=== PATIENT | female | born 1960 | race Caucasian/White ===

== ENCOUNTER 2019-04-01 09:33 | Emergency (ER) | payer MEDICARE, MEDICAID, SELFPAY ==
--- NOTE | ~2019-04-01 | XR_ITS ---
EXAMINATION: XR chest 2V DATE: 04/01/2019 10:34 INDICATION: COPD, history of laryngeal cancer, dizziness TECHNIQUE: PA and lateral views of the chest are obtained. COMPARISON: 04/25/2018 FINDINGS: The lungs are free of acute opacities. There is no pleural effusion or pneumothorax. The ca rdiomediastinal silhouette is normal. There is mild thoracic spondylosis. IMPRESSION: 1. No acute cardiopulmonary abnormality. Reviewed, dictated and finalized at location A. ENT OFFICE REP
[2019-04-01 09:44] VITALS: BP 143/90; PULSE 66; RESP 16; TEMP 36.7; O2SAT 98
--- NOTE | 2019-04-01 09:56 | ECG_ITS ---
Measurements Intervals [place] Rate: 64 P: 54 [place]: 151 QRS: 44 QRSD: 88 T: 44 QT: 409 QTc: 424 Interpretive Statements SINUS RHYTHM LOW QRS VOLTAGE IN PRECORDIAL LEADS BORDERLINE ECG Electronically Signed On 04-01-2019 10:02:35 ALMOND BLANCHER OPERATOR by Don Hyman D.O.
[2019-04-01 10:17] LABS: Basophils Percent Auto 0.5 % (0.2-1.2); Eosinophils Absolute Auto 0.1 K/mm3 (0-0.3); Eosinophils Percent Auto 3.2 % (0-4.4); Hematocrit 46.2 % (37.0-47.0); Hemoglobin 14.9 g/dL (12.0-15.0); Immature Granulocyte Absolute 0.01 K/mm3 (0.00-0.031); Immature Granulocyte Percent A 0.3 % (0-0.5); Lymphocytes Absolute Auto 0.68 K/mm3 (0.9-3.2); Lymphocytes Percent Auto 18.1 % (18.3-44.2); Mean Corpuscular HGB Conc 32.3 g/dl (32-36); Mean Corpuscular Hemoglobin 29.7 pg (26-34); Mean Corpuscular Volume 92.2 fl (80-100); Mean Platelet Volume 9.9 fl (7.4-10.4); Monocytes Absolute Auto 0.2 K/mm3 (0.1-0.6); Monocytes Percent Auto 5.6 % (2.6-8.5); Neutrophils Absolute Auto 2.7 K/mm3 (1.3-6.7); Neutrophils Percent Auto 72.3 % (45.5-73.1); Platelet Count Result 185 k/mm3 (150-375); Red Blood Count 5.01 M/mm3 (4.2-5.4); Red Cell Distribution Width 13.8 % (11.5-14.5); White Blood Count 3.8 K/mm3 (4.5-10.0)
--- NOTE | 2019-04-01 10:32 | PC.NURSE ---
PT TO XRAY AT THIS TIME.
[2019-04-01 10:37] LABS: Alanine Aminotransferase 31 U/L (4-35); Albumin Level 3.8 g/dL (3.5-5.1); Alkaline Phosphatase 159 U/L (38-126); Aspartate Amino Transferase 69 U/L (14-36); Blood Urea Nitrogen 11 mg/dL (7-17); Carbon Dioxide 33 mmol/L (22-30); Chloride 95 mmol/L (98-107); Estimated CRCL calculation 112 ml/min; Estimated Glomerular Filt Rate > 60; Glucose 209 mg/dL (65-105); Potassium 4.2 mmol/L (3.4-5.0); Sodium 134 mmol/L (137-145)
--- NOTE | 2019-04-01 10:42 | ED.DIZZY ---
HPI - Dizziness General Chief Complaint: Dizziness Stated Complaint: Dizzy Time Seen by Provider: 04/01/19 10:27 Source: patient and RN notes reviewed Mode of arrival: ambulatory Limitations: no limitations History of Present Illness HPI Narrative: Pt is a 58 y/o female who presents to the ED with c/o dizziness which began at 0300 this morning. She states she sat up and her symptoms were alleviated. She also reports lightheadedness due to her dizziness. Pt states she called her radiologist's office with her symptoms, who prompted the pt to come to the ED to be evaluated. She states as the morning has progressed, she has tried to lay down and clsoe her eyes to alleviate her symptoms, but there was not much relief. She reports movement has actually been worsening her symptoms. Pt also reports a burning sensation in her midsternal chest, SOB, and nausea, but denies chest pain, heart palpitations, or ABD pain. Pt reports she has an appointment with Dr. Santiago in 5 days. MD elicited complaint: dizziness Onset (ago): hour(s) (0300 this morning) Timing: sudden onset and awoke with symptoms Description: lightheadedness History of similar symptoms: No Exacerbating factors: movement/ambulation Relieving factors: other (sitting still earlier in the morning but no relieving symptoms currently) Associated symptoms: nausea, shortness of breath and other (burning sensation in midsternal chest) Related Data Home Medications Medication Instructions Recorded Confirmed aspirin [Aspir-Low] 81 mg PO DAILY 02/14/19 02/14/19 atorvastatin 40 mg PO DAILY 02/14/19 02/14/19 cefdinir 300 mg PO Q12H 02/14/19 02/14/19 duloxetine 60 mg PO DAILY 02/14/19 02/14/19 insulin degludec [Tresiba U-100 46 unit SUBCUT HS 02/14/19 02/14/19 Insulin] lorazepam [Ativan] 2 mg PO BID 02/14/19 02/14/19 metformin 500 mg PO BID 02/14/19 02/14/19 potassium chloride 10 meq PO DAILY 02/14/19 02/14/19 albuterol sulfate 2 puff INHALATION QID 02/18/19 02/18/19 Allergies Allergy/AdvReac Type Severity Reaction Status Date / Time codeine Allergy Mild NAUSEA/VOMI Unverified 05/21/08 15:41 TING Penicillins Allergy Mild HIVES Verified 04/25/18 21:38 warfarin Allergy Mild Unverified 05/21/08 15:41 adhesive tape Allergy Unknown RASH Verified 04/25/18 21:38 COCONUT Allergy Unknown Uncoded 11/03/04 06:38 TOMATOES Allergy Unknown Uncoded 11/03/04 06:38 Review of Systems Review of Systems: All systems reviewed & are unremarkable except as noted in HPI and below Cardiovascular: Cardiovascular: Denies chest pain, Reports lightheadedness, Reports dyspnea and Reports other (Reports:burning sensation in midsternal chest; Denies: heart palpitations) Respiratory: Respiratory: Reports dyspnea Gastrointestinal: Gastrointestinal: Denies abdominal pain, Reports heartburn and Reports nausea Neurologic: Reports dizziness PMFSH Past Medical History Medical History (Updated 04/01/19 @ 12:59 by Castillo Marrero MD) Asthma COPD (chronic obstructive pulmonary disease) Diabetes HTN (hypertension) Surgical History Surgical History (Updated 03/04/19 @ 14:37 by Alex Corona MD) H/O knee surgery H/O sinus surgery H/O: section History of cholecystectomy Family History Family History (Updated 02/14/19 @ 14:48 by Jason Wall MD) Other Breast cancer Maternal Aunt Mother Bladder cancer Small cell cancer of the bladder Social History Social History (Updated 02/14/19 @ 15:09 by Jason Wall MD) Smoking packs per day: 2 Smoking cigarettes per day: 40.0 Years smoked: 40 Smoking pack-years: 80.00 Smoking status: Current every day smoker Tobacco type: cigarettes Additional smoking assessment comments: down to 1/2 pack now Alcohol intake: former Substance use: never Spiritual care concerns: No Exam Narrative: Exam Narrative: Const: Obese, chronically ill appearing. No distress. HENMT: Dry mucous membranes, li
--- NOTE | 2019-04-01 10:49 | PC.NURSE ---
ANGY SOLANO AT BEDSIDE FOR PT ASSESSMENT. RN ALSO AT BEDSIDE AT THIS TIME, PT COMPLAINING ABOUT BP CUFF, ASKING IF IT WILL GO OFF ON IT'S OWN, I INFORMED PT THAT BP WOULD BE TAKEN EVERY HOUR SO TO HELP STAFF TRACK HER VS. PT UNNCOOPERATIVE, STATES THAT IM NOT WEARING THIS, IT HURTS MY ARM. PT THEN RIPS CUFF OFF ARM.
[2019-04-01 10:51] VITALS: BP 149/71; PULSE 68; RESP 13; O2SAT 96
--- NOTE | 2019-04-01 10:52 | PC.NURSE ---
PT UNABLE TO PRODUCE URINE SPECIMEN AT THIS TIME, REFUSING CATH, EDUCATED ON THE NEED FOR SAMPLE.
[2019-04-01] MEDS: SODIUM CHLORIDE 0.9% IV 1,000 ML 999 ML IV CONT (11:05)
[2019-04-01 12:12] VITALS: BP 147/62; PULSE 66
[2019-04-01 12:13] VITALS: BP 153/62; BP 163/91; PULSE 69; PULSE 70
[2019-04-01 12:18] VITALS: BP 163/91; PULSE 66; RESP 16; O2SAT 98
[2019-04-01 12:31] LABS: Add Urine Microscopic? YES; Appearance Urine Clear (Clear); Bacteria Urine Trace /hpf; Bilirubin Urine Negative (Negative); Blood Urine Negative (Negative); Color Urine Yellow (Yellow); Glucose Urine UA Negative (Negative); Ketones Urine Negative (Negative); Leukocyte Esterase Ur Trace LEU/UL (Negative); Mucus Urine Few /lpf; Nitrate Urine Negative (Negative); Protein Urine Negative (Negative); Specific Grav Ur 1.024 (1.001-1.035); Squamous Epithelial Cell Urine Many /hpf (Few)
[2019-04-01 13:13] VITALS: BP 163/91; PULSE 68; RESP 16; O2SAT 97
== END 2019-04-01 13:14 | disposition home or self-care (01) ==
PROVIDERS: Emergency Provider Emergency Medicine; PCP Internal Medicine
DX: R42 Dizziness and giddiness (principal); J44.9 Chronic obstructive pulmonary disease, unspecified; E11.9 Type 2 diabetes mellitus without complications; I10 Essential (primary) hypertension; Z79.4 Long term (current) use of insulin; Z79.84 Long term (current) use of oral hypoglycemic drugs; Z79.82 Long term (current) use of aspirin
CPT/HCPCS: 36415; 71046; 77387; 77412; 80053; 81001; 85025; 87086; 93005; 96360; 99283; A9270; J7030

== ENCOUNTER 2019-04-07 10:25 | Inpatient (IN) | payer MEDICARE, MEDICAID, SELFPAY ==
[2019-04-07] VITALS (12 sets, daily range): BP systolic 137–161; BP diastolic 58–85; PULSE 60–100; RESP 12–23; TEMP 36.2–36.8; O2SAT 96–100; BMI 40.2
--- NOTE | ~2019-04-07 | US_ITS ---
EXAMINATION: US venous doppler [facility] DATE: 04/08/2019 13:03 INDICATION: Pulmonary embolism. TECHNIQUE: Grayscale ultrasound images without and with compression and Doppler ultrasound images of the bilateral lower extremity veins were obtained. COMPARISON: None. FINDINGS: The visualized portions of right common femoral vein, profunda (deep) femoral vein, femoral vein, pop liteal vein, posterior tibial veins, peroneal veins, gastrocnemius vein and greater saphenous vein ou tflow are patent. There appears to be reflux of less than 2 second duration at the right popliteal ve in and of approximately 1 second duration at the right femoral vein. The visualized portions of left common femoral vein, profunda femoral vein, femoral vein, popliteal v ein, posterior tibial veins, peroneal veins, gastrocnemius vein and greater saphenous vein outflow ar e patent. IMPRESSION: 1. No deep venous thrombosis in either lower limb. Reviewed, dictated and finalized at location A. EAST ARCHEOLOGY PROFESSOR
--- NOTE | ~2019-04-07 | CT_ITS ---
EXAMINATION: CTA chest PE protocol DATE: 04/07/2019 12:03 INDICATION: Shortness of breath. Cough. TECHNIQUE: Computed tomography angiography (CTA) of the chest was performed with 100 mL Omnipaque-350 intravenous contrast timed to evaluate the pulmonary arteries. Coronal maximum intensity projection 3D-reconstructions were created by the technologist. Automated exposure control and iterative reconst ruction technique were employed. The dose-length product was 785.22 mGy-cm. COMPARISON: PET/CT 02/07/2019 FINDINGS: The lungs demonstrate mild atelectasis. There is mild emphysema. There are peripheral airsp roger and groundglass opacities in basilar right lower lobe. Right-sided pleural thickening is noted. N o significant pleural effusion. The heart size is normal. No pericardial effusion. There are coronary artery calcifications. There is linear nonocclusive thrombus in distal right main pulmonary artery a nd in right lower lobe pulmonary arteries. There is an old healed fracture of proximal right humerus. There is mild thoracic spondylosis. IMPRESSION: 1. Pulmonary emboli in distal right main pulmonary artery and in right lower lobe. 2. Peripheral airspace and groundglass opacities in basilar right lower lobe, consistent with infarct . 3. Mild emphysema. Reviewed, dictated and finalized at location A. RONMENTAL SERVICES ASSISTANT IMPRESSION: 1. Pulmonary emboli in distal right main pulmonary artery and in right lower lo be. 2. Peripheral airspace and groundglass opacities in basilar right lower lobe, c onsistent with infarct. 3. Mild emphysema.
--- NOTE | ~2019-04-07 | XR_ITS ---
EXAMINATION: XR chest 2V DATE: 04/07/2019 10:53 INDICATION: Shortness of breath. TECHNIQUE: Frontal and lateral views of the chest were obtained. COMPARISON: Chest 2 views 04/01/2019 FINDINGS: The chest demonstrates clear lungs without pneumonia, pleural effusion, or pneumothorax. Th e heart size is normal. There is an old healed fracture of proximal right humerus. IMPRESSION: 1. No acute cardiopulmonary disease. Reviewed, dictated and finalized at location A. T OFFICE JAVA DEVELOPER
--- NOTE | 2019-04-07 10:27 | ECG_ITS ---
Measurements Intervals [place] Rate: 62 P: 52 [place]: 154 QRS: 31 QRSD: 88 T: 43 QT: 395 QTc: 403 Interpretive Statements SINUS RHYTHM BASELINE ARTIFACT- II, III, AVR, AVF, V1 NORMAL ECG Electronically Signed On 04-07-2019 13:51:52 STEWARD/STEWARDESS by Don Hyman D.O.
[2019-04-07 10:48] LABS: Basophils Percent Auto 0.6 % (0.2-1.2); Eosinophils Absolute Auto 0.2 K/mm3 (0-0.3); Eosinophils Percent Auto 5.5 % (0-4.4); Hematocrit 42.5 % (37.0-47.0); Hemoglobin 13.6 g/dL (12.0-15.0); Lymphocytes Absolute Auto 0.72 K/mm3 (0.9-3.2); Mean Corpuscular Hemoglobin 29.4 pg (26-34); Mean Platelet Volume 9.9 fl (7.4-10.4); Monocytes Absolute Auto 0.3 K/mm3 (0.1-0.6); Monocytes Percent Auto 9.1 % (2.6-8.5); Neutrophils Absolute Auto 2.1 K/mm3 (1.3-6.7); Neutrophils Percent Auto 62.8 % (45.5-73.1); Platelet Count Result 174 k/mm3 (150-375); Red Blood Count 4.62 M/mm3 (4.2-5.4); Red Cell Distribution Width 13.8 % (11.5-14.5); White Blood Count 3.3 K/mm3 (4.5-10.0)
--- NOTE | 2019-04-07 10:54 | ED.SOB ---
HPI - SOB/Dyspnea General Chief Complaint: Shortness of Breath/Dyspnea <KRISTYN Carlin Last Filed: 04/07/19 13:44> Stated Complaint: ?sob/dehydration <KRISTYN Carlin Last Filed: 04/07/19 13:44> Time Seen by Provider: 04/07/19 10:29 <KRISTYN Carlin Last Filed: 04/07/19 13:44> Source: patient, family and old records reviewed <KRISTYN Carlin Last Filed: 04/07/19 13:44> Mode of arrival: ambulatory <KRISTYN Carlin Last Filed: 04/07/19 13:44> Limitations: no limitations <KRISTYN Carlin Last Filed: 04/07/19 13:44> History of Present Illness HPI Narrative: Patient is a 58-year-old female who presents to emergency department for evaluation of upper respiratory symptoms that have been present for the last 2 days noting productive cough of phlegm with some congestion patient is currently undergoing radiation therapy for laryngeal cancer patient on arrival is in the room in no distress symptoms worse with activity patient has had recent dehydration as well. Patient has not been seen for this complaint. Patient recently quit smoking. Patient also notes chills <KRISTYN Carlin Last Filed: 04/07/19 13:44> Related Data Home Medications: Home Medications Medication Instructions Recorded Confirmed aspirin [Aspir-Low] 81 mg PO DAILY 02/14/19 02/14/19 atorvastatin 40 mg PO DAILY 02/14/19 02/14/19 cefdinir 300 mg PO Q12H 02/14/19 02/14/19 duloxetine 60 mg PO DAILY 02/14/19 02/14/19 insulin degludec [Tresiba U-100 48 unit SUBCUT HS 02/14/19 02/14/19 Insulin] lorazepam [Ativan] 2 mg PO BID 02/14/19 02/14/19 metformin 500 mg PO BID 02/14/19 02/14/19 potassium chloride 10 meq PO DAILY 02/14/19 02/14/19 albuterol sulfate 2 puff INHALATION QID 02/18/19 02/18/19 Novolog Flexpen U-100 Insulin 04/07/19 <KRISTYN Carlin Last Filed: 04/07/19 13:44> Allergies/Adverse Reactions: Allergies Allergy/AdvReac Type Severity Reaction Status Date / Time codeine Allergy Mild NAUSEA/VOMI Unverified 05/21/08 15:41 TING Penicillins Allergy Mild HIVES Verified 04/25/18 21:38 warfarin Allergy Mild Unknown Unverified 04/07/19 10:58 adhesive tape Allergy Unknown RASH Verified 04/25/18 21:38 COCONUT Allergy Unknown Unknown Uncoded 04/07/19 10:58 TOMATOES Allergy Unknown Unknown Uncoded 04/07/19 10:58 <Lopez Trevino PA-C - Last Filed: 04/07/19 13:44> Review of Systems Review of Systems: All systems reviewed & are unremarkable except as noted in HPI and below <Lopez Trevino PA-C - Last Filed: 04/07/19 13:44> PMFSH Past Medical History Medical History: Medical History Asthma COPD (chronic obstructive pulmonary disease) Diabetes HTN (hypertension) <Lopez Trevino PA-C - Last Filed: 04/07/19 13:44> Surgical History Surgical History: Surgical History H/O knee surgery H/O sinus surgery H/O: section History of cholecystectomy <Lopez Trevino PA-C - Last Filed: 04/07/19 13:44> Family History Family History: Family History (Updated 02/14/19 @ 14:48 by Jason Wall MD) Other Breast cancer Maternal Aunt Mother Bladder cancer Small cell cancer of the bladder <Lopez Trevino PA-C - Last Filed: 04/07/19 13:44> Social History Social History: Social History Smoking packs per day: 2 Smoking cigarettes per day: 40.0 Years smoked: 40 Smoking pack-years: 80.00 Smoking status: Current every day smoker Tobacco type: cigarettes Additional smoking assessment comments: down to 1/2 pack now Alcohol intake: former Substance use: never Spiritual care concerns: No <Lopez Trevino PA-C - Last Filed: 04/07/19 13:44> Exam Narrative: Exam Narrative: GENERAL: Well-appear
[2019-04-07 10:59] LABS: Blood Urea Nitrogen 8 mg/dL (7-17); Calcium 9.2 mg/dL (8.4-10.2); Carbon Dioxide 30 mmol/L (22-30); Chloride 102 mmol/L (98-107); Estimated Glomerular Filt Rate > 60; Glucose 126 mg/dL (65-105); Sodium 137 mmol/L (137-145)
[2019-04-07] MEDS: SODIUM CHLORIDE 0.9% IV 1,000 ML 999 ML IV CONT (11:00)
[2019-04-07] MEDS: ALBUTEROL SULFATE NEB 2.5 MG/0.5 ML INH 20 MG INHALATION (11:02)
[2019-04-07] MEDS: IPRATROPIUM BR 0.02% INH SOLN 0.5 MG/2.5 ML VIAL 1 MG INHALATION (11:02)
[2019-04-07 11:15] LABS: INR 0.9; Prothrombin Time 11.4 Seconds (11.1-14.7)
[2019-04-07 11:16] LABS: Partial Thromboplastin Time 25.1 SECONDS (22.3-36.8)
[2019-04-07 11:16] LABS: Alveolar/Arterial O2 Gradient 25.5 mmHg; Base Excess ABG 2.5 mEq/l (+/-2.0); Carboxyhemoglobin 0.9 % THb (0-2.0); Fractional Inspired Oxygen 21 %; HCO3 ABG 28.2 mEq/l (22.0-26.0); Methemoglobin ABG 0.2 %THb (0-1.5); Oxygen Content ABG 18.4 %vol (16.0-22.0); Oxygen Saturation ABG 93.1 % (95.0-100.0); Oxyhemoglobin 92.7 % THb (90.0-100.0); PCO2 ABG 47.6 mmHg (35.0-45.0); PO2 ABG 67.2 mmHg (80.0-100.0); Reduced Hemoglobin 6.2 %THb (0-5.0); Total Hemoglobin 14.1 g/dL (12.0-18.0)
[2019-04-07 11:17] LABS: Device ROOM AIR; Site Drawn RIGHT BRACHIAL
[2019-04-07 11:18] LABS: D Dimer 0.73 ug/mL (<0.48)
[2019-04-07 11:23] LABS: Troponin I < 0.012 ng/mL (0.000-0.034)
[2019-04-07] MEDS: SILVER SULFADIAZINE 1% CR 50 GM JAR (*BKC) 1 APPLIC TOPICAL (13:33)
[2019-04-07] MEDS: HEPARIN SOD/D5W 100 UNITS/ML 25,000 UNITS/250 ML BAG 15 UNITS IV CONT (14:21)
[2019-04-07] MEDS: HEPARIN SODIUM 5,000 UNITS/ML VIAL 10000 UNITS IV PUSH (14:21)
--- NOTE | 2019-04-07 14:57 | PC.NURSE ---
This patient, Lanny Bustillo, was admitted to Medical Room 348-01. Patient/family oriented to hospital policies and general routines including ID bracelet, bed and alarms, visiting hours, pain management, procedures, bathroom and other care routines, personal items, smoking policy, room service/diet, and visiting hours. Valuables list has been completed. Information on how to activate the Rapid Response Team has been discussed. Patient/Family are encouraged to report perceived risks to care and to ask questions if they do not understand what they are told or what they should do.
--- NOTE | 2019-04-07 14:57 | PC.NURSE ---
PTT ordered 6hrs from the time the MAR showed the Heparin drip was started.
[2019-04-07] MEDS: SODIUM CHLORIDE 0.9% IV 1,000 ML 100 ML IV CONT (16:13)
[2019-04-07] MEDS: INSULIN ASPART (*BKC) 100 UNITS/ML SUB-Q (16:24)
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
[2019-04-07 18:15] LABS: Glucose Point of Care 205 (65-105)
[2019-04-07] MEDS: SILVER SULFADIAZINE 1% CR 400 GM JAR (*BKC) 1 APPLIC TOPICAL (18:21)
[2019-04-07] MEDS: FAMOTIDINE 20 MG/2 ML VIAL IV PUSH (20:39)
[2019-04-07 21:07] LABS: Partial Thromboplastin Time 181.5 SECONDS (22.3-36.8)
[2019-04-07] MEDS: LORAZEPAM 1 MG TABLET 2 MG PO (21:09)
[2019-04-08] VITALS: BP 124/61; PULSE 56; PULSE 58; RESP 16; TEMP 36.6; O2SAT 98
[2019-04-08 02:49] LABS: Basophils Percent Auto 0.9 % (0.2-1.2); Eosinophils Absolute Auto 0.1 K/mm3 (0-0.3); Eosinophils Percent Auto 4.7 % (0-4.4); Hematocrit 36.7 % (37.0-47.0); Hemoglobin 11.8 g/dL (12.0-15.0); Immature Granulocyte Absolute 0.01 K/mm3 (0.00-0.031); Immature Granulocyte Percent A 0.4 % (0-0.5); Lymphocytes Absolute Auto 0.86 K/mm3 (0.9-3.2); Lymphocytes Percent Auto 36.8 % (18.3-44.2); Mean Corpuscular HGB Conc 32.2 g/dl (32-36); Mean Corpuscular Hemoglobin 29.8 pg (26-34); Mean Corpuscular Volume 92.7 fl (80-100); Mean Platelet Volume 10.2 fl (7.4-10.4); Monocytes Absolute Auto 0.3 K/mm3 (0.1-0.6); Neutrophils Absolute Auto 1.1 K/mm3 (1.3-6.7); Neutrophils Percent Auto 45.2 % (45.5-73.1); Platelet Count Result 147 k/mm3 (150-375); Red Blood Count 3.96 M/mm3 (4.2-5.4); White Blood Count 2.3 K/mm3 (4.5-10.0)
[2019-04-08 02:53] LABS: Glucose Point of Care 194 (65-105)
[2019-04-08 03:05] LABS: Blood Urea Nitrogen 9 mg/dL (7-17); Calcium 8.1 mg/dL (8.4-10.2); Carbon Dioxide 31 mmol/L (22-30); Chloride 98 mmol/L (98-107); Estimated CRCL calculation 116 ml/min; Estimated Glomerular Filt Rate > 60; Glucose 132 mg/dL (65-105); Potassium 3.5 mmol/L (3.4-5.0); Sodium 137 mmol/L (137-145)
[2019-04-08 03:14] LABS: Partial Thromboplastin Time 24.9 SECONDS (22.3-36.8)
[2019-04-08] MEDS: SODIUM CHLORIDE 0.9% IV 1,000 ML 100 ML IV CONT ×2 (03:27→16:30)
[2019-04-08] MEDS: HEPARIN SODIUM 5,000 UNITS/ML VIAL 7000 UNITS IV PUSH (03:55)
[2019-04-08 04:00] VITALS: BP 124/60; PULSE 53; PULSE 58; RESP 16; TEMP 36.6; O2SAT 97
[2019-04-08 08:00] VITALS: PULSE 58
[2019-04-08 08:27] LABS: Glucose Point of Care 123 (65-105)
[2019-04-08] MEDS: FAMOTIDINE 20 MG/2 ML VIAL IV PUSH ×2 (09:48→21:18)
[2019-04-08] MEDS: SILVER SULFADIAZINE 1% CR 400 GM JAR (*BKC) 1 APPLIC TOPICAL ×2 (09:52→16:28)
[2019-04-08 09:58] LABS: Partial Thromboplastin Time 64.9 SECONDS (22.3-36.8)
[2019-04-08] MEDS: HEPARIN SODIUM 5,000 UNITS/ML VIAL 3500 UNITS IV PUSH (10:03)
[2019-04-08 12:00] VITALS: PULSE 64
[2019-04-08] MEDS: HEPARIN SOD/D5W 100 UNITS/ML 25,000 UNITS/250 ML BAG 17 UNITS IV CONT (13:11)
[2019-04-08] MEDS: LORAZEPAM 1 MG TABLET 2 MG PO ×2 (13:11→22:09)
[2019-04-08 13:49] LABS: Glucose Point of Care 189 (65-105)
[2019-04-08 16:00] VITALS: PULSE 76
[2019-04-08] MEDS: INSULIN ASPART (*BKC) 100 UNITS/ML SUB-Q (16:31)
[2019-04-08 16:43] LABS: Hemoglobin A1C 8.9 % (<5.7)
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
[2019-04-08 18:51] LABS: Glucose Point of Care 241 (65-105)
[2019-04-08 20:00] VITALS: BP 156/67; PULSE 64; PULSE 65; RESP 18; TEMP 36.5; O2SAT 100
[2019-04-08 21:57] LABS: Glucose Point of Care 197 (65-105)
[2019-04-09] VITALS: BP 117/51; PULSE 56; RESP 16; TEMP 36.3; O2SAT 96
[2019-04-09] MEDS: SODIUM CHLORIDE 0.9% IV 1,000 ML 100 ML IV CONT (02:24)
[2019-04-09 04:00] VITALS: BP 122/50; PULSE 56; PULSE 57; RESP 16; TEMP 36.1; O2SAT 98
[2019-04-09] MEDS: HEPARIN SOD/D5W 100 UNITS/ML 25,000 UNITS/250 ML BAG 17 UNITS IV CONT (04:35)
[2019-04-09 05:18] LABS: Partial Thromboplastin Time 85.3 SECONDS (22.3-36.8)
[2019-04-09 08:00] VITALS: BP 138/69; PULSE 54; PULSE 59; RESP 14; TEMP 36.1; O2SAT 96
--- NOTE | 2019-04-09 08:00 | ECHO_ITS ---
Patient Info Name: Lanny Bustillo Age: 58 years : 1960 Gender: Female Ht: 68 in Wt: 265 lbs BSA: 2.46 m2 HR: 57 bpm BP: 122 / 57 mmHg Heart Rhythm: Sinus Rhythm Technical Quality: Good Exam Date: 04/09/2019 11:27 AM Exam Location: [facility] Patient Status: Inpatient Admit Date: 04/07/2019 Staff Ordering Physician: Cj Onofre MD Lens Coater: Kalia Márquez RDCS Attending Provider: Cj Onofre MD Referring Physician: Kingston CNUHA; Exam Type: CA echo dop color flow w con Study Info Indications I26.99 - Other pulmonary embolism without acute cor pulmonale Complete two-dimensional, color flow and Doppler transthoracic echocardiogram is performed with contrast to opacify the left ventrical and to improve the deliniation of the left ventrical endocarial boarders. Contrast/Agitated Saline Contrast/Ag. Saline: Definity Amount: 2.00 ml Administered By: Lesli Aguillon RN Existing IV Access: Yes History/Risk Factors Pulmonary embolism; COPD, DM, laryngeal cancer. Summary 1. Suboptimal image quality. mild LV enlargement, mild LVH; normal LV systolic function, ejection fraction about 60%. Diastolic dysfunction is present. Cardiac valves not well visualized. Mild aortic stenosis by Doppler, echo calculated aortic valve area 2.2 cm2. Moderate pulmonary hypertension, RVSP 50 mmHg. Dilated IVC. Left Ventricle Left ventricular chamber dimension is mildly enlarged. Left ventricular systolic function is normal, estimated at 60-65%. There is mildly increased left ventricular wall thickness. Left ventricular septal wall motion is normal. The left ventricular diastolic function is abnormal. Right Ventricle Right ventricular chamber dimension is normal. Right ventricular systolic function is normal. Left Atria Left atrial chamber dimension is normal. Right Atria Right atrial chamber dimension is mildly enlarged. Aortic Valve The aortic valve is not well visualized. There is mild aortic valve stenosis with a peak velocity of 186.18 cm/s, mean gradient of 6 mmHg, and aortic valve area of 2.22 cm2. Pulmonic Valve The pulmonic valve is not well visualized. Mitral Valve The mitral valve has normal leaflets. There is no mitral valve stenosis. There is no mitral valve regurgitation. Tricuspid Valve The tricuspid valve leaflets are not well visualized. Moderate pulmonary hypertension, estimated pulmonary arterial systolic pressure is 50 mmHg. Pericardium/Pleural There is trivial pericardial effusion. Inferior Vena Cava Dilated inferior vena cava with <50% collapse upon inspiration consistent with elevated right atrial pressure, 15 mmHg. Aorta The aortic root size at the sinus of Valsalva is normal. The prox ascending aorta size is normal. Left Ventricular Outflow Tract Name Value Normal LVOT 2D LVOT Diameter 2.08 cm LVOT Doppler LVOT Peak Gradient 5 mmHg LVOT Mean Gradient 3 mmHg LVOT VTI 27.53 cm LVOT VTI/AV
[2019-04-09 08:55] LABS: Glucose Point of Care 159 (65-105)
[2019-04-09] MEDS: FAMOTIDINE 20 MG/2 ML VIAL IV PUSH (09:14)
[2019-04-09] MEDS: MUPIROCIN 2% OINT 22 GM TUBE 1 APPLIC EACH NARE (09:14)
[2019-04-09] MEDS: SILVER SULFADIAZINE 1% CR 400 GM JAR (*BKC) 1 APPLIC TOPICAL (09:15)
[2019-04-09 12:00] VITALS: BP 137/58; PULSE 55; PULSE 61; RESP 16; TEMP 36.3; O2SAT 96
[2019-04-09] MEDS: PERFLUTREN LIPID MICROSPHERES 1.5 ML VIAL DILUTED TO 10 ML TOTAL VOLUME IV PUSH (12:04)
[2019-04-09 12:33] LABS: Glucose Point of Care 220 (65-105)
[2019-04-09] MEDS: INSULIN ASPART (*BKC) 100 UNITS/ML SUB-Q (12:44)
[2019-04-09 16:00] VITALS: PULSE 62
--- NOTE | 2019-04-09 16:12 | PM.DS ---
DS: Diagnosis Admitting Diagnosis Admitting Diagnosis: Other pulmonary embolism without acute cor pulmonale Discharge Diagnosis (1) Pulmonary embolism: Code(s): I26.99 - Other pulmonary embolism without acute cor pulmonale Status: Acute Assessment and Plan: she has been started on IV heparin which will continue and plan on transitioning to Xa inhibitor (Xarelto) at discharge / she relates she has been more active but she is obese has been a smoker and is undergoing radiation treatment for laryngeal CA which all puts her at higher risk for thromboembolic events. Doppler negative for LE dvt Echo w/ moderate pulmonary HTN (50) Instructed patient and son at bedside re: fall precautions on Xarelto, risk of intracranial bleed, increased risk of urinary and hemorrhoid bleeding (2) Laryngeal squamous cell carcinoma: Code(s): C32.9 - Malignant neoplasm of larynx, unspecified Status: Acute Assessment and Plan: she has completed treatments as stated. will resume afterwards with Dr. Wall increase her pain meds to dose she was getting at home (3) COPD (chronic obstructive pulmonary disease): Code(s): J44.9 - Chronic obstructive pulmonary disease, unspecified Status: Acute Assessment and Plan: p.r.n. albuterol (4) Diabetes: Code(s): E11.9 - Type 2 diabetes mellitus without complications Status: Acute Assessment and Plan: continue her usual dose of long-acting insulin with sliding scale and an A1c 8.9 FBS 132 DS: Summary Hospital Course Reason for hospitalization: dyspnea Hospital Course: Admitted with dyspnea. CTA revealed pulmonary emboli. Tolerated anticoagulation with heparin. NO bleeding. Transitioned to Xarelto at discharge. No oxygen requirement. See problem summary. Status at Discharge Functional status at discharge: independent ambulation Overall status at discharge: patient is progressing back to baseline Time Spent with Patient Time attestation: Total time spent providing and/or coordinating discharge services:39 min Exam Narrative: Exam Narrative: pupils equal reactive to light sclera anicteric mouth mucosa appears normal neck is supple there is some swelling and obvious radiation burn across her neck, there is a 3 x 3 cm soft lipoma at the angle of the jaw on the right which she said has been there for years lungs clear no wheezing or consolidation CV regular rate rhythm no murmurs or gallops abdomen is soft nontender bowel sounds are active extremities without edema dorsalis pedis posterior tibial 1+ . neuro alert cranial nerves 2-12 intact no focal deficits DS: Data Data Completed and Pending Labs on day of discharge: Labs from last 24 hours 04/09/19 04/09/19 04/09/19 12:28 08:49 04:58 APTT 85.3 H POC Capillary Glucose 220 H 159 H Hemoglobin A1c 04/08/19 04/08/19 04/08/19 23:01 20:22 16:27 APTT 83.0 H POC Capillary Glucose 197 H 241 H Hemoglobin A1c 04/08/19 04/08/19 16:12 16:12 APTT 88.0 H POC Capillary Glucose Hemoglobin A1c 8.9 H Discharge Plan Discharge Attending physician on discharge: Garfield Fam Consulting providers: Lopez Trevino Discharging Clinician: Garfield Fam Patient Disposition: Home, Self-Care Activity: other - see discharge instructions Diet: diabetic Discharge Instructions: Avoid climbing, bicycling, roughhousing, power tools, slippery surfaces, walking in sock feet, and any other activity that increases risk of falling or head injury. Avoid aspirin, naproxen, and ibuprofen. You may use Tylenol as needed for pain. You must take Xarelto for at least one year, as long as you do not develop side effects. Discuss with your doctor whether you should take Xarelto for a longer period of time. After the 15 mg tablet twice daily for 21 days, start the 20mg tablet daily with supper. Get the prescription for the 20mg tablet
== END 2019-04-09 18:04 | disposition home or self-care (01) | DRG 175 ==
LOC: ANHED 13:52 → ANH3MED 14:25
PROVIDERS: Emergency Medicine Emergency Medical Services; Family Medicine; Nurse Practitioner; Admitting Provider Internal Medicine; Emergency Provider Emergency Medicine; PCP Internal Medicine; Visit Provider Internal Medicine
DX: I26.99 Other pulmonary embolism without acute cor pulmonale (principal); D61.811 Other drug-induced pancytopenia; Z68.41 Body mass index [BMI] 40.0-44.9, adult; T50.8X5A Adverse effect of diagnostic agents, initial encounter; E66.9 Obesity, unspecified; C32.9 Malignant neoplasm of larynx, unspecified; J44.9 Chronic obstructive pulmonary disease, unspecified; E11.9 Type 2 diabetes mellitus without complications; F17.210 Nicotine dependence, cigarettes, uncomplicated; I10 Essential (primary) hypertension; Z90.49 Acquired absence of other specified parts of digestive tract; Z86.718 Personal history of other venous thrombosis and embolism
CPT/HCPCS: 36415; 36600; 71046; 71275; 80048; 82375; 82805; 83036; 83050; 84484; 85025; 85380; 85610; 85730; 87081; 87804; 87880; 93005; 93970; 96361; 96365; 96366; 96368; 99291; A9270; C8929; J0131; J1644; J1815; J7030; Q9957; Q9967

== ENCOUNTER 2019-05-28 10:57 | Outpatient (CLI) | payer MEDICARE, MEDICAID, SELFPAY ==
--- NOTE | ~2019-05-28 | PE_ITS ---
EXAMINATION: PET skull to mid thigh DATE: 05/28/2019 13:09 INDICATION: Laryngeal cancer TECHNIQUE: Blood glucose level was 126 mg/dL. 8.06 mCi of 18-fluorodeoxyglucose (18-FDG) was administ ered i.v. Low dose computed tomography (CT) images were acquired from the base of the brain to the pr oximal thighs for attenuation correction and anatomic localization. Positron emission tomography (PET ) images were acquired in the same distribution beginning 51 minutes after injection. The dose-length product (DLP) was 1299.57 mGy-cm. COMPARISON: 02/07/2019, 04/07/2019 FINDINGS: Head/neck: There is slight persistent asymmetric FDG uptake in the right vocal cord with an SUV max o f 3.3, previously 12.3. There appears to be mild persistent but decreased asymmetric thickening of th e right vocal cord compared to the left. Again noted is an old blowout fracture of the medial wall of the right orbit. There is complete opacification of the right maxillary and sphenoid sinuses with pa rtial opacification of the right nasal cavity. There is an unchanged subcutaneous mass of the right n neida without FDG uptake, consistent with a sebaceous cyst. There are no pathologically enlarged lymph nodes. Chest: There is an approximately 1.6 cm soft tissue density at the left hilum with abnormal FDG uptak e and SUV max of 14.4. There appears to be an associated endobronchial component involving the superi or segment of the left lower lobe. The heart size is normal. There is mild dependent atelectasis on t he right. No pleural effusion or pneumothorax is present. There is mild dependent atelectasis on the left. Calcified coronary artery atherosclerosis is noted. Abdomen/pelvis/proximal thighs: Physiologic FDG activity is present in the bowel and urinary tract. T he gallbladder is surgically absent. The liver, spleen, pancreas, and adrenal glands are normal. The kidneys are unremarkable. There is calcified atherosclerosis of the aorta and many of the other arter ies. No pathologically enlarged abdominal or pelvic lymph nodes are identified. There is no free intr aperitoneal gas or evidence of bowel obstruction. Musculoskeletal: There is mild FDG uptake in the paraspinal muscles of the lumbar spine and in the sh oulders without suspicious CT correlate, likely physiologic. IMPRESSION: 1. Interval decrease in FDG uptake and asymmetric thickening of the right vocal cord, consistent with treatment response. 2. Soft tissue density at the left hilum with suspected associated bronchial component involving the superior segment of the left lower lobe and increased FDG uptake. Finding could reflect an endobronch ial mass such as carcinoid. Endoscopy is recommended. Reviewed, dictated and finalized at location A. IMPRESSION: 1. Interval decrease in FDG uptake and asymmetric thickening of the right vocal cord, consistent with treatment response. 2. Soft tissue density at the left hilum with suspected associated bronchial co mponent involving the superior segment of the left lower lobe and increased FDG uptake. Finding could reflect an endobronchial mass such as carcinoid. Endosco py is recommended.
[2019-05-28 11:30] LABS: Glucose Point of Care 126 (65-105)
== END 2019-05-28 10:58 | disposition home or self-care (01) ==
PROVIDERS: PCP Internal Medicine; Visit Provider Radiology Radiation Oncology
DX: C32.0 Malignant neoplasm of glottis (principal); R91.8 Other nonspecific abnormal finding of lung field
CPT/HCPCS: 78815; A9552

== ENCOUNTER 2019-07-17 00:31 | Outpatient (CLI) | payer MEDICARE, MEDICAID, SELFPAY ==
[2019-07-17 17:33] LABS: SARS-CoV-2 RNA PCR Negative
== END 2019-07-17 00:32 | disposition home or self-care (01) ==
LOC: ANHCOVIDDT 00:32
PROVIDERS: PCP Internal Medicine; Visit Provider Internal Medicine Critical Care Medicine
DX: Z01.818 Encounter for other preprocedural examination (principal); Z11.59 Encounter for screening for other viral diseases
CPT/HCPCS: 87635; C9803; U0003

== ENCOUNTER 2019-07-19 00:43 | Day surgery (SDC) | payer MEDICARE, MEDICAID, SELFPAY ==
[2019-07-16 15:32] VITALS: BMI 38.0
[2019-07-19] VITALS (8 sets, daily range): BP systolic 106–161; BP diastolic 53–86; PULSE 71–95; RESP 13–18; TEMP 36; O2SAT 96–99
[2019-07-19] MEDS: LACTATED RINGERS 1,000 ML 150 ML IV CONT ×2 (10:36→12:36)
[2019-07-19 10:54] LABS: Glucose Point of Care 448 (65-105)
[2019-07-19] MEDS: INSULIN HUMAN REGULAR (*BKC) 100 UNITS/ML 12 UNITS SUB-Q ×2 (10:56→13:37)
--- NOTE | 2019-07-19 11:01 | WPDANESEPPF ---
Anes - Initial Pre Proc Eval Procedure: Operation Date: 07/19/19 11:30 Proposed Procedures p Bronchoscopy - Teagan Villanueva MD Date/Time: 07/19/19 11:01 Surgeon: Teagan Villanueva MD Pre Op Diagnosis: Lung Nodule Patient Data Age: 58 Gender: F Height: 5 ft 8 in Weight: 117.8 kg Last Vital Signs Temp 36.0 C L 07/19/19 10:10 Pulse 95 07/19/19 10:10 Resp 18 07/19/19 10:10 BP 136/76 07/19/19 10:10 Pulse Ox 97 07/19/19 10:10 Allergies Allergy/AdvReac Type Severity Reaction Status Date / Time adhesive tape Allergy Mild RASH Verified 07/19/19 10:10 codeine Allergy Mild NAUSEA/VOMI Verified 07/19/19 10:10 TING Penicillins Allergy Mild HIVES Verified 07/19/19 10:10 warfarin Allergy Mild Hives Verified 07/19/19 10:10 COCONUT Allergy Mild Rash Uncoded 07/19/19 10:10 TOMATOES Allergy Mild Rash Uncoded 07/19/19 10:10 Home Medications Medication Instructions Recorded Confirmed Type Tresiba U-100 Insulin 48 unit SUBCUT HS 02/14/19 07/19/19 History albuterol sulfate 2 puff INHALATION QID 02/18/19 07/19/19 History Novolog Flexpen U-100 Insulin See Rx Instructions .ROUTE .COMPLEX 04/07/19 07/19/19 History mupirocin 1 applic EACHNARE Q12HR #15 g 04/09/19 07/16/19 Rx rivaroxaban [Xarelto] 15 mg PO Q12H #42 tablet 04/09/19 07/19/19 Rx alprazolam 1 mg PO DAILY PRN 07/16/19 07/19/19 History atorvastatin 40 mg PO DAILY 07/16/19 07/19/19 History duloxetine 60 mg PO DAILY 07/16/19 07/19/19 History escitalopram oxalate 5 mg PO DAILY 07/16/19 07/19/19 History ezetimibe 10 mg PO DAILY 07/16/19 07/19/19 History losartan 25 mg PO DAILY 07/16/19 07/19/19 History metformin 500 mg PO BID 07/16/19 07/19/19 History pilocarpine HCl 5 mg PO DAILY 07/16/19 07/19/19 History potassium chloride 10 meq PO DAILY 07/16/19 07/19/19 History Laboratory Tests 07/19/19 10:31 POC Capillary Glucose 448 mg/dl H mg/dl (65-105) Patient hx anesthesia problems: none Family hx anesthesia problems: none PMFSH Past Medical History Medical History Asthma COPD (chronic obstructive pulmonary disease) Diabetes History of tobacco abuse Surgical History Surgical History H/O knee surgery H/O sinus surgery H/O: section History of cholecystectomy Family History Family History Other Breast cancer Maternal Aunt Mother Bladder cancer Small cell cancer of the bladder Social History Social History Smoking packs per day: 2 Smoking cigarettes per day: 40.0 Years smoked: 40 Smoking pack-years: 80.00 Smoking status: Former smoker Tobacco type: cigarettes Smoking end date: 02/06/19 Alcohol intake: former Substance use: never Gender identity (if verbalized by the patient): Female Spiritual care concerns: No Agree to blood products: Yes Anes - Eval Final PreProcedure Day of Procedure 07/19/19 11:01 Patient weight: morbidly obese Heart: regular rate and rhythm Lungs: decreased breath sounds Airway: Mallampati scale class III Neurological: alert and oriented Last oral intake: >/= 8 hours ASA classification: III Emergent: no Anesthetic plan: proceed Anesthesia type and monitoring: general ETT and standard monitoring Informed Consent: The patient's anesthetic plan and its attendant risks and benefits were discussed with the patient/family/POA. Questions were solicited and answers provided to the satisfaction of the patient/family/POA.
[2019-07-19] MEDS: MIDAZOLAM HCL 2 MG/2 ML VIAL IV PUSH (11:09)
[2019-07-19 11:36] LABS: Glucose Point of Care 460 (65-105)
--- NOTE | 2019-07-19 11:42 | SUR.PREOP ---
DR PENALOZA NOTIFIED BS 460 ORDERS FOR LR 500ML BOLUS
[2019-07-19] MEDS: LACTATED RINGERS 500 ML 999 ML IV CONT (11:51)
[2019-07-19 12:05] LABS: Glucose Point of Care 393 (65-105)
--- NOTE | 2019-07-19 12:44 | SUR.OPER ---
20 ml NS intrabrochial in. 10 ml NS out in washings.
[2019-07-19 12:56] LABS: Glucose Point of Care 363 (65-105)
--- NOTE | 2019-07-19 13:54 | SUR.PHASEII ---
BLOOD SUGAR NOW 333. NOTIFIED DR PENALOZA ANESTHESIOLOGIST ORDERS TO DISCHARGE HOME PER DR PENALOZA.
[2019-07-19 14:19] LABS: Glucose Point of Care 333 (65-105)
== END 2019-07-19 14:10 | disposition home or self-care (01) ==
PROVIDERS: PCP Internal Medicine; Visit Provider Internal Medicine Critical Care Medicine
PROC: 0BJ08ZZ Inspection of Tracheobronchial Tree, Via Natural or Artificial Opening Endoscopic (ICD-10-PCS; CPT 31622; principal; 2019-07-19 11:30)
DX: R91.8 Other nonspecific abnormal finding of lung field (principal); Z85.21 Personal history of malignant neoplasm of larynx; Z92.3 Personal history of irradiation; J44.9 Chronic obstructive pulmonary disease, unspecified; E11.9 Type 2 diabetes mellitus without complications; I27.20 Pulmonary hypertension, unspecified; G47.10 Hypersomnia, unspecified; Z79.01 Long term (current) use of anticoagulants; Z79.84 Long term (current) use of oral hypoglycemic drugs; Z87.891 Personal history of nicotine dependence; E66.01 Morbid (severe) obesity due to excess calories; Z68.39 Body mass index [BMI] 39.0-39.9, adult; Z79.4 Long term (current) use of insulin; Z86.711 Personal history of pulmonary embolism
CPT/HCPCS: 31622; 87015; 87070; 87102; 87106; 87107; 87116; 87205; 87206; J1815; J2250; J2704; J7120

== ENCOUNTER 2019-10-15 07:44 | Outpatient (CLI) | payer MEDICARE, MEDICAID, SELFPAY ==
--- NOTE | ~2019-10-15 | CT_ITS ---
EXAMINATION: CT chest w con DATE: 10/15/2019 08:27 INDICATION: Malignant neoplasm of the left lower lobe of the lung, history of larynx cancer TECHNIQUE: Transaxial computed tomographic images of the chest were obtained after the administration of 75 cc of Omnipaque 350 intravenous contrast. The dose-length product (DLP) was 771.26 mGy-cm. Ite rative reconstruction was used. COMPARISON: 04/07/2019, 05/28/2019 FINDINGS: There has been slight decrease in size in the previously described left hilar nodule which measures approximately 10 mm in greatest dimension, previously 16 mm. In addition, the left lower lob e bronchus previously obstructed by the mass is now narrowed but patent. There is mild emphysema. No pleural effusion or pneumothorax is identified. No pathologically enlarged thoracic lymph nodes are i dentified. The heart size is normal. The gallbladder is surgically absent. There is mild thoracic spo ndylosis. IMPRESSION: 1. Interval decrease in size of previously described left hilar nodule, non-small cell lung cancer (s quamous cell carcinoma) according to radiation oncology notes, with narrowed but now patent left lowe r lobe bronchus which was previously obstructed. Reviewed, dictated and finalized at location B. IMPRESSION: 1. Interval decrease in size of previously described left hilar nodule, non-sma ll cell lung cancer (squamous cell carcinoma) according to radiation oncology n otes, with narrowed but now patent left lower lobe bronchus which was previousl y obstructed.
[2019-10-15 08:13] LABS: Estimated Glomerular Filt Rate > 60
== END 2019-10-15 07:45 | disposition home or self-care (01) ==
PROVIDERS: PCP Internal Medicine; Visit Provider Internal Medicine Hematology & Oncology
DX: C34.32 Malignant neoplasm of lower lobe, left bronchus or lung (principal)
CPT/HCPCS: 71260; Q9967

== ENCOUNTER 2019-10-16 14:58 | Outpatient (CLI) | payer MEDICARE, MEDICAID, SELFPAY ==
[2019-10-16 15:12] LABS: Basophils Percent Auto 0.6 % (0.2-1.2); Eosinophils Absolute Auto 0.2 K/mm3 (0-0.3); Eosinophils Percent Auto 3.7 % (0-4.4); Hematocrit 46.9 % (37.0-47.0); Hemoglobin 15.4 g/dL (12.0-15.0); Immature Granulocyte Absolute 0.02 K/mm3 (0.00-0.031); Immature Granulocyte Percent A 0.4 % (0-0.5); Lymphocytes Absolute Auto 0.85 K/mm3 (0.9-3.2); Lymphocytes Percent Auto 17.5 % (18.3-44.2); Mean Corpuscular HGB Conc 32.8 g/dl (32-36); Mean Corpuscular Hemoglobin 30.1 pg (26-34); Mean Corpuscular Volume 91.6 fl (80-100); Mean Platelet Volume 10.1 fl (7.4-10.4); Monocytes Absolute Auto 0.3 K/mm3 (0.1-0.6); Monocytes Percent Auto 5.5 % (2.6-8.5); Neutrophils Absolute Auto 3.5 K/mm3 (1.3-6.7); Neutrophils Percent Auto 72.3 % (45.5-73.1); Platelet Count Result 210 k/mm3 (150-375); Red Blood Count 5.12 M/mm3 (4.2-5.4); Red Cell Distribution Width 13.4 % (11.5-14.5); White Blood Count 4.9 K/mm3 (4.5-10.0)
[2019-10-16 15:15] LABS: Blood Urea Nitrogen 14 mg/dL (8-26); Carbon Dioxide 25 mmol/L (22-30); Chloride 94 mmol/L (98-109); Estimated Glomerular Filt Rate > 60; Glucose 504 mg/dL (70-105); Sodium 133 mmol/L (138-146)
[2019-10-16 17:24] LABS: Alanine Aminotransferase 17 U/L (4-35); Albumin Level 4.1 g/dL (3.5-5.1); Alkaline Phosphatase 127 U/L (38-126); Anion Gap 14 mmol/L (8-16); Aspartate Amino Transferase 20 U/L (14-36); Bilirubin,Total 1.2 mg/dL (0.2-1.3); Blood Urea Nitrogen 13 mg/dL (7-17); Calcium 9.1 mg/dL (8.4-10.2); Carbon Dioxide 23 mmol/L (22-30); Chloride 93 mmol/L (98-107); Estimated Glomerular Filt Rate > 60; Glucose 502 mg/dL (65-105); Potassium 4.2 mmol/L (3.4-5.0); Sodium 130 mmol/L (137-145)
== END 2019-10-16 14:59 | disposition home or self-care (01) ==
PROVIDERS: PCP Internal Medicine; Visit Provider Internal Medicine Hematology & Oncology
DX: C34.32 Malignant neoplasm of lower lobe, left bronchus or lung (principal)
CPT/HCPCS: 36415; 80048; 80053; 85025

== ENCOUNTER 2019-12-23 08:52 | Outpatient (CLI) | payer MEDICARE, MEDICAID, SELFPAY ==
--- NOTE | ~2019-12-23 | CT_ITS ---
EXAMINATION: CT chest wo con DATE: 12/23/2019 09:40 INDICATION: Restaging of left lower lobe Lung cancer. Glottis carcinoma. TECHNIQUE: Computed tomography (CT) of the chest was performed without intravenous contrast. Automate d exposure control and iterative reconstruction technique were employed. Exam dose: 928.85 mGy-cm to elmer exam DLP. COMPARISON: 10/15/2019 CT chest FINDINGS: Normal heart size. Coronary artery calcifications. Aortic and great vessel calcifications. No pericardial or pleural effusion. No thoracic aortic aneurysm. No hilar or mediastinal enlargement. No adrenal mass lesion is detected. There are scattered linear scars of the right upper lobe and the lower lobes. There is further narrowing at the left lower lobe bronchus, which may be secondary to scarring or rec urrent mass lesion. Continued CT thorax follow up or PET/CT scan is recommended. No pulmonary infiltrate or consolidation or pulmonary mass lesion is detected otherwise. Old fracture deformity of the proximal right humerus. No suspicious osteolytic or osteoblastic lesio ns are noted. IMPRESSION: Further narrowing at the left lower lobe bronchus since 10/15/2019; consider follow up CT thorax or PET/CT scan Reviewed, dictated and finalized at Location [facility]. Reviewed, dictated and finalized at location B. MO TENDER
--- NOTE | ~2019-12-23 | CT_ITS ---
EXAMINATION: CT soft tissue neck w con EXAM DATE: 12/23/2019 09:40 INDICATION: Lung cancer, glottic cancer. TECHNIQUE: Spiral CT of the neck was performed following intravenous injection of 75 mL Omnipaque 350 . Axial, coronal and sagittal images were reviewed. The dose-length product (DLP) for this examinat ion was 632.99 mGy-cm. The exposure was tailored according to patient size (auto mA exposure control ), and iterative reconstruction (ASIR) was used as additional dose reduction technique. There is no prior study for comparison. FINDINGS: There is indistinct fat planes of glottis, and asymmetry of the vocal cords, with the right side bulging for the left. The epiglottis is normal in thickness. The thyroid gland is unremarkable . The submandibular and parotid glands are symmetric. There is no cervical lymphadenopathy. Ther e are no masses identified. The superior mediastinum is unremarkable. Parapharyngeal and pre-pepe ttic fat planes are preserved. Carotid arterial sclerosis without definite stenosis. The orbits are u nremarkable. Visualized sinuses and mastoid air cells are well aerated. There is cervical spondyl osis. IMPRESSION: Indistinct fat planes epiglottis, with some asymmetry, bulging of the right vocal cord. This could be location of patient's reported cancer. Reviewed, dictated and finalized at location A. 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
[2019-12-23 09:29] LABS: Estimated Glomerular Filt Rate > 60
== END 2019-12-23 08:53 | disposition home or self-care (01) ==
PROVIDERS: PCP Internal Medicine; Visit Provider Radiology Radiation Oncology
DX: C34.32 Malignant neoplasm of lower lobe, left bronchus or lung (principal); C32.0 Malignant neoplasm of glottis
CPT/HCPCS: 70491; 71250; Q9967

== ENCOUNTER 2020-06-05 10:45 | Outpatient (RCR) | payer MEDICARE, MEDICAID, SELFPAY | END 2020-06-30 08:37 | disposition home or self-care (01) | LOC: ANHDMC 10:45 | PROVIDERS: PCP Internal Medicine; Visit Provider Internal Medicine Endocrinology, Diabetes & Metabolism | DX: E11.65 Type 2 diabetes mellitus with hyperglycemia (principal); Z71.89 Other specified counseling | CPT/HCPCS: G0108 ==

== ENCOUNTER 2020-08-06 11:54 | Outpatient (RCR) | payer MEDICARE, MEDICAID, SELFPAY ==
--- NOTE | 2020-08-06 13:21 | PCPTNOTE ---
Patient:Lanny Bustillo Date of :1960 [facility] [employer] wheelchair seating assessment Thank you for referring this patient to [facility]. Lanny Bustillo has been evaluated for wheelchair seating and recommendations have been made, with assistance of the DME provider from [facility] present. No additional therapy services are required at this time.The findings have been scanned into the patient's EMR. Please review, sign, date and return this recognition of care provided. I agree with and certify that the following plan for DME equipment is medically necessary.
== END 2020-08-06 17:30 | disposition home or self-care (01) ==
LOC: ANHPT 11:54
PROVIDERS: PCP Internal Medicine; Referring Provider Internal Medicine; Visit Provider Internal Medicine
DX: R26.89 Other abnormalities of gait and mobility (principal); C34.90 Malignant neoplasm of unspecified part of unspecified bronchus or lung; I26.99 Other pulmonary embolism without acute cor pulmonale; J44.9 Chronic obstructive pulmonary disease, unspecified
CPT/HCPCS: 97163

== ENCOUNTER 2020-08-27 14:00 | Outpatient (RCR) | payer MEDICARE, MEDICAID, SELFPAY | END 2020-10-19 12:24 | disposition home or self-care (01) | LOC: ANHDMC 14:00 | PROVIDERS: PCP Internal Medicine; Visit Provider Internal Medicine Endocrinology, Diabetes & Metabolism | DX: E11.65 Type 2 diabetes mellitus with hyperglycemia (principal); Z71.89 Other specified counseling | CPT/HCPCS: G0108 ==

== ENCOUNTER 2020-11-26 15:02 | Outpatient (RCR) | payer MEDICARE, OTHER, SELFPAY | END 2021-02-22 13:49 | disposition home or self-care (01) | LOC: ANHDMC 15:02 | PROVIDERS: PCP Internal Medicine; Visit Provider Internal Medicine Endocrinology, Diabetes & Metabolism | DX: E11.65 Type 2 diabetes mellitus with hyperglycemia (principal) | CPT/HCPCS: 99199 ==

== ENCOUNTER 2021-01-12 12:14 | Outpatient (CLI) | payer OTHER, SELFPAY ==
--- NOTE | ~2021-01-12 | PE_ITS ---
EXAMINATION: PET skull to mid thigh DATE: 01/12/2021 14:28 INDICATION: Malignant tumor of the lung TECHNIQUE: Blood glucose level was 114 mg/dL. 9.825 mCi of 18-fluorodeoxyglucose (18-FDG) was adminis tered i.v. Low dose computed tomography (CT) images were acquired from the base of the brain to the p roximal thighs for attenuation correction and anatomic localization. Positron emission tomography (PE T) images were acquired in the same distribution beginning 66 minutes after injection. Images includi ng fused PET/CT images were reconstructed in axial, coronal, and sagittal planes. Automated exposure control technique was employed. The dose-length product was 1507.32mGy-cm. COMPARISON: PET CT dated 05/28/[address] neck and chest dated 12/23/2019 FINDINGS: Head/neck: There is symmetric increased activity in the oral cavity and ocular muscles without CT correlate, lik preston physiologic. The previous mild asymmetric increased uptake along the right vocal cord has resolve d. No pathologically enlarged cervical lymphadenopathy or suspicious foci of increased FDG uptake in the visualized head or neck. Chest: New band of lingular discoid atelectasis along the major fissure without evident increased FDG activi ty. Additional bandlike region of consolidation at the posterior medial left lower lobe encompassing the region of a prior perihilar FDG avid nodule with prior maximal SUV of 14.1 which likely represent s radiation fibrosis related to treatment of a prior reported lung cancer. There is mild increased FD G uptake with maximal SUV of 4.0 in the subpleural region of this area of consolidation which could b e either inflammatory or small amount of residual malignancy. Right lung is clear. Heart size is norm al. Atherosclerotic coronary artery calcific location. No pericardial effusion. No pathologically enl arged or FDG avid thoracic lymphadenopathy. Abdomen/pelvis/proximal thighs: Physiologic renal accumulation and excretion of FDG activity in the kidneys, bladder and along portio ns of ureters. Cholecystectomy clips the gallbladder fossa. Normal degree and heterogenous pattern of increased uptake throughout the liver without radiologic correlate or dominant FDG avid lesion. The pancreas, spleen and bilateral adrenal glands are normal. Mild to moderate uptake scattered throughou t the bowels without radiologic correlate, also likely physiologic. There is calcified atherosclerosi s of the aorta and many of the other arteries. No other abnormal foci of increased FDG uptake or pat hologically enlarged lymphadenopathy in the abdomen, pelvis or proximal thighs. Musculoskeletal: Old healed fractures of the right humeral head with small region of osteonecrosis near the apex. Diff use mild synovial uptake at the bilateral glenohumeral joints. Moderate bilateral hip osteoarthritis. No suspicious lytic, blastic or FDG avid bone lesions. Chronic heterotopic ossification in the subcu taneous fat at the inferomedial left gluteal region. IMPRESSION: 1. Band of likely atelectasis/scarring related to radiation treatment extending across the lingula an d left lower lobe for treatment of a prior markedly FDG avid left lower lobe nodule. There is mild in creased FDG uptake at the lateral side of the region of consolidation in the left lower lobe which co uld be either inflammatory or related to small amount of residual malignancy. Consider reevaluation w ith a short interval follow-up PET/CT. 2. No evident FDG uptake at the site of a prior focus of increased activity along the right vocal cor d likely reflecting response to treatment of a reported prior bladder cancer. 3. No other lesions suspicious for metastatic disease in the neck, chest, abdomen or pelvis. Reviewed, dictated and finalized at location B. Electronically signed by Christos Pugh M.D
[2021-01-12 12:38] LABS: Glucose Point of Care 114 mg/dl (65-105)
== END 2021-01-12 12:15 | disposition home or self-care (01) ==
LOC: ANHIMG 12:19
PROVIDERS: PCP Internal Medicine; Visit Provider Internal Medicine Pulmonary Disease
DX: Z03.89 Encounter for observation for other suspected diseases and conditions ruled out (principal); C34.32 Malignant neoplasm of lower lobe, left bronchus or lung; J98.11 Atelectasis
CPT/HCPCS: 78815; A9552

== ENCOUNTER 2021-05-13 12:04 | Outpatient (CLI) | payer MEDICARE, MEDICAID, SELFPAY ==
--- NOTE | ~2021-05-13 | PE_ITS ---
EXAMINATION: PET skull to mid thigh DATE: 05/13/2021 14:52 INDICATION: Malignant tumor of the lung TECHNIQUE: Blood glucose level was 105 mg/dL. 9.225 mCi of 18-fluorodeoxyglucose (18-FDG) was adminis tered i.v. Low dose computed tomography (CT) images were acquired from the base of the brain to the p roximal thighs for attenuation correction and anatomic localization. Positron emission tomography (PE T) images were acquired in the same distribution beginning 56 minutes after injection. Images includi ng fused PET/CT images were reconstructed in axial, coronal, and sagittal planes. Automated exposure control technique was employed. The dose-length product was 1265.82mGy-cm. COMPARISON: PET CT dated 01/12/2021 FINDINGS: Head/neck: There is symmetric increased activity in the oral cavity, parotid glands, laryngeal muscles and ocula r muscles without CT correlate, likely physiologic. Atherosclerotic calcification is at the bilateral carotid bulbs. No pathologically enlarged cervical lymphadenopathy or suspicious foci of increased F DG uptake in the visualized head or neck. Chest: Persistent linear band of discoid atelectasis in the left upper lobe and lingula along the major fiss ure. This extends to the region of the left hilum is previously a prominent FDG avid nodule. No evide nt FDG avid lesion at the left hilum in the current study. Right lung is clear. No pleural effusion. Heart size is normal. Atherosclerotic coronary artery calcifications. No pericardial effusion. No pat hologically enlarged or FDG avid thoracic lymphadenopathy. Abdomen/pelvis/proximal thighs: Physiologic renal accumulation and excretion of FDG activity in the kidneys, bladder and along portio ns of ureters. Normal degree and heterogenous pattern of increased uptake throughout the liver withou t radiologic correlate or dominant FDG avid lesion. Cholecystectomy clips at the gallbladder fossa. T he pancreas, spleen and bilateral adrenal glands are normal. Mild to moderate uptake scattered throug hout the bowels most prominent along the sigmoid colon without radiologic correlate, also likely phys iologic. There is calcified atherosclerosis of the aorta and many of the other arteries. No other ab normal foci of increased FDG uptake or pathologically enlarged lymphadenopathy in the abdomen, pelvis or proximal thighs. Musculoskeletal: Old healed fractures of the right humeral head with small region of osteonecrosis near the apex. Ther e is relatively diffuse atrophy physiologic mild increased FDG uptake along the distal left infraspin atus muscle and tendon without radiologic correlate. Chronic heterotopic ossification in the subcutan eous fat at the inferomedial left gluteal region. No suspicious lytic, blastic or FDG avid bone lesio ns. IMPRESSION: 1. Persistent band of atelectasis/scarring related to radiation treatment extending from the left hil um along the posterior margin of the lingula and left lower lobe which may be related to prior radiat ion treatment. No abnormal FDG uptake appreciated at the left hilum or elsewhere in the head, neck, c hest, abdomen or pelvis to suggest residual or metastatic disease. Reviewed, dictated and finalized at location B. IMPRESSION: 1. Persistent band of atelectasis/scarring related to radiation treatment exten ding from the left hilum along the posterior margin of the lingula and left low er lobe which may be related to prior radiation treatment. No abnormal FDG upta ke appreciated at the left hilum or elsewhere in the head, neck, chest, abdomen or pelvis to suggest residual or metastatic disease.
[2021-05-13 12:36] LABS: Glucose Point of Care 105 mg/dl (65-105)
== END 2021-05-13 12:05 | disposition home or self-care (01) ==
PROVIDERS: PCP Internal Medicine; Visit Provider Internal Medicine Pulmonary Disease
DX: C34.92 Malignant neoplasm of unspecified part of left bronchus or lung (principal); J98.11 Atelectasis; C34.82 Malignant neoplasm of overlapping sites of left bronchus and lung; C34.02 Malignant neoplasm of left main bronchus
CPT/HCPCS: 78815; A9552

== ENCOUNTER 2022-01-17 12:04 | Inpatient (IN) | payer MEDICARE, MEDICAID, SELFPAY ==
[2022-01-17] VITALS (10 sets, daily range): BP systolic 122–159; BP diastolic 52–84; PULSE 65–79; RESP 13–24; TEMP 36.6; O2SAT 94–100; BMI 48.7
--- NOTE | ~2022-01-17 | US_ITS ---
EXAMINATION: US venous doppler UE DATE: 01/20/2022 14:05 INDICATION: Left upper limb swelling. TECHNIQUE: Grayscale ultrasound images without and with compression and Doppler ultrasound images of the left upper extremity veins were obtained. COMPARISON: None. FINDINGS: The visualized portions of the left internal jugular vein, subclavian vein, axillary vein, brachial v eins, basilic vein, cephalic vein, radial vein, and ulnar vein are patent. IMPRESSION: 1. No deep venous thrombosis. Reviewed, dictated and finalized at location A. NCE WEIGHER
--- NOTE | ~2022-01-17 | XR_ITS ---
EXAMINATION: XR chest 2V DATE: 01/17/2022 15:34 INDICATION: Shortness of breath TECHNIQUE: AP and lateral views of the chest are obtained. COMPARISON: 04/16/2019 FINDINGS: There are airspace opacities of the left midlung zone and right lung base. No pleural effus ion or pneumothorax. The cardiomediastinal silhouette is normal. There is mild thoracic spondylosis. A cardiac monitoring device projects over the left heart. There is an old healed fracture of the prox imal right humerus. IMPRESSION: 1. Minimal airspace opacities of the left midlung zone, likely related to treatment for lung cancer. Right basilar airspace opacities are consistent with atelectasis versus pneumonia. Reviewed, dictated and finalized at location A. L ESTIMATOR IMPRESSION: 1. Minimal airspace opacities of the left midlung zone, likely related to treat ment for lung cancer. Right basilar airspace opacities are consistent with atel ectasis versus pneumonia.
--- NOTE | 2022-01-17 12:07 | PC.NURSE ---
pt talking on phone at intake desk
--- NOTE | 2022-01-17 12:48 | ECG_ITS ---
Measurements Intervals Ward Rate: 72 P: 52 AL: 161 QRS: 9 QRSD: 85 T: 57 QT: 378 QTc: 416 Interpretive Statements SINUS RHYTHM NORMAL ECG COMPARED TO ECG 04/07/2019 10:36:46 NO SIGNIFICANT CHANGES Electronically Signed On 01-17-2022 15:15:30 WAREHOUSE FOREMAN by Malick Huston M.D.
[2022-01-17 13:18] LABS: Basophils Percent Auto 0.3 % (0.2-1.2); Eosinophils Absolute Auto 0.3 K/mm3 (0-0.3); Eosinophils Percent Auto 4.8 % (0-4.4); Hemoglobin 14.2 g/dL (12.0-15.0); Immature Granulocyte Absolute 0.03 K/mm3 (0.00-0.031); Immature Granulocyte Percent A 0.5 % (0-0.5); Lymphocytes Percent Auto 13.8 % (18.3-44.2); Mean Corpuscular HGB Conc 31.6 g/dl (32-36); Mean Corpuscular Hemoglobin 29.5 pg (26-34); Mean Corpuscular Volume 93.6 fl (80-100); Mean Platelet Volume 9.9 fl (7.4-10.4); Monocytes Absolute Auto 0.3 K/mm3 (0.1-0.6); Monocytes Percent Auto 4.1 % (2.6-8.5); Neutrophils Percent Auto 76.5 % (45.5-73.1); Platelet Count Result 209 k/mm3 (150-375); Red Blood Count 4.81 M/mm3 (4.2-5.4); Red Cell Distribution Width 14.9 % (11.5-14.5); White Blood Count 6.5 K/mm3 (4.5-10.0)
[2022-01-17 13:29] LABS: Alanine Aminotransferase 18 U/L (6-35); Albumin Level 4.3 g/dL (3.5-5.1); Alkaline Phosphatase 124 U/L (38-126); Anion Gap 7 mmol/L (8-16); Aspartate Amino Transferase 21 U/L (14-36); Bilirubin,Total 0.9 mg/dL (0.2-1.3); Blood Urea Nitrogen 19 mg/dL (7-17); Calcium 9.6 mg/dL (8.4-10.2); Carbon Dioxide 29 mmol/L (22-30); Chloride 100 mmol/L (98-107); Estimated CRCL calculation 77 ml/min; Estimated Glomerular Filt Rate 56; Glucose 174 mg/dL (65-110); Potassium 4.1 mmol/L (3.4-5.0); Sodium 136 mmol/L (137-145)
[2022-01-17 13:41] LABS: Troponin I < 0.012 ng/mL (0.000-0.034)
--- NOTE | 2022-01-17 16:56 | ED.SOB ---
HPI - SOB/Dyspnea General Chief Complaint: Shortness of Breath/Dyspnea <KRISTYN Betancourt Last Filed: 01/18/22 00:11> Stated Complaint: sob <KRISTYN Betancourt Last Filed: 01/18/22 00:11> Time Seen by Provider: 01/17/22 16:55 <KRISTYN Betancourt Last Filed: 01/18/22 00:11> Source: patient <KRISTYN Betancourt Last Filed: 01/18/22 00:11> Mode of arrival: EMS <KRISTYN Betancourt Last Filed: 01/18/22 00:11> Limitations: no limitations <KRISTYN Betancourt Last Filed: 01/18/22 00:11> History of Present Illness HPI Narrative: Patient is a 61 y/o female who presents to the ED via EMS with c/o SOB. Patient has a Hx of COPD, afib on Xarelto, pulmonary HTN, and lung/laryngeal cancer in 2019. She presents the ED with report of increased dyspnea, particularly with exertion, over the last 4 days. She states she typically has some level of shortness of breath at baseline, but over the last few days, she has had increased difficulty breathing with exertion. Even walking to and from her bathroom, she has to stop to catch her breath. She tried using her nebulizer machine last night once, but denied relief. She also reports having 3 episodes of brief dull aching left-sided chest pain over the last 4 days. She states the episodes last a few seconds at a time and resolved without intervention. Denies aggravation of pain with exertion. Patient denies any fever, cough, congestion, sore throat, abdominal pain, BLE pain or edema. Patient is vaccinated for COVID and flu. <KRISTYN Betancourt Last Filed: 01/18/22 00:11> Related Data Home Medications: Home Medications Medication Instructions Recorded Confirmed albuterol sulfate 90 mcg/actuation 2 puff inhalation QID 02/18/19 01/18/22 aerosol inhaler alprazolam 1 mg tablet 1 mg PO DAILY PRN Anxiety 07/16/19 01/18/22 atorvastatin 40 mg tablet 40 mg PO DAILY 07/16/19 01/18/22 losartan 25 mg tablet 50 mg PO DAILY 07/16/19 01/18/22 metformin 500 mg tablet 500 mg PO BID 07/16/19 01/18/22 Novolog U-100 Insulin aspart See Rx Instructions .Route .COMPLEX 01/18/22 01/18/22 acetaminophen 500 mg tablet 500 mg PO Q6H PRN Pain, Mild 01/18/22 01/18/22 (Acetaminophen Extra Strength) albuterol sulfate 90 mcg/actuation 1 inh inhalation QID 01/18/22 01/18/22 aerosol inhaler (Ventolin HFA) azelastine 0.05 % eye drops 1 drp EACH EYE BID 01/18/22 01/18/22 budesonide 160 mcg-glycopyr 9 2 inh inhalation BID 01/18/22 01/18/22 mcg-formot 4.8 mcg/actuation HFA inhaler (Breztri Aerosphere) buspirone 5 mg tablet 5 mg PO BID 01/18/22 01/18/22 calcitriol 0.25 mcg capsule 0.25 mcg PO DAILY 01/18/22 01/18/22 diltiazem HCl 360 mg capsule,24 360 mg PO DAILY 01/18/22 01/18/22 hr,extended release ergocalciferol (vitamin D2) 1,250 1,250 mcg PO WEEKLY 01/18/22 01/18/22 mcg (50,000 unit) capsule (Vitamin D2) icosapent ethyl 1 gram capsule 2 g PO BID 01/18/22 01/18/22 (Vascepa) insulin degludec 200 unit/mL (3 80 unit subcut DAILY 01/18/22 01/18/22 mL) subcutaneous pen (Tresiba FlexTouch U-200 insulin) pantoprazole 40 mg tablet,delayed 40 mg PO QAM 01/18/22 01/18/22 release rivaroxaban 15 mg tablet (Xarelto) 20 mg PO Q12H 01/18/22 01/18/22 semaglutide 1 mg/dose (4 mg/3 mL) 1 mg subcut WEEKLY 01/18/22 01/18/22 subcutaneous pen injector (Ozempic) <Minda Paredes PA-C - Last Filed: 01/18/22 00:11> Allergies/Adverse Reactions: Allergies Allergy/AdvReac Type Severity Reaction Status Date / Time adhesive tape Allergy Mild RASH Verified 01/17/22 19:56 Penicillins Allergy Mild HIVES Verified 01/17/22 19:56 warfarin Allergy Mild Hives Verified 01/17/22 19:56 codeine AdvReac Mild NAUSEA/VOMI Verified 01/18/22 09:00 TING COCONUT Allergy Mild Rash Uncoded 01/17/22 19:56 TOMATOES Allergy Mild Rash Uncoded 01/17/22 19:56 <Minda Paredes PA-C - Last Filed: 01/18/22 00:11> R
[2022-01-17] MEDS: IPRATROPIUM BR 0.02% INH SOLN 0.5 MG/2.5 ML VIAL 1.5 MG INHALATION (17:19)
--- NOTE | 2022-01-17 19:16 | PC.NURSE ---
Assumed care of pt at this time.
[2022-01-17 19:27] LABS: NT Pro B Type Natriuretic Pept 155 pg/mL (5-100)
[2022-01-17 19:29] LABS: Influenza A QL RT-PCR Negative (Negative); Influenza B QL RT-PCR Negative (Negative); SARS-CoV-2 RNA PCR Negative; Troponin I < 0.012 ng/mL (0.000-0.034)
[2022-01-17] MEDS: methylPREDNISolone SOD SUCC 125 MG VIAL IV PUSH (19:55)
--- NOTE | 2022-01-17 20:16 | PC.NURSE ---
Pts oxygen saturation dropped to 86% on RA when ambulating. Pt also reports increase in SOB while ambulating, increased WOB noted. Pt taken back to room. Oxygen saturation 96% when at rest.
--- NOTE | 2022-01-17 21:35 | PC.NURSE ---
Pt requesting to take home medications. Per NATALY Perla, pt able to take 20mg Xarelto, but hold other home medications until hospitalist is able to see pt.
[2022-01-18] VITALS (7 sets, daily range): BP systolic 117–154; BP diastolic 56–82; PULSE 73–96; RESP 16–20; TEMP 35.6–36.6; O2SAT 94–97
[2022-01-18] MEDS: IPRATROPIUM BR 0.02% INH SOLN 0.5 MG/2.5 ML VIAL INHALATION ×3 (02:48→13:35)
[2022-01-18] MEDS: LEVALBUTEROL NEB 1.25 MG/3 ML 0.63 MG INHALATION ×3 (02:48→13:35)
[2022-01-18] MEDS: methylPREDNISolone SOD SUCC 40 MG VIAL IV PUSH ×3 (05:52→20:55)
--- NOTE | 2022-01-18 08:22 | PM.IMHP ---
H&P: HPI History of Present Illness Date/Time: 01/18/22 06:50 Chief Complaint: Shortness of breath Narrative: 61-year-old female with a past medical history of type 2 diabetes mellitus, morbid obesity, COPD, laryngeal cancer and lung cancer status post chemotherapy who presented to the ER via EMS due to shortness of breath. The patient reports that she has actually been having progressive shortness of breath for the last 2-3 weeks but it acutely worsened over the last 3 days. Shortness of breath is been accompanied by cough. She reports that she rarely coughs a when she does cough it usually means that she is ill. Her cough has been nonproductive for the most part. She denies any fevers or chills. She has not been having any chest pain. Her largest complaint is actually dyspnea on exertion she. She reports that over the last month she has stopped walking from her bedroom to the living room and now is only staying in her bedroom and ambulating the 6 ft to her bathroom. When she gets since the bathroom she has to sit down and rest before she can ambulate back into the bedroom. She denies any increased lower extremity swelling or orthopnea. She denies any daytime fatigue err excessive daytime sleepiness. She reports that she can not always fall asleep and stay asleep easily. She states that her family has never told her that she snores. She has never had a sleep study. She reports that she has had some chest discomfort when she reaches the the bathroom but the sensation is brief in recovers once she sits down. She states that the nurse practitioner her editor producer's office once her to complete a 6 minute pulse oximetry to see if she qualifies for home oxygen. She reports that she is so fatigued during the test that she cannot completed the test to document the hypoxia. She states that she knows she does get hypoxic with activity. In the ER the patient was ambulated in to 86% on room air after only walking about 6 feet. She does have chronic diabetic peripheral neuropathy that she reports is not that bad. She has type 2 diabetes mellitus she reports that her last hemoglobin A1c was well controlled. She denies any nausea or vomiting or changes in her appetite. She denies any dysuria or changes in urinary frequency. She denies rhinorrhea, sore throat, abdominal pain, or dysuria. Review of Systems Review of Systems: 12 systems were reviewed with pertinent positives and negatives per HPI. Except as documented in the HPI, all other systems were reviewed and are negative. [facility] Past Medical History Medical History (Updated 01/18/22 @ 09:42 by Rosemary Sherman DO) Asthma COPD (chronic obstructive pulmonary disease) Diabetes History of tobacco abuse Laryngeal squamous cell carcinoma Morbid obesity with BMI of 45.0-49.9, adult Pulmonary embolism Pulmonary hypertension Surgical History Surgical History H/O knee surgery H/O sinus surgery H/O: section History of cholecystectomy Family History Family History Other Breast cancer Maternal Aunt Mother Bladder cancer Small cell cancer of the bladder Social History Social History (Updated 01/18/22 @ 09:46 by Rosemary Sherman DO) Social History: She reports that she smoked as much as 3 packs of cigarettes per day. She quit smoking in 2018. She smoked for approximately 40 years. She used to drink alcohol on occasion but has not done so in many years. She denies any illicit substance use. She lives in her own home. Her daughter lives with her but she states that her daughter does not help her out. Instead her daughter in-law comes over Pete or in-home caregiver on a daily basis. Code status: DNR/DNI per patient request Surrogate decision maker: Austin Mcmahon (son) Smoking packs per day: 2 Smoking cigarettes per day: 40.0 Year
[2022-01-18] MEDS: PANTOPRAZOLE 40 MG TABLET PO (09:33)
[2022-01-18] MEDS: LOSARTAN POTASSIUM 50 MG TABLET PO (09:33)
[2022-01-18] MEDS: calcitrioL 0.25 MCG CAPSULE PO (09:33)
[2022-01-18] MEDS: OMEGA 3 POLYUNSAT FATTY ACIDS 1 GM CAP 2 GM PO ×2 (09:33→16:22)
[2022-01-18] MEDS: busPIRone HCL 5 MG TABLET PO ×2 (09:33→16:23)
[2022-01-18] MEDS: dilTIAZem HCL CD 180 MG CAP.ER.24H 360 MG PO (09:33)
[2022-01-18] MEDS: metFORMIN HCL 500 MG TABLET PO ×2 (09:33→16:23)
[2022-01-18] MEDS: ATORVASTATIN 40 MG TABLET PO (09:33)
[2022-01-18] MEDS: INSULIN ASPART (*BKC) 100 UNITS/ML 40 UNITS SUB-Q ×3 (09:41→16:22)
[2022-01-18 09:47] LABS: Glucose Point of Care 497 mg/dl (65-105)
[2022-01-18 10:15] LABS: Hematocrit 41.2 % (37.0-47.0); Hemoglobin 13.4 g/dL (12.0-15.0); Mean Corpuscular HGB Conc 32.5 g/dl (32-36); Mean Corpuscular Volume 92.2 fl (80-100); Mean Platelet Volume 10.4 fl (7.4-10.4); Platelet Count Result 183 k/mm3 (150-375); Red Blood Count 4.47 M/mm3 (4.2-5.4); Red Cell Distribution Width 14.7 % (11.5-14.5); White Blood Count 7.8 K/mm3 (4.5-10.0)
[2022-01-18 11:56] LABS: Glucose Point of Care 454 mg/dl (65-105)
--- NOTE | 2022-01-18 12:03 | PM.IMPN ---
Progress Note: A&P Assessment and Plan (1) Acute exacerbation of chronic obstructive pulmonary disease (COPD): Code(s): J44.1 - Chronic obstructive pulmonary disease with (acute) exacerbation Status: Acute Assessment and Plan: Patient advice to quit smoking. Bronchodilators. Spirometry and chest x-ray 2D echo with l locate records Keeping BMI less than 25. Routine exercises. Pneumoniae and flu vaccines as advised Pulmonary rehab if indicated. For disease management to follow GOLD guidelines. Repeat hospitilaztion risk evaluation per CAT. Evaluation for home O2 if saturations less than 88% on room air (2) Pulmonary hypertension: Code(s): I27.20 - Pulmonary hypertension, unspecified Status: Acute Assessment and Plan: patient advised sleep study as an outpatient. Diet exercise weight loss (3) History of tobacco abuse: Code(s): Z87.891 - Personal history of nicotine dependence Status: Acute Assessment and Plan: counseling to quit smoking (4) Diabetes: Code(s): E11.9 - Type 2 diabetes mellitus without complications Status: Acute Assessment and Plan: HBA1c 5.8 ( goal <7.0%) , Renal functions, Liver panel every 3 months Monitor vitamin B12 levels Optimize ELLA-inhibitor and statin Routine glucose monitoring. Watch for Hypoglycemia. BMI goal < 25 Exercise, Diet ( low salt- low carb) Weight loss will resume all home medications will start Lantus 80 units q.a.m. Subjective Date/time seen: 01/18/22 12:03 Interval history: patient doing well but still has high blood sugars of 400+ did not receive her insulin last night as she was in the ED Review of Systems Review of Systems: All systems reviewed & are unremarkable except as noted in HPI and below Exam Narrative: GENERAL: Well appearing, obese non-toxic, in no acute distress. HEAD: Normocephalic, atraumatic. NECK: Supple. No adenopathy, no masses. RESPIRATORY: Airway patent, respirations nonlabored. Clear to auscultation bilaterally, no rales, rhonchi, wheezing. CARDIOVASCULAR: Regular rate and rhythm without murmurs, rubs, or gallops. Peripheral pulses 2+ and equal bilaterally. ABDOMINAL: Soft, nontender, nondistended, no hepatosplenomegaly. Normoactive BS. MUSCULOSKELETAL: no Epigastric and no hypochondrial tenderness SKIN: Warm, dry, normal color. No rashes. NEURO: A&O X3. Moves all extremities PSYCHIATRIC: Appropriate mood and affect. Normal interaction. Objective Data Vital Signs Vital Signs: Vital Signs - 24 hr 01/17/22 12:43 01/17/22 17:22 01/17/22 17:24 Temperature 36.6 C Pulse Rate 72 65 71 Respiratory Rate 20 20 18 Blood Pressure 132/62 138/79 Pulse Oximetry 99 98 Oxygen Delivery Room Air 01/17/22 17:24 01/17/22 17:50 01/17/22 18:48 Temperature Pulse Rate 74 67 Respiratory Rate 24 H 14 Blood Pressure Pulse Oximetry 100 97 Oxygen Delivery Room Air 01/17/22 19:00 01/17/22 19:10 01/17/22 21:04 Temperature Pulse Rate 79 71 69 Respiratory Rate 23 H 18 13 Blood Pressure 132/52 L 122/67 Pulse Oximetry 94 97 97 Oxygen Delivery 01/17/22 22:21 01/17/22 23:01 01/18/22 00:34 Temperature Pulse Rate 76 79 Respiratory Rate 14 18 Blood Pressure 159/84 H Pulse Oximetry 96 99 Oxygen Delivery Room Air 01/18/22 00:00 01/18/22 02:49 01/18/22 05:42 Temperature 36.5 C 36.6 C Pulse Rate 83 80 86 Respiratory Rate 20 16 20 Blood Pressure 154/82 H 145/76 H Pulse Oximetry 97 94 Oxygen Delivery 01/18/22 08:14 01/18/22 08:45 Temperature Pulse Rate 76 Respiratory Rate 16 Blood Pressure Pulse Oximetry Oxygen Delivery Room Air Intake/Output Intake/Output: Intake & Output 01/15/22 01/16/22 01/17/22 01/18/22 23:59 23:59 23:59 23:59 Intake Total 250 462 Output Total 1000 Balance 250 -538 Meds/Results Medications: Active Medications Generic Name Dose Route Start Last Admin
[2022-01-18] MEDS: INSULIN ASPART (*BKC) 100 UNITS/ML SUB-Q ×2 (12:18→16:22)
[2022-01-18] MEDS: INSULIN GLARGINE (*BKC) 100 UNITS/ML 80 UNITS SUB-Q (12:18)
[2022-01-18 13:07] LABS: Thyroid Stimulating Hormone Reflex 0.727 uIU/mL (0.465-4.68)
[2022-01-18 16:21] LABS: Glucose Point of Care 280 mg/dl (65-105)
[2022-01-18] MEDS: RIVAROXABAN 20 MG TABLET PO (16:24)
--- NOTE | 2022-01-18 22:12 | PCRCNOTE ---
Window of time for administration has passed. See next scheduled administration.
[2022-01-19] VITALS (9 sets, daily range): BP systolic 134–146; BP diastolic 63–78; PULSE 69–80; RESP 14–21; TEMP 35.5–36.4; O2SAT 95–96
--- NOTE | 2022-01-19 | ECHO_ITS ---
Patient Info Name: Lanny Bustillo Age: 61 years : 1960 Gender: Female Ht: 68 in Wt: 320 lbs BSA: 2.72 m2 HR: 72 bpm BP: 141 / 93 mmHg Heart Rhythm: Sinus Rhythm Technical Quality: Fair Exam Date: 01/19/2022 2:57 PM Exam Location: [facility] Card Pulmonary Patient Status: Inpatient Admit Date: 01/18/2022 Staff Ordering Physician: Rosetta Crowell MD Carriage Setter: Therese Das RDCS Attending Provider: Rosemary Sherman DO Referring Physician: Mervat AGUILAR; Exam Type: CA echo dop color flow w con Study Info Indications - sob worsening over 1 month Complete two-dimensional, color flow and Doppler transthoracic echocardiogram is performed with contrast to opacify the left ventricle and to improve the deliniation of the left ventricle endocardial borders. Contrast/Agitated Saline Contrast/Ag. Saline: Definity Amount: 3.00 ml Administered By: Therese Das RDCS Existing IV Access: Yes IV Access Condition: patent with no signs of infiltration Summary 1. Mildly increased left ventricular size with mild concentric hypertrophy. Hyperdynamic systolic function of all segments, ejection fraction greater than 70%. Diastolic dysfunction is present. No segmental wall motion abnormalities. 2. Left atrial chamber dimension is moderately enlarged. 3. No pulmonary hypertension, estimated pulmonary arterial systolic pressure is 23 mmHg. 4. No significant valve disease. 5. Normal sinus rhythm. 6. Technically difficult study; IV definity echo contrast used. Left Ventricle Left ventricular chamber dimension is mildly enlarged. Left ventricular systolic function is hyperdynamic, estimated at >70%. There is mildly increased left ventricular wall thickness. Left ventricular septal wall motion is normal. The left ventricular diastolic function is abnormal. Right Ventricle Right ventricular chamber dimension is normal. Right ventricular systolic function is normal. Left Atria Left atrial chamber dimension is moderately enlarged. Right Atria Right atrial chamber dimension is normal. Aortic Valve The aortic valve is trileaflet. There is mild aortic valve sclerosis. There is no aortic valve stenosis. There is no aortic valve regurgitation. Pulmonic Valve The pulmonic valve is normal. There is no pulmonic valve stenosis. There is no pulmonic regurgitation. Mitral Valve The mitral valve has normal leaflets. There is no mitral valve stenosis. There is no mitral valve regurgitation. Tricuspid Valve The tricuspid valve leaflets are normal. There is no significant tricuspid valve stenosis. There is trace tricuspid valve regurgitation. No pulmonary hypertension, estimated pulmonary arterial systolic pressure is 23 mmHg. Pericardium/Pleural The pericardium appears normal. There is no pericardial effusion. Inferior Vena Cava Normal inferior vena cava with >50% collapse upon inspiration consistent with Empty right atrial pressure, 10 mmHg. Aorta The aortic root size at the sinus of Valsalva is normal. The prox ascending aorta size is normal. Left Ventricular Outflow Tract Name Value Normal LVOT 2D LVOT Diameter 2.0
[2022-01-19] MEDS: LEVALBUTEROL NEB 1.25 MG/3 ML 0.63 MG INHALATION ×3 (02:58→14:11)
[2022-01-19] MEDS: IPRATROPIUM BR 0.02% INH SOLN 0.5 MG/2.5 ML VIAL INHALATION ×3 (02:58→14:11)
[2022-01-19] MEDS: methylPREDNISolone SOD SUCC 40 MG VIAL IV PUSH ×3 (05:02→20:47)
[2022-01-19 06:47] LABS: Hematocrit 39.2 % (37.0-47.0); Hemoglobin 12.5 g/dL (12.0-15.0); Mean Corpuscular HGB Conc 31.9 g/dl (32-36); Mean Corpuscular Hemoglobin 29.5 pg (26-34); Mean Corpuscular Volume 92.5 fl (80-100); Mean Platelet Volume 10.7 fl (7.4-10.4); Platelet Count Result 184 k/mm3 (150-375); Red Blood Count 4.24 M/mm3 (4.2-5.4); Red Cell Distribution Width 14.7 % (11.5-14.5); White Blood Count 10.2 K/mm3 (4.5-10.0)
[2022-01-19 07:00] LABS: Alanine Aminotransferase 17 U/L (6-35); Albumin Level 3.7 g/dL (3.5-5.1); Alkaline Phosphatase 93 U/L (38-126); Anion Gap 7 mmol/L (8-16); Aspartate Amino Transferase 19 U/L (14-36); Bilirubin,Total 0.9 mg/dL (0.2-1.3); Blood Urea Nitrogen 37 mg/dL (7-17); Calcium 8.8 mg/dL (8.4-10.2); Carbon Dioxide 22 mmol/L (22-30); Chloride 101 mmol/L (98-107); Estimated CRCL calculation 78 ml/min; Estimated Glomerular Filt Rate 56; Glucose 287 mg/dL (65-110); Potassium 4.2 mmol/L (3.4-5.0); Sodium 130 mmol/L (137-145)
[2022-01-19 08:02] LABS: Hemoglobin A1C 6.3 % (<5.7)
[2022-01-19 08:15] LABS: Glucose Point of Care 296 mg/dl (65-105)
--- NOTE | 2022-01-19 08:53 | PM.IMPN ---
Progress Note: A&P Assessment and Plan (1) Shortness of breath: Code(s): R06.02 - Shortness of breath Status: Acute Assessment and Plan: Hx of COPD, pulmonary hypertension and pulmonary embolism. Urine legionella and Urine pneumococcal pending. 04/2019 EF 60% with mild LVH, mild aortic stenosis and moderate pulmonary hypertension. Improved with treatment for COPD exacerbation. Hx of laryngea cancer s/p chemoradiation but no hypoxia, tachycardia. Low suspicion for PE at this time and patient is already on rivaroxaban.. Wells score 0. Will defer CTA chest at this time. -Echo -Continue azithromycin -Continue methylprednisolone -Continue ipratropium & levalbuterol q6h scheduled (2) Acute exacerbation of chronic obstructive pulmonary disease (COPD): Code(s): J44.1 - Chronic obstructive pulmonary disease with (acute) exacerbation Status: Acute Assessment and Plan: Improved with treatment. -Continue methylprednisolone 40 mg IV q8h -Continue ipratropium & levalbuterol q6h scheduled (3) Pulmonary hypertension: Code(s): I27.20 - Pulmonary hypertension, unspecified Status: Acute Assessment and Plan: Moderate pulmonary hypertension on April 2019 echo. May have worsened, which could be contributing to gradual worsening of shortness of breath. -Echo (4) History of tobacco abuse: Code(s): Z87.891 - Personal history of nicotine dependence Status: Acute Assessment and Plan: Advised to stop smoking on admission. (5) Diabetes: Code(s): E11.9 - Type 2 diabetes mellitus without complications Status: Acute Assessment and Plan: HBA1c 5.8. Takes metformin, semaglutide, degludec at home. Degludec converted to glargine due to formulary. Holding metformin. -SSI -Aspart scheduled 40 units TIDWM -POC glucose -Insulin glargine 80 units qhs - holding due to BIPAP and patient not eating (6) Pulmonary embolism: Qualifiers: Acute cor pulmonale presence: unspecified Chronicity: unspecified Pulmonary embolism type: unspecified Qualified Code(s): I26.99 - Other pulmonary embolism without acute cor pulmonale Code(s): I26.99 - Other pulmonary embolism without acute cor pulmonale Status: Acute Assessment and Plan: On rivaroxaban at home. Continue. Plan DNR Anticoagulated Subjective Date/time seen: 01/19/22 08:53 Patient says she feels better than when she came to the emergency department. She reports that her shortness of breath had been gradually worsening over the last month or so. Then within the last few days she worsened. She reports having had COVID19 approximately 6 weeks ago. She had all COVID19 vaccines and additional doses. Also reports hearing some wheezing this morning. Review of Systems Respiratory: Respiratory: Reports dyspnea, Reports dyspnea on exertion and Reports wheezing Exam Narrative: GENERAL: NAD, cooperative HEENT: Normocephalic, atraumatic, anicteric NECK: Supple CV: Normal S1, S2, RRR, No MRG RESP: Unable to speak in full sentences. No wheezes, rhonchi or rales bilaterally on exam. Abdomen: Soft, non-tender, non-distended, +BS EXTREMITIES: Warm and well perfused, no clubbing, cyanosis, or edema. SKIN: warm, dry and intact. NEURO: CN II-XII grossly intact. Objective Data Vital Signs Vital Signs: Vital Signs - 24 hr 01/18/22 13:35 01/18/22 14:00 01/18/22 20:00 Temperature 36.3 C L Pulse Rate 73 96 Respiratory Rate 16 18 Blood Pressure 118/56 L Pulse Oximetry 94 Oxygen Delivery Room Air 01/18/22 22:00 01/19/22 02:58 01/19/22 03:12 Temperature 35.6 C L Pulse Rate 89 77 78 Respiratory Rate 18 16 16 Blood Pressure 117/73 Pulse Oximetry 96 Oxygen Delivery 01/19/22 06:00 Temperature 35.5 C L Pulse Rate 72 Respiratory Rate 21 H Blood Pressure 141/73 H Pulse Oximetry 96 Oxygen Delivery
[2022-01-19] MEDS: OMEGA 3 POLYUNSAT FATTY ACIDS 1 GM CAP 2 GM PO ×2 (09:00→16:16)
[2022-01-19] MEDS: busPIRone HCL 5 MG TABLET PO ×2 (09:01→16:16)
[2022-01-19] MEDS: ATORVASTATIN 40 MG TABLET PO (09:01)
[2022-01-19] MEDS: dilTIAZem HCL CD 180 MG CAP.ER.24H 360 MG PO (09:01)
[2022-01-19] MEDS: LOSARTAN POTASSIUM 50 MG TABLET PO (09:01)
[2022-01-19] MEDS: metFORMIN HCL 500 MG TABLET PO ×2 (09:01→16:16)
[2022-01-19] MEDS: calcitrioL 0.25 MCG CAPSULE PO (09:01)
[2022-01-19] MEDS: PANTOPRAZOLE 40 MG TABLET PO (09:01)
[2022-01-19] MEDS: INSULIN ASPART (*BKC) 100 UNITS/ML 40 UNITS SUB-Q ×3 (09:04→17:05)
[2022-01-19] MEDS: INSULIN ASPART (*BKC) 100 UNITS/ML SUB-Q ×3 (09:04→17:05)
[2022-01-19 12:31] LABS: Glucose Point of Care 397 mg/dl (65-105)
[2022-01-19] MEDS: PERFLUTREN LIPID MICROSPHERES 1.5 ML VIAL DILUTED TO 10 ML TOTAL VOLUME IV PUSH (15:00)
[2022-01-19] MEDS: RIVAROXABAN 20 MG TABLET PO (16:16)
--- NOTE | 2022-01-19 16:25 | IVDEFINITY ---
Prior to administration of IV Definity the patient was educated on the risks and benefits of the imaging enhancing agent including potential adverse side effects. The patient verbalized understanding. Allergies were verified. No exclusion criteria were identified and at least one of the following inclusion criteria were met: 1) physician request, 2) patient technically difficult to image (per the [place] [employer] guidelines of two or more segments not discernable within the apical view), or 3) questionable left ventricular function. ?
[2022-01-19 17:02] LABS: Glucose Point of Care 309 mg/dl (65-105)
[2022-01-19 21:48] LABS: Glucose Point of Care 246 mg/dl (65-105)
[2022-01-19] MEDS: INSULIN GLARGINE (*BKC) 100 UNITS/ML 80 UNITS SUB-Q (22:55)
[2022-01-20] VITALS (13 sets, daily range): BP systolic 112–152; BP diastolic 53–68; PULSE 63–88; RESP 16–20; TEMP 35.7; O2SAT 86–96
--- NOTE | 2022-01-20 00:45 | PCRCNOTE ---
window of time for administration has passed. see next available administration.
[2022-01-20] MEDS: IPRATROPIUM BR 0.02% INH SOLN 0.5 MG/2.5 ML VIAL INHALATION ×3 (02:42→16:03)
[2022-01-20] MEDS: LEVALBUTEROL NEB 1.25 MG/3 ML 0.63 MG INHALATION ×3 (02:42→16:03)
[2022-01-20] MEDS: methylPREDNISolone SOD SUCC 40 MG VIAL IV PUSH (05:48)
[2022-01-20 07:37] LABS: Basophils Percent Auto 0.1 % (0.2-1.2); Hematocrit 39.4 % (37.0-47.0); Hemoglobin 12.9 g/dL (12.0-15.0); Immature Granulocyte Absolute 0.06 K/mm3 (0.00-0.031); Immature Granulocyte Percent A 0.7 % (0-0.5); Lymphocytes Absolute Auto 0.48 K/mm3 (0.9-3.2); Lymphocytes Percent Auto 5.5 % (18.3-44.2); Mean Corpuscular HGB Conc 32.7 g/dl (32-36); Mean Corpuscular Hemoglobin 29.7 pg (26-34); Mean Corpuscular Volume 90.8 fl (80-100); Mean Platelet Volume 11.2 fl (7.4-10.4); Monocytes Absolute Auto 0.2 K/mm3 (0.1-0.6); Monocytes Percent Auto 2.1 % (2.6-8.5); Neutrophils Percent Auto 91.6 % (45.5-73.1); Platelet Count Result 186 k/mm3 (150-375); Red Blood Count 4.34 M/mm3 (4.2-5.4); Red Cell Distribution Width 14.7 % (11.5-14.5); White Blood Count 8.7 K/mm3 (4.5-10.0)
[2022-01-20 07:56] LABS: Anion Gap 9 mmol/L (8-16); Blood Urea Nitrogen 41 mg/dL (7-17); Calcium 8.6 mg/dL (8.4-10.2); Carbon Dioxide 22 mmol/L (22-30); Chloride 99 mmol/L (98-107); Estimated CRCL calculation 78 ml/min; Estimated Glomerular Filt Rate 56; Glucose 283 mg/dL (65-110); Potassium 4.2 mmol/L (3.4-5.0); Sodium 130 mmol/L (137-145)
--- NOTE | 2022-01-20 08:20 | PM.IMPN ---
Subjective Date/time seen: 01/20/22 08:20 Objective Data Vital Signs Vital Signs: Vital Signs - 24 hr 01/19/22 09:13 01/19/22 09:25 01/19/22 14:12 Temperature Pulse Rate 76 80 80 Respiratory Rate 16 16 18 Blood Pressure Pulse Oximetry Oxygen Delivery 01/19/22 14:23 01/19/22 14:00 01/19/22 20:00 Temperature 36.4 C L Pulse Rate 70 75 Respiratory Rate 18 20 Blood Pressure 134/78 Pulse Oximetry 95 Oxygen Delivery Room Air 01/19/22 22:00 01/20/22 02:45 01/20/22 03:00 Temperature 36.1 C L Pulse Rate 69 74 77 Respiratory Rate 14 18 18 Blood Pressure 146/63 H Pulse Oximetry 95 Oxygen Delivery 01/20/22 06:00 Temperature 35.7 C L Pulse Rate Respiratory Rate Blood Pressure Pulse Oximetry Oxygen Delivery Intake/Output Intake/Output: Intake & Output 01/17/22 01/18/22 01/19/22 01/20/22 23:59 23:59 23:59 23:59 Intake Total 250 1947 1870 500 Output Total 1600 1800 1000 Balance 250 347 70 -500 Meds/Results Medications: Active Medications Generic Name Dose Route Start Last Admin Trade Name Freq PRN Reason Stop Dose Admin Acetaminophen 500 mg 01/18/22 08:30 Acetaminophen 500 Mg Tablet PO Q6H PRN Pain, Mild Alprazolam 1 mg 01/18/22 08:30 Alprazolam (*Crx) 0.5 Mg Tablet PO DAILY PRN Anxiety Atorvastatin Calcium 40 mg 01/18/22 09:00 01/19/22 09:01 Atorvastatin 40 Mg Tablet PO 40 mg DAILY ALEENA Administration Buspirone HCl 5 mg 01/18/22 09:00 01/19/22 16:16 Buspirone Hcl 5 Mg Tablet PO 5 mg BID ALEENA Administration Calcitriol 0.25 mcg 01/18/22 09:00 01/19/22 09:01 Calcitriol 0.25 Mcg Capsule PO 0.25 mcg DAILY ALEENA Administration Dextrose 12.5 gm 01/18/22 08:38 Dextrose 50% 25 Gm/50 Ml Syringe IV PUSH PRN PRN Hypoglycemia Protocol Diltiazem HCl 360 mg 01/18/22 09:00 01/19/22 09:01 Diltiazem Hcl Cd 180 Mg Cap.Er.24h PO 360 mg DAILY ALEENA Administration Fish Oil 2 gm 01/18/22 09:00 01/19/22 16:16 [place] 3 Polyunsat Fatty Acids 1 Gm Cap PO 2 gm BID ALEENA Administration Glucagon 1 mg 01/18/22 08:38 Glucagon For Inj 1 Mg Vial IM PRN PRN Hypoglycemia Protocol Glucose 15 gm 01/18/22 08:38 Glucose Oral Gel 15 Gm Of Glucse In 37.5 Gm Tube PO PRN PRN Hypoglycemia Protocol Home Med 2 each 01/18/22 09:00 01/19/22 09:13 [[employer] 160-9-4.8 Mcg/Actuation *Use Home Supply INHALATION 02/17/22 08:59 2 each Q12HRT ALEENA Administration Azithromycin 500 mg in 250 mls @ 250 mls/hr 01/18/22 22:00 01/19/22 23:55 Zithromax IVPB Infused Q24H ALEENA Infusion Dextrose 1,000 mls @ 100 mls/hr 01/18/22 08:38 Dextrose 5% 1,000 Ml IVPB PRN PRN Hypoglycemia Protocol Insulin Aspart 40 units 01/18/22 08:00 01/19/22 17:05 Insulin Aspart (*Bkc) 100 Units/Ml SUB-Q 40 units TIDWM ALEENA Administration Insulin Aspart 3 - 6 units 01/18/22 12:00 01/19/22 17:05 Insulin Aspart (*Bkc) 100 Units/Ml SUB-Q 5 units TIDWM ALEENA Administration Protocol Insulin Glargine 80 units 01/18/22 21:00 01/19/22 22:55 Insulin Glargine (*Bkc) 100 Units/Ml SUB-Q 80 units HS ALEENA Administration Ipratropium [place] 0.5 mg 01/18/22 02:00 01/20/22 02:42 Ipratropium Br 0.02% Inh Soln 0.5 Mg/2.5 Ml Vial INHALATION 0.5 mg Q6HRT ALEENA Administration Levalbuterol HCl 0.63 mg 01/18/22 02:00 01/20/22 02:42 Levalbuterol Neb 1.25 Mg/3 Ml INHALATION 0.63 mg Q6HRT ALEENA Administration Losartan Potassium 50 mg 01/18/22 09:00 01/19/22 09:01 Losartan Potassium 50 Mg Tablet PO 50 mg QAM ALEENA Administration Metformin HCl 500 mg 01/18/22 09:00 01/19/22 16:16 Metformin Hcl 500 Mg Tablet PO 500 mg BIDWM ALEENA Administration Methylprednisolone Sodium Succinate 40 mg 01/18/22 05:00 01/20/22 05:48 Methylprednisolone Sod Succ 40 Mg Vial IV PUSH 40 mg Q8H ALEENA Adm
[2022-01-20 08:41] LABS: Acanthocytes 2+ (NORMAL); Ovalocytes 1+ (NORMAL); Platelet Estimate Adequate (Adequate); Schistocytes None Seen (NORMAL)
[2022-01-20 08:42] LABS: Glucose Point of Care 298 mg/dl (65-105)
[2022-01-20] MEDS: dilTIAZem HCL CD 180 MG CAP.ER.24H 360 MG PO (08:43)
[2022-01-20] MEDS: calcitrioL 0.25 MCG CAPSULE PO (08:43)
[2022-01-20] MEDS: metFORMIN HCL 500 MG TABLET PO (08:43)
[2022-01-20] MEDS: LOSARTAN POTASSIUM 50 MG TABLET PO (08:43)
[2022-01-20] MEDS: PANTOPRAZOLE 40 MG TABLET PO (08:43)
[2022-01-20] MEDS: OMEGA 3 POLYUNSAT FATTY ACIDS 1 GM CAP 2 GM PO (08:43)
[2022-01-20] MEDS: ATORVASTATIN 40 MG TABLET PO (08:43)
[2022-01-20] MEDS: busPIRone HCL 5 MG TABLET PO (08:43)
[2022-01-20] MEDS: INSULIN ASPART (*BKC) 100 UNITS/ML 40 UNITS SUB-Q ×2 (08:45→11:54)
[2022-01-20] MEDS: INSULIN ASPART (*BKC) 100 UNITS/ML SUB-Q ×2 (08:46→11:54)
[2022-01-20 11:46] LABS: Glucose Point of Care 400 mg/dl (65-105)
--- NOTE | 2022-01-20 13:12 | PCRCNOTE ---
HOME O2 EVAL DONE, PT REQUIRES 2 L WITH ACTIVITY, ROOM AIR AT REST.
--- NOTE | 2022-01-20 13:13 | HOMEO2EVAL ---
Evaluation was performed at [facility] Home Oxygen Evaluation RC: Home Oxygen (O2) Evaluation Start: 01/20/22 11:11 Freq: ONCE Status: Active Protocol: RPE Activity Type Activity Date Activity User E-sign Co-sign Detail Recorded Client Recorded Date Recorded By Document 01/20/22 12:45 JUAN ANTONIO [email or web address] 01/20/22 13:12 JUAN ANTONIO Document 01/20/22 12:50 JUAN ANTONIO [email or web address] 01/20/22 13:12 JUAN ANTONIO Document 01/20/22 12:51 JUAN ANTONIO [email or web address] 01/20/22 13:12 JUAN ANTONIO Document 01/20/22 12:52 JUAN ANTONIO [email or web address] 01/20/22 13:12 JUAN ANTONIO Document 01/20/22 13:00 JUAN ANTONIO [email or web address] 01/20/22 13:12 JUAN ANTONIO 01/20/22 01/20/22 01/20/22 12:45 12:50 12:51 Home O2 Evaluation [Oxygen] -Test Phase Resting Exercise Exercise -Oxygen Delivery Room Air Room Air Nasal Cannula -Oxygen Flow Rate (L/min) 1 [Pulse Oximetry] -Pulse Oximetry (90-100 %) 95 86 L 87 L [Comments] -Home Oxygen Evaluation Comments [Charges] -Treatment Charges O2 Evaluation - Inpatient 01/20/22 01/20/22 12:52 13:00 Home O2 Evaluation [Oxygen] -Test Phase Exercise Resting -Oxygen Delivery Nasal Cannula Room Air -Oxygen Flow Rate (L/min) 2 [Pulse Oximetry] -Pulse Oximetry (90-100 %) 92 96 [Comments] -Home Oxygen Evaluation Comments Pt requires 2 L home O2 with activity [Charges] -Treatment Charges
--- NOTE | 2022-01-20 13:50 | PCRCNOTE ---
SET UP HOME O2 WITH [facility], THEY WILL BRING IN A PORTABLE O2 CONCENTRATOR
[2022-01-20] MEDS: ACETAMINOPHEN 500 MG TABLET PO (14:11)
--- NOTE | 2022-01-20 14:24 | PM.DS ---
DS: Admitting Diagnosis Discharge Date 01/20/22 Admitting Diagnosis COPD exacerbation DS: Discharge Diagnosis Discharge Diagnosis (1) Shortness of breath: Code(s): R06.02 - Shortness of breath Status: Acute Assessment and Plan: Hx of COPD, pulmonary hypertension and pulmonary embolism. Urine legionella and Urine pneumococcal pending. 04/2019 EF 60% with mild LVH, mild aortic stenosis and moderate pulmonary hypertension. Improved with treatment for COPD exacerbation. Hx of laryngea cancer s/p chemoradiation but no hypoxia, tachycardia. Low suspicion for PE at this time and patient is already on rivaroxaban. Wells score 0. Will defer CTA chest at this time. Clinically improved with treatment and amenable for discharge to home. -Echo -Continue azithromycin for discharge -Change methylprednisolone to prednisone to complete 5 days treatment -Will discharge to continue duonebs at home q4h while awake (2) Acute exacerbation of chronic obstructive pulmonary disease (COPD): Code(s): J44.1 - Chronic obstructive pulmonary disease with (acute) exacerbation Status: Acute Assessment and Plan: Improved with treatment. Had walk test with respiratory therapy and was found to have desaturation to 87% on room air, so home oxygen has been ordered for the patient. -Will discharge to home with prednisone 40 mg po daily for a total 5 days duration. -Will continue duonebs q4h while awake (3) Pulmonary hypertension: Code(s): I27.20 - Pulmonary hypertension, unspecified Status: Acute Assessment and Plan: Moderate pulmonary hypertension on April 2019 echo. Echo with EF 70% with LVH, diastolic dysfunction, left atrial enlargement and no pulmonary hypertension noted. (4) History of tobacco abuse: Code(s): Z87.891 - Personal history of nicotine dependence Status: Acute Assessment and Plan: Advised to stop smoking on admission. (5) Diabetes: Code(s): E11.9 - Type 2 diabetes mellitus without complications Status: Acute Assessment and Plan: HBA1c 5.8. Takes metformin, semaglutide, degludec at home. Will resume home medications. (6) Pulmonary embolism: Qualifiers: Acute cor pulmonale presence: unspecified Chronicity: unspecified Pulmonary embolism type: unspecified Qualified Code(s): I26.99 - Other pulmonary embolism without acute cor pulmonale Code(s): I26.99 - Other pulmonary embolism without acute cor pulmonale Status: Acute Assessment and Plan: On rivaroxaban at home. Continue for discharge. DS: Summary Hospital Course Reason for hospitalization: COPD exacerbation Hospital Course: 61F with a past medical history of diabetes, COPD, obesity, laryngeal cancer, lung cancer status-post chemotherapy who presented to the emergency department with progressive shortness of breath over the last 2-3 weeks with acute worsening for 2-3 days found to have a chronic obstructive pulmonary disease exacerbations. Patient was admitted and treated with azithromycin, methylprednisolone and Levalbuterol+ipratropium. Patient had improvement reported some chest tightness. Patient was kept overnight and continued treatment. On the day of discharge, the patient denied shortness of breath at rest, chest tightness and said she felt much better. Patient did have concerns about being short of breath when walking as this is chronic and she felt it may be worse with her current illness. Patient had a walk test with respiratory therapy and was document 86 and 87% on room air while walking, so 2LPM home oxygen was ordered. Patient advised to have close follow up with primary care physician by January 24. Time Spent with Patient Time attestation: Total time spent providing and/or coordinating discharge services: Exam Narrative: GENERAL: NAD, cooperative HEENT: Normocephalic, atraumat
--- NOTE | 2022-01-20 17:07 | PC.NURSE ---
glucose 181 on home dexacon at discharge
[2022-01-22 17:50] LABS: Legionella pneumophila Ag Ur Not Detected (Not Detected)
[2022-01-23 15:20] LABS: Mycoplasma IgM Antibody Titer 112 U/mL (<770)
== END 2022-01-20 17:08 | disposition home health service (06) | DRG 191 ==
LOC: ANHED 22:13 → ANH3MEDSUR 22:55
PROVIDERS: Emergency Medicine; Internal Medicine; Physician Assistant; Admitting Provider Internal Medicine; Emergency Provider Emergency Medicine; PCP Internal Medicine; Visit Provider Family Medicine
DX: J44.1 Chronic obstructive pulmonary disease with (acute) exacerbation (principal); J98.11 Atelectasis; Z68.42 Body mass index [BMI] 45.0-49.9, adult; I27.20 Pulmonary hypertension, unspecified; Z20.822 Contact with and (suspected) exposure to COVID-19; E66.01 Morbid (severe) obesity due to excess calories; E11.9 Type 2 diabetes mellitus without complications; I35.0 Nonrheumatic aortic (valve) stenosis; Z66 Do not resuscitate; Z86.711 Personal history of pulmonary embolism; Z87.891 Personal history of nicotine dependence; Z85.118 Personal history of other malignant neoplasm of bronchus and lung; Z85.05 Personal history of malignant neoplasm of liver; Z90.49 Acquired absence of other specified parts of digestive tract; Z79.84 Long term (current) use of oral hypoglycemic drugs; Z79.01 Long term (current) use of anticoagulants
CPT/HCPCS: 36415; 71046; 80048; 80053; 82948; 83036; 83880; 84443; 84484; 85025; 85027; 86738; 87449; 87636; 87899; 93005; 93971; 94618; 94640; 96365; 96375; 96376; 99285; A9270; C8929; G0378; J0456; J1815; J2920; J2930; Q9957

== ENCOUNTER 2022-02-17 13:27 | Outpatient (CLI) | payer MEDICARE, MEDICAID, SELFPAY ==
--- NOTE | ~2022-02-17 | PE_ITS ---
EXAMINATION: PET skull to mid thigh DATE: 02/17/2022 15:14 INDICATION: Malignant neoplasm of the lung TECHNIQUE: Blood glucose level was 126 mg/dL. 11.186 mCi of 18-fluorodeoxyglucose (18-FDG) was admini stered i.v. Low dose computed tomography (CT) images were acquired from the base of the brain to the proximal thighs for attenuation correction and anatomic localization. Positron emission tomography (P ET) images were acquired in the same distribution beginning 48 minutes after injection. The dose-alcira th product (DLP) was 1293.96 mGy-cm. COMPARISON: 05/13/2021 FINDINGS: Head/neck: There is FDG uptake in the oral cavity without suspicious CT correlate, likely physiologic . No abnormal FDG uptake is identified. Chest: No abnormal FDG uptake is identified. There is a chronic band of scarring/atelectasis extendin g from the left hilum to the pleura in the lingula which is stable and without abnormal FDG uptake. T he lungs are free of acute opacities. No pleural effusion or pneumothorax. No pathologically enlarged thoracic lymph nodes are identified. The heart size is normal. Calcified coronary artery atheroscler osis is noted. Abdomen/pelvis/proximal thighs: No abnormal FDG uptake is identified. Physiologic FDG activity is pre sent in the bowel and urinary tract. The gallbladder is surgically absent. The liver, spleen, pancrea s, and adrenal glands are normal. The kidneys are unremarkable. No pathologically enlarged abdominal or pelvic lymph nodes are identified. There is calcified atherosclerosis of the aorta and many of the other arteries. There is no free intraperitoneal gas or evidence of bowel obstruction. Musculoskeletal: No abnormal FDG uptake is identified. IMPRESSION: 1. Chronic area of scarring/atelectasis in the lingula, consistent with treatment change. No suspicio us findings. Reviewed, dictated and finalized at location B. ICAL SERVICES DIRECTOR IMPRESSION: 1. Chronic area of scarring/atelectasis in the lingula, consistent with treatme nt change. No suspicious findings.
[2022-02-17 13:46] LABS: Glucose Point of Care 126 mg/dl (65-105)
== END 2022-02-17 13:28 | disposition home or self-care (01) ==
LOC: ANHIMG 13:30
PROVIDERS: PCP Internal Medicine; Visit Provider Nurse Practitioner
DX: C34.12 Malignant neoplasm of upper lobe, left bronchus or lung (principal); J98.11 Atelectasis; Z87.891 Personal history of nicotine dependence
CPT/HCPCS: 78815; A9552

== ENCOUNTER 2022-03-09 12:10 | Inpatient (IN) | payer MEDICARE, MEDICAID, SELFPAY ==
[2022-03-09] VITALS (17 sets, daily range): BP systolic 95–149; BP diastolic 49–91; PULSE 72–111; RESP 17–20; TEMP 35.6–36; O2SAT 81–100; BMI 45.1
--- NOTE | ~2022-03-09 | US_ITS ---
EXAMINATION: US renal BI DATE: 03/12/2022 11:01 INDICATION: Acute on chronic kidney disease TECHNIQUE: Multiple grayscale and Doppler ultrasound images of the kidneys were obtained. COMPARISON: None. FINDINGS: The right kidney measures 8.9 x 3.8 x 4.4 cm. Views of the right kidney are limited by body habitus. The left kidney measures 11.9 x 5.6 x 5.7 cm. The kidneys demonstrate normal parenchymal ec hogenicity. There is no hydronephrosis. The bladder is decompressed. IMPRESSION: 1. Normal kidneys without hydronephrosis. Reviewed, dictated and finalized at location A. HIATRIC NURSING ASSISTANT
--- NOTE | ~2022-03-09 | XR_ITS ---
Portable chest x-ray Comparison: 03/09/2022 Clinical History: Chest pain Findings: Probable minimal right basilar pulmonary edema. Left upper lobe airspace disease is resolv ed since prior exam. Cardiomediastinal silhouette is stable. Cardiac monitoring device again present . Bones and soft tissues are unremarkable. Impression: Probable minimal bibasilar pulmonary edema/atelectasis, or possibly pneumonia. Left lung airspace disease is nearly completely resolved. Stable cardiac monitoring device. Reviewed, dictated and finalized at location . MILL TENDER Impression: Probable minimal bibasilar pulmonary edema/atelectasis, or possibly pneumonia. Left lung airspace disease is nearly completely resolved. Stable cardiac monitoring device.
--- NOTE | ~2022-03-09 | XR_ITS ---
EXAMINATION: XR chest 1V portable DATE: 03/09/2022 12:36 INDICATION: Chest pain. Atrial fibrillation. TECHNIQUE: frontal view of the chest was obtained. COMPARISON: Chest radiograph dated 01/17/2022 FINDINGS: Unchanged elevation of left hemidiaphragm. There are increasing patchy airspace opacities in the left mid and lower lung zones which are concerning for pneumonia. Mild more streaky opacity right lower l ramos zone which could represent atelectasis or additional pneumonia. No pleural effusion or pneumothor ax. Heart size is normal. Left pectoral implantable labor law professor. IMPRESSION: 1. Increasing patchy airspace opacities in the left mid and lower lung zones which could represent wo rsening atelectasis and/or pneumonia. 2. Chronic elevation of the left hemidiaphragm. Reviewed, dictated and finalized at location A. IPLE COIL WINDER IMPRESSION: 1. Increasing patchy airspace opacities in the left mid and lower lung zones wh ich could represent worsening atelectasis and/or pneumonia. 2. Chronic elevation of the left hemidiaphragm.
--- NOTE | 2022-03-09 12:13 | ECG_ITS ---
Measurements Intervals [place] Rate: 102 P: ME: 0 QRS: 13 QRSD: 89 T: 29 QT: 325 QTc: 424 Interpretive Statements SINUS TACHYCARDIA BASELINE ARTIFACT PRESENT INFERIOR MYOCARDIAL INFARCTION , PROBABLY OLD [40+ ms Q WAVE AND/OR ST/T ABNORMALITY IN II/aVF] COMPARED TO ECG 01/17/2022 13:00:33 SINUS TACHYCARDIA NOW PRESENT Electronically Signed On 03-09-2022 15:05:32 COMPLIANCE PARALEGAL by Sujata Vega M.D.
--- NOTE | 2022-03-09 12:26 | PCRCNOTE ---
Patient adamantly refused G. aware.
[2022-03-09 12:59] LABS: Basophils Percent Auto 0.4 % (0.2-1.2); Eosinophils Absolute Auto 0.2 K/mm3 (0-0.3); Eosinophils Percent Auto 2.5 % (0-4.4); Hematocrit 50.8 % (37.0-47.0); Hemoglobin 16.2 g/dL (12.0-15.0); Immature Granulocyte Absolute 0.02 K/mm3 (0.00-0.031); Immature Granulocyte Percent A 0.3 % (0-0.5); Lymphocytes Absolute Auto 1.54 K/mm3 (0.9-3.2); Lymphocytes Percent Auto 22.6 % (18.3-44.2); Mean Corpuscular HGB Conc 31.9 g/dl (32-36); Mean Corpuscular Hemoglobin 29.3 pg (26-34); Mean Corpuscular Volume 91.9 fl (80-100); Mean Platelet Volume 10.4 fl (7.4-10.4); Monocytes Absolute Auto 0.4 K/mm3 (0.1-0.6); Monocytes Percent Auto 5.3 % (2.6-8.5); Neutrophils Absolute Auto 4.7 K/mm3 (1.3-6.7); Neutrophils Percent Auto 68.9 % (45.5-73.1); Platelet Count Result 238 k/mm3 (150-375); Red Blood Count 5.53 M/mm3 (4.2-5.4); Red Cell Distribution Width 15.1 % (11.5-14.5); White Blood Count 6.8 K/mm3 (4.5-10.0)
[2022-03-09 13:17] LABS: Alanine Aminotransferase 19 U/L (6-35); Albumin Level 4.1 g/dL (3.5-5.1); Alkaline Phosphatase 101 U/L (38-126); Anion Gap 6 mmol/L (8-16); Aspartate Amino Transferase 21 U/L (14-36); Blood Urea Nitrogen 42 mg/dL (7-17); Calcium 9.4 mg/dL (8.4-10.2); Carbon Dioxide 27 mmol/L (22-30); Chloride 102 mmol/L (98-107); Estimated Glomerular Filt Rate 45; Glucose 158 mg/dL (65-110); Potassium 3.7 mmol/L (3.4-5.0); Sodium 135 mmol/L (137-145)
[2022-03-09] MEDS: IPRATROPIUM BR 0.02% INH SOLN 0.5 MG/2.5 ML VIAL INHALATION ×2 (13:25→20:56)
[2022-03-09] MEDS: ALBUTEROL SULFATE NEB 2.5 MG/3 ML INH 5 MG INHALATION ×2 (13:25→20:55)
[2022-03-09 13:35] LABS: Influenza A QL RT-PCR Negative (Negative); Influenza B QL RT-PCR Negative (Negative); RSV RNA, RT-PCR Negative (Negative); SARS-CoV-2 RNA PCR Negative
--- NOTE | 2022-03-09 13:37 | PM.IMHP ---
H&P: HPI History of Present Illness Date/Time: 03/09/22 13:37 Chief Complaint: Shortness of breath Narrative: Is this is a 61-year-old female patient who has a history of COPD and occasionally wears oxygen at home at 2 L per nasal cannula. She stated that she has been more short of breath over the last couple days. She does use her nebulizer machine at home and it did not help. She has a loose nonproductive cough she denies any fever chills. The patient stated that she mostly uses her oxygen when she is up ambulating at home. Her O2 saturation was noted to be 81% upon arrival to the emergency room. The patient is 90-95% on 2 L now. The patient was given a nebulizer treatment in the emergency room. Her creatinine is 1.2 today. Glucose 158. Negative for influenza a B RSV and COVID. She also has a history of left lung cancer with radiation. Chest x-ray was read as increasing patchy airspace opacities and left mid and lower lung zones which could represent worsening atelectasis and/or pneumonia. Chronic elevation of left hemidiaphragm. The patient was started on Levaquin. The patient is being admitted to observation status on the date of service of 03/09/2022. Review of Systems Review of Systems: See HPI All systems reviewed & are unremarkable except as noted in HPI and below Constitutional: Constitutional: Reports as per HPI and Reports no additional constitutional complaints Eyes: Eyes: Reports as per HPI and Reports no additional eye complaints ENT: Reports system reviewed and no additional complaints, except as documented and Reports Normal hearing present Cardiovascular: Cardiovascular: Reports no additional cardiovascular complaints Respiratory: Respiratory: Reports no additional respiratory complaints and Reports no additional respiratory complaints Gastrointestinal: Gastrointestinal: Reports as per HPI and Reports no additional gastrointestinal complaints Musculoskeletal: Musculoskeletal: Reports no additional musculoskeletal complaints Integumentary/Breasts: Skin/Breast: Reports system reviewed and no additional complaints, except as docu and Reports as per HPI Neurologic: Reports system reviewed and no additional complaints, except as documented, Reports as per HPI and Reports Normal hearing present Psychiatric: Psychiatric: Reports no additional psychiatric complaints and Reports as per HPI Endocrine: Endocrine: Reports no additional endocrine complaints Hematologic/Lymphatic: Hematologic/Lymphatic: Reports no additional hematologic/lymphatic complaints Allergic/Immunologic: Allergic/Immunologic: Reports no additional allergic/immunologic complaints [facility] Past Medical History Medical History (Updated 03/09/22 @ 14:35 by Laurie Bates NP) Asthma Chronic renal failure (CRF), stage 3a COPD (chronic obstructive pulmonary disease) Diabetes History of tobacco abuse Hx of cancer of lung left lung radiation Hypertension Laryngeal squamous cell carcinoma Morbid obesity with BMI of 45.0-49.9, adult Pulmonary embolism Pulmonary hypertension Surgical History Surgical History (Updated 03/09/22 @ 13:40 by Laurie Bates NP) H/O knee surgery reconstructive surgery H/O sinus surgery H/O: section times 2 History of cholecystectomy S/P tonsillectomy and adenoidectomy Family History Family History Other Breast cancer Maternal Aunt Mother Bladder cancer Small cell cancer of the bladder Social History Social History (Updated 03/09/22 @ 13:43 by Laurie Bates NP) Social History: She reports that she smoked as much as 3 packs of cigarettes per day. She quit smoking in 2018. She smoked for approximately 40 years. She used to drink alcohol on occasion but has not done so in many years. She denies any illicit substance use. She lives in her own home. Her daughter lives with her but she states that her daughter d
[2022-03-09 13:46] LABS: Lactic Acid Reflex 1.1 mmol/L (0.7-2.0)
--- NOTE | 2022-03-09 14:20 | ED.GENADULT ---
HPI - General Adult General Chief complaint: Shortness of Breath/Dyspnea Stated complaint: CP & SOB Time Seen by Provider: 03/09/22 12:32 Source: RN notes reviewed History of Present Illness HPI narrative: Patient presents emergency department from home for shortness of breath. Patient that she began to feel more short of breath this morning states she has a history of COPD when EMS arrived the patient had O2 saturation in the 80s and was placed on nasal cannula she was given a breathing treatment as well as Decadron. Patient states she has not had any coughing she states she has had midsternal chest pain is described as sharp and stabbing and worse with deep inspiration that began this morning she denies any abdominal pain nausea or vomiting states she has not normally on oxygen Related Data Home Medications Medication Instructions Recorded Confirmed albuterol sulfate 90 mcg/actuation 2 puff inhalation QID 02/18/19 01/18/22 aerosol inhaler alprazolam 1 mg tablet 1 mg PO DAILY PRN Anxiety 07/16/19 01/18/22 atorvastatin 40 mg tablet 40 mg PO DAILY 07/16/19 01/18/22 losartan 25 mg tablet 50 mg PO DAILY 07/16/19 01/18/22 metformin 500 mg tablet 500 mg PO BID 07/16/19 01/18/22 Novolog U-100 Insulin aspart See Rx Instructions .Route .COMPLEX 01/18/22 01/18/22 acetaminophen 500 mg tablet 500 mg PO Q6H PRN Pain, Mild 01/18/22 01/18/22 (Acetaminophen Extra Strength) albuterol sulfate 90 mcg/actuation 1 inh inhalation QID 01/18/22 01/18/22 aerosol inhaler (Ventolin HFA) azelastine 0.05 % eye drops 1 drp EACH EYE BID 01/18/22 01/18/22 budesonide 160 mcg-glycopyr 9 2 inh inhalation BID 01/18/22 01/18/22 mcg-formot 4.8 mcg/actuation HFA inhaler (Breztri Aerosphere) buspirone 5 mg tablet 5 mg PO BID 01/18/22 01/18/22 calcitriol 0.25 mcg capsule 0.25 mcg PO DAILY 01/18/22 01/18/22 diltiazem HCl 360 mg capsule,24 360 mg PO DAILY 12/13/22 12/13/22 hr,extended release ergocalciferol (vitamin D2) 1,250 1,250 mcg PO WEEKLY 01/18/22 01/18/22 mcg (50,000 unit) capsule (Vitamin D2) icosapent ethyl 1 gram capsule 2 g PO BID 01/18/22 01/18/22 (Vascepa) insulin degludec 200 unit/mL (3 80 unit subcut DAILY 01/18/22 01/18/22 mL) subcutaneous pen (Tresiba FlexTouch U-200 insulin) pantoprazole 40 mg tablet,delayed 40 mg PO QAM 01/18/22 01/18/22 release rivaroxaban 15 mg tablet (Xarelto) 20 mg PO Q12H 01/18/22 01/18/22 semaglutide 1 mg/dose (4 mg/3 mL) 1 mg subcut WEEKLY 01/18/22 01/18/22 subcutaneous pen injector (Ozempic) Allergies Allergy/AdvReac Type Severity Reaction Status Date / Time adhesive tape Allergy Mild RASH Verified 01/17/22 19:56 Penicillins Allergy Mild HIVES Verified 01/17/22 19:56 warfarin Allergy Mild Hives Verified 01/17/22 19:56 codeine AdvReac Mild NAUSEA/VOMI Verified 01/18/22 09:00 TING COCONUT Allergy Mild Rash Uncoded 01/17/22 19:56 TOMATOES Allergy Mild Rash Uncoded 01/17/22 19:56 Review of Systems Review of Systems: Gen.: Denies fevers or chills ENT: Denies congestion Respiratory: Reports shortness of breath CV: Reports chest pain GI: Denies abdominal pain nausea, emesis or diarrhea Musculoskeletal: Denies back pain or muscle pain Neuro: Denies numbness, tingling, weakness or focal weakness Skin: Denies rash Except as documented, all other systems reviewed and negative PMFSH Past Medical History Medical History Asthma Chronic renal failure (CRF), stage 3a COPD (chronic obstructive pulmonary disease) Diabetes History of tobacco abuse Hx of cancer of lung left lung radiation Laryngeal squamous cell carcinoma Morbid obesity with BMI of 45.0-49.9, adult Pulmonary embolism Pulmonary hypertension Surgical History Surgical History (Updated 03/09/22 @ 13:40 by Laurie A. Benhoff, MANAGER OF SUPPLY CHAIN) H/O knee surgery reconstructive surgery H/O sinus surgery H/O: section times 2 History of cholecystectomy S/P tonsillectomy an
[2022-03-09] MEDS: methylPREDNISolone SOD SUCC 125 MG VIAL IV PUSH (15:05)
--- NOTE | 2022-03-09 17:25 | PC.NURSE ---
Dinner tray ordered for pt.
[2022-03-09 17:34] LABS: Troponin I < 0.012 ng/mL (0.000-0.034)
[2022-03-09] MEDS: INSULIN ASPART (*BKC) 100 UNITS/ML SUB-Q (18:14)
[2022-03-09 18:20] LABS: Glucose Point of Care 297 mg/dl (65-105)
--- NOTE | 2022-03-09 18:50 | ADMGEN ---
This patient, Lanny Bustillo, was admitted to [facility] Surg Room 309-01 at 1750. Patient/family oriented to hospital policies and general routines including ID bracelet, bed and alarms, visiting hours, pain management, procedures, bathroom and other care routines, personal items, smoking policy, room service/diet, and visiting hours. Information on how to activate the Rapid Response Team has been discussed. Patient/Family are encouraged to report perceived risks to care and to ask questions if they do not understand what they are told or what they should do.
[2022-03-09 19:52] LABS: Glucose Point of Care 481 mg/dl (65-105)
[2022-03-09] MEDS: INSULIN ASPART (*BKC) 100 UNITS/ML 8 UNITS SUB-Q (20:19)
[2022-03-09 20:37] LABS: Troponin I < 0.012 ng/mL (0.000-0.034)
--- NOTE | 2022-03-09 22:11 | PC.NURSE ---
Patient refused to hand over home medications, charge nurse, Nani Gutierrez, notified.
[2022-03-09] MEDS: methylPREDNISolone SOD SUCC 125 MG VIAL 60 MG IV PUSH (23:24)
[2022-03-09] MEDS: busPIRone HCL 5 MG TABLET PO (23:56)
[2022-03-09] MEDS: RIVAROXABAN 20 MG TABLET PO (23:56)
[2022-03-09] MEDS: OMEGA 3 POLYUNSAT FATTY ACIDS 1 GM CAP 2 GM PO (23:56)
[2022-03-09] MEDS: metFORMIN HCL 500 MG TABLET PO (23:56)
[2022-03-10] VITALS (17 sets, daily range): BP systolic 129–132; BP diastolic 54–72; PULSE 73–93; RESP 14–22; TEMP 35.6–36.1; O2SAT 94–100
[2022-03-10] MEDS: IPRATROPIUM BR 0.02% INH SOLN 0.5 MG/2.5 ML VIAL INHALATION ×4 (02:44→19:14)
[2022-03-10] MEDS: ALBUTEROL SULFATE NEB 2.5 MG/3 ML INH 5 MG INHALATION ×4 (02:45→19:13)
[2022-03-10 04:23] LABS: Glucose Point of Care 441 mg/dl (65-105)
[2022-03-10] MEDS: INSULIN ASPART (*BKC) 100 UNITS/ML 12 UNITS SUB-Q (04:46)
[2022-03-10] MEDS: INSULIN GLARGINE (*BKC) 100 UNITS/ML 80 UNITS SUB-Q ×2 (04:46→20:58)
[2022-03-10] MEDS: methylPREDNISolone SOD SUCC 125 MG VIAL 60 MG IV PUSH ×2 (05:02→12:01)
[2022-03-10 06:12] LABS: Hematocrit 43.4 % (37.0-47.0); Hemoglobin 14.1 g/dL (12.0-15.0); Immature Granulocyte Absolute 0.03 K/mm3 (0.00-0.031); Immature Granulocyte Percent A 0.5 % (0-0.5); Lymphocytes Absolute Auto 0.31 K/mm3 (0.9-3.2); Lymphocytes Percent Auto 5.5 % (18.3-44.2); Mean Corpuscular HGB Conc 32.5 g/dl (32-36); Mean Corpuscular Hemoglobin 29.3 pg (26-34); Mean Corpuscular Volume 90.2 fl (80-100); Monocytes Percent Auto 0.5 % (2.6-8.5); Neutrophils Absolute Auto 5.3 K/mm3 (1.3-6.7); Neutrophils Percent Auto 93.5 % (45.5-73.1); Platelet Count Result 193 k/mm3 (150-375); Red Blood Count 4.81 M/mm3 (4.2-5.4); Red Cell Distribution Width 14.6 % (11.5-14.5); White Blood Count 5.7 K/mm3 (4.5-10.0)
[2022-03-10 06:20] LABS: Alanine Aminotransferase 19 U/L (6-35); Albumin Level 3.6 g/dL (3.5-5.1); Alkaline Phosphatase 96 U/L (38-126); Anion Gap 10 mmol/L (8-16); Aspartate Amino Transferase 17 U/L (14-36); Bilirubin,Total 0.8 mg/dL (0.2-1.3); Blood Urea Nitrogen 40 mg/dL (7-17); Calcium 8.9 mg/dL (8.4-10.2); Carbon Dioxide 22 mmol/L (22-30); Chloride 100 mmol/L (98-107); Estimated CRCL calculation 62 ml/min; Estimated Glomerular Filt Rate 45; Glucose 448 mg/dL (65-110); Magnesium 2.4 mg/dL (1.6-2.3); Potassium 4.4 mmol/L (3.4-5.0); Sodium 132 mmol/L (137-145)
[2022-03-10 06:40] LABS: Lactic Acid Reflex 1.3 mmol/L (0.7-2.0)
[2022-03-10 07:23] LABS: Thyroid Stimulating Hormone Reflex 0.487 uIU/mL (0.465-4.68)
[2022-03-10 07:29] LABS: Hemoglobin A1C 6.8 % (<5.7)
[2022-03-10 08:08] LABS: Glucose Point of Care 405 mg/dl (65-105)
[2022-03-10] MEDS: LOSARTAN POTASSIUM 50 MG TABLET PO (09:28)
[2022-03-10] MEDS: RIVAROXABAN 20 MG TABLET PO ×2 (09:28→21:15)
[2022-03-10] MEDS: OMEGA 3 POLYUNSAT FATTY ACIDS 1 GM CAP 2 GM PO ×2 (09:28→17:25)
[2022-03-10] MEDS: busPIRone HCL 5 MG TABLET PO ×2 (09:28→17:25)
[2022-03-10] MEDS: PANTOPRAZOLE 40 MG TABLET PO (09:28)
[2022-03-10] MEDS: calcitrioL 0.25 MCG CAPSULE PO (09:28)
[2022-03-10] MEDS: ATORVASTATIN 40 MG TABLET PO (09:28)
[2022-03-10] MEDS: INSULIN ASPART (*BKC) 100 UNITS/ML 40 UNITS SUB-Q ×3 (09:30→17:26)
[2022-03-10 11:41] LABS: Glucose Point of Care 452 mg/dl (65-105)
[2022-03-10] MEDS: INSULIN ASPART (*BKC) 100 UNITS/ML SUB-Q ×2 (12:02→17:25)
[2022-03-10] MEDS: metFORMIN HCL 500 MG TABLET PO ×2 (12:02→17:25)
[2022-03-10] MEDS: ACETAMINOPHEN 500 MG TABLET PO (12:06)
[2022-03-10 14:36] LABS: Glucose Point of Care 406 mg/dl (65-105)
--- NOTE | 2022-03-10 14:57 | P.PNIM_ITS ---
Progress Note: A&P Assessment and Plan (1) Acute exacerbation of chronic obstructive pulmonary disease (COPD): Code(s): J44.1 - Chronic obstructive pulmonary disease with (acute) exacerbation Status: Acute Assessment and Plan: patient presented with diffuse wheezing and hypoxia with O2 sats in the 80s, Findings felt to be consistent with COPD exacerbation * continue Solu-Medrol, weaned to 40 mg Q 8h * continue scheduled albuterol and ipratropium nebs * currently requiring 4 L supplemental O2. home setting is 2 L with activity only * monitor O2 sats. She is maintaining adequate oxygen sats at this time * supportive care (2) Pneumonia: Code(s): J18.9 - Pneumonia, unspecified organism Status: Acute Assessment and Plan: imaging reveals increased patchy airspace opacities of the left mid and lower lung zone which is concerning for pneumonia * continue Levaquin * blood cultures pending * sputum culture ordered, awaiting collection * supportive care. Incentive spirometry, expectorants, Cornet valve * influenza, COVID, RSV negative * will check urinary Legionella and pneumococcal antigen (3) Diabetes: Code(s): E11.9 - Type 2 diabetes mellitus without complications Status: Acute Assessment and Plan: A1c is 6.8. Blood sugars have been poorly controlled this admission, secondary to steroid * continue Accu-Cheks, high-dose sliding scale insulin, hypoglycemic protocol * home metformin on hold * continue home insulin regimen consisting of Lantus 80 units q.h.s. and NovoLog 40 units t.i.d. with meals * monitor glucose trends closely, hopefully will improve as steroids are weaned (4) Chest pain: Code(s): R07.9 - Chest pain, unspecified Status: Acute Assessment and Plan: patient with atypical chest pain, most likely pleuritic secondary to pneumonia * pain is worse with movement or deep breaths and is reproducible * not felt to be secondary to acute coronary syndrome * acute PE unlikely as patient is maintained on chronic anticoagulation * troponins negative x2 * EKG with no acute ST changes * supportive care (5) Chronic renal failure (CRF), stage 3a: Code(s): N18.31 - Chronic kidney disease, stage 3a Status: Acute Assessment and Plan: creatinine mildly elevated above baseline at 1.2 today * continue to monitor BMP * avoid nephrotoxins (6) Hypertension: Code(s): I10 - Essential (primary) hypertension Status: Acute Assessment and Plan: blood pressure is stable. Last BP 132/72 * continue home losartan (7) Pulmonary embolism: Qualifiers: Acute cor pulmonale presence: unspecified Chronicity: unspecified Pulmonary embolism type: unspecified Qualified Code(s): I26.99 - Other pulmonary embolism without acute cor pulmonale Code(s): I26.99 - Other pulmonary embolism without acute cor pulmonale Status: Chronic Assessment and Plan: patient with history of PE (CTA from 04/07/2019 reveals pulmonary emboli) * continue home Xarelto * acute PE not suspected Plan MEDICAL DECISION MAKING NARRATIVE History obtained from: patient External chart review: ER notes, previous hospital admission, prior echocardiogram, prior outpatient labs New problems addressed: COPD exacerbation, pneumonia, hyperglycemia Chronic illnesses addressed: type 2 diabetes mellitus, pulmonary embolism, chronic kidney disease Independent interpretation of studies: chest x-ray, CBC, B
--- NOTE | 2022-03-10 14:57 | PM.IMPN ---
Progress Note: A&P Assessment and Plan (1) Acute exacerbation of chronic obstructive pulmonary disease (COPD): Code(s): J44.1 - Chronic obstructive pulmonary disease with (acute) exacerbation Status: Acute Assessment and Plan: patient presented with diffuse wheezing and hypoxia with O2 sats in the 80s, Findings felt to be consistent with COPD exacerbation continue Solu-Medrol, weaned to 40 mg Q 8h continue scheduled albuterol and ipratropium nebs currently requiring 4 L supplemental O2. home setting is 2 L with activity only monitor O2 sats. She is maintaining adequate oxygen sats at this time supportive care (2) Pneumonia: Code(s): J18.9 - Pneumonia, unspecified organism Status: Acute Assessment and Plan: imaging reveals increased patchy airspace opacities of the left mid and lower lung zone which is concerning for pneumonia continue Levaquin blood cultures pending sputum culture ordered, awaiting collection supportive care. Incentive spirometry, expectorants, Cornet valve influenza, COVID, RSV negative will check urinary Legionella and pneumococcal antigen (3) Diabetes: Code(s): E11.9 - Type 2 diabetes mellitus without complications Status: Acute Assessment and Plan: A1c is 6.8. Blood sugars have been poorly controlled this admission, secondary to steroid continue Accu-Cheks, high-dose sliding scale insulin, hypoglycemic protocol home metformin on hold continue home insulin regimen consisting of Lantus 80 units q.h.s. and NovoLog 40 units t.i.d. with meals monitor glucose trends closely, hopefully will improve as steroids are weaned (4) Chest pain: Code(s): R07.9 - Chest pain, unspecified Status: Acute Assessment and Plan: patient with atypical chest pain, most likely pleuritic secondary to pneumonia pain is worse with movement or deep breaths and is reproducible not felt to be secondary to acute coronary syndrome acute PE unlikely as patient is maintained on chronic anticoagulation troponins negative x2 EKG with no acute ST changes supportive care (5) Chronic renal failure (CRF), stage 3a: Code(s): N18.31 - Chronic kidney disease, stage 3a Status: Acute Assessment and Plan: creatinine mildly elevated above baseline at 1.2 today continue to monitor BMP avoid nephrotoxins (6) Hypertension: Code(s): I10 - Essential (primary) hypertension Status: Acute Assessment and Plan: blood pressure is stable. Last BP 132/72 continue home losartan (7) Pulmonary embolism: Qualifiers: Acute cor pulmonale presence: unspecified Chronicity: unspecified Pulmonary embolism type: unspecified Qualified Code(s): I26.99 - Other pulmonary embolism without acute cor pulmonale Code(s): I26.99 - Other pulmonary embolism without acute cor pulmonale Status: Chronic Assessment and Plan: patient with history of PE (CTA from 04/07/2019 reveals pulmonary emboli) continue home Xarelto acute PE not suspected Plan MEDICAL DECISION MAKING NARRATIVE History obtained from: patient External chart review: ER notes, previous hospital admission, prior echocardiogram, prior outpatient labs New problems addressed: COPD exacerbation, pneumonia, hyperglycemia Chronic illnesses addressed: type 2 diabetes mellitus, pulmonary embolism, chronic kidney disease Independent interpretation of studies: chest x-ray, CBC, BMP Risk of complication: risk for worsened hyperglycemia with steroid therapy, patient requiring frequent monitoring and addressing of blood sugars, risk for hypoxia Time spent on encounter: 55 minutes Subjective Date/time seen: 03/10/22 14:57 Interval history: date of service: 03/10/2022 Lanny Bustillo is 61-year-old female with a history of COPD, CKD, tobacco abuse, type 2 diabetes mellitus, laryngeal cancer and
[2022-03-10] MEDS: HYDROcodone/acetaminophen (*CRX) 5-325 MG TABLET 1 TAB PO (15:12)
[2022-03-10 16:39] LABS: Glucose Point of Care 367 mg/dl (65-105)
[2022-03-10 19:55] LABS: Glucose Point of Care 309 mg/dl (65-105)
[2022-03-10] MEDS: methylPREDNISolone SOD SUCC 40 MG VIAL IV PUSH (21:15)
[2022-03-11] VITALS (21 sets, daily range): BP systolic 109–134; BP diastolic 49–82; PULSE 68–157; RESP 14–22; TEMP 36.1–36.6; O2SAT 92–98
[2022-03-11] MEDS: IPRATROPIUM BR 0.02% INH SOLN 0.5 MG/2.5 ML VIAL INHALATION ×2 (02:17→21:21)
[2022-03-11] MEDS: ALBUTEROL SULFATE NEB 2.5 MG/3 ML INH 5 MG INHALATION ×2 (02:17→21:21)
[2022-03-11 05:59] LABS: Hematocrit 43.6 % (37.0-47.0); Hemoglobin 14.1 g/dL (12.0-15.0); Mean Corpuscular HGB Conc 32.3 g/dl (32-36); Mean Corpuscular Hemoglobin 29.4 pg (26-34); Mean Corpuscular Volume 90.8 fl (80-100); Mean Platelet Volume 10.8 fl (7.4-10.4); Platelet Count Result 232 k/mm3 (150-375); Red Cell Distribution Width 15.1 % (11.5-14.5); White Blood Count 11.7 K/mm3 (4.5-10.0)
[2022-03-11 06:14] LABS: Anion Gap 14 mmol/L (8-16); Blood Urea Nitrogen 45 mg/dL (7-17); Calcium 9.1 mg/dL (8.4-10.2); Carbon Dioxide 21 mmol/L (22-30); Chloride 100 mmol/L (98-107); Estimated CRCL calculation 54 ml/min; Estimated Glomerular Filt Rate 38; Glucose 308 mg/dL (65-110); Potassium 4.4 mmol/L (3.4-5.0); Sodium 135 mmol/L (137-145)
[2022-03-11] MEDS: methylPREDNISolone SOD SUCC 40 MG VIAL IV PUSH ×3 (06:48→21:04)
[2022-03-11] MEDS: HYDROcodone/acetaminophen (*CRX) 5-325 MG TABLET 1 TAB PO (06:50)
--- NOTE | 2022-03-11 06:55 | ECG_ITS ---
Measurements Intervals [place] Rate: 151 P: NC: 0 QRS: 38 QRSD: 87 T: 256 QT: 238 QTc: 378 Interpretive Statements ATYPICAL ATRIAL FLUTTER WITH TWO-TO-ONE CONDUCTION MODERATE ST DEPRESSION [0.05+ mV ST DEPRESSION] ABNORMAL QRS-T ANGLE [QRS-T AXIS DIFFERENCE > 60] COMPARED TO ECG 03/09/2022 12:14:34 A[address] FLUT[address] NOW PRESENT ST (T WAVE) DEVIATION NOW PRESENT Electronically Signed On 03-11-2022 14:50:46 CONTRACT GRAPHIC DESIGNER by Malick Huston M.D.
[2022-03-11] MEDS: METOPROLOL TARTRATE INJ 5 MG/5 ML VIAL IV PUSH ×2 (07:27→12:42)
[2022-03-11] MEDS: ASPIRIN 81 MG CHEWABLE TABLET 324 MG PO (07:32)
[2022-03-11 07:56] LABS: Troponin I 0.015 ng/mL (0.000-0.034)
[2022-03-11] MEDS: OMEGA 3 POLYUNSAT FATTY ACIDS 1 GM CAP 2 GM PO ×2 (08:08→21:04)
[2022-03-11] MEDS: RIVAROXABAN 20 MG TABLET PO (08:08)
[2022-03-11] MEDS: PANTOPRAZOLE 40 MG TABLET PO (08:08)
[2022-03-11] MEDS: busPIRone HCL 5 MG TABLET PO ×2 (08:08→21:04)
[2022-03-11] MEDS: calcitrioL 0.25 MCG CAPSULE PO (08:08)
[2022-03-11] MEDS: LOSARTAN POTASSIUM 50 MG TABLET PO (08:08)
[2022-03-11] MEDS: ATORVASTATIN 40 MG TABLET PO (08:08)
[2022-03-11 08:09] LABS: Glucose Point of Care 345 mg/dl (65-105)
[2022-03-11] MEDS: metFORMIN HCL 500 MG TABLET PO (08:09)
[2022-03-11] MEDS: INSULIN ASPART (*BKC) 100 UNITS/ML SUB-Q ×2 (08:09→12:45)
[2022-03-11] MEDS: INSULIN ASPART (*BKC) 100 UNITS/ML 40 UNITS SUB-Q ×3 (08:10→17:15)
--- NOTE | 2022-03-11 08:48 | PC.NURSE ---
This patient, Lanny Bustillo, was transferred to [ imu [id number]] on 03/11/22 at 0850. Personal belongings sent with patient. Report given to [Umer ]. Appropriate documentation sent with patient.
--- NOTE | 2022-03-11 09:00 | PC.NURSE ---
This patient, Lanny Bustillo, was received from [facility] on 03/11/22 at 0900. Patient/family oriented to unit policies and routines.
[2022-03-11 11:39] LABS: Glucose Point of Care 320 mg/dl (65-105)
[2022-03-11 11:40] LABS: Troponin I 0.013 ng/mL (0.000-0.034)
--- NOTE | 2022-03-11 14:04 | PM.CNCAR ---
Assessment and Plan Assessment and plan (1) Atypical atrial flutter: Code(s): I48.4 - Atypical atrial flutter Status: Acute Plan This is a 61-year-old lady with morbid obesity chronic lung disease, lung cancer with radiation therapy who enters the hospital with a COPD exacerbation a couple of days ago. This morning it looks like she converted from sinus into atrial flutter with rapid ventricular response. She reports that her brush machine setter in [place] has prescribed diltiazem for intake at a relatively high dose which has been control of her atrial arrhythmias. Rather than advancing her medical regimen I am simply going to reorder her diltiazem at this point. If her AF is reasonably well controlled with this I do not see reason to change her established brush machine setter recommendations at this time. She should tolerate the negative ionotropic properties of diltiazem without too much difficulty since her LV is known to be hyperdynamic on recent echo here. Upon the discharge from [place] she intends to follow up with her established brush machine setter. Malick Huston MD [facility] History of Present Illness History of Present Illness Consult date/time: 03/11/22 14:04 Reason For Visit: acute respiratory failure with hypoxia,community a Narrative: This is a 61-year-old woman unknown to me prior to this visit I have seeing her this afternoon hospitalist to assist with the management of atrial fibrillation. Her chart has been reviewed and the patient was seen in room 209. She is relatively comfortable at this time and does not have any active complaints of a cardiac nature. She states that she has a history of atrial fibrillation in a paroxysmal fashion and follows with Dr. Phan in [place]. She has had atrial fibrillation under his care for something like a year or 2 from what she can recall. She can not remember any specific statement being made in terms of the etiology of her atrial fib although she states that there were no other cardiac problems found to the best of her knowledge. Her principal comorbidities are significant COPD morbid obesity and history of lung cancer which has been treated with radiation. She entered this hospital couple of days ago with worsening shortness of breath she was treated for a COPD exacerbation. Upon arrival she was in sinus rhythm/sinus tachycardia. Apparently earlier today she was felt to have gone into atrial fib with RVR she was transferred down to the IMU and we were consulted to see her. An echocardiogram was done here at [place] during a recent hospitalization in January where she was also dyspneic which demonstrated her left ventricular function to be hyperdynamic without any ischemic wall motion abnormalities. There was no significant valvular pathology identified. The patient states that Dr. Phan has prescribed long-acting diltiazem 360 mg per day for treatment of this. She also takes Xarelto chronically her anticoagulation actually predates her diagnosis of atrial fib because of her history of recurrent DVT/PE she has been anticoagulated for a number of years. She reports to be compliant with her regimen of Xarelto. The patient is rhythm today is actually atypical atrial flutter rather than atrial fibrillation. She was given orders for some p.r.n. intravenous metoprolol prior to my seeing her this afternoon. She states that her hospitalist that saw her this morning told her that she could and did take a dose of her diltiazem that she had from her home medication bag in her room. No diltiazem has been ordered according to what I see on the chart. There is no note in the chart from any other physician today. Review of Systems Constitutional: Constitutional: Reports lethargy Eyes: Eyes: Reports no additional eye complaints ENT: Reports system reviewed and no additional complaints, except as documented Cardiovascular: Cardiovascular: Reports no additional cardiovascular complaints Re
[2022-03-11 14:16] LABS: Troponin I 0.018 ng/mL (0.000-0.034)
--- NOTE | 2022-03-11 15:58 | P.PNIM_ITS ---
Progress Note: A&P Assessment and Plan (1) Acute exacerbation of chronic obstructive pulmonary disease (COPD): Code(s): J44.1 - Chronic obstructive pulmonary disease with (acute) exacerbation Status: Acute Assessment and Plan: patient presented with diffuse wheezing and hypoxia with O2 sats in the 80s, Findings felt to be consistent with COPD exacerbation * continue Solu-Medrol, weaned to 40 mg q12h * plan to transition to p.o. prednisone tomorrow morning * continue scheduled albuterol and ipratropium nebs * initially required up to 4 L supplemental O2. She has been weaned to room air. home setting is 2 L with activity only * supportive care (2) Pneumonia: Code(s): J18.9 - Pneumonia, unspecified organism Status: Acute Assessment and Plan: imaging reveals increased patchy airspace opacities of the left mid and lower lung zone which is concerning for pneumonia * continue Levaquin * blood cultures pending * sputum culture ordered, awaiting collection * supportive care. Incentive spirometry, expectorants, Cornet valve * influenza, COVID, RSV negative * urinary Legionella and pneumococcal antigens pending (3) Atypical atrial flutter: Code(s): I48.4 - Atypical atrial flutter Status: Acute Assessment and Plan: Patient with episode of atrial flutter with rapid ventricular rate up to 150s today. Patient does have a history of atrial fibrillation maintained on diltiazem, however unfortunately atrial fibrillation was not listed on medical history and diltiazem not listed on medication list. this has been corrected. * Patient received 1 dose of IV metoprolol with improvement in rate today * appreciate cardiology recommendations * resume home diltiazem 360 mg daily * continue to monitor on telemetry * follow up with outpatient ecologist (4) Chest pain: Code(s): R07.9 - Chest pain, unspecified Status: Acute Assessment and Plan: 03/10/22 patient with atypical chest pain, most likely pleuritic secondary to pneumonia * pain is worse with movement or deep breaths and is reproducible * not felt to be secondary to acute coronary syndrome * acute PE unlikely as patient is maintained on chronic anticoagulation * troponins negative x2 * EKG with no acute ST changes * supportive care Patient with episode of chest pain today that she states was different than previous complaints of chest pain, radiating to neck and jaw. Troponins again negative and EKG unchanged. Appreciate cardiology recommendations (5) Diabetes: Code(s): E11.9 - Type 2 diabetes mellitus without complications Status: Acute Assessment and Plan: A1c is 6.8. Blood sugars have been poorly controlled this admission, secondary to steroid * continue Accu-Cheks, high-dose sliding scale insulin, hypoglycemic protocol * home metformin on hold * continue home insulin regimen consisting of Lantus 80 units q.h.s. and NovoLog 40 units t.i.d. with meals * monitor glucose trends closely, hopefully will improve as steroids are weaned (6) Chronic renal failure (CRF), stage 3a: Code(s): N18.31 - Chronic kidney disease, stage 3a Status: Acute Assessment and Plan: creatinine mildly elevated above baseline at 1.4 today * hold losartan and metformin * continue to monitor BMP * consider renal ultrasound if worsening * avoid nephrotoxins (7) Hypertension: Code(s): I10 - Essential (primary) hypertension Status: Acute Assessment and Plan:
--- NOTE | 2022-03-11 15:58 | PM.IMPN ---
Progress Note: A&P Assessment and Plan (1) Acute exacerbation of chronic obstructive pulmonary disease (COPD): Code(s): J44.1 - Chronic obstructive pulmonary disease with (acute) exacerbation Status: Acute Assessment and Plan: patient presented with diffuse wheezing and hypoxia with O2 sats in the 80s, Findings felt to be consistent with COPD exacerbation continue Solu-Medrol, weaned to 40 mg q12h plan to transition to p.o. prednisone tomorrow morning continue scheduled albuterol and ipratropium nebs initially required up to 4 L supplemental O2. She has been weaned to room air. home setting is 2 L with activity only supportive care (2) Pneumonia: Code(s): J18.9 - Pneumonia, unspecified organism Status: Acute Assessment and Plan: imaging reveals increased patchy airspace opacities of the left mid and lower lung zone which is concerning for pneumonia continue Levaquin blood cultures pending sputum culture ordered, awaiting collection supportive care. Incentive spirometry, expectorants, Cornet valve influenza, COVID, RSV negative urinary Legionella and pneumococcal antigens pending (3) Atypical atrial flutter: Code(s): I48.4 - Atypical atrial flutter Status: Acute Assessment and Plan: Patient with episode of atrial flutter with rapid ventricular rate up to 150s today. Patient does have a history of atrial fibrillation maintained on diltiazem, however unfortunately atrial fibrillation was not listed on medical history and diltiazem not listed on medication list. this has been corrected. Patient received 1 dose of IV metoprolol with improvement in rate today appreciate cardiology recommendations resume home diltiazem 360 mg daily continue to monitor on telemetry follow up with outpatient seating captain (4) Chest pain: Code(s): R07.9 - Chest pain, unspecified Status: Acute Assessment and Plan: 03/10/22 patient with atypical chest pain, most likely pleuritic secondary to pneumonia pain is worse with movement or deep breaths and is reproducible not felt to be secondary to acute coronary syndrome acute PE unlikely as patient is maintained on chronic anticoagulation troponins negative x2 EKG with no acute ST changes supportive care Patient with episode of chest pain today that she states was different than previous complaints of chest pain, radiating to neck and jaw. Troponins again negative and EKG unchanged. Appreciate cardiology recommendations (5) Diabetes: Code(s): E11.9 - Type 2 diabetes mellitus without complications Status: Acute Assessment and Plan: A1c is 6.8. Blood sugars have been poorly controlled this admission, secondary to steroid continue Accu-Cheks, high-dose sliding scale insulin, hypoglycemic protocol home metformin on hold continue home insulin regimen consisting of Lantus 80 units q.h.s. and NovoLog 40 units t.i.d. with meals monitor glucose trends closely, hopefully will improve as steroids are weaned (6) Chronic renal failure (CRF), stage 3a: Code(s): N18.31 - Chronic kidney disease, stage 3a Status: Acute Assessment and Plan: creatinine mildly elevated above baseline at 1.4 today hold losartan and metformin continue to monitor BMP consider renal ultrasound if worsening avoid nephrotoxins (7) Hypertension: Code(s): I10 - Essential (primary) hypertension Status: Acute Assessment and Plan: blood pressure is stable. Last BP 133/82 hold home losartan due to ALFRED (8) Pulmonary embolism: Qualifiers: Acute cor pulmonale presence: unspecified Chronicity: unspecified Pulmonary embolism type: unspecified Qualified Code(s): I26.99 - Other pulmonary embolism without acute cor pulmonale Code(s): I26.99 - Other pulmonary embolism without acute cor pulmonale Status: Chronic
[2022-03-11 16:54] LABS: Glucose Point of Care 150 mg/dl (65-105)
[2022-03-11] MEDS: INSULIN GLARGINE (*BKC) 100 UNITS/ML 80 UNITS SUB-Q (21:18)
[2022-03-11 21:19] LABS: Glucose Point of Care 141 mg/dl (65-105)
[2022-03-12] VITALS (18 sets, daily range): BP systolic 122–141; BP diastolic 48–71; PULSE 62–85; RESP 16–20; TEMP 36.2–36.6; O2SAT 95–99
[2022-03-12] MEDS: IPRATROPIUM BR 0.02% INH SOLN 0.5 MG/2.5 ML VIAL INHALATION ×2 (02:06→08:28)
[2022-03-12] MEDS: ALBUTEROL SULFATE NEB 2.5 MG/3 ML INH 5 MG INHALATION ×2 (02:08→08:31)
[2022-03-12 04:31] LABS: Hematocrit 41.3 % (37.0-47.0); Hemoglobin 13.2 g/dL (12.0-15.0); Mean Corpuscular Hemoglobin 28.9 pg (26-34); Mean Corpuscular Volume 90.6 fl (80-100); Mean Platelet Volume 11.2 fl (7.4-10.4); Platelet Count Result 214 k/mm3 (150-375); Red Blood Count 4.56 M/mm3 (4.2-5.4); Red Cell Distribution Width 15.2 % (11.5-14.5); White Blood Count 9.9 K/mm3 (4.5-10.0)
[2022-03-12 04:53] LABS: Anion Gap 7 mmol/L (8-16); Blood Urea Nitrogen 60 mg/dL (7-17); Calcium 8.8 mg/dL (8.4-10.2); Carbon Dioxide 23 mmol/L (22-30); Chloride 101 mmol/L (98-107); Estimated CRCL calculation 54 ml/min; Estimated Glomerular Filt Rate 38; Glucose 303 mg/dL (65-110); Potassium 4.8 mmol/L (3.4-5.0); Sodium 131 mmol/L (137-145)
[2022-03-12] MEDS: INSULIN ASPART (*BKC) 100 UNITS/ML SUB-Q ×2 (08:50→17:57)
[2022-03-12] MEDS: INSULIN ASPART (*BKC) 100 UNITS/ML 40 UNITS SUB-Q ×3 (08:51→17:58)
[2022-03-12] MEDS: predniSONE 20 MG TABLET 40 MG PO (08:55)
[2022-03-12] MEDS: dilTIAZem HCL CD 180 MG CAP.ER.24H 360 MG PO (08:56)
[2022-03-12] MEDS: OMEGA 3 POLYUNSAT FATTY ACIDS 1 GM CAP 2 GM PO ×2 (08:56→20:40)
[2022-03-12] MEDS: busPIRone HCL 5 MG TABLET PO ×2 (08:56→20:39)
--- NOTE | 2022-03-12 10:08 | P.PNIM_ITS ---
Progress Note: A&P Assessment and Plan (1) Acute exacerbation of chronic obstructive pulmonary disease (COPD): Code(s): J44.1 - Chronic obstructive pulmonary disease with (acute) exacerbation Status: Acute Assessment and Plan: patient presented with diffuse wheezing and hypoxia with O2 sats in the 80s, Findings felt to be consistent with COPD exacerbation * symptomatic improvement following IV Solu-Medrol * has been transitioned to p.o. prednisone 40 mg daily * continue albuterol and ipratropium nebs as needed * initially required up to 4 L supplemental O2. She has been weaned to room air. home setting is 2 L with activity only * supportive care (2) Pneumonia: Code(s): J18.9 - Pneumonia, unspecified organism Status: Acute Assessment and Plan: imaging reveals increased patchy airspace opacities of the left mid and lower lung zone which is concerning for pneumonia * continue Levaquin * blood cultures pending * sputum culture ordered, awaiting collection * supportive care. Incentive spirometry, expectorants, Cornet valve * influenza, COVID, RSV negative * urinary Legionella and pneumococcal antigens pending (3) Acute kidney injury superimposed on chronic kidney disease: Code(s): N17.9 - Acute kidney failure, unspecified; N18.9 - Chronic kidney disease, unspecified Status: Acute Assessment and Plan: Patient reports history of stage III CKD and states that baseline GFR is 58-59. review of prior labs demonstrate creatinine to be 0.8-1.0. Creatinine this admission has been elevated up to 1.4 * etiology unclear. Patient appears euvolemic on exam * home losartan and metformin on hold * check UA * proceed with renal ultrasound for further monitoring * consider nephrology consultation if no improvement * monitor BMP (4) Atypical atrial flutter: Code(s): I48.4 - Atypical atrial flutter Status: Acute Assessment and Plan: 03/11/22 with onset of atrial flutter with rapid ventricular rate up to 150s. * Patient received 1 dose of IV metoprolol with improvement * Patient was resumed on her home diltiazem 360 mg daily and rate is controlled at this time * Remains in A flutter, she is asymptomatic * Appreciate cardiology recommendations * continue to monitor on telemetry * follow up with her established brick baker as an outpatient (5) Chest pain: Code(s): R07.9 - Chest pain, unspecified Status: Resolved Assessment and Plan: patient initially with complaints of atypical, pleuritic chest pain felt to be secondary to pneumonia. Yesterday patient developed chest pain which she described as a pressure that radiated to the neck and jaw. pain has resolved entirely today * cardiac evaluation has been negative with negative troponins and unchanged EKG * not felt to be secondary to acute coronary syndrome * acute PE unlikely as patient is maintained on chronic anticoagulation * appreciate cardiology recommendation * supportive care * pain has resolved (6) Diabetes: Code(s): E11.9 - Type 2 diabetes mellitus without complications Status: Acute Assessment and Plan: A1c is 6.8. Blood sugars have been poorly controlled this admission, secondary to steroids * continue Accu-Cheks, high-dose sliding scale insulin, hypoglycemic protocol * home metformin on hold * continue home insulin regimen consisting of Lantus 80 units q.h.s. and NovoLog 40 units t.i.d. with meals * monitor glucose trends closely, anticipate improvement as steroids ar
--- NOTE | 2022-03-12 10:08 | PM.IMPN ---
Progress Note: A&P Assessment and Plan (1) Acute exacerbation of chronic obstructive pulmonary disease (COPD): Code(s): J44.1 - Chronic obstructive pulmonary disease with (acute) exacerbation Status: Acute Assessment and Plan: patient presented with diffuse wheezing and hypoxia with O2 sats in the 80s, Findings felt to be consistent with COPD exacerbation symptomatic improvement following IV Solu-Medrol has been transitioned to p.o. prednisone 40 mg daily continue albuterol and ipratropium nebs as needed initially required up to 4 L supplemental O2. She has been weaned to room air. home setting is 2 L with activity only supportive care (2) Pneumonia: Code(s): J18.9 - Pneumonia, unspecified organism Status: Acute Assessment and Plan: imaging reveals increased patchy airspace opacities of the left mid and lower lung zone which is concerning for pneumonia continue Levaquin blood cultures pending sputum culture ordered, awaiting collection supportive care. Incentive spirometry, expectorants, Cornet valve influenza, COVID, RSV negative urinary Legionella and pneumococcal antigens pending (3) Acute kidney injury superimposed on chronic kidney disease: Code(s): N17.9 - Acute kidney failure, unspecified; N18.9 - Chronic kidney disease, unspecified Status: Acute Assessment and Plan: Patient reports history of stage III CKD and states that baseline GFR is 58-59. review of prior labs demonstrate creatinine to be 0.8-1.0. Creatinine this admission has been elevated up to 1.4 etiology unclear. Patient appears euvolemic on exam home losartan and metformin on hold check UA proceed with renal ultrasound for further monitoring consider nephrology consultation if no improvement monitor BMP (4) Atypical atrial flutter: Code(s): I48.4 - Atypical atrial flutter Status: Acute Assessment and Plan: 03/11/22 with onset of atrial flutter with rapid ventricular rate up to 150s. Patient received 1 dose of IV metoprolol with improvement Patient was resumed on her home diltiazem 360 mg daily and rate is controlled at this time Remains in A flutter, she is asymptomatic Appreciate cardiology recommendations continue to monitor on telemetry follow up with her established rn obgyn as an outpatient (5) Chest pain: Code(s): R07.9 - Chest pain, unspecified Status: Resolved Assessment and Plan: patient initially with complaints of atypical, pleuritic chest pain felt to be secondary to pneumonia. Yesterday patient developed chest pain which she described as a pressure that radiated to the neck and jaw. pain has resolved entirely today cardiac evaluation has been negative with negative troponins and unchanged EKG not felt to be secondary to acute coronary syndrome acute PE unlikely as patient is maintained on chronic anticoagulation appreciate cardiology recommendation supportive care pain has resolved (6) Diabetes: Code(s): E11.9 - Type 2 diabetes mellitus without complications Status: Acute Assessment and Plan: A1c is 6.8. Blood sugars have been poorly controlled this admission, secondary to steroids continue Accu-Cheks, high-dose sliding scale insulin, hypoglycemic protocol home metformin on hold continue home insulin regimen consisting of Lantus 80 units q.h.s. and NovoLog 40 units t.i.d. with meals monitor glucose trends closely, anticipate improvement as steroids are weaned (7) Hypertension: Code(s): I10 - Essential (primary) hypertension Status: Acute Assessment and Plan: blood pressure is stable. hold home losartan due to ALFRED (8) Pulmonary embolism: Qualifiers: Acute cor pulmonale presence: unspecified Chronicity: unspecified Pulmonary embolism type: unspecified Qualified Code(s): I26.99 - Other pulmonary e
[2022-03-12 10:12] LABS: Glucose Point of Care 332 mg/dl (65-105)
--- NOTE | 2022-03-12 10:40 | PM.PNCARD ---
Progress Note: A&P Assessment and Plan (1) Atypical atrial flutter: Code(s): I48.4 - Atypical atrial flutter Status: Acute Assessment and Plan: Back in sinus rhythm. Continue anticoagulation and diltiazem for now. Her renal function has declined somewhat. Renal workup is now pending. If her renal function remains impaired with a creatinine clearance of less than 50, her Xarelto dose should be reduced down to 15 mg daily. This point the will keep her on 20 mg once daily. 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 she is feeling much improved today. She is without specific cardiac complaints today. She has no palpitations or chest pain. Review of Systems Constitutional: Constitutional: Reports lethargy Eyes: Eyes: Reports no additional eye complaints ENT: Reports system reviewed and no additional complaints, except as documented Cardiovascular: Cardiovascular: Reports no additional cardiovascular complaints and Reports dyspnea Respiratory: Respiratory: Reports dyspnea Gastrointestinal: Gastrointestinal: Reports no additional gastrointestinal complaints Musculoskeletal: Musculoskeletal: Reports back pain Integumentary/Breasts: Skin/Breast: Reports system reviewed and no additional complaints, except as docu Neurologic: Reports system reviewed and no additional complaints, except as documented Endocrine: Endocrine: Reports no additional endocrine complaints Hematologic/Lymphatic: Hematologic/Lymphatic: Reports no additional hematologic/lymphatic complaints Allergic/Immunologic: Allergic/Immunologic: Reports no additional allergic/immunologic complaints Exam Const: Other: Pleasant morbidly obese white female (with BMI 45) pleasant cooperative and in no distress of any kind HENMT: Mouth: Yes moist mucous membranes Eyes: Sclera: sclerae normal Pupils: Equal, round and reactive pupils present Neck: Neck: supple Other: Carotid impulses are unremarkable bilaterally. Cannot comment on JVD given her obesity Resp: Effort & Inspection: normal respiratory effort Other: Scattered expiratory wheezing is noted with relatively good air movement no rhonchi no rales. Breath sounds are distant primarily because of body habitus Cardio: Rate: tachycardic Rhythm: abnormal rhythm irregularly irregular Other: PMI is not palpable no audible murmur GI: Auscultation: normal bowel sounds Skin: General skin exam: normal color Neuro: Cranial nerves: Yes Equal, round and reactive pupils present Other: Alert and oriented x3 Extrem: Other: Adequate distal perfusion there is no pitting edema Objective Data Vital Signs Vital Signs: Vital Signs - 24 hr 03/11/22 12:42 03/11/22 11:51 03/11/22 14:06 Temperature 36.2 C L Pulse Rate 155 H 154 H 157 H Respiratory Rate 20 Blood Pressure 133/82 Pulse Oximetry 94 Oxygen Delivery Oxygen Flow Rate 03/11/22 12:00 03/11/22 12:00 03/11/22 16:00 Temperature Pulse Rate 152 H Respiratory Rate Blood Pressure Pulse Oximetry 94 94 Oxygen Delivery Room Air Room Air Oxygen Flow Rate 03/11/22 16:00 03/11/22 18:15 03/11/22 17:57 Temperature Pulse Rate 120 H 79 84 Respiratory Rate Blood Pressure Pulse Oximetry Oxygen Delivery Oxygen Flow Rate 03/11/22 21:26 03/11/22 21:26 03/11/22 21:30 Temperature 36.2 C L Pulse Rate 74 70 Respiratory Rate 20 22 H Blood Pressure 117/57 L Pu
[2022-03-12] MEDS: polyethylene glycoL 3350 17 GM POWD.PACK PO (11:12)
--- NOTE | 2022-03-12 12:00 | PC.NURSE ---
BG 571. Message left with Aarti. Dr. Kamara made aware. Advised to give 40 units of Novolog as scheduled, hold SS dose, and administer 20 units of Lantus. Recheck BG in 2 hours.
[2022-03-12 12:10] LABS: Glucose Point of Care > 500 mg/dl (65-105)
[2022-03-12] MEDS: INSULIN GLARGINE (*BKC) 100 UNITS/ML 20 UNITS SUB-Q (12:22)
[2022-03-12 12:40] LABS: Appearance Urine Slightly Cloudy (Clear); Bacteria Urine 4+ /hpf; Bilirubin Urine Negative (Negative); Blood Urine Negative (Negative); Color Urine Yellow (Yellow); Glucose Urine UA 3+ mg/dL (Negative); Ketones Urine Negative (Negative); Leukocyte Esterase Ur Negative LEU/UL (Negative); Mucus Urine Few /lpf; Nitrate Urine Positive (Negative); Protein Urine Negative (Negative); RBC Urine 0-2 /hpf (0-2); Specific Grav Ur 1.015 (1.001-1.035); Squamous Epithelial Cell Urine Rare /hpf (Few); Urobilinogen Urine 0.2 mg/dL (<2.0); WBC Urine 16-20 /hpf
[2022-03-12 12:43] LABS: Add Urine Microscopic? YES
[2022-03-12 13:40] LABS: Glucose Point of Care > 500 mg/dl (65-105)
--- NOTE | 2022-03-12 14:28 | PC.NURSE ---
491. Aarti made aware. Advised to recheck in 1 hour.
--- NOTE | 2022-03-12 15:30 | PC.NURSE ---
BG 431. Aarti informed. Advised to give 10 units Novolog now and then continue with BG check before dinner with scheduled insulin and SS.
[2022-03-12] MEDS: INSULIN ASPART (*BKC) 100 UNITS/ML 10 UNITS SUB-Q (16:00)
[2022-03-12 17:12] LABS: Glucose Point of Care 491 mg/dl (65-105)
[2022-03-12 17:12] LABS: Glucose Point of Care 431 mg/dl (65-105)
[2022-03-12 17:12] LABS: Glucose Point of Care 423 mg/dl (65-105)
[2022-03-12 17:56] LABS: Glucose Point of Care 381 mg/dl (65-105)
[2022-03-12 20:04] LABS: Glucose Point of Care 216 mg/dl (65-105)
[2022-03-12] MEDS: ATORVASTATIN 40 MG TABLET PO (20:38)
[2022-03-12] MEDS: DOCUSATE SODIUM 100 MG CAPSULE PO (20:38)
[2022-03-12] MEDS: PANTOPRAZOLE 40 MG TABLET PO (20:39)
[2022-03-12] MEDS: RIVAROXABAN 20 MG TABLET PO (20:39)
[2022-03-12] MEDS: calcitrioL 0.25 MCG CAPSULE PO (20:40)
[2022-03-12] MEDS: INSULIN GLARGINE (*BKC) 100 UNITS/ML 80 UNITS SUB-Q (20:51)
[2022-03-12] MEDS: HYDROcodone/acetaminophen (*CRX) 5-325 MG TABLET 1 TAB PO (23:30)
[2022-03-13] VITALS (8 sets, daily range): BP systolic 95–153; BP diastolic 62–64; PULSE 53–66; RESP 16–20; TEMP 36.2–36.5; O2SAT 93–100
[2022-03-13 05:24] LABS: Hematocrit 42.6 % (37.0-47.0); Hemoglobin 13.7 g/dL (12.0-15.0); Mean Corpuscular HGB Conc 32.2 g/dl (32-36); Mean Corpuscular Hemoglobin 28.9 pg (26-34); Mean Corpuscular Volume 89.9 fl (80-100); Mean Platelet Volume 10.9 fl (7.4-10.4); Platelet Count Result 198 k/mm3 (150-375); Red Blood Count 4.74 M/mm3 (4.2-5.4); Red Cell Distribution Width 14.7 % (11.5-14.5)
[2022-03-13 05:36] LABS: Anion Gap 2 mmol/L (8-16); Blood Urea Nitrogen 44 mg/dL (7-17); Carbon Dioxide 28 mmol/L (22-30); Chloride 101 mmol/L (98-107); Estimated CRCL calculation 74 ml/min; Estimated Glomerular Filt Rate 56; Glucose 48 mg/dL (65-110); Magnesium 2.9 mg/dL (1.6-2.3); Potassium 4.1 mmol/L (3.4-5.0); Sodium 131 mmol/L (137-145)
[2022-03-13 05:49] LABS: Glucose Point of Care 59 mg/dl (65-105)
[2022-03-13 06:02] LABS: Glucose Point of Care 64 mg/dl (65-105)
[2022-03-13 06:21] LABS: Glucose Point of Care 88 mg/dl (65-105)
[2022-03-13 08:16] LABS: Glucose Point of Care 141 mg/dl (65-105)
[2022-03-13] MEDS: dilTIAZem HCL CD 180 MG CAP.ER.24H 360 MG PO (09:00)
[2022-03-13] MEDS: polyethylene glycoL 3350 17 GM POWD.PACK PO (09:01)
[2022-03-13] MEDS: predniSONE 20 MG TABLET 40 MG PO (09:01)
[2022-03-13] MEDS: DOCUSATE SODIUM 100 MG CAPSULE PO (09:01)
[2022-03-13] MEDS: busPIRone HCL 5 MG TABLET PO (09:01)
[2022-03-13] MEDS: OMEGA 3 POLYUNSAT FATTY ACIDS 1 GM CAP 2 GM PO (09:02)
[2022-03-13 12:10] LABS: Glucose Point of Care 201 mg/dl (65-105)
[2022-03-13] MEDS: INSULIN ASPART (*BKC) 100 UNITS/ML SUB-Q (12:20)
--- NOTE | 2022-03-13 12:42 | PM.DS ---
DS: Admitting Diagnosis Discharge Date 03/13/22 Admitting Diagnosis COPD exacerbation DS: Discharge Diagnosis Discharge Diagnosis (1) Acute exacerbation of chronic obstructive pulmonary disease (COPD): Code(s): J44.1 - Chronic obstructive pulmonary disease with (acute) exacerbation Status: Acute Assessment and Plan: Patient presented with diffuse wheezing and hypoxia with O2 sats in the 80s. Findings felt to be consistent with COPD exacerbation symptomatic improvement following IV Solu-Medrol she was transitioned to p.o. prednisone 40 mg daily completed a total of 5 days of steroids treatment and wheezing resolved. Steroids discontinued continue home inhalers initially required up to 4 L supplemental O2 and was weaned to room air. home setting is 2 L with activity only supportive care (2) Pneumonia: Code(s): J18.9 - Pneumonia, unspecified organism Status: Acute Assessment and Plan: imaging revealed increased patchy airspace opacities of the left mid and lower lung zone concerning for pneumonia received IV Levaquin and will continue PO Levaquin as an outpatient to complete 7 days blood cultures pending, negative to date supportive care provided including incentive spirometry, expectorants, Cornet valve influenza, COVID, RSV negative urinary Legionella and pneumococcal antigens pending, final results will be monitored (3) Acute kidney injury superimposed on chronic kidney disease: Code(s): N17.9 - Acute kidney failure, unspecified; N18.9 - Chronic kidney disease, unspecified Status: Acute Assessment and Plan: Patient reports history of stage III CKD and states that baseline GFR is 58-59. Review of prior labs demonstrate creatinine to be 0.8-1.0. Creatinine this admission was elevated up to 1.4 wit hGFR down to 38 etiology unclear. Patient appears euvolemic on exam home losartan and metformin initially held, resumed on discharge UA without protein or other abnormalities renal US unremarkable without hydronephrosis renal function returned to baseline (4) Atypical atrial flutter: Code(s): I48.4 - Atypical atrial flutter Status: Acute Assessment and Plan: 03/11/22 with onset of atrial flutter with rapid ventricular rate up to 150s. Patient received 1 dose of IV metoprolol with improvement Patient was resumed on her home diltiazem 360 mg daily and rate remained controlled with this Converted back to sinus rhythm She was seen in consultation by Cardiology during admission. She will follow-up with her established general duty nurse as an outpatient (5) Chest pain: Code(s): R07.9 - Chest pain, unspecified Status: Resolved Assessment and Plan: Patient initially with complaints of atypical, pleuritic chest pain felt to be secondary to pneumonia. On 2/3 patient developed chest pain which she described as a pressure that radiated to the neck and jaw. Pain resolved entirely cardiac evaluation was negative with negative troponins and unchanged EKG not felt to be secondary to acute coronary syndrome acute PE unlikely as patient is maintained on chronic anticoagulation supportive care provided (6) Diabetes: Code(s): E11.9 - Type 2 diabetes mellitus without complications Status: Acute Assessment and Plan: A1c is 6.8. Blood sugars were poorly controlled this admission, secondary to steroids continue home regimen consisting of Lantus 80 units q.h.s. and NovoLog 40 units t.i.d. with meals continue home metformin steroids were discontinued and anticipate improved glycemic control with this did have one episode of hypoglycemia during admission in response to be given additional dose of lantus. Do not anticipate any ongoing issues when patient is on typical regimen follow up with endocrinology (7) Hypertension: Code(s): I10 - Essential (primary) hypertension
--- NOTE | 2022-03-13 12:42 | P.DS_ITS ---
DS: Admitting Diagnosis Discharge Date 03/13/22 Admitting Diagnosis COPD exacerbation DS: Discharge Diagnosis Discharge Diagnosis (1) Acute exacerbation of chronic obstructive pulmonary disease (COPD): Code(s): J44.1 - Chronic obstructive pulmonary disease with (acute) exacerbation Status: Acute Assessment and Plan: Patient presented with diffuse wheezing and hypoxia with O2 sats in the 80s. Findings felt to be consistent with COPD exacerbation * symptomatic improvement following IV Solu-Medrol * she was transitioned to p.o. prednisone 40 mg daily * completed a total of 5 days of steroids treatment and wheezing resolved. Steroids discontinued * continue home inhalers * initially required up to 4 L supplemental O2 and was weaned to room air. home setting is 2 L with activity only * supportive care (2) Pneumonia: Code(s): J18.9 - Pneumonia, unspecified organism Status: Acute Assessment and Plan: imaging revealed increased patchy airspace opacities of the left mid and lower lung zone concerning for pneumonia * received IV Levaquin and will continue PO Levaquin as an outpatient to complete 7 days * blood cultures pending, negative to date * supportive care provided including incentive spirometry, expectorants, Cornet valve * influenza, COVID, RSV negative * urinary Legionella and pneumococcal antigens pending, final results will be monitored (3) Acute kidney injury superimposed on chronic kidney disease: Code(s): N17.9 - Acute kidney failure, unspecified; N18.9 - Chronic kidney disease, unspecified Status: Acute Assessment and Plan: Patient reports history of stage III CKD and states that baseline GFR is 58-59. Review of prior labs demonstrate creatinine to be 0.8-1.0. Creatinine this admission was elevated up to 1.4 wit hGFR down to 38 * etiology unclear. Patient appears euvolemic on exam * home losartan and metformin initially held, resumed on discharge * UA without protein or other abnormalities * renal US unremarkable without hydronephrosis * renal function returned to baseline (4) Atypical atrial flutter: Code(s): I48.4 - Atypical atrial flutter Status: Acute Assessment and Plan: 03/11/22 with onset of atrial flutter with rapid ventricular rate up to 150s. * Patient received 1 dose of IV metoprolol with improvement * Patient was resumed on her home diltiazem 360 mg daily and rate remained controlled with this * Converted back to sinus rhythm * She was seen in consultation by Cardiology during admission. 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 On 2/3 patient developed chest pain which she described as a pressure that radiated to the neck and jaw. Pain resolved entirely * cardiac evaluation was negative with negative troponins and unchanged EKG * not felt to be secondary to acute coronary syndrome * acute PE unlikely as patient is maintained on chronic anticoagulation * supportive care provided (6) Diabetes: Code(s): E11.9 - Type 2 diabetes mellitus without complications Status: Acute Assessment and Plan: A1c is 6.8. Blood sugars were poorly controlled this admission, secondary to steroids * continue home regimen consisting of Lantus 80 units q.h.s. and NovoLog 40 units t.i.d.
[2022-03-15 15:31] LABS: Pneumococcal Antigen Urine Not Detected (Not Detected)
[2022-03-16 04:19] LABS: Legionella pneumophila Ag Ur Not Detected (Not Detected)
== END 2022-03-13 13:31 | disposition home or self-care (01) | DRG 193 ==
LOC: ANHED 14:25 → ANH3MEDSUR 15:58 → ANHIMU 03-11 09:05
PROVIDERS: Emergency Medicine; Family Medicine; Nurse Practitioner; Admitting Provider Internal Medicine; Emergency Provider Emergency Medicine; PCP Internal Medicine; Visit Provider Physician Assistant
DX: J18.9 Pneumonia, unspecified organism (principal); J96.01 Acute respiratory failure with hypoxia; Z68.42 Body mass index [BMI] 45.0-49.9, adult; J44.1 Chronic obstructive pulmonary disease with (acute) exacerbation; N17.9 Acute kidney failure, unspecified; I48.4 Atypical atrial flutter; B96.20 Unspecified Escherichia coli [E. coli] as the cause of diseases classified elsewhere; E66.01 Morbid (severe) obesity due to excess calories; E11.22 Type 2 diabetes mellitus with diabetic chronic kidney disease; E11.65 Type 2 diabetes mellitus with hyperglycemia; I27.20 Pulmonary hypertension, unspecified; I12.9 Hypertensive chronic kidney disease with stage 1 through stage 4 chronic kidney disease, or unspecified chronic kidney disease; N18.31 Chronic kidney disease, stage 3a; R82.71 Bacteriuria; T38.0X5A Adverse effect of glucocorticoids and synthetic analogues, initial encounter; Z20.822 Contact with and (suspected) exposure to COVID-19; Z85.118 Personal history of other malignant neoplasm of bronchus and lung; Z85.21 Personal history of malignant neoplasm of larynx; Z90.49 Acquired absence of other specified parts of digestive tract; Z66 Do not resuscitate; Z87.891 Personal history of nicotine dependence; Z79.84 Long term (current) use of oral hypoglycemic drugs; Z79.4 Long term (current) use of insulin; Z79.01 Long term (current) use of anticoagulants; Z99.81 Dependence on supplemental oxygen; Z92.3 Personal history of irradiation; Z88.0 Allergy status to penicillin; Z86.711 Personal history of pulmonary embolism
CPT/HCPCS: 36415; 71045; 76775; 80048; 80053; 81001; 82948; 83036; 83605; 83735; 84443; 84484; 85025; 85027; 87040; 87077; 87086; 87186; 87449; 87637; 87899; 93005; 94640; 96365; 96367; 96375; 96376; 99291; A9270; G0378; J0131; J1815; J1956; J2920; J2930; J7512

== ENCOUNTER 2022-09-18 05:29 | Inpatient (IN) | payer MEDICARE, MEDICAID, SELFPAY ==
[2022-09-18] VITALS (16 sets, daily range): BP systolic 106–149; BP diastolic 53–79; PULSE 79–174; RESP 20–24; TEMP 36.1–36.8; O2SAT 91–99; BMI 41.1
--- NOTE | ~2022-09-18 | CT_ITS ---
EXAMINATION: CT diagnostic chest wo con DATE: 09/19/2022 21:15 INDICATION: hypoxia, s/p thoracentesis, TECHNIQUE: Computed tomography (CT) of the chest was performed without intravenous contrast. Automate d exposure control and iterative reconstruction technique were employed. The dose-length product was 908.92 mGy-cm. COMPARISON: 12/23/2019; x-ray chest 03/11/2022. FINDINGS: CHEST: Thoracic aorta: Mild arch calcification. Lung parenchyma and airways: Complete left lung collapse. Occlusive lobe bronchial debris. Thoracic inlet, axillae and chest wall: No thyroid or soft tissue mass. No axillary lymphadenopathy. Mediastinum: No mass or lymphadenopathy. Heart and pericardium: Normal heart size. Aortic valve calcification. No pericardial effusion. Coronary artery calcifications: Moderate. Pleura: Large left pleural fluid collection ranging in density between 18 and 25 Hounsfield units. No definite loculation or pleural thickening. Upper abdomen: No significant finding. Thoracic bones: No acute osseous finding in the chest. IMPRESSION: Large left pleural effusion, density ranging between 18-25HU, slightly higher than simple fluid. No d efinite CT findings of loculation or empyema although this determination is limited without contrast. Left lung bronchi are occluded, may represent mucous plugging, consider bronchoscopy. Reviewed, dictated and finalized at location K. IMPRESSION: Large left pleural effusion, density ranging between 18-25HU, slightly higher t rooney simple fluid. No definite CT findings of loculation or empyema although thi s determination is limited without contrast. Left lung bronchi are occluded, may represent mucous plugging, consider broncho scopy.
--- NOTE | ~2022-09-18 | XR_ITS ---
EXAMINATION: [id number] DATE: 09/19/2022 10:27 INDICATION: Left pleural effusion status post thoracentesis. TECHNIQUE: A single frontal view of the chest was obtained. COMPARISON: Chest single view 03/11/2022, PET/CT 02/17/2022 FINDINGS: There is complete opacification of left hemithorax. No right-sided pneumonia, pleural effus ion, or pneumothorax. There is rightward displacement of the mediastinum. The heart size is obscured. There is electronic implant in anterior chest wall. IMPRESSION: 1. Complete opacification of left hemithorax, consistent with large pleural effusion. Reviewed, dictated and finalized at location A. IMPRESSION: 1. Complete opacification of left hemithorax, consistent with large pleural eff usion.
--- NOTE | ~2022-09-18 | US_ITS ---
EXAMINATION: US renal BI DATE: 09/19/2022 14:52 INDICATION: Acute on chronic renal failure TECHNIQUE: Multiple grayscale and Doppler ultrasound images of the kidneys were obtained. COMPARISON: None. FINDINGS: The right kidney measures 10.5 x 5.0 x 4.9 cm. The left kidney measures 10.8 x 5.5 x 6.0 cm . There is a possible cyst with septation in the left kidney lower pole. The kidneys demonstrate norm al parenchymal echogenicity. There is no hydronephrosis. The bladder is unremarkable. IMPRESSION: 1. Unremarkable kidneys without hydronephrosis. Reviewed, dictated and finalized at location B.
--- NOTE | ~2022-09-18 | US_ITS ---
EXAMINATION: US thoracentesis DATE: 09/19/2022 10:35 INDICATION: Left pleural effusion TECHNIQUE: The procedure and its risks and benefits were discussed with the patient. Potential risks discussed included bleeding, infection, and pneumothorax. The patient understood the risks and agreed to proceed. The skin was prepped and draped in sterile fashion. 1% lidocaine was used for local anes thesia. Under ultrasound guidance, a 5 Fr catheter with trochar was advanced into the left pleural ef fusion. Fluid was aspirated. The catheter was removed, and a dressing was applied. There were no imme diate complications. FINDINGS: Ultrasound images demonstrate a large exudative left pleural effusion with numerous linear echogenic internal septations. Subsequent images demonstrate the catheter within the fluid. IMPRESSION: 1. Successful ultrasound-guided thoracentesis yielding 500 mL of slightly turbid yellowish fluid. Reviewed, dictated and finalized at location A. IMPRESSION: 1. Successful ultrasound-guided thoracentesis yielding 500 mL of slightly turb id yellowish fluid.
[2022-09-18 05:29] LABS: Glucose Point of Care 261 mg/dl (65-105)
[2022-09-18 07:17] LABS: Magnesium 1.9 mg/dL (1.6-2.3); Phosphorus 4.7 mg/dL (2.5-4.5)
[2022-09-18 07:18] LABS: Anion Gap 6 mmol/L (8-16); Blood Urea Nitrogen 29 mg/dL (7-17); Calcium 9.7 mg/dL (8.4-10.2); Carbon Dioxide 23 mmol/L (22-30); Chloride 102 mmol/L (98-107); Estimated CRCL calculation 63 ml/min; Estimated Glomerular Filt Rate 50; Glucose 267 mg/dL (65-110); INR 1.2; Potassium 4.2 mmol/L (3.4-5.0); Sodium 131 mmol/L (137-145)
[2022-09-18 07:19] LABS: Partial Thromboplastin Time 28.3 SECONDS (22.3-36.8)
[2022-09-18 08:08] LABS: Glucose Point of Care 268 mg/dl (65-105)
[2022-09-18] MEDS: calcitrioL 0.25 MCG CAPSULE PO (09:32)
[2022-09-18] MEDS: LOSARTAN POTASSIUM 50 MG TABLET PO (09:32)
[2022-09-18] MEDS: busPIRone HCL 5 MG TABLET PO ×2 (09:32→20:34)
[2022-09-18] MEDS: dilTIAZem HCL CD 180 MG CAP.24HR 360 MG PO (09:32)
[2022-09-18] MEDS: OMEGA 3 POLYUNSAT FATTY ACIDS 1 GM CAP 2 GM PO ×2 (09:32→20:34)
--- NOTE | 2022-09-18 10:39 | PM.IMHP ---
H&P: HPI History of Present Illness Date/Time: 09/18/22 10:39 Chief Complaint: sob Narrative: 62-year-old female presented to [facility] for shortness of breath and was found to have significant pleural effusion. Therefore she was transferred here for higher level of care and possible thoracentesis. She was on anticoagulation, this will need to be held for 48 hours prior to IR performing thoracentesis. Patient states she feels better since arriving to our facility. She also is complaining of some right-sided chest pain. She denies fevers or chills. No nausea, vomiting or diarrhea. Review of Systems Review of Systems: 12 point review of systems was assessed and was negative except as noted in the HPI PMFSH Past Medical History Medical History Asthma Chronic renal failure (CRF), stage 3a COPD (chronic obstructive pulmonary disease) Diabetes History of tobacco abuse Hx of cancer of lung left lung radiation Hypertension Laryngeal squamous cell carcinoma Morbid obesity with BMI of 45.0-49.9, adult Pulmonary embolism Pulmonary hypertension Surgical History Surgical History H/O knee surgery reconstructive surgery H/O sinus surgery H/O: section times 2 History of cholecystectomy S/P tonsillectomy and adenoidectomy Family History Family History Other Breast cancer 2 Maternal Aunts Brain cancer maternal aunt Mother Bladder cancer Small cell cancer of the bladder Social History Social History Social History: She reports that she smoked as much as 3 packs of cigarettes per day. She quit smoking in 2018. She smoked for approximately 40 years. She used to drink alcohol on occasion but has not done so in many years. She denies any illicit substance use. She lives in her own home. Her daughter lives with her but she states that her daughter does not help her out. Instead her daughter in-law comes over Pete or in-home caregiver on a daily basis. SHE HAS 2 CHILDREN. She is . Code status: DNR/DNI per patient request Surrogate decision maker: Austin Mcmahon (son) Smoking packs per day: 2 Smoking cigarettes per day: 40.0 Years smoked: 40 Smoking pack-years: 80.00 Smoking status: Former smoker Tobacco type: cigarettes Second hand tobacco smoke exposure: Yes Smoking end date: 02/06/19 Alcohol intake: former Substance use: never Lack of Transportation: No Lack of Food: Never True Current Housing: I Do Not Have Housing Concerned About Future Housing: No Difficulty Paying Gas/Electric Bills: No Difficulty Paying for Meds: No Currently Unemployed: No Education: Decline to Answer Difficulty w/ Childcare or Family Care: No Gender identity (if verbalized by the patient): Female Spiritual care concerns: No Agree to blood products: Yes Meds Home Medications and Allergies Home Medications Medication Instructions Recorded Confirmed Type albuterol sulfate 90 mcg/actuation 2 puff inhalation QID 02/18/19 09/18/22 History aerosol inhaler atorvastatin 40 mg tablet 40 mg PO HS 07/16/19 09/18/22 History metformin 500 mg tablet 500 mg PO BID 07/16/19 09/18/22 History acetaminophen 500 mg tablet 500 mg PO Q6H PRN Pain, Mild 01/18/22 09/18/22 History (Acetaminophen Extra Strength) azelastine 0.05 % eye drops 1 drp EACH EYE BID 01/18/22 09/18/22 History buspirone 5 mg tablet 5 mg PO Q12H 01/18/22 09/18/22 History calcitriol 0.25 mcg capsule 0.25 mcg PO DAILY 01/18/22 09/18/22 History ergocalciferol (vitamin D2) 1,250 1,250 mcg PO TUTH 01/18/22 09/18/22 History mcg (50,000 unit) capsule (Vitamin D2) icosapent ethyl 1 gram capsule 2 g PO Q12H 01/18/22 09/18/22 History (Vascepa) p
[2022-09-18] MEDS: METOPROLOL TARTRATE INJ 5 MG/5 ML VIAL IV PUSH (10:50)
[2022-09-18 10:59] LABS: Mean Platelet Volume 11.4 fl (7.4-10.4); Platelet Count Result 266 k/mm3 (150-375)
[2022-09-18 12:31] LABS: Glucose Point of Care 281 mg/dl (65-105)
[2022-09-18 12:41] LABS: Basophils Percent Auto 0.2 % (0.2-1.2); Eosinophils Absolute Auto 0.1 K/mm3 (0-0.3); Eosinophils Percent Auto 0.6 % (0-4.4); Hematocrit 40.9 % (37.0-47.0); Hemoglobin 12.7 g/dL (12.0-15.0); Immature Granulocyte Absolute 0.09 K/mm3 (0.00-0.031); Immature Granulocyte Percent A 0.7 % (0-0.5); Lymphocytes Absolute Auto 0.75 K/mm3 (0.9-3.2); Mean Corpuscular HGB Conc 31.1 g/dl (32-36); Mean Corpuscular Hemoglobin 27.6 pg (26-34); Mean Corpuscular Volume 88.9 fl (80-100); Mean Platelet Volume 9.9 fl (7.4-10.4); Monocytes Absolute Auto 0.8 K/mm3 (0.1-0.6); Monocytes Percent Auto 6.4 % (2.6-8.5); Neutrophils Absolute Auto 10.7 K/mm3 (1.3-6.7); Neutrophils Percent Auto 86.1 % (45.5-73.1); Platelet Count Result 252 k/mm3 (150-375); Red Cell Distribution Width 17.6 % (11.5-14.5); White Blood Count 12.4 K/mm3 (4.5-10.0)
[2022-09-18 12:53] LABS: Alanine Aminotransferase 17 U/L (6-35); Albumin Level 3.4 g/dL (3.5-5.1); Alkaline Phosphatase 93 U/L (38-126); Anion Gap 6 mmol/L (8-16); Aspartate Amino Transferase 18 U/L (14-36); Bilirubin,Total 1.6 mg/dL (0.2-1.3); Blood Urea Nitrogen 34 mg/dL (7-17); Calcium 9.4 mg/dL (8.4-10.2); Carbon Dioxide 24 mmol/L (22-30); Chloride 99 mmol/L (98-107); Estimated CRCL calculation 58 ml/min; Estimated Glomerular Filt Rate 45; Glucose 283 mg/dL (65-110); Potassium 4.4 mmol/L (3.4-5.0); Sodium 129 mmol/L (137-145)
[2022-09-18 13:41] LABS: Glucose Point of Care 273 mg/dl (65-105)
[2022-09-18] MEDS: INSULIN ASPART (*BKC) 100 UNITS/ML SUB-Q ×2 (13:44→17:30)
[2022-09-18 17:21] LABS: Glucose Point of Care 376 mg/dl (65-105)
--- NOTE | 2022-09-18 18:05 | PCCCNOTE ---
Patient admitted at 0529, H &P pending, requested update from Dr. Carr.
[2022-09-18 20:33] LABS: Glucose Point of Care 342 mg/dl (65-105)
[2022-09-18] MEDS: PANTOPRAZOLE 40 MG TABLET PO (20:34)
[2022-09-18] MEDS: INSULIN GLARGINE (*BKC) 100 UNITS/ML 50 UNITS SUB-Q (20:34)
[2022-09-18] MEDS: ATORVASTATIN 40 MG TABLET PO (20:34)
[2022-09-18] MEDS: ACETAMINOPHEN 500 MG TABLET PO (20:41)
[2022-09-18 21:19] LABS: Glucose Point of Care 349 mg/dl (65-105)
[2022-09-19] VITALS (16 sets, daily range): BP systolic 101–137; BP diastolic 54–79; PULSE 75–116; RESP 18–28; TEMP 36.4–37.4; O2SAT 92–100
[2022-09-19] MEDS: traMADol HCL (*CRX) 50 MG TABLET PO (00:57)
[2022-09-19] MEDS: HYDROmorphone HCL INJ (*CRX) 1 MG/ML SYR 0.5 MG IV PUSH (02:42)
[2022-09-19 04:53] LABS: Basophils Percent Auto 0.2 % (0.2-1.2); Eosinophils Absolute Auto 0.1 K/mm3 (0-0.3); Eosinophils Percent Auto 0.6 % (0-4.4); Hematocrit 38.9 % (37.0-47.0); Hemoglobin 11.8 g/dL (12.0-15.0); Immature Granulocyte Absolute 0.09 K/mm3 (0.00-0.031); Immature Granulocyte Percent A 0.7 % (0-0.5); Mean Corpuscular HGB Conc 30.3 g/dl (32-36); Mean Corpuscular Hemoglobin 27.1 pg (26-34); Mean Corpuscular Volume 89.4 fl (80-100); Mean Platelet Volume 10.9 fl (7.4-10.4); Monocytes Absolute Auto 0.9 K/mm3 (0.1-0.6); Monocytes Percent Auto 6.9 % (2.6-8.5); Neutrophils Absolute Auto 10.8 K/mm3 (1.3-6.7); Neutrophils Percent Auto 84.6 % (45.5-73.1); Platelet Count Result 256 k/mm3 (150-375); Red Blood Count 4.35 M/mm3 (4.2-5.4); Red Cell Distribution Width 17.5 % (11.5-14.5); White Blood Count 12.8 K/mm3 (4.5-10.0)
[2022-09-19 05:13] LABS: INR 1.1; Prothrombin Time 14.7 Seconds (11.1-14.7)
[2022-09-19 05:27] LABS: Alanine Aminotransferase 18 U/L (6-35); Albumin Level 3.2 g/dL (3.5-5.1); Alkaline Phosphatase 124 U/L (38-126); Anion Gap 5 mmol/L (8-16); Aspartate Amino Transferase 32 U/L (14-36); Bilirubin,Total 2.8 mg/dL (0.2-1.3); Blood Urea Nitrogen 45 mg/dL (7-17); Calcium 9.2 mg/dL (8.4-10.2); Carbon Dioxide 26 mmol/L (22-30); Chloride 96 mmol/L (98-107); Estimated CRCL calculation 34 ml/min; Estimated Glomerular Filt Rate 24; Glucose 287 mg/dL (65-110); Potassium 4.3 mmol/L (3.4-5.0); Sodium 127 mmol/L (137-145)
--- NOTE | 2022-09-19 05:58 | PC.NURSE ---
Dr Mckeon notified of renal function and output. Order for NS x1 bag at 75ml/hr.
[2022-09-19] MEDS: SODIUM CHLORIDE 0.9% IV 1,000 ML 75 ML IV CONT (06:38)
[2022-09-19 06:47] LABS: CRP 35.4 mg/dL (<1.0)
[2022-09-19 07:35] LABS: Procalcitonin 1.7 ng/mL
[2022-09-19 08:37] LABS: Glucose Point of Care 324 mg/dl (65-105)
[2022-09-19] MEDS: busPIRone HCL 5 MG TABLET PO ×2 (08:37→22:07)
[2022-09-19] MEDS: LOSARTAN POTASSIUM 50 MG TABLET PO (08:37)
[2022-09-19] MEDS: dilTIAZem HCL CD 180 MG CAP.24HR 360 MG PO (08:37)
--- NOTE | 2022-09-19 08:53 | PM.IMPN ---
Progress Note: A&P Assessment and Plan (1) Pleural effusion: Code(s): J90 - Pleural effusion, not elsewhere classified Status: Acute Assessment and Plan: Hold Xarelto, thoracentesis performed 09/19 Restart Xarelto when okay by IR (2) Hypertension: Code(s): I10 - Essential (primary) hypertension Status: Acute Assessment and Plan: Blood pressure monitored, reviewed 09/19 (3) COPD (chronic obstructive pulmonary disease): Code(s): J44.9 - Chronic obstructive pulmonary disease, unspecified Status: Acute (4) Diabetes: Code(s): E11.9 - Type 2 diabetes mellitus without complications Status: Acute Assessment and Plan: Accu-Cheks, sliding scale insulin, check A1c Blood glucose reviewed 09/19 (5) Pulmonary embolism: Qualifiers: Acute cor pulmonale presence: unspecified Chronicity: unspecified Pulmonary embolism type: unspecified Qualified Code(s): I26.99 - Other pulmonary embolism without acute cor pulmonale Code(s): I26.99 - Other pulmonary embolism without acute cor pulmonale Status: Chronic Assessment and Plan: CTA from 2019 showed PE, on xarelto (currently on hold for thoracentesis) for this and atrial flutter, recurrent (6) Hyponatremia: Code(s): E87.1 - Hypo-osmolality and hyponatremia Status: Acute (7) Acute kidney injury superimposed on chronic kidney disease: Code(s): N17.9 - Acute kidney failure, unspecified; N18.9 - Chronic kidney disease, unspecified Status: Acute Assessment and Plan: Appreciate nephrology consultation Plan DVT prophylaxis with SCDs, Xarelto on hold GI prophylaxis not indicated Code status DNR Subjective Date/time seen: 09/19/22 08:53 Interval history: 62-year-old female with history of COPD, diabetes, pulmonary hypertension among other comorbidities including lung cancer is presenting with shortness of breath and found to have pleural effusion, thoracentesis performed 09/19. No overnight events noted. No nausea, vomiting or diarrhea. No fevers or chills. Shortness of breath much improved. Still with flank and right lower chest pain. Review of Systems Review of Systems: 12 point review of systems was assessed and was negative except as noted in the HPI Exam Narrative: General: No acute distress, alert and oriented per baseline HEENT: Atraumatic, normocephalic, mucous membranes moist CV: Regular rate and rhythm, S1, S2 Lungs: Coarse and diminished throughout Abdomen: Soft, nontender, nondistended Extremities: Normal to inspection Skin: No rashes noted, no lesions or wounds seen Psych: Euthymic, normal affect Objective Data Vital Signs Vital Signs: Vital Signs - 24 hr 09/18/22 10:50 09/18/22 10:00 09/18/22 12:00 Temperature 97 F L Pulse Rate 167 H 174 H 92 Respiratory Rate 22 H Blood Pressure 120/54 L Pulse Oximetry 99 Oxygen Delivery Oxygen Flow Rate Fraction of Inspired Oxygen 09/18/22 12:00 09/18/22 16:00 09/18/22 14:00 Temperature 96.9 F L Pulse Rate 94 93 92 Respiratory Rate 24 H Blood Pressure 120/79 Pulse Oximetry 98 Oxygen Delivery Oxygen Flow Rate Fraction of Inspired Oxygen 09/18/22 16:00 09/18/22 12:00 09/18/22 16:00 Temperature Pulse Rate 90 Respiratory Rate Blood Pressure Pulse Oximetry 92 91 Oxygen Delivery Nasal Cannula Nasal Cannula Oxygen Flow Rate 2 2 Fraction of Inspired Oxygen 09/18/22 18:00 09/18/22 20:00 09/18/22 21:00 Temperature 97 F L Pulse Rate 92 92 92 Respiratory Rate 22 H 20 Blood Pressure 136/53 L Pulse Oximetry 98 98 Oxygen Delivery Nasal Cannula Oxygen Flow Rate 2 Fraction of Inspired Oxygen 09/18/22 20:00 09/18/22 22:00 09/18/22 23:07 Temperature Pulse Rate 91 79 79 Respiratory Rate Blood Pressure Pulse Oximetry 96 Oxygen Delivery Nasal Cannula Oxygen Jesus
--- NOTE | 2022-09-19 09:34 | PC.NURSE ---
Pt to US via bed for thoracentesis.
--- NOTE | 2022-09-19 10:30 | P.CONNP_ITS ---
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 Twan Dee * creatinine seems to run around 1.0mg/dl * presumably due to diabetes and hypertension (3) Pleural effusion: Code(s): J90 - Pleural effusion, not elsewhere classified Status: Acute Assessment and Plan: * on left side and quite larege * plan for thoracentesis today * check pleural fluid studies including cytology (has history of lung cancer) * follow respiratory status closely (4) Hypertension: Code(s): I10 - Essential (primary) hypertension Status: Acute Assessment and Plan: * reasonable control * ARB on hold * BP medications with parameters * follow trend of hemodynamics (5) COPD (chronic obstructive pulmonary disease): Code(s): J44.9 - Chronic obstructive pulmonary disease, unspecified Status: Acute Assessment and Plan: * suspect may be exacerbated by #3 * supplemental oxygen and nebulizer treatments PRN * follow respiratory status (6) Diabetes: Code(s): E11.9 - Type 2 diabetes mellitus without complications Status: Acute Assessment and Plan: * follow accu-cheks * glycemic control per hospitalists I will continue to follow the patient with you while she remains hospitalized to make further recommendations as necessary. Thank you for allowing me to participate in the care of this patient. History of Present Illness Reason for Consult Consult date: 09/19/22 Reason for consult: acute renal failure (on chronic kidney disease) Chief Complaint Chief complaint: CP/SUB Large L pleural effusion History of Present Illness Narrative: The patient is a 62-year-old female with a past medical history as outlined below who was transferred from an outside hospital emergency room for further evaluation of a large left pleural effusion. The patient is sleep presented to [facility] Emergency room with complaints of shortness of breath. Workup and evaluation at the outside hospital emergency room demonstrated that she was mildly short of breath and seemed to be in mild respiratory distress. Supplemental oxygen was applied but I do not know if she was hypoxic prior to her arrival. Subsequent workup and evaluation emergency room demonstrated a normal chemistry and CBC but her D- dimer was mildly elevated. Her chest x-ray demonstrated complete opacification of her left hemothorax as well. As she has a known history of left lung cancer, it was felt that she would require further intervention and she has been hospitalized here at [facility] for CIS subsequently she was transferred here for further evaluation and therapy. Since her admission, she is scheduled [facility] for both therapeutic and diagnostic purposes. She tells me currently that her
--- NOTE | 2022-09-19 10:30 | PM.CNNEP ---
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 Twan Dee creatinine seems to run around 1.0mg/dl presumably due to diabetes and hypertension (3) Pleural effusion: Code(s): J90 - Pleural effusion, not elsewhere classified Status: Acute Assessment and Plan: on left side and quite larege plan for thoracentesis today check pleural fluid studies including cytology (has history of lung cancer) follow respiratory status closely (4) Hypertension: Code(s): I10 - Essential (primary) hypertension Status: Acute Assessment and Plan: reasonable control ARB on hold BP medications with parameters follow trend of hemodynamics (5) COPD (chronic obstructive pulmonary disease): Code(s): J44.9 - Chronic obstructive pulmonary disease, unspecified Status: Acute Assessment and Plan: suspect may be exacerbated by #3 supplemental oxygen and nebulizer treatments PRN follow respiratory status (6) Diabetes: Code(s): E11.9 - Type 2 diabetes mellitus without complications Status: Acute Assessment and Plan: follow accu-cheks glycemic control per hospitalists I will continue to follow the patient with you while she remains hospitalized to make further recommendations as necessary. Thank you for allowing me to participate in the care of this patient. History of Present Illness Reason for Consult Consult date: 09/19/22 Reason for consult: acute renal failure (on chronic kidney disease) Chief Complaint Chief complaint: CP/SUB Large L pleural effusion History of Present Illness Narrative: The patient is a 62-year-old female with a past medical history as outlined below who was transferred from an outside hospital emergency room for further evaluation of a large left pleural effusion. The patient is sleep presented to [facility] Emergency room with complaints of shortness of breath. Workup and evaluation at the outside hospital emergency room demonstrated that she was mildly short of breath and seemed to be in mild respiratory distress. Supplemental oxygen was applied but I do not know if she was hypoxic prior to her arrival. Subsequent workup and evaluation emergency room demonstrated a normal chemistry and CBC but her D-dimer was mildly elevated. Her chest x-ray demonstrated complete opacification of her left hemothorax as well. As she has a known history of left lung cancer, it was felt that she would require further intervention and she has been hospitalized here at [facility] for CIS subsequently she was transferred here for further evaluation and therapy. Since her admission, she is scheduled undergo a left thoracentesis by interventional radiology later today for both therapeutic and diagnostic purposes. She tells me currently that her breathing / respiratory status appears to be relatively stable but she feels that she is not at baseline with regard to her breathing. Her shortness of breath is also complicated by the fact that she does have known COPD and reactive airway disease which is probably been exacerbated by the presence of this large left pleural effusion. It was noted by labs this morning that her creatinine has deteriorated since he
--- NOTE | 2022-09-19 10:32 | PC.NURSE ---
Pt returned from US via bed. No issues noted
[2022-09-19 10:42] LABS: pH Pleural Fluid < 7.000 (7.210-7.500)
[2022-09-19 11:12] LABS: Pleural fluid source Pleural fluid
[2022-09-19 11:13] LABS: Appearance Pleural Fluid Hazy (Clear); Color Pleural Fluid Yellow (Colorless)
[2022-09-19 11:18] LABS: Lymphocytes Pleural Fluid 21 %; Macrophages Pleural Fluid 8 %; Mesothelial Cells Pleural Flui 1 %; Monocytes Pleural Fluid 1 %; Neutrophils Pleural Fluid 69 % (0-25)
[2022-09-19] MEDS: INSULIN ASPART (*BKC) 100 UNITS/ML SUB-Q ×2 (11:46→17:00)
[2022-09-19] MEDS: calcitrioL 0.25 MCG CAPSULE PO (11:46)
[2022-09-19] MEDS: ACETAMINOPHEN 500 MG TABLET PO ×2 (11:46→18:54)
[2022-09-19] MEDS: OMEGA 3 POLYUNSAT FATTY ACIDS 1 GM CAP 2 GM PO ×2 (11:46→22:07)
[2022-09-19 15:39] LABS: Glucose Point of Care 293 mg/dl (65-105)
[2022-09-19 15:55] LABS: Appearance Urine Turbid (Clear); Bacteria Urine None Seen /hpf; Bilirubin Urine 1+ (Negative); Blood Urine 2+ (Negative); Budding Yeast Urine Present /hpf; Color Urine Dark Yellow (Yellow); Glucose Urine UA Negative (Negative); Ketones Urine Negative (Negative); Leukocyte Esterase Ur 3+ LEU/UL (Negative); Need Manual Microscopic Reviewed; Nitrate Urine Negative (Negative); Non Pathogenic Casts >20; Protein Urine 1+ mg/dL (Negative); RBC Urine >100 /hpf (0-2); Specific Grav Ur 1.029 (1.001-1.035); Squamous Epithelial Cell Urine Many /hpf (Few); WBC Urine >100 /hpf
[2022-09-19 15:56] LABS: Add Urine Microscopic? YES
[2022-09-19 16:38] LABS: Eosinophil Urine None Seen % (None Seen); Urine Eos QC 2nd Tech Confirmed
[2022-09-19 17:03] LABS: Creatinine Urine 272.1 mg/dL; Urea Random Urine 116 MG/DL
[2022-09-19 17:09] LABS: Glucose Point of Care 296 mg/dl (65-105)
[2022-09-19 17:16] LABS: Sodium Urine Random 13 meq/L
[2022-09-19 17:17] LABS: Total Protein Urine Random < 5 mg/dL; Ur Ttl Prot Creatinine Ratio < 0.02 mg/mg (0-0.20)
[2022-09-19] MEDS: LEVALBUTEROL NEB 1.25 MG/3 ML INHALATION (19:59)
[2022-09-19] MEDS: IPRATROPIUM BR 0.02% INH SOLN 0.5 MG/2.5 ML VIAL INHALATION (19:59)
[2022-09-19] MEDS: MORPHINE SULFATE (*CRX) 2 MG/ML INJ IV PUSH (20:00)
[2022-09-19 20:22] LABS: Glucose Point of Care 303 mg/dl (65-105)
--- NOTE | 2022-09-19 20:52 | PC.NURSE ---
Neb treatments ordered and given to the patient for increased work of breathing. Rachel INGRAM evaluating patient. Further orders to follow.
--- NOTE | 2022-09-19 21:00 | PM.EVENT ---
Event Note Event Note Event Note: S: I received a call from the patient's nurse that she had become increasingly short of breath, was hypoxic, and seemed to be in respiratory distress. Chart is reviewed. Patient was transferred to this facility for thoracentesis which was performed this morning. She had been doing okay up until the last few hours. She reports a mild cough which is not necessarily productive and diffuse wheezing. She denies lightheadedness, dizziness, fever, chest pain, pleuritic pain, nausea, and vomiting. O: Patient is moderately ill in appearance. Regular rate rhythm at about 85 beats per minute. Currently on 3 L nasal cannula. Lung sounds are diminished throughout, and essentially absent on the left, with diffuse end-expiratory wheezing. No jugular venous distension. She is alert and oriented and judgment and insight are intact. No significant edema. A: Respiratory distress with increasing oxygen requirements, hypoxia. Differential diagnosis includes COPD exacerbation, reaccumulation of fluid, pneumothorax post thoracentesis. P: Stat nebulizer. Chest CT without contrast (given acute kidney injury) ordered to evaluate for possible empyema as pleural fluid obtained today had a pH of less than 7 (gram stain is still pending at this time). Titrate oxygen. Continue scheduled bronchodilators. Hold on systemic steroids for now given concerns for infection. She has been started on meropenem and vancomycin. Critical Care Time Critical Care Time: Yes Total Critical Care Time: 35 Attestation: Due to a high probability of clinically significant, life threatening deterioration, the patient required my highest level of preparedness to intervene emergently and I personally spent this critical care time directly and personally managing the patient. This critical care time included obtaining a history; examining the patient; pulse oximetry; ordering and review of studies; arranging urgent treatment with development of a management plan; evaluation of patient's response to treatment; frequent reassessment; and discussions with other providers. It was exclusive of separately billable procedures and treating other patients and teaching time. Please see Assessment and Plan section and the rest of the note for further information on patient assessment and treatment.
--- NOTE | 2022-09-19 21:02 | PCRCNOTE ---
Neb treatment given for increased WOB and audible wheezes. Neb gave little relief. Pt increased to 4 Liters of oxygen due to desats. Rachel INGRAM called to asses pt after neb.
[2022-09-19] MEDS: VANCOMYCIN 1,250 MG/NS 250 ML 1,250 MG/250 ML BAG 166.67 MG IVPB ×2 (22:05)
[2022-09-19] MEDS: ATORVASTATIN 40 MG TABLET PO (22:07)
[2022-09-19] MEDS: PANTOPRAZOLE 40 MG TABLET PO (22:07)
[2022-09-19] MEDS: INSULIN GLARGINE (*BKC) 100 UNITS/ML 50 UNITS SUB-Q (22:09)
[2022-09-19] MEDS: MEROPENEM 1 GM/NS 100 ML 1 GM/100 ML BAG IVPB (23:49)
[2022-09-20] VITALS (29 sets, daily range): BP systolic 104–139; BP diastolic 46–117; PULSE 76–105; RESP 20–26; TEMP 36.4–36.9; O2SAT 90–100
[2022-09-20] MEDS: LEVALBUTEROL NEB 1.25 MG/3 ML INHALATION ×4 (00:51→20:31)
[2022-09-20] MEDS: DORNASE ALFA INH SOLN 1 MG/ML 2.5 ML AMP 2.5 MG INHALATION ×2 (00:52→08:17)
[2022-09-20] MEDS: IPRATROPIUM BR 0.02% INH SOLN 0.5 MG/2.5 ML VIAL INHALATION ×4 (00:52→20:31)
[2022-09-20] MEDS: MORPHINE SULFATE (*CRX) 2 MG/ML INJ IV PUSH ×2 (02:35→23:37)
[2022-09-20] MEDS: HYDROmorphone HCL INJ (*CRX) 1 MG/ML SYR IV PUSH (03:58)
[2022-09-20 04:45] LABS: Basophils Percent Auto 0.2 % (0.2-1.2); Eosinophils Percent Auto 0.3 % (0-4.4); Immature Granulocyte Absolute 0.15 K/mm3 (0.00-0.031); Immature Granulocyte Percent A 1.2 % (0-0.5); Lymphocytes Absolute Auto 0.37 K/mm3 (0.9-3.2); Mean Corpuscular HGB Conc 30.6 g/dl (32-36); Mean Corpuscular Hemoglobin 27.4 pg (26-34); Mean Corpuscular Volume 89.8 fl (80-100); Monocytes Absolute Auto 0.8 K/mm3 (0.1-0.6); Monocytes Percent Auto 6.6 % (2.6-8.5); Neutrophils Absolute Auto 10.8 K/mm3 (1.3-6.7); Neutrophils Percent Auto 88.7 % (45.5-73.1); Platelet Count Result 252 k/mm3 (150-375); Red Blood Count 4.01 M/mm3 (4.2-5.4); Red Cell Distribution Width 17.6 % (11.5-14.5); White Blood Count 12.2 K/mm3 (4.5-10.0)
[2022-09-20 04:59] LABS: Alanine Aminotransferase 20 U/L (6-35); Albumin Level 3.1 g/dL (3.5-5.1); Alkaline Phosphatase 155 U/L (38-126); Anion Gap 11 mmol/L (8-16); Aspartate Amino Transferase 21 U/L (14-36); Bilirubin,Total 1.7 mg/dL (0.2-1.3); Blood Urea Nitrogen 56 mg/dL (7-17); Calcium 8.8 mg/dL (8.4-10.2); Carbon Dioxide 22 mmol/L (22-30); Chloride 97 mmol/L (98-107); Creatine Kinase < 20 U/L (30-135); Estimated CRCL calculation 24 ml/min; Estimated Glomerular Filt Rate 16; Glucose 291 mg/dL (65-110); Potassium 4.9 mmol/L (3.4-5.0); Sodium 130 mmol/L (137-145)
[2022-09-20 05:00] LABS: Smudge Cells FEW
[2022-09-20 05:01] LABS: Anisocytosis 1+ (NORMAL); Platelet Estimate Adequate (Adequate); Poikilocytosis 1+ (NORMAL); Schistocytes Rare (NORMAL)
--- NOTE | 2022-09-20 05:43 | PCRCNOTE ---
Pt placed on BIPAP 01/11 Rate-18 32%..
[2022-09-20 08:33] LABS: Glucose Point of Care 273 mg/dl (65-105)
[2022-09-20] MEDS: OMEGA 3 POLYUNSAT FATTY ACIDS 1 GM CAP 2 GM PO ×2 (08:40→19:53)
[2022-09-20] MEDS: calcitrioL 0.25 MCG CAPSULE PO (08:41)
[2022-09-20] MEDS: INSULIN ASPART (*BKC) 100 UNITS/ML SUB-Q ×3 (08:41→16:04)
[2022-09-20] MEDS: busPIRone HCL 5 MG TABLET PO ×2 (08:41→19:53)
[2022-09-20] MEDS: ACETAMINOPHEN 500 MG TABLET PO ×2 (08:41→19:52)
--- NOTE | 2022-09-20 08:57 | PM.IMPN ---
Progress Note: A&P Assessment and Plan (1) Pleural effusion: Code(s): J90 - Pleural effusion, not elsewhere classified Status: Acute Assessment and Plan: Hold Xarelto, thoracentesis performed 09/19 Restart Xarelto when okay by IR 09/20: recurrence of effusion noted, likely will need CT, transfer pending for higher level of care, also concern for underlying empyema, abx initiated 09/19 overnight with vanc and meropenem (2) Hypertension: Code(s): I10 - Essential (primary) hypertension Status: Acute Assessment and Plan: Blood pressure monitored, reviewed 09/20 (3) COPD (chronic obstructive pulmonary disease): Code(s): J44.9 - Chronic obstructive pulmonary disease, unspecified Status: Acute (4) Diabetes: Code(s): E11.9 - Type 2 diabetes mellitus without complications Status: Acute Assessment and Plan: Accu-Cheks, sliding scale insulin, check A1c Blood glucose reviewed 09/20 (5) Pulmonary embolism: Qualifiers: Acute cor pulmonale presence: unspecified Chronicity: unspecified Pulmonary embolism type: unspecified Qualified Code(s): I26.99 - Other pulmonary embolism without acute cor pulmonale Code(s): I26.99 - Other pulmonary embolism without acute cor pulmonale Status: Chronic Assessment and Plan: CTA from 2019 showed PE, on xarelto (currently on hold for thoracentesis) for this and atrial flutter, recurrent (6) Hyponatremia: Code(s): E87.1 - Hypo-osmolality and hyponatremia Status: Acute (7) Acute kidney injury superimposed on chronic kidney disease: Code(s): N17.9 - Acute kidney failure, unspecified; N18.9 - Chronic kidney disease, unspecified Status: Acute Assessment and Plan: Appreciate nephrology consultation 09/20: continues to worsen, creat up to 3 from 1.1 at admission Plan DVT prophylaxis with SCDs, Xarelto on hold GI prophylaxis not indicated Code status DNR Subjective Date/time seen: 09/20/22 08:57 Interval history: 62-year-old female with history of COPD, diabetes, pulmonary hypertension among other comorbidities including lung cancer is presenting with shortness of breath and found to have pleural effusion, thoracentesis performed 09/19. No overnight events noted. No nausea, vomiting or diarrhea. No fevers or chills. SOB worsened again. Still with flank and right lower chest pain. Review of Systems Review of Systems: 12 point review of systems was assessed and was negative except as noted in the HPI Exam Narrative: General: Uncomfortable, on BIPAP HEENT: Atraumatic, normocephalic, mucous membranes moist CV: Regular rate and rhythm, S1, S2 Lungs: Coarse and diminished throughout Abdomen: Soft, nontender, nondistended Extremities: Normal to inspection Skin: No rashes noted, no lesions or wounds seen Psych: Unable to assess Objective Data Vital Signs Vital Signs: Vital Signs - 24 hr 09/19/22 10:00 09/19/22 12:00 09/19/22 12:00 Temperature 99.4 F Pulse Rate 86 89 Respiratory Rate 18 Blood Pressure 137/61 Pulse Oximetry 92 92 Oxygen Delivery Nasal Cannula Oxygen Flow Rate 2 Fraction of Inspired Oxygen 09/19/22 12:00 09/19/22 14:00 09/19/22 16:00 Temperature 97.7 F Pulse Rate 88 75 77 Respiratory Rate 19 Blood Pressure 101/75 Pulse Oximetry 100 Oxygen Delivery Oxygen Flow Rate Fraction of Inspired Oxygen 09/19/22 20:05 09/19/22 20:08 09/19/22 20:17 Temperature Pulse Rate 116 H Respiratory Rate 28 H 28 H 28 H Blood Pressure Pulse Oximetry 95 Oxygen Delivery Nasal Cannula Oxygen Flow Rate 4 Fraction of Inspired Oxygen 36 09/19/22 20:00 09/20/22 00:00 09/19/22 23:49 Temperature 97.6 F Pulse Rate 81 81 Respiratory Rate 26 H Blood Pressure 101/79 Pulse Oximetry 92 100 98 Oxygen Delivery Nasal Cannula Nasal Cannula Oxygen Flow Rate 3 3 Frac
--- NOTE | 2022-09-20 09:30 | P.PNNP_ITS ---
Progress Note: A&P Assessment and Plan (1) ALFRED (acute kidney injury): Code(s): N17.9 - Acute kidney failure, unspecified Status: Acute Assessment and Plan: * multifactorial etiology: * contrast exposure (CTA of chest done on 09/17/22) * relative hypotension * prerenal factors * infection (? 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 Twan Dee * creatinine seems to run around 1.0mg/dl * presumably due to diabetes and hypertension (3) Pleural effusion: Code(s): J90 - Pleural effusion, not elsewhere classified Status: Acute Assessment and Plan: * on left side and quite larege * s/p thoracentesis yesterday -- however, repeat imaging notes persistence of effusion if not re-accumulation * pleural fluid studies pending but gram statin + for GPC * on broad spectrum antibiotics * likely to need Cardiothoracic Surgery evaluation -- hospital transfer process inititated * follow respiratory status closely (4) Hypertension: Code(s): I10 - Essential (primary) hypertension Status: Acute Assessment and Plan: * reasonable control * ARB on hold * BP medications with parameters * follow trend of hemodynamics (5) COPD (chronic obstructive pulmonary disease): Code(s): J44.9 - Chronic obstructive pulmonary disease, unspecified Status: Acute Assessment and Plan: * suspect may be exacerbated by #3 * supplemental oxygen and nebulizer treatments PRN * follow respiratory status (6) Diabetes: Code(s): E11.9 - Type 2 diabetes mellitus without complications Status: Acute Assessment and Plan: * follow accu-cheks * glycemic control per hospitalists Will continue to follow. Subjective Date/time seen: 09/20/22 09:30 Interval history: Follow-up for acute kidney injury/acute renal failure on chronic kidney disease. Events overnight reviewed -- worsening shortness of breath in association with hypoxia noted; initiated on antibiotics due to concerns of possible empyema given pleural fluid analysis to date and CT chest findings; on BiPAP therapy at this time; s/p thoracentesis yesterday with some initial improvement in shortness of breath at that time. Exam Narrative: General: middle aged female on BiPAP and seems uncomfortable Heart: normal S1 and S2; no rub Lungs: coarse with diminished sounds on left Abdomen: soft, nontender, nondistended, positive bowel sounds Extremities: no cyanosis or clubbing; no edema Skin: warm and dry Objective Data Vital Signs Vital Signs: Vital Signs Temp Pulse Resp BP Pulse Ox O2 Del Method O2 Flow Rate 09/20/22 10:00 88 09/20/22 08:00 94 BiPAP 09/20/22 08:00 87 09/20/22 09:16 89 24 H 94 BiPAP 09/20/22 08:00 98.1 F 89 21 H 104/57 L 90 09/20/22 08:2
--- NOTE | 2022-09-20 09:30 | PM.PNNEP ---
Progress Note: A&P Assessment and Plan (1) ALFRED (acute kidney injury): Code(s): N17.9 - Acute kidney failure, unspecified Status: Acute Assessment and Plan: multifactorial etiology: contrast exposure (CTA of chest done on 09/17/22) relative hypotension prerenal factors infection (? 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 Twan Dee creatinine seems to run around 1.0mg/dl presumably due to diabetes and hypertension (3) Pleural effusion: Code(s): J90 - Pleural effusion, not elsewhere classified Status: Acute Assessment and Plan: on left side and quite larege s/p thoracentesis yesterday -- however, repeat imaging notes persistence of effusion if not re-accumulation pleural fluid studies pending but gram statin + for GPC on broad spectrum antibiotics likely to need Cardiothoracic Surgery evaluation -- hospital transfer process inititated follow respiratory status closely (4) Hypertension: Code(s): I10 - Essential (primary) hypertension Status: Acute Assessment and Plan: reasonable control ARB on hold BP medications with parameters follow trend of hemodynamics (5) COPD (chronic obstructive pulmonary disease): Code(s): J44.9 - Chronic obstructive pulmonary disease, unspecified Status: Acute Assessment and Plan: suspect may be exacerbated by #3 supplemental oxygen and nebulizer treatments PRN follow respiratory status (6) Diabetes: Code(s): E11.9 - Type 2 diabetes mellitus without complications Status: Acute Assessment and Plan: follow accu-cheks glycemic control per hospitalists Will continue to follow. Subjective Date/time seen: 09/20/22 09:30 Interval history: Follow-up for acute kidney injury/acute renal failure on chronic kidney disease. Events overnight reviewed -- worsening shortness of breath in association with hypoxia noted; initiated on antibiotics due to concerns of possible empyema given pleural fluid analysis to date and CT chest findings; on BiPAP therapy at this time; s/p thoracentesis yesterday with some initial improvement in shortness of breath at that time. Exam Narrative: General: middle aged female on BiPAP and seems uncomfortable Heart: normal S1 and S2; no rub Lungs: coarse with diminished sounds on left Abdomen: soft, nontender, nondistended, positive bowel sounds Extremities: no cyanosis or clubbing; no edema Skin: warm and dry Objective Data Vital Signs Vital Signs: Vital Signs Temp Pulse Resp BP Pulse Ox O2 Del Method O2 Flow Rate 09/20/22 10:00 88 09/20/22 08:00 94 BiPAP 09/20/22 08:00 87 09/20/22 09:16 89 24 H 94 BiPAP 09/20/22 08:00 98.1 F 89 21 H 104/57 L 90 09/20/22 08:22 88 22 H 09/20/22 08:17 88 24 H 95 BiPAP 09/20/22 08:17 94 BiPAP 09/20/22 08:00 87 24 H 09/20/22 05:57 84 09/20/22 05:42 92 20 97 BiPAP 3 09/20/22 05:40 92 20 97 BiPAP 09/20/22 04:00 86 09/20/22 03:05 88 92 Nasal Cannula 3 09/20/22 03:04 97.6 F 91 26 H 111/56 L 95 09/20/22 02:00 84 09/20/22 00:00 76 09/20/22 01:01 97 22 H 09/20/22 00:53 77 20 09/19/22 23:49 97.6 F 81 26 H 101/79 98 09/20/22 00:00 81 100 Nasal Cannula 3 09/19/22 20:00 92 Nasal Cannula 3 09/19/22 20:17 116 H 28 H 09/19/22 20:0
[2022-09-20] MEDS: MEROPENEM 1 GM/NS 100 ML 1 GM/100 ML BAG IVPB ×2 (10:55→23:27)
[2022-09-20] MEDS: LORazepam INJ (*CRX) 2 MG/ML VIAL 1 MG IV PUSH (12:17)
[2022-09-20 12:35] LABS: Glucose Point of Care 270 mg/dl (65-105)
[2022-09-20 16:14] LABS: Glucose Point of Care 286 mg/dl (65-105)
[2022-09-20 16:27] LABS: HCO3 ABG 19.3 mEq/l (22.0-26.0); PCO2 ABG 36.9 mmHg (35.0-45.0); PO2 ABG 117.2 mmHg (80.0-100.0); pH ABG 7.337 (7.350-7.450)
[2022-09-20 16:28] LABS: Alveolar/Arterial O2 Gradient 67.8 mmHg; Base Excess ABG -5.9 mEq/l (+/-2.0); Oxygen Saturation ABG 98.1 % (95.0-100.0); Total Hemoglobin 11.7 g/dL (12.0-18.0)
[2022-09-20 16:29] LABS: Fractional Inspired Oxygen 32 %; Oxygen Content ABG 16.2 %vol (16.0-22.0); Oxyhemoglobin 97.3 % THb (90.0-100.0); PO2 FiO2 Ratio Arterial Blood 3.66 %; Site Drawn RIGHT RADIAL
[2022-09-20 16:30] LABS: Device NON-INVASIVE VENT; Modified Allen's Test Pass; Non-Invasive Expiratory Pressure 6 CMH2O; Non-Invasive Inspiratory Pressure 12 CMH2O; Non-Invasive Vent Rate 16 /MIN
--- NOTE | 2022-09-20 18:54 | PC.NURSE ---
Accepted at [facility] at [address] Magana. Received bed assignment of CVU bed 1 at 1813. Report called to Minda at 1833.
[2022-09-20] MEDS: INSULIN GLARGINE (*BKC) 100 UNITS/ML 50 UNITS SUB-Q (19:52)
[2022-09-20] MEDS: PANTOPRAZOLE 40 MG TABLET PO (19:52)
[2022-09-20] MEDS: ATORVASTATIN 40 MG TABLET PO (19:53)
[2022-09-20 20:02] LABS: Glucose Point of Care 287 mg/dl (65-105)
[2022-09-21] VITALS: PULSE 96; O2SAT 97
[2022-09-21 02:00] VITALS: PULSE 94
[2022-09-22 19:15] LABS: Glucose Pleural Fluid 225 mg/dL; LDH Pleural Fluid 240 U/L; Total Protein Pleural Fluid 4.5 g/dL
[2022-09-22 20:33] LABS: Kappa\\Lambda Light Chains 2.15 (0.26-1.65); Lambda Light Chain 42.7 mg/L (5.7-26.3)
[2022-09-27 02:39] LABS: Amylase, Pleural Fluid 24 U/L
--- NOTE | 2022-10-12 09:14 | PM.TDS ---
Transfer Discharge Sum: Prov Provider Date of admission: 09/18/22 05:29 Primary care physician: Jessika Britton, Admitting clinician: Lamin Mckeon MD Consults: 09/19/22 Consult to Physician Routine Comment: Spoke with the Dr and notified him of consult Consulting Provider: Valentina Ardon on call pharmacy technician/MD group to consult: nephrology Reason for consultation: hyponatremia with terrie Has provider been notified: Yes DS: Admitting Diagnosis Discharge Date 09/21/22 Admitting Diagnosis sob DS: Discharge Diagnosis Discharge Diagnosis (1) Pleural effusion: Code(s): J90 - Pleural effusion, not elsewhere classified Status: Acute Assessment and Plan: Hold Xarelto, thoracentesis performed 09/19 Restart Xarelto when okay by IR 09/20: recurrence of effusion noted, likely will need CT, transfer pending for higher level of care, also concern for underlying empyema, abx initiated 09/19 overnight with vanc and meropenem (2) Hypertension: Code(s): I10 - Essential (primary) hypertension Status: Acute Assessment and Plan: Blood pressure monitored, reviewed 09/20 (3) COPD (chronic obstructive pulmonary disease): Code(s): J44.9 - Chronic obstructive pulmonary disease, unspecified Status: Acute (4) Diabetes: Code(s): E11.9 - Type 2 diabetes mellitus without complications Status: Acute Assessment and Plan: Accu-Cheks, sliding scale insulin, check A1c Blood glucose reviewed 09/20 (5) Pulmonary embolism: Qualifiers: Acute cor pulmonale presence: unspecified Chronicity: unspecified Pulmonary embolism type: unspecified Qualified Code(s): I26.99 - Other pulmonary embolism without acute cor pulmonale Code(s): I26.99 - Other pulmonary embolism without acute cor pulmonale Status: Chronic Assessment and Plan: CTA from 2019 showed PE, on xarelto (currently on hold for thoracentesis) for this and atrial flutter, recurrent (6) Hyponatremia: Code(s): E87.1 - Hypo-osmolality and hyponatremia Status: Acute (7) Acute kidney injury superimposed on chronic kidney disease: Code(s): N17.9 - Acute kidney failure, unspecified; N18.9 - Chronic kidney disease, unspecified Status: Acute Assessment and Plan: [facility] nephrology consultation 09/20: continues to worsen, creat up to 3 from 1.1 at admission Plan DVT prophylaxis with SCDs, Xarelto on hold GI prophylaxis not indicated Code status DNR Transfer Discharge Sum: Med Medications Active and Home Medications: Home Medications albuterol sulfate 90 mcg/actuation aerosol inhaler 2 puff inhalation QID 02/18/19 [History Confirmed 09/18/22] atorvastatin 40 mg tablet 40 mg PO HS 07/16/19 [History Confirmed 09/18/22] metformin 500 mg tablet 500 mg PO BID 07/16/19 [History Confirmed 09/18/22] acetaminophen 500 mg tablet (Acetaminophen Extra Strength) 500 mg PO Q6H PRN Pain, Mild 01/18/22 [History Confirmed 09/18/22] azelastine 0.05 % eye drops 1 drp EACH EYE BID 01/18/22 [History Confirmed 09/18/22] buspirone 5 mg tablet 5 mg PO Q12H 01/18/22 [History Confirmed 09/18/22] calcitriol 0.25 mcg capsule 0.25 mcg PO DAILY 01/18/22 [History Confirmed 09/18/22] ergocalciferol (vitamin D2) 1,250 mcg (50,000 unit) capsule (Vitamin D2) 1,250 mcg PO TUTH 01/18/22 [History Confirmed 09/18/22] icosapent ethyl 1 gram capsule (Vascepa) 2 g PO Q12H 01/18/22 [History Confirmed 09/18/22] pantoprazole 40 mg tablet,delayed release 40 mg PO HS 01/18/22 [History Confirmed 09/18/22] insulin lispro 100 unit/mL subcutaneous solution 15 - 30 unit subcut TID 03/10/22 [History Confirmed 09/18/22] diltiazem HCl 360 mg capsule,24 hr,extended release (Tiadylt ER) 360 mg PO DAILY 03/11/22 [History Confirmed 09/18/22] losartan 50 mg tablet 50 mg PO DAILY 03/11/22 [History Confirmed 09/18/22] rivaroxaban 20 mg tablet (Xarelto) 20 mg PO HS 03/11/22 [History Confirmed 0
--- OUTSIDE RECORDS SUMMARY | 2022-11-08 11:57 | XMS_ITS | Patient Health Record ---
Author Name Unknown Organization [facility] Address [address] [place] [address] Care Team Providers Care Laminator Preforms Name Role Phone Twan Dee Unavailable [phone] REASON FOR REFERRAL No Information MEDICATIONS Medication SIG (Take, Route, Frequency, Duration) Notes Start Date End Date Status Calcitriol 0.25 MCG TAKE 1 CAPSULE BY MO UTH ONCE DAILY for 90 Active Vitamin D (Ergocalciferol) 1.25 MG (17716 UT) TAKE 1 CAPSULE BY MOUTH 2 TIMES WEEKLY for 84 Active Cipro 500 MG 1 tablet Orally ever y 12 hrs for 10 05/09/2022 Active Losartan Potassium 50 MG TAKE 1 TABLET B Y MOUTH EVERY DAY for 90 Active SOCIAL HISTORY Sex Assigned At : Social History Observation Description Sex Assigned At Unknown PROBLEMS Problem Type ICD Code Onset Dates Problem Status W/U Status Risk SNOMED Code Notes Problem Malignant neoplasm of unspecified part of unspecified bronchus or lung (C34.90) Active confirmed Malignant tumor of lung (425328694) Problem Secondary hyperparathyroid ism, not elsewhere classified (E21.1) Active confirmed Secondary hyperparathyroidism (78407378) Problem Renal osteodystrophy (N25.0) Active confirmed Renal osteodyst rophy (01524605) Problem Urinary tract infection, site
== END 2022-09-21 02:36 | disposition short-term general hospital (02) | DRG 187 ==
PROVIDERS: Internal Medicine Nephrology; Admitting Provider Internal Medicine; PCP Internal Medicine; Visit Provider Student in an Organized Health Care Education/Training Program
DX: J90 Pleural effusion, not elsewhere classified (principal); E87.1 Hypo-osmolality and hyponatremia; N17.9 Acute kidney failure, unspecified; Z68.41 Body mass index [BMI] 40.0-44.9, adult; E66.01 Morbid (severe) obesity due to excess calories; I12.9 Hypertensive chronic kidney disease with stage 1 through stage 4 chronic kidney disease, or unspecified chronic kidney disease; E11.22 Type 2 diabetes mellitus with diabetic chronic kidney disease; I27.20 Pulmonary hypertension, unspecified; J44.9 Chronic obstructive pulmonary disease, unspecified; N18.31 Chronic kidney disease, stage 3a; Z87.891 Personal history of nicotine dependence; Z85.118 Personal history of other malignant neoplasm of bronchus and lung; Z85.828 Personal history of other malignant neoplasm of skin; Z86.711 Personal history of pulmonary embolism; Z90.49 Acquired absence of other specified parts of digestive tract; Z66 Do not resuscitate; Z79.84 Long term (current) use of oral hypoglycemic drugs; Z79.4 Long term (current) use of insulin; Z88.0 Allergy status to penicillin; Z79.01 Long term (current) use of anticoagulants
CPT/HCPCS: 32555; 36415; 36600; 71250; 76775; 80048; 80053; 81001; 81050; 82150; 82550; 82570; 82805; 82945; 82948; 83615; 83735; 83883; 83986; 84100; 84145; 84156; 84157; 84300; 84311; 84439; 84443; 84478; 84480; 84540; 85025; 85049; 85610; 85730; 85999; 86140; 87070; 87075; 87081; 87086; 87147; 87181; 87186; 87205; 88108; 88305; 89051; 94002; 94640; A9270; J1170; J1815; J2060; J2185; J2270; J3370; J7030

== ENCOUNTER 2023-09-28 08:40 | Outpatient (CLI) | payer MEDICARE, MEDICAID, SELFPAY ==
--- NOTE | ~2023-09-28 | CT_ITS ---
EXAMINATION: CT abdomen pelvis wo/w con DATE: 09/28/2023 09:37 INDICATION: Bladder neoplasm of uncertain malignant potential. TECHNIQUE: Computed tomography (CT) of the abdomen and pelvis was performed without and with intraven ous contrast using a total of 130 mL Omnipaque-350 intravenous contrast with a double-bolus technique for simultaneous opacification of the renal parenchyma and renal collecting system. Automated exposu re control and iterative reconstruction technique were employed. The dose-length product was 3309.47 mGy-cm. COMPARISON: PET/CT 05/28/2019, chest CT 09/19/22 FINDINGS: The visualized portions of the lung bases demonstrate emphysema. There is volume loss of left hemitho rax. There is mucous plugging in left lower lobe. There is a 4.4 x 4.4 cm mass in left lower lobe maria fernanda t is contiguous with the hilum. There is left-sided pleural thickening and trace pleural effusion. Th ere is a calcified pleural plaque on the right. The heart size is normal. There are coronary artery c alcifications. No pericardial effusion. The liver and spleen are normal. There are changes of cholecy stectomy. The pancreas and adrenal glands are normal. There is cortical thinning of the kidneys. Ther e is no urolithiasis. There is calcified atherosclerosis of the aorta and many of the other arteries. Right ureter is not well opacified distally, but the ureters are normal. There is a 17 mm mass in th e left posterior bladder. There is gas in the bladder lumen, likely from recent instrumentation. The appendix is normal. There are no dilated loops of bowel. There is a borderline-enlarged periceliac ly mph node. There is no free intraperitoneal fluid. There is chronic height loss of multiple vertebral bodies. There is mild lumbar spondylosis. IMPRESSION: 1. Mass in left lung lower lobe that is contiguous with the hilum, consistent with primary bronchogen ic carcinoma and/or post-obstructive pneumonia. 2. 17 mm mass in the left posterior bladder, consistent with malignancy versus hematoma. 3. Borderline enlarged periceliac lymph node, which is indeterminate for metastatic disease. Reviewed, dictated and finalized at location A. IMPRESSION: 1. Mass in left lung lower lobe that is contiguous with the hilum, consistent w ith primary bronchogenic carcinoma and/or post-obstructive pneumonia. 2. 17 mm mass in the left posterior bladder, consistent with malignancy versus hematoma. 3. Borderline enlarged periceliac lymph node, which is indeterminate for metast atic disease.
[2023-09-28 09:12] LABS: Estimated Glomerular Filt Rate 50
== END 2023-09-28 08:41 | disposition home or self-care (01) ==
LOC: ANHIMG 08:47
PROVIDERS: PCP Internal Medicine; Visit Provider Urology
DX: D41.4 Neoplasm of uncertain behavior of bladder (principal); R91.1 Solitary pulmonary nodule
CPT/HCPCS: 74178; Q9967

== ENCOUNTER 2023-10-05 10:30 | Outpatient (CLI) | payer MEDICARE, MEDICAID, SELFPAY ==
--- NOTE | 2023-10-05 10:40 | ECG_ITS ---
Test Date: 2023-10-05 10:45:55 Measurements Intervals [place] Rate: 68 P: 82 TN: 186 QRS: 32 QRSD: 109 T: 67 QT: 386 QTc: 413 Interpretive Statements SINUS RHYTHM WITHIN NORMAL LIMITS No previous ECG available for comparison Electronically Signed On 10-05-2023 13:26:51 CDT by Malick Huston M.D.
[2023-10-05 11:13] LABS: INR 2.5; Prothrombin Time 27.4 Seconds (11.1-14.7)
[2023-10-05 11:14] LABS: Partial Thromboplastin Time 38.8 Seconds (22.3-36.8)
[2023-10-05 11:25] LABS: Anion Gap 10 mmol/L (4-12); Blood Urea Nitrogen 25 mg/dL (7-17); Calcium 9.5 mg/dL (8.4-10.2); Carbon Dioxide 28 mmol/L (22-30); Chloride 98 mmol/L (98-107); Estimated Glomerular Filt Rate 45; Glucose 137 mg/dL (65-110); Potassium 4.6 mmol/L (3.4-5.0); Sodium 136 mmol/L (137-145)
== END 2023-10-05 10:31 | disposition home or self-care (01) ==
PROVIDERS: Anesthesiology; PCP Internal Medicine; Visit Provider Urology
DX: Z01.818 Encounter for other preprocedural examination (principal); C67.9 Malignant neoplasm of bladder, unspecified; I12.9 Hypertensive chronic kidney disease with stage 1 through stage 4 chronic kidney disease, or unspecified chronic kidney disease; N18.31 Chronic kidney disease, stage 3a; E11.9 Type 2 diabetes mellitus without complications
CPT/HCPCS: 36415; 80048; 85610; 85730; 87077; 87086; 87088; 87186; 93005

== ENCOUNTER 2023-10-17 12:03 | Outpatient (CLI) | payer MEDICARE, MEDICAID, SELFPAY ==
--- NOTE | ~2023-10-17 | PE_ITS ---
EXAMINATION: PET skull to mid thigh DATE: 10/17/2023 14:06 INDICATION: Solitary pulmonary nodule. TECHNIQUE: Blood glucose level was 98 mg/dL. 10.678 mCi of 18-fluorodeoxyglucose (18-FDG) was adminis tered i.v. Low dose computed tomography (CT) images were acquired from the base of the brain to the p roximal thighs for attenuation correction and anatomic localization. Automated exposure control was e mployed. Dose-length product (DLP) was 1351 mGy-cm. Positron emission tomography (PET) images were ac quired in the same distribution. COMPARISON: PET/CT 02/17/2022, chest CT 09/28/23 FINDINGS: Head/neck: There are no pathologically enlarged lymph nodes. Chest: There are calcified pleural plaques on the right. There is complete collapse of left lung uppe r lobe. There is mucous plugging of the left distal left mainstem bronchus. There is a 4.4 x 3.1 cm l eft perihilar mass with maximum SUV of 7.8. There are groundglass opacities in the more peripheral le ft lower lobe. No pleural effusion. The heart size is normal. There are coronary artery calcification s. No pericardial effusion. There is a small sliding hiatal hernia. There is old healed fracture of p roximal right humerus. Abdomen/pelvis/proximal thighs: The liver and spleen are normal. There are changes of cholecystectomy . The pancreas, adrenal glands, and kidneys are normal. There are no dilated loops of bowel. There is diverticulosis of the colon without evidence of diverticulitis. The appendix is normal. There are no pathologically enlarged lymph nodes. There is no free intraperitoneal fluid. There is calcified athe rosclerosis of the aorta and many of the other arteries. There is no osseous malignancy. IMPRESSION: 1. Left lung perihilar mass with increased activity, consistent with radiation pneumonitis versus pne umonia versus malignancy. 2. Mucous plugging in left mainstem bronchus with left lung upper lobe collapse. Reviewed, dictated and finalized at location A. IMPRESSION: 1. Left lung perihilar mass with increased activity, consistent with radiation pneumonitis versus pneumonia versus malignancy. 2. Mucous plugging in left mainstem bronchus with left lung upper lobe collapse .
[2023-10-17 12:26] LABS: Glucose Point of Care 98 mg/dl (65-105)
== END 2023-10-17 12:04 | disposition home or self-care (01) ==
PROVIDERS: PCP Internal Medicine
DX: R91.1 Solitary pulmonary nodule (principal); R91.8 Other nonspecific abnormal finding of lung field; T17.590A Other foreign object in bronchus causing asphyxiation, initial encounter; J98.19 Other pulmonary collapse
CPT/HCPCS: 78815; A9552

== ENCOUNTER 2023-11-23 00:36 | Day surgery (SDC) | payer MEDICARE, MEDICAID, SELFPAY ==
[2023-10-04 13:34] VITALS: BMI 42.9
--- NOTE | 2023-10-04 14:33 | PC.NURSE ---
Report to the Outpatient Waiting Room, entrance under the green pavilion located off [facility], at time _7:30AM__ on date _10/12/23__. Planned Procedure Time: __9:30AM .? Time changes happen often and if your time is changed the preop area will call you the afternoon before. - You and your visitor will be asked to self-screen and do not enter if you have any COVID symptoms. Please call surgeon if you need to reschedule. - A mask is optional within the hospital at this time. Patients may have clear liquids (water, carbonated beverages, clear teas, apple juice) until 3 hours prior to surgery with a maximum of 20 ounces. - No food from midnight until time of surgery and no smoking. Take only the following medications with a SIP of water on the morning of surgery: ___ANORO ELLIPTA INHALER, BUSPIRONE,DILTIAZEM, METOPROLOL. MAY USE ALBUTEROL INHALER NEEDED. DO NOT STOP ANY OF YOUR OTHER PRESCRIPTION MEDICATIONS PRIOR TO SURGERY EXCEPT THE FOLLOWING Medications to discontinue per physician ____HOLD XERALTO AND ALL VITAMINS/SUPPLEMENTS 3 DAYS PRE-OP PER DR LONGORIA(PER PATIENT) Date to take last dose 10/08/23 Please no make-up, nail tristanian, hairspray, perfume, deodorant, or body powder the day of surgery.? No jewelry (including any body piercings) or valuables the day of surgery, leave them at home.? Please take a shower or bath the night before, or the morning of, surgery with an antibacterial soap.? Wear comfortable, loose fitting clothing.? - Jewelry must be removed prior to entering the operating room.? Rings and piercings that are not removed may be cut off. - The hospital will not accept responsibility for valuables.? - Please leave all valuables, including medications, at home the day of surgery. If you are going home after surgery, a licensed sweeper driver must drive you home.? - NO public transportation without another adult if you receive anesthesia. - We recommend that an adult stay with you for 24 hours following discharge. - We also recommend that you do not drive, make important decision, drink alcoholic beverages, or take any drugs that were not prescribed by your health care provider for at least 24 hours after your discharge time. Follow any additional instructions given to you from your surgeon. Telephone instructions given to ____PATIENT and asked if any additional questions and then verbalized understanding. Patient advised to call surgeon office or pre surgery nurse liaison [phone] if any additional questions.
--- NOTE | 2023-10-12 01:01 | WPDHPUPDATE1 ---
History and Physical Update Update Date/Time: 10/12/23 01:01 History and Physical has been reviewed, including an updated exam of the patient. There are NO changes in the patient's condition. Risks, benefits, and alternatives have been discussed and questions answered. Patient agrees to proceed with procedure.
--- NOTE | 2023-11-10 10:19 | PM.HPGS ---
History of Present Illness History of Present Illness Consent: Risks, benefits, and alternatives have been discussed and questions answered. Patient agrees to proceed with procedure. Chief complaint: bladder cancer Narrative: Lanny Bustillo is a 63 year old female who was undergoing evaluation by Dr. Tejada for recurrent urinary tract infection. Cystoscopy demonstrated a 3 cm bladder neoplasm just above her left ureteral orifice. We had originally scheduled to do this in October but the procedure was canceled by the patient over concerns about lung cancer. She now presents for TURBT with gemcitabine installation. She is aware the risk including, but not limited to, hematuria, need for additional procedures, failure to control cancer. Review of Systems Review of Systems: All systems reviewed & are unremarkable except as noted in HPI and below PMFSH Past Medical History Medical History (Updated 11/10/23 @ 10:20 by Alex Hinkle MD) Asthma Chronic renal failure (CRF), stage 3a COPD (chronic obstructive pulmonary disease) Diabetes type 2 on insulin High cholesterol History of tobacco abuse Hx of cancer of lung left lung radiation Hypertension Laryngeal squamous cell carcinoma Morbid obesity with BMI of 45.0-49.9, adult Pulmonary embolism Pulmonary hypertension Surgical History Surgical History (Updated 04/19/23 @ 09:37 by Ayah Leos MA) H/O endoscopy H/O knee surgery reconstructive surgery H/O sinus surgery H/O: section times 2 History of cholecystectomy History of dilation and curettage History of surgery on lower extremity reconstructive leg surgery History of tubal ligation 11/03/2004 Laparoscopic Tubal Ligation / Novasure Ablation ; Menometrorrhagia S/P tonsillectomy and adenoidectomy Family History Family History (Updated 04/19/23 @ 09:42 by Ayah Leos MA) Other Brain cancer maternal aunt Breast cancer Mother Bladder cancer Small cell cancer of the bladder Mother Hypertension Social History Social History Social History: She reports that she smoked as much as 3 packs of cigarettes per day. She quit smoking in 2018. She smoked for approximately 40 years. She used to drink alcohol on occasion but has not done so in many years. She denies any illicit substance use. She lives in her own home. Her daughter lives with her but she states that her daughter does not help her out. Instead her daughter in-law comes over Pete or in-home caregiver on a daily basis. SHE HAS 2 CHILDREN. She is . Code status: DNR/DNI per patient request Surrogate decision maker: Austin Mcmahon (son) Smoking packs per day: 2 Smoking cigarettes per day: 40.0 Years smoked: 45 Smoking pack-years: 90.00 Smoking status: Former smoker Tobacco type: cigarettes Second hand tobacco smoke exposure: Yes Smoking end date: 08/06/18 Alcohol intake: former Substance use: never Lack of Transportation: No Lack of Food: Never True Current Housing: I Do Not Have Housing Concerned About Future Housing: No Difficulty Paying Gas/Electric Bills: No Difficulty Paying for Meds: No Currently Unemployed: No Education: Decline to Answer Difficulty w/ Childcare or Family Care: No Living arrangements: with family Additional living arrangements comments: SON, DIL & GRANDCHILDREN LIVE W/ PATIENT Gender identity (if verbalized by the patient): Female Spiritual care concerns: No Agree to blood products: Yes Meds Home Medications and Allergies Home Medications Medication Instructions Recorded Confirmed Type albuterol sulfate 90 mcg/actuation 2 puff inhalation QID 02/18/19 10/04/23 History aerosol inhaler metformin 500 mg tablet 500 mg PO BID 07/16/19 10/04/23 History acetaminophen 500 mg tablet 1,000 mg PO Q6H PRN Pain, Mild 01/18/22 10/04/23 History (Acetaminophen Extra St
--- NOTE | 2023-11-16 12:32 | PC.NURSE ---
Report to the Outpatient Waiting Room, entrance under the green pavilion located off [facility], at time _0730_ on date _[id number]_. Planned Procedure Time: _0930_.? Time changes happen often and if your time is changed the preop area will call you the afternoon before. - You and your visitor will be asked to self-screen and do not enter if you have any COVID symptoms. Please call surgeon if you need to reschedule. - A mask is optional within the hospital at this time. Patients may have clear liquids (water, carbonated beverages, clear teas, apple juice) until 3 hours prior to surgery with a maximum of 20 ounces. - No food from midnight until time of surgery and no smoking Take only the following medications with a SIP of water on the morning of surgery: ___Anoro ellipta inhaler, Buspirone, Diltiazem, Metoprolol and if needed Albuterol inhaler. DO NOT STOP ANY OF YOUR OTHER PRESCRIPTION MEDICATIONS PRIOR TO SURGERY EXCEPT THE FOLLOWING Medications to discontinue per physician ___Xeralto and all vitamins and supplements Date to take last yomg___[id number] Please no make-up, nail wolof, hairspray, perfume, deodorant, or body powder the day of surgery.? No jewelry (including any body piercings) or valuables the day of surgery, leave them at home.? Please take a shower or bath the night before, or the morning of, surgery with an antibacterial soap.? Wear comfortable, loose fitting clothing.? - Jewelry must be removed prior to entering the operating room.? Rings and piercings that are not removed may be cut off. - The hospital will not accept responsibility for valuables.? - Please leave all valuables, including medications, at home the day of surgery. If you are going home after surgery, a licensed route driver salesperson must drive you home.? - NO public transportation without another adult if you receive anesthesia. - We recommend that an adult stay with you for 24 hours following discharge. - We also recommend that you do not drive, make important decision, drink alcoholic beverages, or take any drugs that were not prescribed by your health care provider for at least 24 hours after your discharge time. Follow any additional instructions given to you from your surgeon. Telephone instructions given to __Tina___and asked if any additional questions and then verbalized understanding. Patient advised to call surgeon office or pre surgery nurse liaison [phone] if any additional questions.
[2023-11-23] VITALS (10 sets, daily range): BP systolic 98–142; BP diastolic 50–96; PULSE 60–74; RESP 13–18; TEMP 35.9–36.1; O2SAT 94–100
--- NOTE | 2023-11-23 06:27 | WPDHPUPDATE1 ---
History and Physical Update Update Date/Time: 11/23/23 06:27 History and Physical has been reviewed, including an updated exam of the patient. There are NO changes in the patient's condition. Risks, benefits, and alternatives have been discussed and questions answered. Patient agrees to proceed with procedure.
--- NOTE | 2023-11-23 07:45 | WPDANESEPPF ---
Anes - Initial Pre Proc Eval Procedure: Operation Date: 11/23/23 09:30 Proposed Procedures p Transurethral Resection Bladder Tumor with Gemcitabine Instillation - Alex Hinkle MD Date/Time: 11/23/23 07:45 Surgeon: Alex Hinkle MD Pre Op Diagnosis: bladder cancer Patient Data Age: 63 Gender: F Height: 1.73 m Weight: 128 kg Allergies Allergy/AdvReac Type Severity Reaction Status Date / Time adhesive tape Allergy Mild RASH Verified 11/16/23 12:40 coconut Allergy Mild Rash Verified 11/16/23 12:40 Penicillins Allergy Mild HIVES Verified 11/16/23 12:40 tomato Allergy Mild Rash Verified 11/16/23 12:40 warfarin Allergy Mild Hives Verified 11/16/23 12:40 codeine AdvReac Mild NAUSEA/VOMI Verified 11/16/23 12:40 TING Home Medications Medication Instructions Recorded Confirmed Type albuterol sulfate 90 mcg/actuation 2 puff inhalation QID 02/18/19 11/16/23 History aerosol inhaler metformin 500 mg tablet 500 mg PO BID 07/16/19 11/16/23 History acetaminophen 500 mg tablet 1,000 mg PO Q6H PRN Pain, Mild 01/18/22 11/16/23 History (Acetaminophen Extra Strength) azelastine 0.05 % eye drops 1 drp EACH EYE BID 01/18/22 11/16/23 History buspirone 5 mg tablet 5 mg PO Q12H 01/18/22 11/16/23 History icosapent ethyl 1 gram capsule 2 g PO Q12H 01/18/22 11/16/23 History (Vascepa) pantoprazole 40 mg tablet,delayed 40 mg PO HS 01/18/22 11/16/23 History release diltiazem HCl 360 mg capsule,24 360 mg PO DAILY 03/11/22 11/16/23 History hr,extended release (Tiadylt ER) rivaroxaban 20 mg tablet (Xarelto) 20 mg PO HS 03/11/22 11/16/23 History dulaglutide 1.5 mg/0.5 mL 1.5 mg subcut WEEKLY 09/18/22 11/16/23 History subcutaneous pen injector (Trulicity) insulin degludec 100 unit/mL (3 60 unit subcut HS 09/18/22 11/16/23 History mL) subcutaneous pen (Tresiba FlexTouch U-100 insulin) cetirizine 10 mg capsule 10 mg PO DAILY PRN Sinus Symptoms 10/04/23 11/16/23 History ergocalciferol (vitamin D2) 1,250 1,250 mcg PO 2XW 10/04/23 11/16/23 History mcg (50,000 unit) capsule estradiol 0.01% (0.1 mg/gram) 1 applic vaginal 2XW 10/04/23 11/16/23 History vaginal cream furosemide 40 mg tablet 40 mg PO QAM 10/04/23 11/16/23 History geriatric multivitamin-min 1 tablet PO DAILY 10/04/23 11/16/23 History insulin aspart 30 unit subcut TID 10/04/23 11/16/23 History (niacinamide)(U-100) 100 unit/mL(3 mL) subcutaneous pen (Fiasp FlexTouch U-100 Insulin) methenamine hippurate 1 gram tablet 1 g PO BID 10/04/23 11/16/23 History metoprolol tartrate 25 mg tablet 25 mg PO BID 10/04/23 11/16/23 History pravastatin 40 mg tablet 40 mg PO DAILY 10/04/23 11/16/23 History umeclidinium 62.5 mcg-vilanterol 1 inh inhalation QAM 10/04/23 11/16/23 History 25 mcg/actuation powdr for inhalation (Anoro Ellipta) Patient hx anesthesia problems: none Family hx anesthesia problems: none Results Review: All pre-operative results and documents have been reviewed as part of the pre-operative evaluation. [facility] Past Medical History Medical History (Updated 11/23/23 @ 07:46 by Kalia Penaloza MD) Asthma Chronic renal failure (CRF), stage 3a COPD (chronic obstructive pulmonary disease) Diabetes type 2 on insulin High cholesterol History of tobacco abuse Hx of cancer of lung left lung radiation Hypertension Laryngeal squamous cell carcinoma Morbid obesity with BMI of 45.0-49.9, adult Paroxysmal A-fib Pulmonary embolism Pulmonary hypertension Surgical History Surgical History H/O endoscopy H/O knee surgery reconstructive surgery H/O sinus surgery H/O: section times 2 History of cholecystectomy History of dilation and curettage History of surgery on lower extremity reconstructive leg surgery History of tubal ligation 11/03/2004 Laparoscopic Tubal Ligation / Novasure Ablation ; Menometrorrhagia S/P tonsillectomy and adenoidectomy
[2023-11-23] MEDS: LACTATED RINGERS 1,000 ML 30 ML IV CONT (08:00)
[2023-11-23 08:18] LABS: Glucose Point of Care 62 mg/dl (65-105)
[2023-11-23 08:40] LABS: Glucose Point of Care 110 mg/dl (65-105)
[2023-11-23 08:44] LABS: INR 0.9; Partial Thromboplastin Time 23.1 Seconds (22.3-36.8); Prothrombin Time 12.3 Seconds (11.1-14.7)
[2023-11-23] MEDS: DEXTROSE 50% 25 GM/50 ML SYRINGE IV PUSH (09:16)
[2023-11-23] MEDS: ceFAZolin 3 GM/D5W 100 ML 100 ML IVPB (09:49)
[2023-11-23] MEDS: LIDOCAINE HCL 2% GEL UROJET 10 ML PKG MUCOUS MEM (10:09)
[2023-11-23] MEDS: SODIUM CHLORIDE 0.9% IV 23.7 ML, GEMCITABINE HCL 1,000 MG BLADDER ×2 (10:26→10:27)
[2023-11-23 10:29] LABS: Glucose Point of Care 110 mg/dl (65-105)
--- NOTE | 2023-11-23 10:29 | W.PM.PROC2 ---
Procedure Note - Detailed Date of Procedure 11/23/23 Pre-op Diagnosis Bladder cancer Post-op Diagnosis Same Procedure Performed TURBT (medium, 3 cm) Surgeon Alex Hinkle MD Anesthesia General Description of Procedure Patient is brought to the operative suite where she is prepped draped in routine sterile fashion while in dorsal lithotomy position after the uneventful induction of a general LMA anesthetic. Cystoscopy was undertaken with a 24 F resectoscope. Bladder neck and urethra endoscopically normal. She has a very superficial appearing, pedunculated 3 cm papillary lesion on the left posterior lateral bladder wall just lateral to the left ureteral orifice. Using a loop electrode this is resected in its entirety with an attempt to include detrusor muscle for pathological evaluation of invasion. Left ureteral orifice was preserved. All fragments were evacuated. The base and periphery were cauterized with the loop. Patient tolerated this well was taken recovery room good condition with an indwelling 18 F catheter for gemcitabine installation Drains Yes Packing No Pathology Yes Complications No immediate complications Condition Stable Disposition PACU
[2023-11-23] MEDS: fentaNYL CITRATE INJ (*CRX) 100 MCG/2 ML VIAL 25 MCG IV PUSH ×2 (10:45→11:07)
--- NOTE | 2023-11-23 10:56 | SUR.PHASEI ---
1045: Patient is lying on L side.
--- NOTE | 2023-11-23 11:10 | SUR.PHASEI ---
0907: Patient turned to right side.
== END 2023-11-23 12:44 | disposition home or self-care (01) ==
PROVIDERS: Anesthesiology; PCP Internal Medicine; Visit Provider Urology
PROC: 0TBB8ZZ Excision of Bladder, Via Natural or Artificial Opening Endoscopic (ICD-10-PCS; CPT 52235; principal; 2023-11-23 09:30)
DX: C67.2 Malignant neoplasm of lateral wall of bladder (principal); N32.89 Other specified disorders of bladder; I12.9 Hypertensive chronic kidney disease with stage 1 through stage 4 chronic kidney disease, or unspecified chronic kidney disease; N18.31 Chronic kidney disease, stage 3a; J44.9 Chronic obstructive pulmonary disease, unspecified; E11.9 Type 2 diabetes mellitus without complications; E78.00 Pure hypercholesterolemia, unspecified; I48.0 Paroxysmal atrial fibrillation; I27.20 Pulmonary hypertension, unspecified; E66.01 Morbid (severe) obesity due to excess calories; Z68.42 Body mass index [BMI] 45.0-49.9, adult; Z79.51 Long term (current) use of inhaled steroids; Z79.84 Long term (current) use of oral hypoglycemic drugs; Z79.01 Long term (current) use of anticoagulants; Z79.85 Long-term (current) use of injectable non-insulin antidiabetic drugs; Z79.4 Long term (current) use of insulin; Z98.890 Other specified postprocedural states; Z90.49 Acquired absence of other specified parts of digestive tract; Z98.51 Tubal ligation status; Z87.891 Personal history of nicotine dependence; Z92.3 Personal history of irradiation; Z86.711 Personal history of pulmonary embolism; Z85.21 Personal history of malignant neoplasm of larynx; Z85.118 Personal history of other malignant neoplasm of bronchus and lung; Z80.3 Family history of malignant neoplasm of breast; Z80.52 Family history of malignant neoplasm of bladder; Z80.8 Family history of malignant neoplasm of other organs or systems
CPT/HCPCS: 52235; 36415; 51720; 82948; 85610; 85730; 88305; J0330; J0690; J1100; J2003; J2250; J2405; J2704; J3010; J7120; J9201

== ENCOUNTER 2023-12-10 14:59 | Inpatient (IN) | payer MEDICARE, MEDICAID, SELFPAY ==
--- NOTE | ~2023-12-10 | CT_ITS ---
EXAMINATION: CT chest abdomen pelvis w con DATE: 12/10/2023 16:32 INDICATION: History of lung cancer. Cough. Generalized weakness. Conclusion 1 day ago. TECHNIQUE: Computed tomography (CT) of the chest, abdomen, and pelvis was performed without intraveno us contrast. Automated exposure control and iterative reconstruction technique were employed. Exam do se: 2004.92 mGy-cm total exam DLP. COMPARISON: None FINDINGS: CHEST CT: There is volume loss of the left lung with opacification of the left upper hemithorax with leftward s hift of the heart and mediastinum. There is a 13.4 x 19.3 mm renovascular lymph node 9.6 x 12.5 mm left superior mediastinal lymph node. . There is asymmetric narrowing of the left mainstem bronchus, nearly occluded distally and no aeration of left upper lobe bronchus is noted. This may be due to occlusion or surgical resection; correlatio n with any surgical history is recommended. There is narrowing of the left lower lobe bronchi. There is a 5 x 3.5 cm encapsulated fluid density at the anterolateral aspect of the left hilum with m ild surrounding infiltrate. No right pulmonary infiltrate or right pulmonary mass lesion is noted. Normal right bronchi, without stenosis or occlusion.. ABDOMEN/PELVIS CT: Status post cholecystectomy. No hepatic, splenic, pancreatic, and adrenal or renal space occupying ma ss lesion is evident. There is pancreatic atrophy. No bile duct or pancreatic duct dilatation. No urinary tract calculus or hydroureteronephrosis. The urinary bladder is normal. The uterus and adn exal areas are unremarkable. Extensive atherosclerotic calcification of the abdominal aorta and calcification at the origins of th e celiac and superior mesenteric and renal arteries. No abdominal aortic aneurysm. Calcification of t he iliac and femoral arteries. No intraperitoneal or retroperitoneal or pelvic mass lesion or adenopathy or ascites. Diverticulosis of the colon; no CT evidence of diverticulitis. No bowel obstruction or intraperitonea l free air. Old fracture deformity of the proximal right humerus. Prominent bilateral hip osteoarthritis. IMPRESSION: Resected or occluded left upper lobe bronchus; recommend correlation with any surgical h istory. The left mainstem bronchus, nearly occluded distally, with narrowing of the left lower lobe bronchi a s well 3.5 x 3.5 cm encapsulated fluid collection along the inferolateral aspect of the left hilum, with ivis rounding infiltrate Enlarged left superior mediastinal and prevascular lymph nodes; metastasis is not excluded. Consider PET/CT imaging for further evaluation. Status post cholecystectomy Pancreatic atrophy Diverticulosis of the colon; no evidence of diverticulitis Reviewed, dictated and finalized at [facility]. Reviewed, dictated and finalized at [facility]. CTOR OF MARKETING AND PROMOTIONS IMPRESSION: Resected or occluded left upper lobe bronchus; recommend correlati on with any surgical history. The left mainstem bronchus, nearly occluded distally, with narrowing of the lef t lower lobe bronchi as well 3.5 x 3.5 cm encapsulated fluid collection along the inferolateral aspect of th e left hilum, with surrounding infiltrate Enlarged left superior mediastinal and prevascular lymph nodes; metastasis is n ot excluded. Consider PET/CT imaging for further evaluation. Status post cholecystectomy Pancreatic atrophy Diverticulosis of the colon; no evidence of diverticulitis
--- NOTE | ~2023-12-10 | XR_ITS ---
XR chest 2V DATE: 12/10/2023 15:19 INDICATION: Cough. Weakness after flu shot one day ago. History of left lung cancer. TECHNIQUE: 2 views COMPARISON: 09/19/2022 CT chest FINDINGS: Approximately 3.2 cm mass density overlies the lower left hilum, apparently situated in the superior segment of the left lower lobe based upon the lateral view. There is left upper lung atelectasis/opacification, with overall volume of the left lung and leftward shift of the heart and mediastinum. Obstructing endobronchial mass lesion is not excluded. There is blunting of the left costophrenic angle which may be due to pleural effusion. The right lung appears clear. No right pleural effusion. No pulmonary vascular congestion or pneumoth orax is evident. Heart monitor device overlies the mid chest. Diffuse osteopenia. Degenerative spurring at the acromioclavicular joints. IMPRESSION: Opacification of the left upper hemithorax, volume loss of the left lung; the findings win ggest left upper lobe atelectasis and consolidation similar obstructing endobronchial lesion must be considered. Approximately 3.2 cm mass density, superior segment left lower lobe. Bronchogenic carcinoma must be c onsidered. Reviewed, dictated and finalized at [facility]. AST CLEANING MACHINE OPERATOR IMPRESSION: Opacification of the left upper hemithorax, volume loss of the left lung; the findings suggest left upper lobe atelectasis and consolidation simil ar obstructing endobronchial lesion must be considered. Approximately 3.2 cm mass density, superior segment left lower lobe. Bronchogen ic carcinoma must be considered.
[2023-12-10 15:00] VITALS: BP 165/60; PULSE 112; RESP 19; TEMP 37.3; O2SAT 97
--- NOTE | 2023-12-10 15:05 | ECG_ITS ---
Test Date: 2023-12-10 15:22:14 Measurements Intervals [place] Rate: 106 P: 85 RI: 139 QRS: 74 QRSD: 85 T: 87 QT: 328 QTc: 437 Interpretive Statements SINUS TACHYCARDIA BASELINE ARTIFACT- I, II, III, AVR, AVL, AVF, V1-V6 ABNORMAL ECG Compared to ECG 10/05/2023 10:45:55 HEART RATE HAS INCREASED Electronically Signed On 12-10-2023 16:48:12 [employer] by Don Hyman D.O.
[2023-12-10 15:13] LABS: Basophils Percent Auto 0.2 % (0.2-1.2); Eosinophils Absolute Auto 0.2 K/mm3 (0-0.3); Eosinophils Percent Auto 1.9 % (0-4.4); Hematocrit 38.9 % (37.0-47.0); Hemoglobin 12.4 g/dL (12.0-15.0); Immature Granulocyte Absolute 0.03 K/mm3 (0.00-0.031); Immature Granulocyte Percent A 0.4 % (0-0.5); Lymphocytes Absolute Auto 0.98 K/mm3 (0.9-3.2); Lymphocytes Percent Auto 11.7 % (18.3-44.2); Mean Corpuscular HGB Conc 31.9 g/dl (32-36); Mean Corpuscular Hemoglobin 28.1 pg (26-34); Mean Corpuscular Volume 88.2 fl (80-100); Mean Platelet Volume 9.6 fl (7.4-10.4); Monocytes Absolute Auto 0.4 K/mm3 (0.1-0.6); Monocytes Percent Auto 4.7 % (2.6-8.5); Neutrophils Absolute Auto 6.8 K/mm3 (1.3-6.7); Neutrophils Percent Auto 81.1 % (45.5-73.1); Platelet Count Result 239 k/mm3 (150-375); Red Blood Count 4.41 M/mm3 (4.2-5.4); Red Cell Distribution Width 16.8 % (11.5-14.5); White Blood Count 8.4 K/mm3 (4.5-10.0)
[2023-12-10 15:29] LABS: Alanine Aminotransferase 32 U/L (6-35); Albumin Level 3.9 g/dL (3.5-5.1); Alkaline Phosphatase 146 U/L (38-126); Anion Gap 9 mmol/L (4-12); Aspartate Amino Transferase 39 U/L (14-36); Bilirubin,Total 1.1 mg/dL (0.2-1.3); Blood Urea Nitrogen 15 mg/dL (7-17); Calcium 9.4 mg/dL (8.4-10.2); Carbon Dioxide 28 mmol/L (22-30); Chloride 97 mmol/L (98-107); Estimated CRCL calculation 74 ml/min; Estimated Glomerular Filt Rate 56; Glucose 212 mg/dL (65-110); Potassium 4.5 mmol/L (3.4-5.0); Sodium 134 mmol/L (137-145)
--- NOTE | 2023-12-10 16:02 | ED_ITS ---
HPI - Weakness General Chief complaint: Weakness <Danitza Lopez PA-C - Last Filed: 12/10/23 18:26> Stated complaint: weak after flu shot <Danitza Lopez PA-C - Last Filed: 12/10/23 18:26> Time Seen by Provider: 12/10/23 15:52 <Danitza Lopez PA-C - Last Filed: 12/10/23 18:26> History of Present Illness HPI Narrative: 63-year-old female with history of CKD, hypertension, a flutter on chronic anticoagulation with Xarelto, COPD, PE, laryngeal squamous cell carcinoma, lung cancer in 2019 s/p radiation in remission , recent diagnosis of bladder cancer, DM 2 on insulin presents to the emergency department via EMS from home for generalized weakness x1 day. Patient states received her flu and pneumonia shot 2 days ago and began developing a cough and weakness yesterday. States today she has been unable to ambulate which is new this prompted her to come to the ED. She is reporting a productive cough which is increased from her baseline cough. She denies chest pain or shortness of breath, abdominal pain, N/ V/ D, dysuria . She does state that she noticed some hematuria yesterday which is new. She denies history of kidney stones, denies flank pain. per chart review the patient underwent a transurethral resection of a bladder tumor on by Dr. Hinkle. Pathology showed low-grade papillary urothelial carcinoma, noninvasive. She does states that her abdomen seems more distended than normal. States she went to her curriculum and instruction director approximately 3 weeks ago and had a chest x-ray performed which showed concerns for pneumonia versus return over lung cancer. She was given a round of antibiotics and was told to call to schedule an appointment for a PET scan Which the patient was planning to do tomorrow. <Danitza Lopez PA-C - Last Filed: 12/10/23 18:26> Related Data Home medications: Home Medications Medication Instructions Recorded Confirmed albuterol sulfate 90 mcg/actuation 2 puff inhalation QID 02/18/19 12/10/23 aerosol inhaler metformin 500 mg tablet 500 mg PO BID 07/16/19 12/10/23 acetaminophen 500 mg tablet 1,000 mg PO Q6H PRN Pain, Mild 01/18/22 12/10/23 (Acetaminophen Extra Strength) azelastine 0.05 % eye drops 1 drp EACH EYE BID 01/18/22 12/10/23 buspirone 5 mg tablet 5 mg PO Q12H 01/18/22 12/10/23 icosapent ethyl 1 gram capsule 2 g PO Q12H 01/18/22 12/10/23 (Vascepa) pantoprazole 40 mg tablet,delayed 40 mg PO HS 01/18/22 12/10/23 release diltiazem HCl 360 mg capsule,24 360 mg PO DAILY 03/11/22 12/10/23 hr,extended release (Tiadylt ER) rivaroxaban 20 mg tablet (Xarelto) 20 mg PO HS 03/11/22 12/10/23 dulaglutide 1.5 mg/0.5 mL 1.5 mg subcut WEEKLY 09/18/22 12/10/23 subcutaneous pen injector (Trulicity) insulin degludec 100 unit/mL (3 80 unit subcut HS 09/18/22 12/10/23 mL) subcutaneous pen (Tresiba FlexTouch U-100 insulin) cetirizine 10 mg capsule 10 mg PO DAILY PRN Sinus Symptoms 10/04/23 12/10/23 ergocalciferol (vitamin D2) 1,250 1,250 mcg PO 2XW 10/04/23 12/10/23 mcg (50,000 unit) capsule geriatric multivitamin-min 1 tablet PO DAILY 10/04/23 12/10/23 methenamine hippurate 1 gram tablet 1 g PO BID 10/04/23 12/10/23 metoprolol tartrate 25 mg tablet 25 mg PO BID 10/04/23 12/10/23 pravastatin 40 mg tablet 40 mg PO DAILY 10/04/23 12/10/23 umeclidinium 62.5 mcg-vilanterol 1 inh inhalation HS 10/04/23 12/10/23 25 mcg/actuation powdr for inhalation (Anoro Ellipta) insulin lispro 100 unit/mL 40 unit subcut TID 12/10/23 12/10/23 subcutaneous pen (Humalog KwikPen (U-100) Insulin) <Danitza Lopez PA-C - Last Filed: 12/10/23 18:26> Allergies/Adverse reactions: Allergies Allergy/AdvReac Type Severity Reaction Status Date / Time adhesive tape Allergy Mild RASH Verified 11/23/23 10:39 coconut Allergy Mild Rash Verified 11/23/23 10:39 Penicillins Allergy Mild HIVES Verified 11/23/23 10:39 tomato Allergy Mild Rash Verified 11/23/23 10:39 warfarin Allergy Mild Hives Verified 11/23/23 10:39 codeine AdvReac Mild NAUSEA/VOMI Verified 11/23/23 10:39 TING <Danitza Lopez PA-C - Last Filed: 12/10/23 18:26> Review of Systems Review of Systems: All systems reviewed & are unremarkable except as noted in HPI and below <Danitza Lopez PA-C - Last Filed: 12/10/23 18:26> [facility] Past Medical History Medical History: Medical History (Updated 12/11/23 @ 16:19 by Teagan Villanueva MD) Asthma Atypical atrial flutter Chronic anticoagulation Chronic renal failure (CRF), stage 3a COPD (chronic obstructive pulmonary disease) Diabetes type 2 on insulin High cholesterol History of tobacco abuse Hx of cancer of lung left lung radiation Hypersomnia Hypertension Laryngeal squamous cell carcinoma Lung cancer Morbid obesity with BMI of 45.0-49.9, adult Paroxysmal A-fib Pulmonary embolism Pulmonary hypertension <Danitza Lopez PA-C - Last Filed: 12/10/23 18:26> Surgical History Surgical History: Surgical History H/O endoscopy H/O knee surgery reconstructive surgery H/O sinus surgery H/O: section times 2 History of cholecystectomy History of dilation and curettage History of surgery on lower extremity reconstructive leg surgery History of tubal ligation 11/03/2004 Laparoscopic Tubal Ligation / Novasure Ablation ; Menometrorrhagia S/P tonsillectomy and adenoidectomy <Danitza Lopez PA-C - Last Filed: 12/10/23 18:26> Family History Family History: Family History Other Brain cancer maternal aunt Breast cancer Mother Bladder cancer Small cell cancer of the bladder Mother Hypertension <Danitza Lopez PA-C - Last Filed: 12/10/23 18:26> Social History Social History: Social History Social History: She reports that she smoked as much as 3 packs of cigarettes per day. She quit smoking in 2018. She smoked for approximately 40 years. She used to drink alcohol on occasion but has not done so in many years. She denies any illicit substance use. She lives in her own home. Her daughter lives with her but she states that her daughter does not help her out. Instead her daughter in-law comes over Pete or in-home caregiver on a daily basis. SHE HAS 2 CHILDREN. She is . Code status: DNR/DNI per patient request Surrogate decision maker: Austin Mcmahon (son) Smoking packs per day: 2 Smoking cigarettes per day: 40.0 Years smoked: 40 Smoking pack-years: 80.00 Smoking status: Former smoker Tobacco type: cigarettes Second hand tobacco smoke exposure: Yes Smoking end date: 08/06/18 Alcohol intake: former Substance use: never Substance use type: does not use Do You Feel Safe in your Home?: Yes Lack of Transportation: No Lack of Food: Never True Current Housing: I Have Housing Concerned About Future Housing: No Difficulty Paying Gas/Electric Bills: No Difficulty Paying for Meds: No Currently Unemployed: No Education: High School Diploma/GED Difficulty w/ Childcare or Family Care: No Living arrangements: with family Additional living arrangements comments: SON, DIL & GRANDCHILDREN LIVE W/ PATIENT Gender identity (if verbalized by the patient): Female Spiritual care concerns: No Agree to blood products: Yes <Danitza Lopez PA-C - Last Filed: 12/10/23 18:26> Exam Narrative: GENERAL: Well-appearing, well-nourished, and in no acute distress. obese HEAD: Normocephalic, atraumatic. EYES: PERRLA and EOMI. ENT: Nares clear, no rhinorrhea or epistaxis. Mucous membranes moist. NECK: Supple. CHEST: Clear to auscultation. No respiratory distress. HEART: Regular rate and rhythm. No murmur heard. Normal peripheral pulses. ABDOMEN: quiet bowel sounds. Abdomen distended but soft, nontender. No guarding or rigidity EXTREMITIES: Normal range of motion. No edema. SKIN: Warm, dry, no rash. NEURO: No focal deficits. Alert and oriented x3 <Danitza Lopez PA-C - Last Filed: 12/10/23 18:26> Course SYSTEMS SPECIALIST/PA Physician Supervision For this patient encounter, I reviewed the SYSTEMS SPECIALIST or PA documentation, treatment plan, and medical decision making; and I had [id number] time with this patient. <Jarvis Tolbert MD - Last Filed: 12/11/23 19:40> Vital Signs Vital signs: Vital Signs Temperature 99.1 F 12/10/23 15:00 Pulse Rate 112 H 12/10/23 15:00 Respiratory Rate 19 12/10/23 15:00 Blood Pressure 165/60 H 12/10/23 15:00 Pulse Oximetry 97 12/10/23 15:00 Oxygen Delivery Room Air 12/10/23 15:00 Temperature 97 F L 12/11/23 14:00 Pulse Rate 92 12/11/23 14:00 Respiratory Rate 16 12/11/23 14:00 Blood Pressure 126/58 L 12/11/23 14:00 Pulse Oximetry 98 12/11/23 14:00 Oxygen Delivery Room Air 12/11/23 12:39 <Danitza Lopez PA-C - Last Filed: 12/10/23 18:26> Vital Signs Temperature 99.1 F 12/10/23 15:00 Pulse Rate 112 H 12/10/23 15:00 Respiratory Rate 19 12/10/23 15:00 Blood Pressure 165/60 H 12/10/23 15:00 Pulse Oximetry 97 12/10/23 15:00 Oxygen Delivery Room Air 12/10/23 15:00 Temperature 97 F L 12/11/23 14:00 Pulse Rate 92 12/11/23 14:00 Respiratory Rate 16 12/11/23 14:00 Blood Pressure 126/58 L 12/11/23 14:00 Pulse Oximetry 98 12/11/23 14:00 Oxygen Delivery Room Air 12/11/23 12:39 <Jarvis Tolbert MD - Last Filed: 12/11/23 19:40> MDM - Weakness MDM Narrative Medical decision making narrative: 63-year-old female with an extensive medical history presents to the emergency department for generalized weakness for 1 day. See HPI for further history. Triage vitals with hypertension 165/60 tachycardia 112. Patient is afebrile nontoxic appearing. Exam significant for the above. plan to obtain lab work, UA, chest x-ray, EKG, viral panel and re-evaluate. CBC shows no leukocytosis or anemia. Chemistries with hyperglycemia of 212, normal bicarb and anion gap. Her alk-phos is 146. Chest x-ray reveals opacification of the left upper hemothorax, volume loss of the left lung. Findings suggest left upper lobe atelectasis and consolidation similar to obstructing endobronchial lesion must be considered. There is an approximately 3.2 cm mass density to the superior segment of the left lower lobe. Bronchogenic carcinoma must be considered. Given the chest x-ray findings and patient's significant cancer history, along with patient's reported distended abdomen concerning for ascites, will obtain CT chest, abdomen and pelvis concerning for metastatic disease which shows: IMPRESSION: Resected or occluded left upper lobe bronchus; recommend correlation with any surgical history. The left mainstem bronchus, nearly occluded distally, with narrowing of the left lower lobe bronchi as well 3.5 x 3.5 cm encapsulated fluid collection along the inferolateral aspect of the left hilum, with surrounding infiltrate Enlarged left superior mediastinal and prevascular lymph nodes; metastasis is not excluded. Consider PET/CT imaging for further evaluation. Status post cholecystectomy Pancreatic atrophy Diverticulosis of the colon; no evidence of diverticulitis I discussed the case with Oncology on-call, Dr. Preston, and curriculum and instruction director, Dr. Villanueva, who both agree to admit here and consult on admission. Patient started on Levaquin to cover UTI and pneumonia. Discussed the case with hospitalist SYSTEMS SPECIALIST, Lisa, who agrees to admission. <Danitza Lopez PA-C - Last Filed: 12/10/23 18:26> Lab Data Result diagrams: 12/11/23 06:09 12/11/23 06:09 <Danitza Lopez PA-C - Last Filed: 12/10/23 18:26> Labs: Lab Results 12/10/23 12/10/23 12/10/23 Range/Units 15:09 16:16 17:11 WBC 8.4 (4.5-10.0) K/mm3 RBC 4.41 (4.2-5.4) M/mm3 Hgb 12.4 (12.0-15.0) g/dL Hct 38.9 (37.0-47.0) % MCV 88.2 (80-100) fl MCH 28.1 (26-34) pg MCHC 31.9 L (32-36) g/dl RDW 16.8 H (11.5-14.5) % Plt Count 239 (150-375) k/mm3 MPV 9.6 (7.4-10.4) fl Immature Gran % (Auto) 0.4 (0-0.5) % Neut % (Auto) 81.1 H (45.5-73.1) % Lymph % (Auto) 11.7 L (18.3-44.2) % [place] % (Auto) 4.7 (2.6-8.5) % Eos % (Auto) 1.9 (0-4.4) % Baso % (Auto) 0.2 (0.2-1.2) % Lymph # (Auto) 0.98 (0.9-3.2) K/mm3 [place] # (Auto) 0.4 (0.1-0.6) K/mm3 Eos # (Auto) 0.2 (0-0.3) K/mm3 Baso # (Auto) 0.0 (0.0-0.1) K/mm3 Abs Immat Gran (auto) 0.03 (0.00-0.031) K/mm3 Absolute Neuts (auto) 6.8 H (1.3-6.7) K/mm3 Absolute Nucleated RBC 0.000 (0.0-0.012) K/mm3 Nucleated RBC % 0.0 (0.0-0.2) % Sodium 134 L (137-145) mmol/L Potassium 4.5 (3.4-5.0) mmol/L Chloride 97 L (98-107) mmol/L Carbon Dioxide 28 (22-30) mmol/L Anion Gap 9 (4-12) mmol/L BUN 15 D (7-17) mg/dL Creatinine 1.00 (0.7-1.0) mg/dL Estim Creat Clear Calc 74 ml/min Estimated GFR 56 L (59 - ) Glucose 212 H (65-110) mg/dL POC Capillary Glucose (65-105) mg/dl Hemoglobin A1c (<5.7) % Calcium 9.4 (8.4-10.2) mg/dL Total Bilirubin 1.1 (0.2-1.3) mg/dL AST 39 H (14-36) U/L ALT 32 (6-35) U/L Alkaline Phosphatase 146 H (38-126) U/L Total Protein 7.0 (6.3-8.2) g/dL Albumin 3.9 (3.5-5.1) g/dL Urine Color Yellow (Yellow) Urine Appearance Cloudy H (Clear) Urine pH 7.5 (5.0-9.0) Ur Specific [place] 1.014 (1.001-1.035) Urine Protein Negative (Negative) mg/dL Urine Glucose (UA) Negative (Negative) mg/dL Urine Ketones Negative (Negative) mg/dL Ur Blood (Man) 2+ H (Negative) Urine Nitrate Positive H (Negative) Urine Bilirubin Negative (Negative) Urine Urobilinogen 0.2 (<2.0) mg/dL Leukocyte Esterase Rfl 2+ H (Negative) LARISA/UL Urine RBC 21-50 H (0-2) /hpf Urine WBC 51-100 H (0-3) /hpf Ur Squamous Epith Cells Few (Few) /hpf Urine Bacteria 4+ /hpf Urine Casts 0-2 Influenza A (RT-PCR) Negative (Negative) Influenza B (RT-PCR) Negative (Negative) RSV (RT-PCR) Negative (Negative) SARS-CoV-2 RNA (RT-PCR) Negative (Negative) 12/10/23 12/11/23 12/11/23 Range/Units 20:00 06:09 07:55 WBC 7.4 (4.5-10.0) K/mm3 RBC 4.08 L (4.2-5.4) M/mm3 Hgb 11.4 L (12.0-15.0) g/dL Hct 36.3 L (37.0-47.0) % MCV 89.0 (80-100) fl MCH 27.9 (26-34) pg MCHC 31.4 L (32-36) g/dl RDW 16.7 H (11.5-14.5) % Plt Count 212 (150-375) k/mm3 MPV 10.2 (7.4-10.4) fl Immature Gran % (Auto) 0.3 (0-0.5) % Neut % (Auto) 71.4 (45.5-73.1) % Lymph % (Auto) 19.8 (18.3-44.2) % [place] % (Auto) 6.7 (2.6-8.5) % Eos % (Auto) 1.5 (0-4.4) % Baso % (Auto) 0.3 (0.2-1.2) % Lymph # (Auto) 1.46 (0.9-3.2) K/mm3 [place] # (Auto) 0.5 (0.1-0.6) K/mm3 Eos # (Auto) 0.1 (0-0.3) K/mm3 Baso # (Auto) 0.0 (0.0-0.1) K/mm3 Abs Immat Gran (auto) 0.02 (0.00-0.031) K/mm3 Absolute Neuts (auto) 5.3 (1.3-6.7) K/mm3 Absolute Nucleated RBC 0.000 (0.0-0.012) K/mm3 Nucleated RBC % 0.0 (0.0-0.2) % Sodium 135 L (137-145) mmol/L Potassium 3.7 (3.4-5.0) mmol/L Chloride 99 (98-107) mmol/L Carbon Dioxide 29 (22-30) mmol/L Anion Gap 7 (4-12) mmol/L BUN 13 (7-17) mg/dL Creatinine 1.10 H (0.7-1.0) mg/dL Estim Creat Clear Calc 68 ml/min Estimated GFR 50 L (59 - ) Glucose 166 H (65-110) mg/dL POC Capillary Glucose 232 H 166 H (65-105) mg/dl Hemoglobin A1c 7.3 H (<5.7) % Calcium 9.0 (8.4-10.2) mg/dL Total Bilirubin 1.4 H (0.2-1.3) mg/dL AST 34 (14-36) U/L ALT 30 (6-35) U/L Alkaline Phosphatase 132 H (38-126) U/L Total Protein 7.0 (6.3-8.2) g/dL Albumin 3.4 L (3.5-5.1) g/dL Urine Color (Yellow) Urine Appearance (Clear) Urine pH (5.0-9.0) Ur Specific [place] (1.001-1.035) Urine Protein (Negative) mg/dL Urine Glucose (UA) (Negative) mg/dL Urine Ketones (Negative) mg/dL Ur Blood (Man) (Negative) Urine Nitrate (Negative) Urine Bilirubin (Negative) Urine Urobilinogen (<2.0) mg/dL Leukocyte Esterase Rfl (Negative) LARISA/UL Urine RBC (0-2) /hpf Urine WBC (0-3) /hpf Ur Squamous Epith Cells (Few) /hpf Urine Bacteria /hpf Urine Casts Influenza A (RT-PCR) (Negative) Influenza B (RT-PCR) (Negative) RSV (RT-PCR) (Negative) SARS-CoV-2 RNA (RT-PCR) (Negative) 12/11/23 Range/Units 11:40 WBC (4.5-10.0) K/mm3 RBC (4.2-5.4) M/mm3 Hgb (12.0-15.0) g/dL Hct (37.0-47.0) % MCV (80-100) fl MCH (26-34) pg MCHC (32-36) g/dl RDW (11.5-14.5) % Plt Count (150-375) k/mm3 MPV (7.4-10.4) fl Immature Gran % (Auto) (0-0.5) % Neut % (Auto) (45.5-73.1) % Lymph % (Auto) (18.3-44.2) % [place] % (Auto) (2.6-8.5) % Eos % (Auto) (0-4.4) % Baso % (Auto) (0.2-1.2) % Lymph # (Auto) (0.9-3.2) K/mm3 [place] # (Auto) (0.1-0.6) K/mm3 Eos # (Auto) (0-0.3) K/mm3 Baso # (Auto) (0.0-0.1) K/mm3 Abs Immat Gran (auto) (0.00-0.031) K/mm3 Absolute Neuts (auto) (1.3-6.7) K/mm3 Absolute Nucleated RBC (0.0-0.012) K/mm3 Nucleated RBC % (0.0-0.2) % Sodium (137-145) mmol/L Potassium (3.4-5.0) mmol/L Chloride (98-107) mmol/L Carbon Dioxide (22-30) mmol/L Anion Gap (4-12) mmol/L BUN (7-17) mg/dL Creatinine (0.7-1.0) mg/dL Estim Creat Clear Calc ml/min Estimated GFR (59 - ) Glucose (65-110) mg/dL POC Capillary Glucose 202 H (65-105) mg/dl Hemoglobin A1c (<5.7) % Calcium (8.4-10.2) mg/dL Total Bilirubin (0.2-1.3) mg/dL AST (14-36) U/L ALT (6-35) U/L Alkaline Phosphatase (38-126) U/L Total Protein (6.3-8.2) g/dL Albumin (3.5-5.1) g/dL Urine Color (Yellow) Urine Appearance (Clear) Urine pH (5.0-9.0) Ur Specific [place] (1.001-1.035) Urine Protein (Negative) mg/dL Urine Glucose (UA) (Negative) mg/dL Urine Ketones (Negative) mg/dL Ur Blood (Man) (Negative) Urine Nitrate (Negative) Urine Bilirubin (Negative) Urine Urobilinogen (<2.0) mg/dL Leukocyte Esterase Rfl (Negative) LARISA/UL Urine RBC (0-2) /hpf Urine WBC (0-3) /hpf Ur Squamous Epith Cells (Few) /hpf Urine Bacteria /hpf Urine Casts Influenza A (RT-PCR) (Negative) Influenza B (RT-PCR) (Negative) RSV (RT-PCR) (Negative) SARS-CoV-2 RNA (RT-PCR) (Negative) <Danitza Lopez PA-C - Last Filed: 12/10/23 18:26> Lab Results 12/10/23 12/10/23 12/10/23 Range/Units 15:09 16:16 17:11 WBC 8.4 (4.5-10.0) K/mm3 RBC 4.41 (4.2-5.4) M/mm3 Hgb 12.4 (12.0-15.0) g/dL Hct 38.9 (37.0-47.0) % MCV 88.2 (80-100) fl MCH 28.1 (26-34) pg MCHC 31.9 L (32-36) g/dl RDW 16.8 H (11.5-14.5) % Plt Count 239 (150-375) k/mm3 MPV 9.6 (7.4-10.4) fl Immature Gran % (Auto) 0.4 (0-0.5) % Neut % (Auto) 81.1 H (45.5-73.1) % Lymph % (Auto) 11.7 L (18.3-44.2) % [place] % (Auto) 4.7 (2.6-8.5) % Eos % (Auto) 1.9 (0-4.4) % Baso % (Auto) 0.2 (0.2-1.2) % Lymph # (Auto) 0.98 (0.9-3.2) K/mm3 [place] # (Auto) 0.4 (0.1-0.6) K/mm3 Eos # (Auto) 0.2 (0-0.3) K/mm3 Baso # (Auto) 0.0 (0.0-0.1) K/mm3 Abs Immat Gran (auto) 0.03 (0.00-0.031) K/mm3 Absolute Neuts (auto) 6.8 H (1.3-6.7) K/mm3 Absolute Nucleated RBC 0.000 (0.0-0.012) K/mm3 Nucleated RBC % 0.0 (0.0-0.2) % Sodium 134 L (137-145) mmol/L Potassium 4.5 (3.4-5.0) mmol/L Chloride 97 L (98-107) mmol/L Carbon Dioxide 28 (22-30) mmol/L Anion Gap 9 (4-12) mmol/L BUN 15 D (7-17) mg/dL Creatinine 1.00 (0.7-1.0) mg/dL Estim Creat Clear Calc 74 ml/min Estimated GFR 56 L (59 - ) Glucose 212 H (65-110) mg/dL POC Capillary Glucose (65-105) mg/dl Hemoglobin A1c (<5.7) % Calcium 9.4 (8.4-10.2) mg/dL Total Bilirubin 1.1 (0.2-1.3) mg/dL AST 39 H (14-36) U/L ALT 32 (6-35) U/L Alkaline Phosphatase 146 H (38-126) U/L Total Protein 7.0 (6.3-8.2) g/dL Albumin 3.9 (3.5-5.1) g/dL Urine Color Yellow (Yellow) Urine Appearance Cloudy H (Clear) Urine pH 7.5 (5.0-9.0) Ur Specific [place] 1.014 (1.001-1.035) Urine Protein Negative (Negative) mg/dL Urine Glucose (UA) Negative (Negative) mg/dL Urine Ketones Negative (Negative) mg/dL Ur Blood (Man) 2+ H (Negative) Urine Nitrate Positive H (Negative) Urine Bilirubin Negative (Negative) Urine Urobilinogen 0.2 (<2.0) mg/dL Leukocyte Esterase Rfl 2+ H (Negative) LARISA/UL Urine RBC 21-50 H (0-2) /hpf Urine WBC 51-100 H (0-3) /hpf Ur Squamous Epith Cells Few (Few) /hpf Urine Bacteria 4+ /hpf Urine Casts 0-2 Influenza A (RT-PCR) Negative (Negative) Influenza B (RT-PCR) Negative (Negative) RSV (RT-PCR) Negative (Negative) SARS-CoV-2 RNA (RT-PCR) Negative (Negative) 12/10/23 12/11/23 12/11/23 Range/Units 20:00 06:09 07:55 WBC 7.4 (4.5-10.0) K/mm3 RBC 4.08 L (4.2-5.4) M/mm3 Hgb 11.4 L (12.0-15.0) g/dL Hct 36.3 L (37.0-47.0) % MCV 89.0 (80-100) fl MCH 27.9 (26-34) pg MCHC 31.4 L (32-36) g/dl RDW 16.7 H (11.5-14.5) % Plt Count 212 (150-375) k/mm3 MPV 10.2 (7.4-10.4) fl Immature Gran % (Auto) 0.3 (0-0.5) % Neut % (Auto) 71.4 (45.5-73.1) % Lymph % (Auto) 19.8 (18.3-44.2) % [place] % (Auto) 6.7 (2.6-8.5) % Eos % (Auto) 1.5 (0-4.4) % Baso % (Auto) 0.3 (0.2-1.2) % Lymph # (Auto) 1.46 (0.9-3.2) K/mm3 [place] # (Auto) 0.5 (0.1-0.6) K/mm3 Eos # (Auto) 0.1 (0-0.3) K/mm3 Baso # (Auto) 0.0 (0.0-0.1) K/mm3 Abs Immat Gran (auto) 0.02 (0.00-0.031) K/mm3 Absolute Neuts (auto) 5.3 (1.3-6.7) K/mm3 Absolute Nucleated RBC 0.000 (0.0-0.012) K/mm3 Nucleated RBC % 0.0 (0.0-0.2) % Sodium 135 L (137-145) mmol/L Potassium 3.7 (3.4-5.0) mmol/L Chloride 99 (98-107) mmol/L Carbon Dioxide 29 (22-30) mmol/L Anion Gap 7 (4-12) mmol/L BUN 13 (7-17) mg/dL Creatinine 1.10 H (0.7-1.0) mg/dL Estim Creat Clear Calc 68 ml/min Estimated GFR 50 L (59 - ) Glucose 166 H (65-110) mg/dL POC Capillary Glucose 232 H 166 H (65-105) mg/dl Hemoglobin A1c 7.3 H (<5.7) % Calcium 9.0 (8.4-10.2) mg/dL Total Bilirubin 1.4 H (0.2-1.3) mg/dL AST 34 (14-36) U/L ALT 30 (6-35) U/L Alkaline Phosphatase 132 H (38-126) U/L Total Protein 7.0 (6.3-8.2) g/dL Albumin 3.4 L (3.5-5.1) g/dL Urine Color (Yellow) Urine Appearance (Clear) Urine pH (5.0-9.0) Ur Specific [place] (1.001-1.035) Urine Protein (Negative) mg/dL Urine Glucose (UA) (Negative) mg/dL Urine Ketones (Negative) mg/dL Ur Blood (Man) (Negative) Urine Nitrate (Negative) Urine Bilirubin (Negative) Urine Urobilinogen (<2.0) mg/dL Leukocyte Esterase Rfl (Negative) LARISA/UL Urine RBC (0-2) /hpf Urine WBC (0-3) /hpf Ur Squamous Epith Cells (Few) /hpf Urine Bacteria /hpf Urine Casts Influenza A (RT-PCR) (Negative) Influenza B (RT-PCR) (Negative) RSV (RT-PCR) (Negative) SARS-CoV-2 RNA (RT-PCR) (Negative) 12/11/23 Range/Units 11:40 WBC (4.5-10.0) K/mm3 RBC (4.2-5.4) M/mm3 Hgb (12.0-15.0) g/dL Hct (37.0-47.0) % MCV (80-100) fl MCH (26-34) pg MCHC (32-36) g/dl RDW (11.5-14.5) % Plt Count (150-375) k/mm3 MPV (7.4-10.4) fl Immature Gran % (Auto) (0-0.5) % Neut % (Auto) (45.5-73.1) % Lymph % (Auto) (18.3-44.2) % [place] % (Auto) (2.6-8.5) % Eos % (Auto) (0-4.4) % Baso % (Auto) (0.2-1.2) % Lymph # (Auto) (0.9-3.2) K/mm3 [place] # (Auto) (0.1-0.6) K/mm3 Eos # (Auto) (0-0.3) K/mm3 Baso # (Auto) (0.0-0.1) K/mm3 Abs Immat Gran (auto) (0.00-0.031) K/mm3 Absolute Neuts (auto) (1.3-6.7) K/mm3 Absolute Nucleated RBC (0.0-0.012) K/mm3 Nucleated RBC % (0.0-0.2) % Sodium (137-145) mmol/L Potassium (3.4-5.0) mmol/L Chloride (98-107) mmol/L Carbon Dioxide (22-30) mmol/L Anion Gap (4-12) mmol/L BUN (7-17) mg/dL Creatinine (0.7-1.0) mg/dL Estim Creat Clear Calc ml/min Estimated GFR (59 - ) Glucose (65-110) mg/dL POC Capillary Glucose 202 H (65-105) mg/dl Hemoglobin A1c (<5.7) % Calcium (8.4-10.2) mg/dL Total Bilirubin (0.2-1.3) mg/dL AST (14-36) U/L ALT (6-35) U/L Alkaline Phosphatase (38-126) U/L Total Protein (6.3-8.2) g/dL Albumin (3.5-5.1) g/dL Urine Color (Yellow) Urine Appearance (Clear) Urine pH (5.0-9.0) Ur Specific [place] (1.001-1.035) Urine Protein (Negative) mg/dL Urine Glucose (UA) (Negative) mg/dL Urine Ketones (Negative) mg/dL Ur Blood (Man) (Negative) Urine Nitrate (Negative) Urine Bilirubin (Negative) Urine Urobilinogen (<2.0) mg/dL Leukocyte Esterase Rfl (Negative) LARISA/UL Urine RBC (0-2) /hpf Urine WBC (0-3) /hpf Ur Squamous Epith Cells (Few) /hpf Urine Bacteria /hpf Urine Casts Influenza A (RT-PCR) (Negative) Influenza B (RT-PCR) (Negative) RSV (RT-PCR) (Negative) SARS-CoV-2 RNA (RT-PCR) (Negative) <Jarvis Tolbert MD - Last Filed: 12/11/23 19:40> Discharge Plan Discharge Clinical Impression: Acute UTI, Abnormal chest CT Pneumonia Qualifiers: Pneumonia type: due to unspecified organism Laterality: left Lung location: unspecified part of lung Qualified Code(s): J18.9 - Pneumonia, unspecified organism <Danitza Lopez PA-C - Last Filed: 12/10/23 18:26> Patient Disposition: Still a Patient <Danitza Lopez PA-C - Last Filed: 12/10/23 18:26> Condition: Stable <Danitza Lopez PA-C - Last Filed: 12/10/23 18:26>
[2023-12-10 16:28] LABS: Add Urine Microscopic? YES; Appearance Urine Cloudy (Clear); Bacteria Urine 4+ /hpf; Bilirubin Urine Negative (Negative); Blood Urine 2+ (Negative); Color Urine Yellow (Yellow); Glucose Urine UA Negative (Negative); Ketones Urine Negative (Negative); Leukocyte Esterase Ur 2+ LEU/UL (Negative); Nitrate Urine Positive (Negative); Non Pathogenic Casts 0-2; Protein Urine Negative (Negative); RBC Urine 21-50 /hpf (0-2); Specific Grav Ur 1.014 (1.001-1.035); Squamous Epithelial Cell Urine Few /hpf (Few); Urobilinogen Urine 0.2 mg/dL (<2.0); WBC Urine 51-100 /hpf (0-3); pH Urine 7.5 (5.0-9.0)
[2023-12-10 17:57] LABS: Influenza A QL RT-PCR Negative (Negative); Influenza B QL RT-PCR Negative (Negative); RSV RNA, RT-PCR Negative (Negative); SARS-CoV-2 RNA PCR Negative (Negative)
--- NOTE | 2023-12-10 18:24 | PM.IMHP ---
H&P: HPI History of Present Illness Date/Time: 12/10/23 18:24 Chief Complaint: Weakness Narrative: 63 y/o F presents here with weakness with PMH of asthma, CKD, COPD, diabetes, HLD, former smoker, lung cancer (left-sided, s/p radiation), laryngeal squamous cell carcinoma, paroxysmal AFib, PE, and pulmonary hypertension. The patient presents here via EMS from home for further evaluation of generalized weakness. The patient reports that she first began experiencing weakness, a productive cough, and hematuria starting yesterday (12/08). She reports the generalized weakness is so severe that she is on able to ambulate or stand to hold her own weight with assistance. At baseline she does use a assistive device - cane, walker, wheelchair, and power chair infrequently. She denies accompanying of focal weakness, focal numbness, speech changes, headache, dizziness, vision changes. The patient reports a new cough that is productive. Patient is a former smoker - 2 PPD x 40 yrs, cessation 2019. She does have a remote history of left-sided lung cancer and squamous cell cancer larynx s/p radiation (2019). She received her oncology care through Mag[facility]. She has been following with a hairspring staker at [facility] which she saw approximately 3 weeks ago. Last had a PET scan done on 10/17/2023 which showed left lung perihilar mass with increased activity consistent with radiation pneumonitis versus pneumonia versus malignancy and mucus plugging in the left mainstem bronchus with left upper lung lobe collapse, provider wanted PET scan repeated this month. She also noticed hematuria yesterday which is new for her. Denies associated dysuria, urinary frequency, fever, chills, body aches. She reports history of recurrent UTIs for the past 2+ years. She does have a history of a transurethral resection of a bladder tumor performed on 11/23/2023 by Arin GLASER and filled bladder with chemo. 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 Initial VS at presentation: 99.1? F, HR 112, RR 19, 165/60, and 97% on RA. ED workup showed: No leukocytosis, no anemia, sodium 134, creatinine 1.0 and GFR 56 (previously 1.2 and 45 on 10/05/2023), glucose 212, and UA consistent with UTI. Viral PCR negative. CXR showed opacification the left upper hemithorax, volume loss of the left lung that is suggestive of left upper lobe atelectasis versus consolidation similar to obstructing endobronchial lesion, and an approximately 3.2 cm mass density superior segment of the left lower lobe. CT of the chest/abdomen/pelvis showed resected or occluded left upper lobe bronchus, left mainstem bronchus nearly occluded distally with narrowing of the left lower lobe bronchi, 3.5 x 3.5 cm encapsulated fluid collection along the inferolateral aspect of the left hilum with surrounding infiltrate, and an enlarged left superior mediastinal and prevascular lymph nodes, s/p cholecystectomy, pancreatic atrophy, and diverticulosis without evidence of diverticulitis. Review of Systems Review of Systems: All systems reviewed & are unremarkable except as noted in HPI and below COUNT INCLUDES THE [facility] Past Medical History Medical History (Updated 12/10/23 @ 18:54 by Lisa Ivey, THREAD DRAWER) Asthma Atypical atrial flutter Chronic anticoagulation Chronic renal failure (CRF), stage 3a COPD (chronic obstructive pulmonary disease) Diabetes type 2 on insulin High cholesterol History of tobacco abuse Hx of cancer of lung left lung radiation Hypersomnia Hypertension Laryngeal squamous cell carcinoma Morbid obesity with BMI of 45.0-49.9, adult Paroxysmal A-fib Pulmonary embolism Pulmonary hypertension Surgical History Surgical History H/O endoscopy H/O knee surgery reconstructive surgery H/O sinus surgery H/O: section times 2 History of cholecystectomy History of dilation and curettage History of surgery on lower extremity reconstructive leg surgery History of tubal ligation 11/03/2004 Laparoscopic Tubal Ligation / Novasure Ablation ; Menometrorrhagia S/P tonsillectomy and adenoidectomy Family History Family History Other Brain cancer maternal aunt Breast cancer Mother Bladder cancer Small cell cancer of the bladder Mother Hypertension Social History Social History Social History: She reports that she smoked as much as 3 packs of cigarettes per day. She quit smoking in 2018. She smoked for approximately 40 years. She used to drink alcohol on occasion but has not done so in many years. She denies any illicit substance use. She lives in her own home. Her daughter lives with her but she states that her daughter does not help her out. Instead her daughter in-law comes over Pete or in-home caregiver on a daily basis. SHE HAS 2 CHILDREN. She is . Code status: DNR/DNI per patient request Surrogate decision maker: Austin Mcmahon (son) Smoking packs per day: 2 Smoking cigarettes per day: 40.0 Years smoked: 40 Smoking pack-years: 80.00 Smoking status: Former smoker Tobacco type: cigarettes Second hand tobacco smoke exposure: Yes Smoking end date: 08/06/18 Alcohol intake: former Substance use: never Substance use type: does not use Do You Feel Safe in your Home?: Yes Lack of Transportation: No Lack of Food: Never True Current Housing: I Have Housing Concerned About Future Housing: No Difficulty Paying Gas/Electric Bills: No Difficulty Paying for Meds: No Currently Unemployed: No Education: High School Diploma/GED Difficulty w/ Childcare or Family Care: No Living arrangements: with family Additional living arrangements comments: SON, DIL & GRANDCHILDREN LIVE W/ PATIENT Gender identity (if verbalized by the patient): Female Spiritual care concerns: No Agree to blood products: Yes Meds Home Medications and Allergies Home Medications Medication Instructions Recorded Confirmed Type albuterol sulfate 90 mcg/actuation 2 puff inhalation QID 02/18/19 12/10/23 History aerosol inhaler metformin 500 mg tablet 500 mg PO BID 07/16/19 12/10/23 History acetaminophen 500 mg tablet 1,000 mg PO Q6H PRN Pain, Mild 01/18/22 12/10/23 History (Acetaminophen Extra Strength) azelastine 0.05 % eye drops 1 drp EACH EYE BID 01/18/22 12/10/23 History buspirone 5 mg tablet 5 mg PO Q12H 01/18/22 12/10/23 History icosapent ethyl 1 gram capsule 2 g PO Q12H 01/18/22 12/10/23 History (Vascepa) pantoprazole 40 mg tablet,delayed 40 mg PO HS 01/18/22 12/10/23 History release diltiazem HCl 360 mg capsule,24 360 mg PO DAILY 03/11/22 12/10/23 History hr,extended release (Tiadylt ER) rivaroxaban 20 mg tablet (Xarelto) 20 mg PO HS 03/11/22 12/10/23 History dulaglutide 1.5 mg/0.5 mL 1.5 mg subcut WEEKLY 09/18/22 12/10/23 History subcutaneous pen injector (Trulicity) insulin degludec 100 unit/mL (3 80 unit subcut HS 09/18/22 12/10/23 History mL) subcutaneous pen (Tresiba FlexTouch U-100 insulin) cetirizine 10 mg capsule 10 mg PO DAILY PRN Sinus Symptoms 10/04/23 12/10/23 History ergocalciferol (vitamin D2) 1,250 1,250 mcg PO 2XW 10/04/23 12/10/23 History mcg (50,000 unit) capsule geriatric multivitamin-min 1 tablet PO DAILY 10/04/23 12/10/23 History methenamine hippurate 1 gram tablet 1 g PO BID 10/04/23 12/10/23 History metoprolol tartrate 25 mg tablet 25 mg PO BID 10/04/23 12/10/23 History pravastatin 40 mg tablet 40 mg PO DAILY 10/04/23 12/10/23 History umeclidinium 62.5 mcg-vilanterol 1 inh inhalation HS 10/04/23 12/10/23 History 25 mcg/actuation powdr for inhalation (Anoro Ellipta) hydrocodone 5 mg-acetaminophen 325 1 - 2 tablet PO Q6H PRN pain #20 11/23/23 12/10/23 Rx mg tablet tabs insulin lispro 100 unit/mL 40 unit subcut TID 12/10/23 12/10/23 History subcutaneous pen (Humalog KwikPen (U-100) Insulin) Allergies Allergy/AdvReac Type Severity Reaction Status Date / Time adhesive tape Allergy Mild RASH Verified 11/23/23 10:39 coconut Allergy Mild Rash Verified 11/23/23 10:39 Penicillins Allergy Mild HIVES Verified 11/23/23 10:39 tomato Allergy Mild Rash Verified 11/23/23 10:39 warfarin Allergy Mild Hives Verified 11/23/23 10:39 codeine AdvReac Mild NAUSEA/VOMI Verified 11/23/23 10:39 TING Vital Signs Vital Signs - 24 hr 12/10/23 15:00 Temperature 99.1 F Pulse Rate 112 H Respiratory Rate 19 Blood Pressure 165/60 H Pulse Oximetry 97 Oxygen Delivery Room Air Exam Narrative: obese, right base diminished Const: General: no acute distress and uncomfortable Other: , female, mildly ill-appearing HENMT: Face/Nose/Sinus: Normal nares present Mouth: Yes moist mucous membranes Eyes: General: appearance normal, both eyes and all related structures Sclera: sclerae normal Pupils: Equal, round and reactive pupils present EOM: EOMs intact bilaterally Resp: Effort & Inspection: normal respiratory effort Other: Decreased bibasilar breath sounds more so on the right. Cardio: Rate: regular rate Rhythm: regular rhythm Other: S1-S2 present without murmur, rub, ectopy GI: Other: Abdomen rounded, nontender, soft. Skin: General skin exam: normal color and no rashes or lesions noted Wounds: no wounds Neuro: Speech: normal speech Motor exam (neuro): 5/5 motor strength present throughout Sensory Exam: normal sensation Other: A&O x4, +generalized weakness Extrem: General: normal to inspection Psych: Mental Status: mental status grossly normal Affect: Anxious affect present Other: Good insight and judgment, pleasant H&P: Results Labs Labs: Short CBC 12/10/23 Range/Units 15:09 WBC 8.4 (4.5-10.0) K/mm3 Hgb 12.4 (12.0-15.0) g/dL Hct 38.9 (37.0-47.0) % Plt Count 239 (150-375) k/mm3 BMP 12/10/23 15:09 Sodium 134 L Potassium 4.5 Chloride 97 L Carbon Dioxide 28 BUN 15 D Creatinine 1.00 Glucose 212 H Calcium 9.4 Liver Function 12/10/23 Range/Units 15:09 Total Bilirubin 1.1 (0.2-1.3) mg/dL AST 39 H (14-36) U/L ALT 32 (6-35) U/L Alkaline Phosphatase 146 H (38-126) U/L Albumin 3.9 (3.5-5.1) g/dL Urine 12/10/23 Range/Units 16:16 Urine Color Yellow (Yellow) Urine Appearance Cloudy H (Clear) Urine pH 7.5 (5.0-9.0) Ur Specific [place] 1.014 (1.001-1.035) Urine Protein Negative (Negative) mg/dL Urine Glucose (UA) Negative (Negative) mg/dL Assessment and Plan Assessment and plan (1) Abnormal chest CT: Code(s): R93.89 - Abnormal findings on diagnostic imaging of other specified body structures Status: Acute Assessment and Plan: Hx of lung cancer, laryngeal squamous cell carcinoma s/p radiation in 2019. Recent dx of bladder cancer showing low-grade papillary urothelial carcinoma, noninvasive s/p TURBT and chemo in bladder. - CXR: Opacification of the left upper hemithorax, volume loss of the left lung; left upper lobe atelectasis and consolidation vs obstructing endobronchial lesion Approximately 3.2 cm mass density, superior segment left lower lobe. Bronchogenic carcinoma must be considered. - CT chest/abdomen/pelvis: Resected or occluded left upper lobe bronchus; recommend correlation with any surgical history. The left mainstem bronchus, nearly occluded distally, with narrowing of the left lower lobe bronchi as well 3.5 x 3.5 cm encapsulated fluid collection along the inferolateral aspect of the left hilum, with surrounding infiltrate Enlarged left superior mediastinal and prevascular lymph nodes; metastasis is not excluded. (Consider PET/CT imaging for further evaluation.) Status post cholecystectomy Pancreatic atrophy Diverticulosis of the colon; no evidence of diverticulitis - oncology consulted, awaiting recs - pulmonology consulted, awaiting recs - patient had outpatient PET scan ordered, had not been scheduled (2) Pneumonia: Qualifiers: Laterality: left Lung location: unspecified part of lung Pneumonia type: due to unspecified organism Qualified Code(s): J18.9 - Pneumonia, unspecified organism Code(s): J18.9 - Pneumonia, unspecified organism Status: Acute Assessment and Plan: - did not meet SIRS criteria, HR only. Blood cultures obtained in ED, follow. - see imaging above - risk factors and complicating factors: suspected recurrent lung cancer, COPD - started on Levaquin on 12/09 - MRSA PCR and sputum culture ordered - Viral PCR negative - no supplemental O2 requirement - supportive care (3) Acute UTI: Code(s): N39.0 - Urinary tract infection, site not specified Status: Acute Assessment and Plan: - UA: cloudy, 2+ blood, positive nitrates, 2+ leuks, 21-50 RBC, 51-100 WBC - UC pending - previous micro reviewed, most recent culture on 10/05/2023 showed E coli that was resistant to Cipro and Levaquin. - started on Levaquin on 12/09, given most recent micro will add ceftriaxone - antipyretics p.r.n. (4) Bladder mass: Code(s): N32.89 - Other specified disorders of bladder Status: Acute Assessment and Plan: - CT abd/pelvis, previous (09/29/23): 1. Mass in left lung lower lobe that is contiguous with the hilum, consistent with primary bronchogenic carcinoma and/or post-obstructive pneumonia. 2. 17 mm mass in the left posterior bladder, consistent with malignancy versus hematoma. 3. Borderline enlarged periceliac lymph node, which is indeterminate for metastatic disease. - underwent a TURBT on 11/23/23. pathology showed low-grade papillary urothelial carcinoma, noninvasive. - oncology consulted (5) Diabetes: Qualifiers: Diabetes mellitus complication status: with hyperglycemia Diabetes mellitus half-way insulin use: with terminal operations manager use Diabetes mellitus type: type 2 Qualified Code(s): E11.65 - Type 2 diabetes mellitus with hyperglycemia; Z79.4 - senior care (current) use of insulin Code(s): E11.9 - Type 2 diabetes mellitus without complications Status: Chronic Assessment and Plan: - hypoglycemia protocol - POC blood glucose ACHS - home medication: Hold Trulicity (NF), metformin. Continue Lispro 40 units t.i.d., Tresiba 80 units HS. - correct regimen ordered - high dose TIDWM, based off BMI - A1C 6.8% in 2022, update (6) Stage 3a chronic kidney disease: Code(s): N18.31 - Chronic kidney disease, stage 3a Status: Chronic Assessment and Plan: - creatinine 1.0 and GFR 56, previously 1.2 and GFR 45 on 10/05/2023 - trend renal function - trend electrolytes, correct as needed (7) Hypertension: Qualifiers: Hypertension type: unspecified Qualified Code(s): I10 - Essential (primary) hypertension Code(s): I10 - Essential (primary) hypertension Status: Chronic Assessment and Plan: - chronic, currently 165/60 - continue home medications: metoprolol 25 mg b.i.d., also on diltiazem 360 ER daily - monitor Plan Diet: diabetic GI Prophylaxis: not currently indicated DVT Prophylaxis: continue home Xarelto Lines: peripheral Code Status: full code Quality VTE Prophylaxis VTE prophylaxis: pharmacologic ordered Hospitalist MIPS Advance Care Plan I have confirmed that the patient's Advanced Care Plan is present, code status is documented, or surrogate decision maker is listed in patient medical record.: Yes Medication Reconciliation I have utilized all available resources to obtain, update and review the patients current medications (includes all prescriptions, OTC, herbals, cannabis, and nutritional supplements).: Yes
--- NOTE | 2023-12-10 18:55 | PC.NURSE ---
1st set of cultures obtained. Pt refusing 2nd set of cultures. Pt also refusing to be changed into a hospital gown.
[2023-12-10] MEDS: levoFLOXacin 750 MG/D5W 150 ML 750 MG/150 ML BAG 100 MG IVPB (19:04)
[2023-12-10 19:08] VITALS: BP 119/64; PULSE 106; RESP 15; O2SAT 95
[2023-12-10 19:18] VITALS: BP 119/64; PULSE 106; RESP 15; O2SAT 95
[2023-12-10 19:44] VITALS: BP 135/61; PULSE 102; RESP 16; TEMP 37.6; O2SAT 95
--- NOTE | 2023-12-10 19:48 | ADMGEN ---
This patient, Lanny Bustillo, was admitted to 2 Medical Room 260-01. Patient/family oriented to hospital policies and general routines including ID bracelet, bed and alarms, visiting hours, pain management, procedures, bathroom and other care routines, personal items, smoking policy, room service/diet, and visiting hours. Information on how to activate the Rapid Response Team has been discussed. Patient/Family are encouraged to report perceived risks to care and to ask questions if they do not understand what they are told or what they should do.
[2023-12-10 20:02] VITALS: BMI 47.8
[2023-12-10] MEDS: ALPRAZolam (*CRX) 0.125 MG TABLET PO (20:44)
[2023-12-10] MEDS: guaiFENesin 12 HR 600 MG TABCR PO (20:45)
[2023-12-10 22:04] LABS: Glucose Point of Care 232 mg/dl (65-105)
[2023-12-10] MEDS: busPIRone HCL 5 MG TABLET PO (22:17)
[2023-12-10] MEDS: PANTOPRAZOLE 40 MG TABLET PO (22:17)
[2023-12-10 22:18] VITALS: PULSE 102
[2023-12-10] MEDS: METOPROLOL TARTRATE 25 MG TABLET PO (22:18)
[2023-12-10] MEDS: INSULIN GLARGINE (*BKC) 100 UNITS/ML 80 UNITS SUB-Q (22:18)
[2023-12-10] MEDS: OMEGA 3 POLYUNSAT FATTY ACIDS 1 GM CAP 2 GM PO (22:18)
[2023-12-10] MEDS: RIVAROXABAN 20 MG TABLET PO (22:18)
[2023-12-10] MEDS: Non-Formulary (methenamine hippurate 1 gram ORAL tablet) 1 EACH PO (22:44)
[2023-12-10] MEDS: AZELASTINE HCL NASAL 0.1% 137 MCG/SPR 30 ML BTL 1 SPRAY NASAL (22:44)
[2023-12-11] VITALS (9 sets, daily range): BP systolic 120–148; BP diastolic 58–92; PULSE 67–125; RESP 16–20; TEMP 36.1–36.6; O2SAT 93–98
[2023-12-11 06:15] LABS: Basophils Percent Auto 0.3 % (0.2-1.2); Eosinophils Absolute Auto 0.1 K/mm3 (0-0.3); Eosinophils Percent Auto 1.5 % (0-4.4); Hematocrit 36.3 % (37.0-47.0); Hemoglobin 11.4 g/dL (12.0-15.0); Immature Granulocyte Absolute 0.02 K/mm3 (0.00-0.031); Immature Granulocyte Percent A 0.3 % (0-0.5); Lymphocytes Absolute Auto 1.46 K/mm3 (0.9-3.2); Lymphocytes Percent Auto 19.8 % (18.3-44.2); Mean Corpuscular HGB Conc 31.4 g/dl (32-36); Mean Corpuscular Hemoglobin 27.9 pg (26-34); Mean Platelet Volume 10.2 fl (7.4-10.4); Monocytes Absolute Auto 0.5 K/mm3 (0.1-0.6); Monocytes Percent Auto 6.7 % (2.6-8.5); Neutrophils Absolute Auto 5.3 K/mm3 (1.3-6.7); Neutrophils Percent Auto 71.4 % (45.5-73.1); Platelet Count Result 212 k/mm3 (150-375); Red Blood Count 4.08 M/mm3 (4.2-5.4); Red Cell Distribution Width 16.7 % (11.5-14.5); White Blood Count 7.4 K/mm3 (4.5-10.0)
[2023-12-11 06:27] LABS: Alanine Aminotransferase 30 U/L (6-35); Albumin Level 3.4 g/dL (3.5-5.1); Alkaline Phosphatase 132 U/L (38-126); Anion Gap 7 mmol/L (4-12); Aspartate Amino Transferase 34 U/L (14-36); Bilirubin,Total 1.4 mg/dL (0.2-1.3); Blood Urea Nitrogen 13 mg/dL (7-17); Carbon Dioxide 29 mmol/L (22-30); Chloride 99 mmol/L (98-107); Estimated CRCL calculation 68 ml/min; Estimated Glomerular Filt Rate 50; Glucose 166 mg/dL (65-110); Hemoglobin A1C 7.3 % (<5.7); Potassium 3.7 mmol/L (3.4-5.0); Sodium 135 mmol/L (137-145)
[2023-12-11 08:04] LABS: Glucose Point of Care 166 mg/dl (65-105)
[2023-12-11] MEDS: ALBUTEROL SULFATE (*SP) AEROSOL 1 PUFF 2 PUFF INHALATION ×4 (08:05→21:53)
--- NOTE | 2023-12-11 08:06 | P.PNIM_ITS ---
Progress Note: A&P Assessment and Plan (1) Abnormal chest CT: Code(s): R93.89 - Abnormal findings on diagnostic imaging of other specified body structures Status: Acute Assessment and Plan: Hx of lung cancer, laryngeal squamous cell carcinoma s/p radiation in 2019. Recent dx of bladder cancer showing low-grade papillary urothelial carcinoma, noninvasive s/p TURBT and chemo in bladder. - Patient had outpatient PET scan ordered, had not been scheduled - CXR: Opacification of the left upper hemithorax, volume loss of the left lung; left upper lobe atelectasis and consolidation vs obstructing endobronchial lesion Approximately 3.2 cm mass density, superior segment left lower lobe. Bronchogenic carcinoma must be considered. - CT chest/abdomen/pelvis: Resected or occluded left upper lobe bronchus; recommend correlation with any surgical history. The left mainstem bronchus, nearly occluded distally, with narrowing of the left lower lobe bronchi as well 3.5 x 3.5 cm encapsulated fluid collection along the inferolateral aspect of the left hilum, with surrounding infiltrate Enlarged left superior mediastinal and prevascular lymph nodes; metastasis is not excluded. 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 Blood cultures obtained in ED, follow. - risk factors and complicating factors: suspected recurrent lung cancer, COPD - CXR: Opacification of the left upper hemithorax, volume loss of the left lung; left upper lobe atelectasis and consolidation vs obstructing endobronchial lesion Approximately 3.2 cm mass density, superior segment left lower lobe. Bronchogenic carcinoma must be considered. - CT chest/abdomen/pelvis: Resected or occluded left upper lobe bronchus; recommend correlation with any surgical history. The left mainstem bronchus, nearly occluded distally, with narrowing of the left lower lobe bronchi as well 3.5 x 3.5 cm encapsulated fluid collection along the inferolateral aspect of the left hilum, with surrounding infiltrate Enlarged left superior mediastinal and prevascular lymph nodes; metastasis is not excluded. (Consider PET/CT imaging for further evaluation.) Status post cholecystectomy Pancreatic atrophy Diverticulosis of the colon; no evidence of diverticulitis - started on Levaquin on 12/09 - MRSA PCR negative - Sputum culture ordered - Viral PCR negative - no supplemental O2 requirement - supportive care (3) Acute UTI: Code(s): N39.0 - Urinary tract infection, site not specified Status: Acute Assessment and Plan: - UA: cloudy, 2+ blood, positive nitrates, 2+ leuks, 21-50 RBC, 51-100 WBC - UC obtained on 12/09: pending - previous micro reviewed 10/05/23: E coli resistant to Cipro and Levaquin. 03/12/22: Ecoli resistant to Cipro and Levaquin. - started on Levaquin on 12/09, given most recent micro started on ceftriaxone on 12/09 - antipyretics p.r.n. (4) Bladder mass: Code(s): N32.89 - Other specified disorders of bladder Status: Acute Assessment and Plan: - CT abd/pelvis, previous (09/29/23): 1. Mass in left lung lower lobe that is contiguous with the hilum, consistent with primary bronchogenic carcinoma and/or post-obstructive pneumonia. 2. 17 mm mass in the left posterior bladder, consistent with malignancy versus hematoma. 3. Borderline enlarged periceliac lymph node, which is indeterminate for metastatic disease. - underwent a TURBT on 11/23/23. pathology showed low-grade papillary urothelial carcinoma, noninvasive. - oncology consulted (5) Diabetes: Qualifiers: Diabetes mellitus complication status: with hyperglycemia Diabetes mellitus nursing home insulin use: with extermination inspector use Diabetes mellitus type: type 2 Qualified Code(s): E11.65 - Type 2 diabetes mellitus with hyperglycemia; Z79. 4 - watermelon inspector (current) use of insulin Code(s): E11.9 - Type 2 diabetes mellitus without complications Status: Chronic Assessment and Plan: - hypoglycemia protocol - POC blood glucose ACHS - home medication: Hold Trulicity (NF), metformin and Lispro 40 units t.i.d. Continue Tresiba 80 units HS. - correct regimen ordered - high dose TIDWM, based off BMI, 10 units lispro TID and 80 units lantus HS - A1C 7.3 (6) Stage 3a chronic kidney disease: Code(s): N18.31 - Chronic kidney disease, stage 3a Status: Chronic Assessment and Plan: - creatinine 1.0 and GFR 56, previously 1.2 and GFR 45 on 10/05/2023 - trend renal function - trend electrolytes, correct as needed (7) Hypertension: Qualifiers: Hypertension type: unspecified Qualified Code(s): I10 - Essential (primary) hypertension Code(s): I10 - Essential (primary) hypertension Status: Chronic Assessment and Plan: Chronic, continue home medications - metoprolol 25 mg b.i.d. - diltiazem 360 ER daily - monitor Plan Diet: diabetic GI Prophylaxis: not currently indicated DVT Prophylaxis: continue home Xarelto Lines: peripheral Code Status: full code Time Spent With Patient Time with patient: 25 - 35 minutes Subjective Date/time seen: 12/11/23 08:06 Interval history: 63 y/o female with past medical history of asthma, CKD, COPD, diabetes, HLD, former smoker, lung cancer, laryngeal squamous cell carcinoma s/p radiation in 2019. Recent dx of bladder cancer showing low-grade papillary urothelial carcinoma, noninvasive s/p TURBT and chemo in bladder, paroxysmal AFib, PE, and pulmonary hypertension presents to the hospital for weakness, cough and hematuria. Patient is pleasant lying comfortably in bed. She has no complaints at this time denying chest pain, shortness a breath, palpitations, nausea /vomiting, and abdominal pain. She continues to be treated pneumonia and a urinary tract infection. To the abnormal results on her chest CT pulmonology and Oncology has been consulted. Awaiting Recs. Review of Systems Review of Systems: All systems reviewed & are unremarkable except as noted in HPI and below Exam Narrative: AF HR 88 RR 18 SPO2 196 BP 120/89 General: obese female in no acute respiratory distress who is nontoxic appearing, lying semi recumbent in bed. HEENT: Normocephalic. Atraumatic. Extraocular movement intact. Sclera clear and anicteric. No facial asymmetry. Chest: Lungs are diminished to auscultation with slight crackles in the left lower bases. No wheezes. CV: Heart was regular rate and rhythm. S1-S2. No murmurs, gallops, or rubs. Abd: Abdomen was soft. Nontender. Nondistended. Positive bowel sounds. No organomegaly or masses. Ext: No clubbing, cyanosis, or edema. 2+ DP pulses bilaterally. Neuro: Patient is alert and oriented x4. Speech is clear. Objective Data Vital Signs Vital Signs: Vital Signs - 24 hr 12/10/23 15:00 12/10/23 19:08 12/10/23 19:44 Temperature 99.1 F 99.6 F Pulse Rate 112 H 106 H 102 H Respiratory Rate 19 15 16 Blood Pressure 165/60 H 119/64 135/61 Pulse Oximetry 97 95 95 Oxygen Delivery Room Air 12/10/23 20:00 12/10/23 22:18 12/11/23 04:54 Temperature 97.6 F Pulse Rate 102 H 100 Respiratory Rate 16 Blood Pressure 148/70 H Pulse Oximetry 95 Oxygen Delivery Room Air 12/10/23 19:18 Temperature Pulse Rate 106 H Respiratory Rate 15 Blood Pressure 119/64 Pulse Oximetry 95 Oxygen Delivery Intake/Output Intake/Output: Intake & Output 12/09/23 12/10/23 12/10/23 12/11/23 00:59 00:59 23:59 23:59 Intake Total 350 Output Total 750 Balance -400 Meds/Results Medications: Active Medications Generic Name Dose Route Start Last Admin Trade Name Freq PRN Reason Stop Dose Admin Acetaminophen 650 mg 12/10/23 18:49 Acetaminophen 325 Mg Tablet PO Q6H PRN Mild Pain (1-3) or Fever Acetaminophen 1,000 mg 12/10/23 21:33 Acetaminophen 500 Mg Tablet PO Q6H PRN Pain, Mild Albuterol 2 puff 12/10/23 21:45 12/11/23 08:05 Albuterol Sulfate (*Sp) Aerosol 1 Puff INHALATION 2 puff QIDRT ALEENA Administration Albuterol/Ipratropium 3 ml 12/10/23 18:57 Ipratropium 0.5 Mg/Albuterol Sulfate 2.5 Mg Ampul.Neb 3 Ml INHALATION Q6HRT PRN Shortness Of Breath Or Wheezing Alprazolam 0.125 mg 12/10/23 19:58 12/10/23 20:44 Alprazolam (*Crx) 0.125 Mg Tablet PO 0.125 mg HS PRN Administration Anxiety Azelastine HCl 1 spray 12/10/23 21:45 12/10/23 22:44 Azelastine Hcl Nasal 0.1% 137 Mcg/Spr 30 Ml Btl NASAL 1 spray BID ALEENA Administration Benzocaine 1 lozenge 12/10/23 18:49 Benzocaine/Menthol (*Bkc) 18 Ea Lozenge PO PRN PRN Sore Throat Buspirone HCl 5 mg 12/10/23 21:35 12/10/23 22:17 Buspirone Hcl 5 Mg Tablet PO 5 mg Q12HR ALEENA Administration Dextrose 12.5 gm 12/10/23 18:53 Dextrose 50% 25 Gm/50 Ml Syringe IV PUSH PRN PRN Hypoglycemia Protocol Diltiazem HCl 360 mg 12/11/23 09:00 Diltiazem Hcl Cd 180 Mg Cap.24hr PO DAILY ALEENA Diphenhydramine HCl 25 mg 12/10/23 18:58 Diphenhydramine Hcl Inj 50 Mg/Ml Vial IV PUSH ONCE PRN Allergic Reaction Ergocalciferol 50,000 units 12/12/23 09:00 Ergocalciferol 50,000 Units Capsule PO [id number] ALEENA Fish Oil 2 gm 12/10/23 21:35 12/10/23 22:18 [place] 3 Polyunsat Fatty Acids 1 Gm Cap PO 2 gm Q12HR ALEENA Administration Glucagon 1 mg 12/10/23 18:53 Glucagon For Inj 1 Mg Vial IM PRN PRN Hypoglycemia Protocol Glucose 15 gm 12/10/23 18:53 Glucose Oral Gel 15 Gm Of Glucse In 37.5 Gm Tube PO PRN PRN Hypoglycemia Protocol Guaifenesin 600 mg 12/10/23 21:00 12/10/23 20:45 Guaifenesin 12 Hr 600 Mg Tabcr PO 600 mg Q12HR ALEENA Administration Ceftriaxone Sodium 1 gm in 50 mls @ 100 mls/hr 12/10/23 20:00 12/10/23 21:14 Rocephin 1 Gm/Ns 50 Ml IVPB Infused Q24H ALEENA Infusion Levofloxacin/Dextrose 750 mg in 150 mls @ 100 mls/hr 12/11/23 18:00 Levaquin 750 Mg/D5w 150 Ml IVPB Q24H ALEENA Dextrose 1,000 mls @ 100 mls/hr 12/10/23 18:53 Dextrose 5% 1,000 Ml IVPB PRN PRN Hypoglycemia Protocol Insulin Aspart 4 - 8 units 12/11/23 08:00 Insulin Aspart (*Bkc) 100 Units/Ml SUB-Q TIDWM [facility] Protocol Insulin Aspart 40 units 12/11/23 08:00 Insulin Aspart (*Bkc) 100 Units/Ml SUB-Q ACINSULIN [facility] Insulin Glargine 80 units 12/10/23 21:50 12/10/23 22:18 Insulin Glargine (*Bkc) 100 Units/Ml SUB-Q 80 units HS [facility] Administration Loratadine 10 mg 12/10/23 21:46 Loratadine 10 Mg Tablet PO DAILY PRN Sinus Symptoms Metoprolol Tartrate 25 mg 12/10/23 21:55 12/10/23 22:18 Metoprolol Tartrate 25 Mg Tablet PO 25 mg Q12HR [facility] Administration Multivitamins/Minerals 1 tab 12/11/23 09:00 Multivitamins /C Lutein (Centrum Silver) Tablet *Bkc PO DAILY [facility] Non-Formulary ( 1 each 12/10/23 22:00 12/10/23 22:44 Methenamine PO 01/09/24 21:59 1 each Hippurate 1 Gram BID ALEENA Administration Oral Tablet) Pantoprazole Sodium 40 mg 12/10/23 21:55 12/10/23 22:17 Pantoprazole 40 Mg Tablet PO 40 mg HS [facility] Administration Pravastatin Sodium 40 mg 12/11/23 09:00 Pravastatin Sodium 20 Mg Tablet PO DAILY [facility] Rivaroxaban 20 mg 12/10/23 21:55 12/10/23 22:18 Rivaroxaban 20 Mg Tablet PO 20 mg HS [facility] Administration Umeclidinium/Vilanterol 1 puff 12/11/23 08:00 Umeclidinium/Vilanterol 62.5-25 Mcg Ellipta INHALATION DAILYRT [facility] Radiology Results: ITS Impressions Chest X-Ray 12/10/23 15:23 IMPRESSION: Opacification of the left upper hemithorax, volume loss of the left lung; the findings suggest left upper lobe atelectasis and consolidation similar obstructing endobronchial lesion must be considered. Approximately 3.2 cm mass density, superior segment left lower lobe. Bronchogenic carcinoma must be considered. Chest/Abdomen/Pelvis CT 12/10/23 17:00 IMPRESSION: Resected or occluded left upper lobe bronchus; recommend correlation with any surgical history. The left mainstem bronchus, nearly occluded distally, with narrowing of the left lower lobe bronchi as well 3.5 x 3.5 cm encapsulated fluid collection along the inferolateral aspect of the left hilum, with surrounding infiltrate Enlarged left superior mediastinal and prevascular lymph nodes; metastasis is not excluded. Consider PET/CT imaging for further evaluation. Status post cholecystectomy Pancreatic atrophy Diverticulosis of the colon; no evidence of diverticulitis Labs Labs: Laboratory Results - last 24 hr 12/10/23 12/10/23 12/10/23 15:09 16:16 17:11 WBC 8.4 RBC 4.41 Hgb 12.4 Hct 38.9 MCV 88.2 MCH 28.1 MCHC 31.9 L RDW 16.8 H Plt Count 239 MPV 9.6 Immature Gran % (Auto) 0.4 Neut % (Auto) 81.1 H Lymph % (Auto) 11.7 L [place] % (Auto) 4.7 Eos % (Auto) 1.9 Baso % (Auto) 0.2 Lymph # (Auto) 0.98 [place] # (Auto) 0.4 Eos # (Auto) 0.2 Baso # (Auto) 0.0 Abs Immat Gran (auto) 0.03 Absolute Neuts (auto) 6.8 H Absolute Nucleated RBC 0.000 Nucleated RBC % 0.0 Sodium 134 L Potassium 4.5 Chloride 97 L Carbon Dioxide 28 Anion Gap 9 BUN 15 D Creatinine 1.00 Estim Creat Clear Calc 74 Estimated GFR 56 L Glucose 212 H POC Capillary Glucose Hemoglobin A1c Calcium 9.4 Total Bilirubin 1.1 AST 39 H ALT 32 Alkaline Phosphatase 146 H Total Protein 7.0 Albumin 3.9 Urine Color Yellow Urine Appearance Cloudy H Urine pH 7.5 Ur Specific [place] 1.014 Urine Protein Negative Urine Glucose (UA) Negative Urine Ketones Negative Ur Blood (Man) 2+ H Urine Nitrate Positive H Urine Bilirubin Negative Urine Urobilinogen 0.2 Leukocyte Esterase Rfl 2+ H Urine RBC 21-50 H Urine WBC 51-100 H Ur Squamous Epith Cells Few Urine Bacteria 4+ Urine Casts 0-2 Influenza A (RT-PCR) Negative Influenza B (RT-PCR) Negative RSV (RT-PCR) Negative SARS-CoV-2 RNA (RT-PCR) Negative 12/10/23 12/11/23 12/11/23 20:00 06:09 07:55 WBC 7.4 RBC 4.08 L Hgb 11.4 L Hct 36.3 L MCV 89.0 MCH 27.9 MCHC 31.4 L RDW 16.7 H Plt Count 212 MPV 10.2 Immature Gran % (Auto) 0.3 Neut % (Auto) 71.4 Lymph % (Auto) 19.8 [place] % (Auto) 6.7 Eos % (Auto) 1.5 Baso % (Auto) 0.3 Lymph # (Auto) 1.46 [place] # (Auto) 0.5 Eos # (Auto) 0.1 Baso # (Auto) 0.0 Abs Immat Gran (auto) 0.02 Absolute Neuts (auto) 5.3 Absolute Nucleated RBC 0.000 Nucleated RBC % 0.0 Sodium 135 L Potassium 3.7 Chloride 99 Carbon Dioxide 29 Anion Gap 7 BUN 13 Creatinine 1.10 H Estim Creat Clear Calc 68 Estimated GFR 50 L Glucose 166 H POC Capillary Glucose 232 H 166 H Hemoglobin A1c 7.3 H Calcium 9.0 Total Bilirubin 1.4 H AST 34 ALT 30 Alkaline Phosphatase 132 H Total Protein 7.0 Albumin 3.4 L Urine Color Urine Appearance Urine pH Ur Specific [place] Urine Protein Urine Glucose (UA) Urine Ketones Ur Blood (Man) Urine Nitrate Urine Bilirubin Urine Urobilinogen Leukocyte Esterase Rfl Urine RBC Urine WBC Ur Squamous Epith Cells Urine Bacteria Urine Casts Influenza A (RT-PCR) Influenza B (RT-PCR) RSV (RT-PCR) SARS-CoV-2 RNA (RT-PCR)
--- NOTE | 2023-12-11 09:56 | PCPTNOTE ---
Attempted PT evaluation, pt refused stating she received no sleep last night and just got here last night. Will follow.
[2023-12-11] MEDS: guaiFENesin 12 HR 600 MG TABCR PO ×2 (10:32→20:16)
[2023-12-11] MEDS: busPIRone HCL 5 MG TABLET PO ×2 (10:32→20:16)
[2023-12-11] MEDS: MULTIVITAMINS /C LUTEIN (CENTRUM SILVER) TABLET *BKC 1 TAB PO (10:33)
[2023-12-11] MEDS: PRAVASTATIN SODIUM 20 MG TABLET 40 MG PO (10:34)
[2023-12-11] MEDS: dilTIAZem HCL CD 180 MG CAP.24HR 360 MG PO (10:34)
[2023-12-11] MEDS: METOPROLOL TARTRATE 25 MG TABLET PO ×2 (10:35→20:16)
[2023-12-11] MEDS: Non-Formulary (methenamine hippurate 1 gram ORAL tablet) 1 EACH PO ×2 (10:35→17:30)
[2023-12-11] MEDS: OMEGA 3 POLYUNSAT FATTY ACIDS 1 GM CAP 2 GM PO ×2 (10:39→20:16)
[2023-12-11 11:46] LABS: Glucose Point of Care 202 mg/dl (65-105)
[2023-12-11] MEDS: INSULIN ASPART (*BKC) 100 UNITS/ML SUB-Q ×2 (12:25→17:25)
--- NOTE | 2023-12-11 13:28 | P.CONPL_ITS ---
Assessment and Plan Assessment and plan (1) Lung cancer: Code(s): C34.90 - Malignant neoplasm of unspecified part of unspecified bronchus or lung Status: Acute Assessment and Plan: Diagnosed 2019, treated with radiation Dr Wall, followed by Dr Natali Zavala; recent chest CT Oct 09 similar to Dec [address] here. Has enlarged left superior mediastinal and prevascular lymph nodes; metastasis is not excluded. (2) Pneumonia: Qualifiers: Laterality: left Lung location: unspecified part of lung Pneumonia type: due to unspecified organism Qualified Code(s): J18.9 - Pneumonia, unspecified organism Code(s): J18.9 - Pneumonia, unspecified organism Status: Acute Assessment and Plan: Empiric Levaquin and ceftriaxone; has increased secretions, although cannot expectorate for testing. She has a similar chest CT compared to Oct 10, 2023 per her human factors advisor lead at [facility] Dr Natali Zavala. She has RAMYA collapse due to lung cancer; radiologist sees enlarged Left superior mediastinal and prevascular LNs with suggestion of metastatic disease. Also has 3.5 cm fluid collection along inferolateral left hilum with infiltrate. This is enough abnormal changes to treat for pneumonia. occluded left upper lobe bronchus; recommend correlation with any surgical history. The left mainstem bronchus, nearly occluded distally, with narrowing of the left lower lobe bronchi as well 3.5 x 3.5 cm encapsulated fluid collection along the inferolateral aspect of the left hilum, with surrounding infiltrate Enlarged left superior mediastinal and prevascular lymph nodes; metastasis is not excluded. Consider PET/CT imaging for further evaluation. (3) COPD (chronic obstructive pulmonary disease): Qualifiers: COPD type: unspecified COPD Qualified Code(s): J44.9 - Chronic obstructive pulmonary disease, unspecified Code(s): J44.9 - Chronic obstructive pulmonary disease, unspecified Status: Acute Assessment and Plan: Had 1 PFT in the past, now can no longer repeat with chronic collapse of RAMYA and almost collapsed LLL. Anoro once a day and p.r.n. albuterol inhaler at home. She is not on additional meds. Has not had excess sputum until now. (4) Shortness of breath: Code(s): R06.02 - Shortness of breath Status: Acute Assessment and Plan: increased on Mon and Monday leading to admission; she feels better. She is not having dyspnea at rest. Plan plan: 1. Increased pulmonary hygiene using vibratory valve and mucolytics. This may help clear some sputum, and this can be tested. 2. Positional therapy with efforts to keep her off the left side which has atelectasis and collapse. This is acute on chronic, as she had a chest CT Sept 3 at [facility] showing similar findings with obstruction of the bronchus to the RAMYA and an area of atelectasis in the LLL. There is not an indication to p erform bronchoscopy. All the findings are chronic. 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 3. COPD management; at home, uses Anoro as her only bronchodilator. I will expand the treatment to triple meds and give by nebulizer which may be more effective. She has functionally one lung, only the right lung is working as the left has the left hilar mass and chronic RAMYA collapse. 4. Increase ambulation, as this will improve movement of airway secretions and decrease atelectasis. 5. She is on room air, has not needed O2 this admission. History of Present Illness History of Present Illness Consult date: 12/11/23 Requesting physician: Danitza Lopez PA-C Chief complaint: pneumonia, Lung cancer, COPD Narrative: seen Dec 11, 2023 14:50 in Room [address] [facility] consult: Lanny Bustillo is a 63-year-old woman with lung cancer and r ight vocal cord cancer both diagnosed in 2019 Rx with radiation only, recent diagnosis of bladder cancer treated with TURBT and gemcitabine in bladder; she was admitted through the ER for increased shortness of breath; she is closely followed by human factors advisor lead Dr Natali Zavala, @ [facility], was there recently, had a chest CT Oct 09. She was treated with an antibiotic due to possible pneumonia. She has a chronic collapse of the ARMYA with some new area of consolidation in the LLL. She was in good health until last week, Dec 06, after a flu shot and pneumonia shot. The next day, she developed increased shortness of breath, increased coughing with sputum which was difficult to expectorate. She had weakness and could not stand on her own Dec 09Mon, then brought in by ambulance. She has not had fever, chills, chest pain, hemoptysis, nausea, decreased oral intake. She can feel sputum in the airway, cannot get it out however does swallow. She does not use O2 at home. She lives at home with her daughter and son-in-law. No one else has been sick. Her additional symptoms include discomfort across the tops of her thighs anteriorly. She arrived by ambulance to the closest hospital; chest CT is below. Chest CT showed collapse of RAMYA with an encapsulated fluid density in the anterolateral aspect of the left hilum with surrounding infiltrate. She uses Anoro one puff at night and p.r.n. Ventolin about 4 times a day, no other COPD meds. 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 She completed a course of definitive radiotherapy between 02/26/2019 and 04/17/2019, developed a left hilar soft tissue mass on PET scan, had management with Dr Wall, more radiation to the left hilar area. She has chronically occluded bronchus to left upper lobe. 2023 = Recent dx of bladder cancer showing low-grade papillary urothelial carcinoma, noninvasive s/p TURBT and gemcitabine instillation in bladder. She has diabetes, HTn, paroxysmal atrial fibrillation, DATA * swab was negative for influenza A/B, RSV, SARS-CoV-2. wbc 8.4, borderline low Na+ 135, creat 1.0, today Dec 10 creat increased to 1.1. Bilirubin 1.4, albumin 3.4, glucose 160 to 200, HBA1c 7.4, above normal. EKG102/08/23 = sinus tachycardia rate 106 without ischaemia. * 12/10/2023 CT chest @ [place]: There is volume loss of the left lung with opacification of the left upper hemithorax with leftward shift of the heart and mediastinum. There is a 13.4 x 19.3 mm renovascular lymph node 9.6 x 12.5 mm left superior mediastinal lymph node.. There is asymmetric narrowing of the left mainstem bronchus, nearly occluded distally and no aeration of left upper lobe bronchus is noted. This may be due to occlusion or surgical resection; correlation with any surgical history is recommended. There is narrowing of the left lower lobe bronchi. There is a 5 x 3.5 cm encapsulated fluid density at the anterolateral aspect of the left hilum with mild surrounding infiltrate. No right pulmonary infiltrate or right pulmonary mass lesion is noted. Normal right bronchi, without stenosis or occlusion.. * 12/10/2023 CXR = Opacification of the left upper hemithorax, volume loss of the left lung; the findings suggest left upper lobe atelectasis and consolidation similar obstructing endobronchial lesion must be considered. Approximately 3.2 cm mass density, superior segment left lower lobe. Bronchogenic carcinoma must be considered. Review of Systems Review of Systems: No change in weight. No leg swelling. No dysphagia. No hemoptysis. She has had increased cough, has sputum which is difficult to expectorate. Her saturation remains 93-96% at home on room air. No chest pain. All systems reviewed & are unremarkable except as noted in HPI and below PMFSH Past Medical History Medical History (Updated 12/11/23 @ 16:19 by Teagan Villanueva MD) Asthma Atypical atrial flutter Chronic anticoagulation Chronic renal failure (CRF), stage 3a COPD (chronic obstructive pulmonary disease) Diabetes type 2 on insulin High cholesterol History of tobacco abuse Hx of cancer of lung left lung radiation Hypersomnia Hypertension Laryngeal squamous cell carcinoma Lung cancer Morbid obesity with BMI of 45.0-49.9, adult Paroxysmal A-fib Pulmonary embolism Pulmonary hypertension Surgical History Surgical History H/O endoscopy H/O knee surgery reconstructive surgery H/O sinus surgery H/O: section times 2 History of cholecystectomy History of dilation and curettage History of surgery on lower extremity reconstructive leg surgery History of tubal ligation 11/03/2004 Laparoscopic Tubal Ligation / Novasure Ablation ; Menometrorrhagia S/P tonsillectomy and adenoidectomy Family History Family History Other Brain cancer maternal aunt Breast cancer Mother Bladder cancer Small cell cancer of the bladder Mother Hypertension Social History Social History Social History: She reports that she smoked as much as 3 packs of cigarettes per day. She quit smoking in 2018. She smoked for approximately 40 years. She used to drink alcohol on occasion but has not done so in many years. She denies any illicit substance use. She lives in her own home. Her daughter lives with her but she states that her daughter does not help her out. Instead her daughter in-law comes over Pete or in-home caregiver on a daily basis. SHE HAS 2 CHILDREN. She is . Code status: DNR/DNI per patient request Surrogate decision maker: Austin Mcmahon (son) Smoking packs per day: 2 Smoking cigarettes per day: 40.0 Years smoked: 40 Smoking pack-years: 80.00 Smoking status: Former smoker Tobacco type: cigarettes Second hand tobacco smoke exposure: Yes Smoking end date: 08/06/18 Alcohol intake: former Substance use: never Substance use type: does not use Do You Feel Safe in your Home?: Yes Lack of Transportation: No Lack of Food: Never True Current Housing: I Have Housing Concerned About Future Housing: No Difficulty Paying Gas/Electric Bills: No Difficulty Paying for Meds: No Currently Unemployed: No Education: High School Diploma/GED Difficulty w/ Childcare or Family Care: No Living arrangements: with family Additional living arrangements comments: SON, DIL & GRANDCHILDREN LIVE W/ PATIENT Gender identity (if verbalized by the patient): Female Spiritual care concerns: No Agree to blood products: Yes Meds Home Medications and Allergies Home Medications Medication Instructions Recorded Confirmed Type albuterol sulfate 90 mcg/actuation 2 puff inhalation QID 02/18/19 12/10/23 History aerosol inhaler metformin 500 mg tablet 500 mg PO BID 07/16/19 12/10/23 History acetaminophen 500 mg tablet 1,000 mg PO Q6H PRN Pain, Mild 01/18/22 12/10/23 History (Acetaminophen Extra Strength) azelastine 0.05 % eye drops 1 drp EACH EYE BID 01/18/22 12/10/23 History buspirone 5 mg tablet 5 mg PO Q12H 01/18/22 12/10/23 History icosapent ethyl 1 gram capsule 2 g PO Q12H 01/18/22 12/10/23 History (Vascepa) pantoprazole 40 mg tablet,delayed 40 mg PO HS 01/18/22 12/10/23 History release diltiazem HCl 360 mg capsule,24 360 mg PO DAILY 03/11/22 12/10/23 History hr,extended release (Tiadylt ER) rivaroxaban 20 mg tablet (Xarelto) 20 mg PO HS 03/11/22 12/10/23 History dulaglutide 1.5 mg/0.5 mL 1.5 mg subcut WEEKLY 09/18/22 12/10/23 History subcutaneous pen injector (Trulicity) insulin degludec 100 unit/mL (3 80 unit subcut HS 09/18/22 12/10/23 History mL) subcutaneous pen (Tresiba FlexTouch U-100 insulin) cetirizine 10 mg capsule 10 mg PO DAILY PRN Sinus Symptoms 10/04/23 12/10/23 History ergocalciferol (vitamin D2) 1,250 1,250 mcg PO 2XW 10/04/23 12/10/23 History mcg (50,000 unit) capsule geriatric multivitamin-min 1 tablet PO DAILY 10/04/23 12/10/23 History methenamine hippurate 1 gram tablet 1 g PO BID 10/04/23 12/10/23 History metoprolol tartrate 25 mg tablet 25 mg PO BID 10/04/23 12/10/23 History pravastatin 40 mg tablet 40 mg PO DAILY 10/04/23 12/10/23 History umeclidinium 62.5 mcg-vilanterol 1 inh inhalation HS 10/04/23 12/10/23 History 25 mcg/actuation powdr for inhalation (Anoro Ellipta) hydrocodone 5 mg-acetaminophen 325 1 - 2 tablet PO Q6H PRN pain #20 11/23/23 12/10/23 Rx mg tablet tabs insulin lispro 100 unit/mL 40 unit subcut TID 12/10/23 12/10/23 History subcutaneous pen (Humalog KwikPen (U-100) Insulin) Allergies Allergy/AdvReac Type Severity Reaction Status Date / Time adhesive tape Allergy Mild RASH Verified 11/23/23 10:39 coconut Allergy Mild Rash Verified 11/23/23 10:39 Penicillins Allergy Mild HIVES Verified 11/23/23 10:39 tomato Allergy Mild Rash Verified 11/23/23 10:39 warfarin Allergy Mild Hives Verified 11/23/23 10:39 codeine AdvReac Mild NAUSEA/VOMI Verified 11/23/23 10:39 TING Vital Signs Vital Signs - 24 hr 12/10/23 15:00 12/10/23 19:08 12/10/23 19:44 Temperature 37.3 C 37.6 C Pulse Rate 112 H 106 H 102 H Respiratory Rate 19 15 16 Blood Pressure 165/60 H 119/64 135/61 Pulse Oximetry 97 95 95 Oxygen Delivery Room Air 12/10/23 20:00 12/10/23 22:18 12/11/23 04:54 Temperature 36.4 C Pulse Rate 102 H 100 Respiratory Rate 16 Blood Pressure 148/70 H Pulse Oximetry 95 Oxygen Delivery Room Air 12/11/23 08:08 12/11/23 08:08 12/11/23 10:23 Temperature 36.3 C L Pulse Rate 67 88 Respiratory Rate 20 18 Blood Pressure 120/89 Pulse Oximetry 93 96 Oxygen Delivery Room Air 12/11/23 10:35 12/11/23 10:32 12/11/23 12:07 Temperature Pulse Rate 88 Respiratory Rate Blood Pressure Pulse Oximetry Oxygen Delivery Room Air Room Air 12/11/23 12:39 12/10/23 19:18 Temperature Pulse Rate 106 H Respiratory Rate 15 Blood Pressure 119/64 Pulse Oximetry 95 Oxygen Delivery Room Air Exam Narrative: GEN: Alert, oriented, not in distress. She is able to rest in the left lateral position without dyspnea. HEENT: pupils are equal, EOMI, symmetrical face; oral membranes moist, Mallampati IV airway, has upper and lower dentures, no oral lesions. NECK: Trachea is midline, no palpable lymph nodes. CHEST: Equal air entry, symmetric excursion, absent breath sounds left lung. Right lung is clear. CV: Regular S1S2 no m/g/r ABD : (+) bowel sounds, soft, non tender. Extremities : no clubbing, cyanosis, or edema; she has no lesions on the upper thighs. I am examining this area due to complaints of pain, however I do not see anything rash, and noting is palpable. Skin is warm and dry. No rash. PSYCH: normal thought and speech, gait is not tested Results Laboratory Findings 12/11/23 06:09 12/11/23 06:09 Abnormal lab findings: Abnormal Labs 12/10/23 12/10/23 12/10/23 15:09 16:16 20:00 RBC Hgb Hct MCHC 31.9 L RDW 16.8 H Neut % (Auto) 81.1 H Lymph % (Auto) 11.7 L Absolute Neuts (auto) 6.8 H Sodium 134 L Chloride 97 L Creatinine Estimated GFR 56 L Glucose 212 H POC Capillary Glucose 232 H Hemoglobin A1c Total Bilirubin AST 39 H Alkaline Phosphatase 146 H Albumin Urine Appearance Cloudy H Ur Blood (Man) 2+ H Urine Nitrate Positive H Leukocyte Esterase Rfl 2+ H Urine RBC 21-50 H Urine WBC 51-100 H 12/11/23 12/11/23 12/11/23 06:09 07:55 11:40 RBC 4.08 L Hgb 11.4 L Hct 36.3 L MCHC 31.4 L RDW 16.7 H Neut % (Auto) Lymph % (Auto) Absolute Neuts (auto) Sodium 135 L Chloride Creatinine 1.10 H Estimated GFR 50 L Glucose 166 H POC Capillary Glucose 166 H 202 H Hemoglobin A1c 7.3 H Total Bilirubin 1.4 H AST Alkaline Phosphatase 132 H Albumin 3.4 L Urine Appearance Ur Blood (Man) Urine Nitrate Leukocyte Esterase Rfl Urine RBC Urine WBC
[2023-12-11] MEDS: UMECLIDINIUM/VILANTEROL 62.5-25 MCG ELLIPTA 1 PUFF INHALATION (13:29)
[2023-12-11 17:08] LABS: Glucose Point of Care 223 mg/dl (65-105)
[2023-12-11] MEDS: AZELASTINE HCL NASAL 0.1% 137 MCG/SPR 30 ML BTL 1 SPRAY NASAL (17:29)
[2023-12-11] MEDS: levoFLOXacin 750 MG/D5W 150 ML 750 MG/150 ML BAG 100 MG IVPB (17:35)
[2023-12-11] MEDS: ACETAMINOPHEN 325 MG TABLET 650 MG PO (18:59)
--- NOTE | 2023-12-11 20:06 | P.CONONC_ITS ---
Recommendations Patient is a 63-year-old female with diagnosis of- 1. 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 She remains in remission 2. Clinical stage IIB (T1b N1 M0) non-small cell lung cancer (squamous cell carcinoma) in the superior segment of the left lower lobe bronchus with an endobronchial component and involving an adjacent hilar lymph node. Patient completed a course of SBRT between 09/03/2019 and 09/19/2019. Patient was last seen by Dr. Fairbanks on 08/19/2019. She was then following with her auto electrical technician Dr. Natali Landrum. Patient was followed with PET-CT scan by Dr. Landrum. A PET- CT scan done on February 18, 2022 did not show any suspicious findings. Patient then underwent another PET-CT scan on October 17, 2023 which showed left upper lobe collapse with a 4.4 x 3.1 cm left perihilar mass with SUV of 7.8 concerning for either pneumonitis,pneumonia or malignancy. Dr. hicks prescribed oral antibiotic and plan was to repeat a PET-CT scan in December 2023. Patient is now admitted for generalized weakness, productive cough with chest pain. A CT scan chest abdomen and pelvis was done on 12/10/2023 which shows left main bronchus narrowing suspicious for endobronchial lesion. She also has 5 x 3.5 cm fluid density in the left hilum concerning for infiltrate. Patient has been seen by Dr. Villanueva from pulmonary team, as inpatient, and no urgent bronchoscopy is recommended. Plan is for patient to get IV antibiotic with ceftriaxone and levofloxacin and transition to oral as outpatient. She will th en need to follow up with her auto electrical technician Dr. Landrum,as outpatient, to assess need for a repeat PET/CT scan. If this is a recurrence of left lung cancer, patient has a poor performance status and I doubt that she would be able to tolerate conventional chemotherapy. Any decision for systemic treatment has to be made after biopsy proven recurrence. If she ends up getting biopsy, the specimen should be sent for next generation sequencing to identify any targetable mutation for oral therapies. Patient should see Oncology after PET/CT scan and pulmonary follow up. Impression This is a 63-year-old female with- PMFSH - Date/Time Seen 12/11/23 20:06 - History of Present Illness Patient is a 63-year-old female with diagnosis of- 1. 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 Clinical stage IIB (T1b N1 M0) non-small cell lung cancer (squamous cell carcinoma) in the superior segment of the left lower lobe bronchus with an endobronchial component and involving an adjacent hilar lymph node. Patient completed a course of SBRT between 09/03/2019 and 09/19/2019. Patient was last seen by Dr. Fairbanks on 08/19/2019. She was then following with her auto electrical technician Dr. Natali Landrum. Patient was followed with PET-CT scan by Dr. Landrum. A PET- CT scan done on February 18, 2022 did not show any suspicious findings. Patient then underwent another PET-CT scan on October 17, 2023 which showed left upper lobe collapse with a 4.4 x 3.1 cm left perihilar mass with SUV of 7.8 concerning for either pneumonitis,pneumonia or malignancy. Dr. hicks prescribed oral antibiotic and plan was to repeat a PET-CT scan in December 2023. Patient is now admitted for generalized weakness, productive cough with chest pain. A CT scan chest abdomen and pelvis was done on 12/10/2023 which shows left main bronchus narrowing suspicious for endobronchial lesion. She also has 5 x 3.5 cm fluid density in the left hilum concerning for infiltrate. Patient has been seen by Dr. Villanueva from pulmonary team as inpatient and no urgent bronchoscopy is recommended. Plan is for patient to get IV antibiotic with ceftriaxone and levofloxacin. Oncology is consulted for possible recurrence of non-small cell lung cancer in the left hilum - Medical History Medical History (Last Updated 12/11/23 @ 16:19 by Teagan Villanueva MD) Asthma Atypical atrial flutter Chronic anticoagulation Chronic renal failure (CRF), stage 3a COPD (chronic obstructive pulmonary disease) Diabetes type 2 on insulin High cholesterol History of tobacco abuse Hx of cancer of lung left lung radiation Hypersomnia Hypertension Laryngeal squamous cell carcinoma Lung cancer Morbid obesity with BMI of 45.0-49.9, adult Paroxysmal A-fib Pulmonary embolism Pulmonary hypertension - Surgical History Surgical History (Last Reviewed 12/10/23 @ 16:10 by Danitza Lopez PA-C) H/O endoscopy H/O knee surgery reconstructive surgery H/O sinus surgery H/O: section times 2 History of cholecystectomy History of dilation and curettage History of surgery on lower extremity reconstructive leg surgery History of tubal ligation 11/03/2004 Laparoscopic Tubal Ligation / Novasure Ablation ; Menometrorrhagia S/P tonsillectomy and adenoidectomy - Family History Family History (Last Reviewed 12/10/23 @ 19:18 by Mile Pagan RN) Other Brain cancer maternal aunt Breast cancer Mother Bladder cancer Small cell cancer of the bladder Mother Hypertension - Social History Social History (Last Reviewed 12/10/23 @ 16:10 by Danitza Lopez PA-C) Gender Identity: Gender identity (if verbalized by the patient): Female Alcohol Use: Alcohol intake: former Substance Use: Substance use: never Substance use type: does not use Others: Spiritual care concerns: No Agree to blood products: Yes Living Arrangements: Living arrangements: with family Smoking Status: Smoking status: Former smoker Tobacco type: cigarettes Second hand tobacco smoke exposure: Yes Smoking end date: 08/06/18 Approximate Smoking End Date: 2018 Smoking Pack-years: Smoking packs per day: 2 Smoking cigarettes per day: 40.0 Years smoked: 40 Smoking pack-years: 80.00 Social Determinants of Health: Do You Feel Safe in your Home?: Yes Has the Lack of Transportation Kept You From Medical Appointments or From Getting Medications?: No Within the Past 12 Months, Were You Worried Whether Your Food Would Run Out Before You Got Money to Buy More?: Never True What is Your Housing Situation Today?: I Have Housing Are You Worried That in the Next 2 Months, You May Not Have Your Own Housing to Live In?: No Do You Have Trouble Paying Your Heating Or Electricity Bill?: No Do You Have Trouble Paying For Medicines?: No Are You Currently Unemployed and Looking for Work?: No Highest Level of Education Completed: High School Diploma/GED Do You Have Trouble With Childcare or the Care of a Family Member?: No - Medications Active Medications Generic Name Dose Route Start Last Admin Trade Name Freq PRN Reason Stop Dose Admin Acetaminophen 650 mg 11/03/24 18:49 12/11/23 18:59 Acetaminophen 325 Mg Tablet PO 650 mg Q6H PRN Administration Mild Pain (1-3) or Fever Acetaminophen 1,000 mg 12/10/23 21:33 Acetaminophen 500 Mg Tablet PO Q6H PRN Pain, Mild Albuterol 2 puff 12/10/23 21:45 12/11/23 16:08 Albuterol Sulfate (*Sp) Aerosol 1 Puff INHALATION 2 puff QIDRT ALEENA Administration Albuterol/Ipratropium 3 ml 12/10/23 18:57 Ipratropium 0.5 Mg/Albuterol Sulfate 2.5 Mg Ampul.Neb 3 Ml INHALATION Q6HRT PRN Shortness Of Breath Or Wheezing Alprazolam 0.125 mg 12/10/23 19:58 12/10/23 20:44 Alprazolam (*Crx) 0.125 Mg Tablet PO 0.125 mg HS PRN Administration Anxiety Azelastine HCl 1 spray 12/10/23 21:45 12/11/23 17:29 Azelastine Hcl Nasal 0.1% 137 Mcg/Spr 30 Ml Btl NASAL 1 spray BID ALEENA Administration Benzocaine 1 lozenge 12/10/23 18:49 Benzocaine/Menthol (*Bkc) 18 Ea Lozenge PO PRN PRN Sore Throat Budesonide 0.5 mg 12/11/23 20:00 Budesonide Respule Neb 0.5 Mg/2 Ml Amp INHALATION Q12HRT ALEENA Buspirone HCl 5 mg 12/10/23 21:35 12/11/23 10:32 Buspirone Hcl 5 Mg Tablet PO 5 mg Q12HR ALEENA Administration Dextrose 12.5 gm 12/10/23 18:53 Dextrose 50% 25 Gm/50 Ml Syringe IV PUSH PRN PRN Hypoglycemia Protocol Diltiazem HCl 360 mg 12/11/23 09:00 12/11/23 10:34 Diltiazem Hcl Cd 180 Mg Cap.24hr PO 360 mg DAILY ALEENA Administration Diphenhydramine HCl 25 mg 12/10/23 18:58 Diphenhydramine Hcl Inj 50 Mg/Ml Vial IV PUSH ONCE PRN Allergic Reaction Ergocalciferol 50,000 units 12/12/23 09:00 Ergocalciferol 50,000 Units Capsule PO [id number] ALEENA Fish Oil 2 gm 12/10/23 21:35 12/11/23 10:39 [place] 3 Polyunsat Fatty Acids 1 Gm Cap PO 2 gm Q12HR ALEENA Administration Glucagon 1 mg 12/10/23 18:53 Glucagon For Inj 1 Mg Vial IM PRN PRN Hypoglycemia Protocol Glucose 15 gm 12/10/23 18:53 Glucose Oral Gel 15 Gm Of Glucse In 37.5 Gm Tube PO PRN PRN Hypoglycemia Protocol Guaifenesin 600 mg 12/10/23 21:00 12/11/23 10:32 Guaifenesin 12 Hr 600 Mg Tabcr PO 600 mg Q12HR ALEENA Administration Ceftriaxone Sodium 1 gm in 50 mls @ 100 mls/hr 12/10/23 20:00 12/10/23 21:14 Rocephin 1 Gm/Ns 50 Ml IVPB Infused Q24H ALEENA Infusion Levofloxacin/Dextrose 750 mg in 150 mls @ 100 mls/hr 12/11/23 18:00 12/11/23 19:05 Levaquin 750 Mg/D5w 150 Ml IVPB Infused Q24H ALEENA Infusion Dextrose 1,000 mls @ 100 mls/hr 12/10/23 18:53 Dextrose 5% 1,000 Ml IVPB PRN PRN Hypoglycemia Protocol Insulin Aspart 4 - 8 units 12/11/23 08:00 12/11/23 17:25 Insulin Aspart (*Bkc) 100 Units/Ml SUB-Q 4 units TIDWM ALEENA Administration Protocol Insulin Aspart 10 units 12/11/23 12:00 12/11/23 17:33 Insulin Aspart (*Bkc) 100 Units/Ml 0.067 units/kg (10 units) Not Given SUB-Q TIDWM ALEENA Insulin Glargine 80 units 12/10/23 21:50 12/10/23 22:18 Insulin Glargine (*Bkc) 100 Units/Ml SUB-Q 80 units HS [facility] Administration Loratadine 10 mg 12/10/23 21:46 Loratadine 10 Mg Tablet PO DAILY PRN Sinus Symptoms Metoprolol Tartrate 25 mg 12/10/23 21:55 12/11/23 10:35 Metoprolol Tartrate 25 Mg Tablet PO 25 mg Q12HR ALEENA Administration Multivitamins/Minerals 1 tab 12/11/23 09:00 12/11/23 10:33 Multivitamins /C Lutein (Centrum Silver) Tablet *Bkc PO 1 tab DAILY ALEENA Administration Non-Formulary ( 1 each 12/10/23 22:00 12/11/23 17:30 Methenamine PO 01/09/24 21:59 1 each Hippurate 1 Gram BID ALEENA Administration Oral Tablet) Pantoprazole Sodium 40 mg 12/10/23 21:55 12/10/23 22:17 Pantoprazole 40 Mg Tablet PO 40 mg HS ALEENA Administration Pravastatin Sodium 40 mg 12/11/23 09:00 12/11/23 10:34 Pravastatin Sodium 20 Mg Tablet PO 40 mg DAILY ALEENA Administration Rivaroxaban 20 mg 12/10/23 21:55 12/10/23 22:18 Rivaroxaban 20 Mg Tablet PO 20 mg HS ALEENA Administration - Allergies Allergies Allergy/AdvReac Type Severity Reaction Status Date / Time adhesive tape Allergy Mild RASH Verified 11/23/23 10:39 coconut Allergy Mild Rash Verified 11/23/23 10:39 Penicillins Allergy Mild HIVES Verified 11/23/23 10:39 tomato Allergy Mild Rash Verified 11/23/23 10:39 warfarin Allergy Mild Hives Verified 11/23/23 10:39 codeine AdvReac Mild NAUSEA/VOMI Verified 11/23/23 10:39 TING Review of Systems - Constitutional Reports fatigue, Reports malaise, Reports weakness - Eyes Comments: Normal - ENT Comments: Normal - Cardiovascular Reports foot swelling, Reports leg pain with activity, Reports leg swelling, Reports shortness of breath - Respiratory Reports chest congestion, Reports cough, Reports pain with cough, Reports dyspnea - Gastrointestinal Comments: No abdominal pain, nausea, vomiting, diarrhea - Musculoskeletal Comments: Not able to ambulate on her own. She uses walker and needs assistance when transferring from bed to chair or ambulation - Neurologic Reports disequilibrium, Reports weakness Exam - Vital Signs Vital Signs - 24 hr 12/10/23 22:18 12/11/23 04:54 12/11/23 08:08 Temperature 36.4 C Pulse Rate 102 H 100 Respiratory Rate 16 Blood Pressure 148/70 H Pulse Oximetry 95 93 Oxygen Delivery Room Air 12/11/23 08:08 12/11/23 10:23 12/11/23 10:35 Temperature 36.3 C L Pulse Rate 67 88 88 Respiratory Rate 20 18 Blood Pressure 120/89 Pulse Oximetry 96 Oxygen Delivery 12/11/23 10:32 12/11/23 12:07 12/11/23 12:39 Temperature Pulse Rate Respiratory Rate Blood Pressure Pulse Oximetry Oxygen Delivery Room Air Room Air Room Air 12/11/23 13:30 12/11/23 14:00 12/11/23 19:45 Temperature 36.1 C L 36.6 C Pulse Rate 88 92 125 H Respiratory Rate 20 16 20 Blood Pressure 126/58 L 124/92 H Pulse Oximetry 98 95 Oxygen Delivery - Exam HEENT: EOMI, PERRLA Lungs: decrease breath sounds, rhonchi, wheezes Heart: regular rhythm, regular rate Abdomen: abdomen soft, non-distended, normal bowel sounds Extremities: normal pulses, edema Neurological: normal speech, normal muscle tone, generalized weakness Psychological: mood NL - Lab Results Laboratory Last Values WBC 7.4 K/mm3 (4.5-10.0) 12/11/23 06:09 RBC 4.08 M/mm3 (4.2-5.4) L 12/11/23 06:09 Hgb 11.4 g/dL (12.0-15.0) L 12/11/23 06:09 Hct 36.3 % (37.0-47.0) L 12/11/23 06:09 MCV 89.0 fl (80-100) 12/11/23 06:09 MCH 27.9 pg (26-34) 12/11/23 06:09 MCHC 31.4 g/dl (32-36) L 12/11/23 06:09 RDW 16.7 % (11.5-14.5) H 12/11/23 06:09 Plt Count 212 k/mm3 (150-375) 12/11/23 06:09 MPV 10.2 fl (7.4-10.4) 12/11/23 06:09 Immature Gran % (Auto) 0.3 % (0-0.5) 12/11/23 06:09 Neut % (Auto) 71.4 % (45.5-73.1) 12/11/23 06:09 Lymph % (Auto) 19.8 % (18.3-44.2) 12/11/23 06:09 [place] % (Auto) 6.7 % (2.6-8.5) 12/11/23 06:09 Eos % (Auto) 1.5 % (0-4.4) 12/11/23 06:09 Baso % (Auto) 0.3 % (0.2-1.2) 12/11/23 06:09 Lymph # (Auto) 1.46 K/mm3 (0.9-3.2) 12/11/23 06:09 [place] # (Auto) 0.5 K/mm3 (0.1-0.6) 12/11/23 06:09 Eos # (Auto) 0.1 K/mm3 (0-0.3) 12/11/23 06:09 Baso # (Auto) 0.0 K/mm3 (0.0-0.1) 12/11/23 06:09 Abs Immat Gran (auto) 0.02 K/mm3 (0.00-0.031) 12/11/23 06:09 Absolute Neuts (auto) 5.3 K/mm3 (1.3-6.7) 12/11/23 06:09 Absolute Nucleated RBC 0.000 K/mm3 (0.0-0.012) 12/11/23 06:09 Nucleated RBC % 0.0 % (0.0-0.2) 12/11/23 06:09 Sodium 135 mmol/L (137-145) L 12/11/23 06:09 Potassium 3.7 mmol/L (3.4-5.0) 12/11/23 06:09 Chloride 99 mmol/L (98-107) 12/11/23 06:09 Carbon Dioxide 29 mmol/L (22-30) 12/11/23 06:09 Anion Gap 7 mmol/L (4-12) 12/11/23 06:09 BUN 13 mg/dL (7-17) 12/11/23 06:09 Creatinine 1.10 mg/dL (0.7-1.0) H 12/11/23 06:09 Estim Creat Clear Calc 68 ml/min 12/11/23 06:09 Estimated GFR 50 (59-) L 12/11/23 06:09 Glucose 166 mg/dL (65-110) H 12/11/23 06:09 POC Capillary Glucose 223 mg/dl (65-105) H 12/11/23 17:03 Hemoglobin A1c 7.3 % (<5.7) H 12/11/23 06:09 Calcium 9.0 mg/dL (8.4-10.2) 12/11/23 06:09 Total Bilirubin 1.4 mg/dL (0.2-1.3) H 12/11/23 06:09 AST 34 U/L (14-36) 12/11/23 06:09 ALT 30 U/L (6-35) 12/11/23 06:09 Alkaline Phosphatase 132 U/L (38-126) H 12/11/23 06:09 Total Protein 7.0 g/dL (6.3-8.2) 12/11/23 06:09 Albumin 3.4 g/dL (3.5-5.1) L 12/11/23 06:09 Urine Color Yellow (Yellow) 12/10/23 16:16 Urine Appearance Cloudy (Clear) H 12/10/23 16:16 Urine pH 7.5 (5.0-9.0) 12/10/23 16:16 Ur Specific [place] 1.014 (1.001-1.035) 12/10/23 16:16 Urine Protein Negative mg/dL (Negative) 12/10/23 16:16 Urine Glucose (UA) Negative mg/dL (Negative) 12/10/23 16:16 Urine Ketones Negative mg/dL (Negative) 12/10/23 16:16 Ur Blood (Man) 2+ (Negative) H 12/10/23 16:16 Urine Nitrate Positive (Negative) H 12/10/23 16:16 Urine Bilirubin Negative (Negative) 12/10/23 16:16 Urine Urobilinogen 0.2 mg/dL (<2.0) 12/10/23 16:16 Leukocyte Esterase Rfl 2+ LARISA/UL (Negative) H 12/10/23 16:16 Urine RBC 21-50 /hpf (0-2) H 12/10/23 16:16 Urine WBC 51-100 /hpf (0-3) H 12/10/23 16:16 Ur Squamous Epith Cells Few /hpf (Few) 12/10/23 16:16 Urine Bacteria 4+ /hpf 12/10/23 16:16 Urine Casts 0-2 12/10/23 16:16 Influenza A (RT-PCR) Negative (Negative) 12/10/23 17:11 Influenza B (RT-PCR) Negative (Negative) 12/10/23 17:11 RSV (RT-PCR) Negative (Negative) 12/10/23 17:11 SARS-CoV-2 RNA (RT-PCR) Negative (Negative) 12/10/23 17:11
[2023-12-11] MEDS: INSULIN GLARGINE (*BKC) 100 UNITS/ML 80 UNITS SUB-Q (20:08)
[2023-12-11] MEDS: ALPRAZolam (*CRX) 0.125 MG TABLET PO (20:16)
[2023-12-11] MEDS: PANTOPRAZOLE 40 MG TABLET PO (20:17)
[2023-12-11] MEDS: RIVAROXABAN 20 MG TABLET PO (20:17)
[2023-12-11] MEDS: BUDESONIDE RESPULE NEB 0.5 MG/2 ML AMP INHALATION (21:53)
[2023-12-12] VITALS (12 sets, daily range): BP systolic 110–121; BP diastolic 48–65; PULSE 72–89; RESP 18–20; TEMP 36.2–36.7; O2SAT 93–97
[2023-12-12 00:11] LABS: Glucose Point of Care 321 mg/dl (65-105)
[2023-12-12] MEDS: BUDESONIDE RESPULE NEB 0.5 MG/2 ML AMP INHALATION ×2 (08:06→20:08)
[2023-12-12] MEDS: ALBUTEROL SULFATE (*SP) AEROSOL 1 PUFF 2 PUFF INHALATION ×4 (08:06→20:08)
[2023-12-12 08:11] LABS: Glucose Point of Care 239 mg/dl (65-105)
--- NOTE | 2023-12-12 08:32 | PM.IMPN ---
Progress Note: A&P Assessment and Plan (1) Abnormal chest CT: Code(s): R93.89 - Abnormal findings on diagnostic imaging of other specified body structures Status: Acute Assessment and Plan: Hx of lung cancer, laryngeal squamous cell carcinoma s/p radiation in 2019. Recent dx of bladder cancer showing low-grade papillary urothelial carcinoma, noninvasive s/p TURBT and chemo in bladder. - Patient had outpatient PET scan ordered, had not been scheduled - CXR: Opacification of the left upper hemithorax, volume loss of the left lung; left upper lobe atelectasis and consolidation vs obstructing endobronchial lesion Approximately 3.2 cm mass density, superior segment left lower lobe. Bronchogenic carcinoma must be considered. - CT chest/abdomen/pelvis: Resected or occluded left upper lobe bronchus; recommend correlation with any surgical history. The left mainstem bronchus, nearly occluded distally, with narrowing of the left lower lobe bronchi as well 3.5 x 3.5 cm encapsulated fluid collection along the inferolateral aspect of the left hilum, with surrounding infiltrate Enlarged left superior mediastinal and prevascular lymph nodes; metastasis is not excluded. (Consider PET/CT imaging for further evaluation.) Status post cholecystectomy Pancreatic atrophy Diverticulosis of the colon; no evidence of diverticulitis - oncology consulted Plan is for patient to get IV antibiotic with ceftriaxone and levofloxacin and transition to oral as outpatient. She will then need to follow up with her loader magazine grinder Dr. Landrum,as outpatient, to assess need for a repeat PET/CT scan. If this is a recurrence of left lung cancer, patient has a poor performance status and doubt that she would be able to tolerate conventional chemotherapy. Any decision for systemic treatment has to be made after biopsy proven recurrence. If she ends up getting biopsy, the specimen should be sent for next generation sequencing to identify any targetable mutation for oral therapies. She will then need to follow up with her loader magazine grinder Dr. Landrum,as outpatient, to assess need for a repeat PET/CT scan. - pulmonology consulted This is acute on chronic, as she had a chest CT Sept 3 at [facility] showing similar findings with obstruction of the bronchus to the RAMYA and an area of atelectasis in the LLL. There is not an indication to perform bronchoscopy. All the findings are chronic. 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 (2) Pneumonia: Qualifiers: Laterality: left Lung location: unspecified part of lung Pneumonia type: due to unspecified organism Qualified Code(s): J18.9 - Pneumonia, unspecified organism Code(s): J18.9 - Pneumonia, unspecified organism Status: Acute Assessment and Plan: - did not meet SIRS criteria, HR only. Blood cultures obtained in ED, follow. - risk factors and complicating factors: suspected recurrent lung cancer, COPD - CXR: Opacification of the left upper hemithorax, volume loss of the left lung; left upper lobe atelectasis and consolidation vs obstructing endobronchial lesion Approximately 3.2 cm mass density, superior segment left lower lobe. Bronchogenic carcinoma must be considered. - CT chest/abdomen/pelvis: Resected or occluded left upper lobe bronchus; recommend correlation with any surgical history. The left mainstem bronchus, nearly occluded distally, with narrowing of the left lower lobe bronchi as well 3.5 x 3.5 cm encapsulated fluid collection along the inferolateral aspect of the left hilum, with surrounding infiltrate Enlarged left superior mediastinal and prevascular lymph nodes; metastasis is not excluded. (Consider PET/CT imaging for further evaluation.) Status post cholecystectomy Pancreatic atrophy Diverticulosis of the colon; no evidence of diverticulitis - started on Levaquin on 12/09 - MRSA PCR negative - Sputum culture ordered - Viral PCR negative - no supplemental O2 requirement - supportive care - Pulmonology consulted Increased pulmonary hygiene using vibratory valve and mucolytics. This may help clear some sputum, and this can be tested. Positional therapy with efforts to keep her off the left side which has atelectasis and collapse. (3) Acute UTI: Code(s): N39.0 - Urinary tract infection, site not specified Status: Acute Assessment and Plan: - UA: cloudy, 2+ blood, positive nitrates, 2+ leuks, 21-50 RBC, 51-100 WBC - UC obtained on 12/09: Ecoli - sensitivities pending - previous micro reviewed 10/05/23: E coli resistant to Cipro and Levaquin. 03/12/22: Ecoli resistant to Cipro and Levaquin. - started on Levaquin on 12/09, given most recent micro started on ceftriaxone on 12/09 - antipyretics p.r.n. (4) COPD (chronic obstructive pulmonary disease): Qualifiers: COPD type: unspecified COPD Qualified Code(s): J44.9 - Chronic obstructive pulmonary disease, unspecified Code(s): J44.9 - Chronic obstructive pulmonary disease, unspecified Status: Acute Assessment and Plan: Chronic. - Per pulmonology recommendations COPD management; at home, uses Anoro as her only bronchodilator. I will expand the treatment to triple meds and give by nebulizer which may be more effective. She has functionally one lung, only the right lung is working as the left has the left hilar mass and chronic RAMYA collapse. (5) Bladder mass: Code(s): N32.89 - Other specified disorders of bladder Status: Acute Assessment and Plan: - CT abd/pelvis, previous (09/29/23): 1. Mass in left lung lower lobe that is contiguous with the hilum, consistent with primary bronchogenic carcinoma and/or post-obstructive pneumonia. 2. 17 mm mass in the left posterior bladder, consistent with malignancy versus hematoma. 3. Borderline enlarged periceliac lymph node, which is indeterminate for metastatic disease. - underwent a TURBT on 11/23/23. pathology showed low-grade papillary urothelial carcinoma, noninvasive. 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 Continue Tresiba 80 units HS. - correct regimen ordered - high dose TIDWM, based off BMI, 15 units lispro TID and 80 units lantus HS - A1C 7.3 (7) Stage 3a chronic kidney disease: Code(s): N18.31 - Chronic kidney disease, stage 3a Status: Chronic Assessment and Plan: - creatinine 1.0 and GFR 56, previously 1.2 and GFR 45 on 10/05/2023 - trend renal function - trend electrolytes, correct as needed (8) Hypertension: Qualifiers: Hypertension type: unspecified Qualified Code(s): I10 - Essential (primary) hypertension Code(s): I10 - Essential (primary) hypertension Status: Chronic Assessment and Plan: Chronic, continue home medications - metoprolol 25 mg b.i.d. - diltiazem 360 ER daily - monitor Plan Diet: diabetic GI Prophylaxis: not currently indicated DVT Prophylaxis: continue home Xarelto Lines: peripheral Code Status: full code Time Spent With Patient Time with patient: 25 - 35 minutes Subjective Date/time seen: 12/12/23 08:32 Interval history: 63 y/o female with past medical history of asthma, CKD, COPD, diabetes, HLD, former smoker, lung cancer, laryngeal squamous cell carcinoma s/p radiation in 2019. Recent dx of bladder cancer showing low-grade papillary urothelial carcinoma, noninvasive s/p TURBT and chemo in bladder, paroxysmal AFib, PE, and pulmonary hypertension presents to the hospital for weakness, cough and hematuria. Patient is pleasant lying comfortably in bed. she states that she is feeling better than yesterday. she continues to endorse slight shortness of breath. She remains on Rocephin and Levaquin this time Pneumonia and urinary tract infection treatment. She dysuria, hematuria, sensation. Urine cultures growing E coli with sensitivities pending. Patient was evaluated by pulmonology is in agreement with the current IV antibiotics for the pneumonia. Also evaluated by Oncology who was in discussion with patient's loader magazine grinder and knows that patient is to follow-up with her loader magazine grinder in the outpatient setting for a repeat PET scan. Review of Systems Review of Systems: All systems reviewed & are unremarkable except as noted in HPI and below Exam Narrative: AF HR 87 RR 20 SpO2 95 BP 118/65 General: obese female in no acute respiratory distress who is nontoxic appearing, lying semi recumbent in bed. HEENT: Normocephalic. Atraumatic. Extraocular movement intact. Sclera clear and anicteric. No facial asymmetry. Chest: Lungs are diminished to auscultation with minimal air movement to the left lung. No wheezes. CV: Heart was regular rate and rhythm. S1-S2. No murmurs, gallops, or rubs. Abd: Abdomen was soft. Nontender. Nondistended. Positive bowel sounds. No organomegaly or masses. Ext: No clubbing, cyanosis, or edema. 2+ DP pulses bilaterally. Neuro: Patient is alert and oriented x4. Speech is clear. Objective Data Vital Signs Vital Signs: Vital Signs - 24 hr 12/11/23 10:23 12/11/23 10:35 12/11/23 10:32 Temperature 97.4 F L Pulse Rate 88 88 Respiratory Rate 18 Blood Pressure 120/89 Pulse Oximetry 96 Oxygen Delivery Room Air 12/11/23 12:07 12/11/23 12:39 12/11/23 13:30 Temperature Pulse Rate 88 Respiratory Rate 20 Blood Pressure Pulse Oximetry Oxygen Delivery Room Air Room Air 12/11/23 14:00 12/11/23 19:45 12/11/23 20:16 Temperature 97 F L 97.8 F Pulse Rate 92 125 H 125 H Respiratory Rate 16 20 Blood Pressure 126/58 L 124/92 H Pulse Oximetry 98 95 Oxygen Delivery 12/11/23 20:00 12/11/23 21:54 12/12/23 04:46 Temperature 97.2 F L Pulse Rate 77 87 Respiratory Rate 20 20 Blood Pressure 118/65 Pulse Oximetry 95 Oxygen Delivery Room Air 12/12/23 08:10 12/12/23 08:10 12/12/23 08:13 Temperature Pulse Rate 89 85 Respiratory Rate 20 20 Blood Pressure Pulse Oximetry 93 Oxygen Delivery Room Air Intake/Output Intake/Output: Intake & Output 12/10/23 12/10/23 12/11/23 12/12/23 00:59 23:59 23:59 23:59 Intake Total 2070 240 Output Total 1150 300 Balance 920 -60 Meds/Results Medications: Active Medications Generic Name Dose Route Start Last Admin Trade Name Freq PRN Reason Stop Dose Admin Acetaminophen 650 mg 12/10/23 18:49 12/11/23 18:59 Acetaminophen 325 Mg Tablet PO 650 mg Q6H PRN Administration Mild Pain (1-3) or Fever Acetaminophen 1,000 mg 12/10/23 21:33 Acetaminophen 500 Mg Tablet PO Q6H PRN Pain, Mild Albuterol 2 puff 12/10/23 21:45 12/12/23 08:06 Albuterol Sulfate (*Sp) Aerosol 1 Puff INHALATION 2 puff QIDRT ALEENA Administration Albuterol/Ipratropium 3 ml 12/10/23 18:57 Ipratropium 0.5 Mg/Albuterol Sulfate 2.5 Mg Ampul.Neb 3 Ml INHALATION Q6HRT PRN Shortness Of Breath Or Wheezing Alprazolam 0.125 mg 12/10/23 19:58 12/11/23 20:16 Alprazolam (*Crx) 0.125 Mg Tablet PO 0.125 mg HS PRN Administration Anxiety Azelastine HCl 1 spray 12/10/23 21:45 12/11/23 17:29 Azelastine Hcl Nasal 0.1% 137 Mcg/Spr 30 Ml Btl NASAL 1 spray BID ALEENA Administration Benzocaine 1 lozenge 12/10/23 18:49 Benzocaine/Menthol (*Bkc) 18 Ea Lozenge PO PRN PRN Sore Throat Budesonide 0.5 mg 12/11/23 20:00 12/12/23 08:06 Budesonide Respule Neb 0.5 Mg/2 Ml Amp INHALATION 0.5 mg Q12HRT ALEENA Administration Buspirone HCl 5 mg 12/10/23 21:35 12/11/23 20:16 Buspirone Hcl 5 Mg Tablet PO 5 mg Q12HR ALEENA Administration Dextrose 12.5 gm 12/10/23 18:53 Dextrose 50% 25 Gm/50 Ml Syringe IV PUSH PRN PRN Hypoglycemia Protocol Diltiazem HCl 360 mg 12/11/23 09:00 12/11/23 10:34 Diltiazem Hcl Cd 180 Mg Cap.24hr PO 360 mg DAILY ALEENA Administration Diphenhydramine HCl 25 mg 12/10/23 18:58 Diphenhydramine Hcl Inj 50 Mg/Ml Vial IV PUSH ONCE PRN Allergic Reaction Ergocalciferol 50,000 units 12/12/23 09:00 Ergocalciferol 50,000 Units Capsule PO TuFr@0900 ALEENA Fish Oil 2 gm 12/10/23 21:35 12/11/23 20:16 [place] 3 Polyunsat Fatty Acids 1 Gm Cap PO 2 gm Q12HR ALEENA Administration Glucagon 1 mg 12/10/23 18:53 Glucagon For Inj 1 Mg Vial IM PRN PRN Hypoglycemia Protocol Glucose 15 gm 12/10/23 18:53 Glucose Oral Gel 15 Gm Of Glucse In 37.5 Gm Tube PO PRN PRN Hypoglycemia Protocol Guaifenesin 600 mg 12/10/23 21:00 12/11/23 20:16 Guaifenesin 12 Hr 600 Mg Tabcr PO 600 mg Q12HR ALEENA Administration Ceftriaxone Sodium 1 gm in 50 mls @ 100 mls/hr 12/10/23 20:00 12/11/23 20:47 Rocephin 1 Gm/Ns 50 Ml IVPB Infused Q24H ALEENA Infusion Levofloxacin/Dextrose 750 mg in 150 mls @ 100 mls/hr 12/11/23 18:00 12/11/23 19:05 Levaquin 750 Mg/D5w 150 Ml IVPB Infused Q24H ALEENA Infusion Dextrose 1,000 mls @ 100 mls/hr 12/10/23 18:53 Dextrose 5% 1,000 Ml IVPB PRN PRN Hypoglycemia Protocol Insulin Aspart 4 - 8 units 12/11/23 08:00 12/11/23 17:25 Insulin Aspart (*Bkc) 100 Units/Ml SUB-Q 4 units TIDWM ALEENA Administration Protocol Insulin Aspart 10 units 12/11/23 12:00 12/11/23 17:33 Insulin Aspart (*Bkc) 100 Units/Ml 0.067 units/kg (10 units) Not Given SUB-Q TIDWM ALEENA Insulin Glargine 80 units 12/10/23 21:50 12/11/23 20:08 Insulin Glargine (*Bkc) 100 Units/Ml SUB-Q 80 units HS ALEENA Administration Loratadine 10 mg 12/10/23 21:46 Loratadine 10 Mg Tablet PO DAILY PRN Sinus Symptoms Metoprolol Tartrate 25 mg 12/10/23 21:55 12/11/23 20:16 Metoprolol Tartrate 25 Mg Tablet PO 25 mg Q12HR ALEENA Administration Multivitamins/Minerals 1 tab 12/11/23 09:00 12/11/23 10:33 Multivitamins /C Lutein (Centrum Silver) Tablet *Bkc PO 1 tab DAILY ALEENA Administration Non-Formulary ( 1 each 12/10/23 22:00 12/11/23 17:30 Methenamine PO 01/09/24 21:59 1 each Hippurate 1 Gram BID ALEENA Administration Oral Tablet) Pantoprazole Sodium 40 mg 12/10/23 21:55 12/11/23 20:17 Pantoprazole 40 Mg Tablet PO 40 mg HS ALEENA Administration Pravastatin Sodium 40 mg 12/11/23 09:00 12/11/23 10:34 Pravastatin Sodium 20 Mg Tablet PO 40 mg DAILY ALEENA Administration Rivaroxaban 20 mg 12/10/23 21:55 12/11/23 20:17 Rivaroxaban 20 Mg Tablet PO 20 mg HS ALEENA Administration Radiology Results: ITS Impressions Chest X-Ray 12/10/23 15:23 IMPRESSION: Opacification of the left upper hemithorax, volume loss of the left lung; the findings suggest left upper lobe atelectasis and consolidation similar obstructing endobronchial lesion must be considered. Approximately 3.2 cm mass density, superior segment left lower lobe. Bronchogenic carcinoma must be considered. Chest/Abdomen/Pelvis CT 12/10/23 17:00 IMPRESSION: Resected or occluded left upper lobe bronchus; recommend correlation with any surgical history. The left mainstem bronchus, nearly occluded distally, with narrowing of the left lower lobe bronchi as well 3.5 x 3.5 cm encapsulated fluid collection along the inferolateral aspect of the left hilum, with surrounding infiltrate Enlarged left superior mediastinal and prevascular lymph nodes; metastasis is not excluded. Consider PET/CT imaging for further evaluation. Status post cholecystectomy Pancreatic atrophy Diverticulosis of the colon; no evidence of diverticulitis Labs Labs: Laboratory Results - last 24 hr 12/11/23 12/11/23 12/11/23 11:40 17:03 19:44 POC Capillary Glucose 202 H 223 H 321 H 12/12/23 08:05 POC Capillary Glucose 239 H Quality VTE Prophylaxis VTE prophylaxis: pharmacologic ordered
[2023-12-12 08:57] LABS: Basophils Percent Auto 0.4 % (0.2-1.2); Eosinophils Absolute Auto 0.2 K/mm3 (0-0.3); Eosinophils Percent Auto 2.8 % (0-4.4); Hematocrit 34.9 % (37.0-47.0); Hemoglobin 10.8 g/dL (12.0-15.0); Immature Granulocyte Absolute 0.02 K/mm3 (0.00-0.031); Immature Granulocyte Percent A 0.4 % (0-0.5); Lymphocytes Absolute Auto 1.03 K/mm3 (0.9-3.2); Lymphocytes Percent Auto 19.2 % (18.3-44.2); Mean Corpuscular HGB Conc 30.9 g/dl (32-36); Mean Corpuscular Hemoglobin 27.7 pg (26-34); Mean Corpuscular Volume 89.5 fl (80-100); Mean Platelet Volume 9.5 fl (7.4-10.4); Monocytes Absolute Auto 0.5 K/mm3 (0.1-0.6); Monocytes Percent Auto 8.8 % (2.6-8.5); Neutrophils Absolute Auto 3.7 K/mm3 (1.3-6.7); Neutrophils Percent Auto 68.4 % (45.5-73.1); Platelet Count Result 228 k/mm3 (150-375); Red Cell Distribution Width 16.8 % (11.5-14.5); White Blood Count 5.4 K/mm3 (4.5-10.0)
[2023-12-12 09:09] LABS: Alanine Aminotransferase 36 U/L (6-35); Albumin Level 3.5 g/dL (3.5-5.1); Alkaline Phosphatase 128 U/L (38-126); Anion Gap 8 mmol/L (4-12); Aspartate Amino Transferase 44 U/L (14-36); Blood Urea Nitrogen 17 mg/dL (7-17); Calcium 8.8 mg/dL (8.4-10.2); Carbon Dioxide 28 mmol/L (22-30); Chloride 99 mmol/L (98-107); Estimated CRCL calculation 68 ml/min; Estimated Glomerular Filt Rate 50; Glucose 234 mg/dL (65-110); Potassium 3.9 mmol/L (3.4-5.0); Sodium 135 mmol/L (137-145)
[2023-12-12] MEDS: busPIRone HCL 5 MG TABLET PO ×2 (09:13→19:56)
[2023-12-12] MEDS: METOPROLOL TARTRATE 25 MG TABLET PO ×2 (09:13→19:56)
[2023-12-12] MEDS: dilTIAZem HCL CD 180 MG CAP.24HR 360 MG PO (09:17)
[2023-12-12] MEDS: PRAVASTATIN SODIUM 20 MG TABLET 40 MG PO (09:18)
[2023-12-12] MEDS: OMEGA 3 POLYUNSAT FATTY ACIDS 1 GM CAP 2 GM PO ×2 (09:18→19:56)
[2023-12-12] MEDS: guaiFENesin 12 HR 600 MG TABCR PO ×2 (09:18→19:56)
[2023-12-12] MEDS: MULTIVITAMINS /C LUTEIN (CENTRUM SILVER) TABLET *BKC 1 TAB PO (09:18)
[2023-12-12] MEDS: Non-Formulary (methenamine hippurate 1 gram ORAL tablet) 1 EACH PO ×2 (09:19→17:02)
[2023-12-12] MEDS: ERGOCALCIFEROL 50,000 UNITS CAPSULE 50000 UNITS PO (09:23)
[2023-12-12] MEDS: INSULIN ASPART (*BKC) 100 UNITS/ML SUB-Q ×3 (09:24→17:03)
[2023-12-12] MEDS: ACETAMINOPHEN 325 MG TABLET 650 MG PO (10:34)
[2023-12-12 12:38] LABS: Glucose Point of Care 343 mg/dl (65-105)
[2023-12-12] MEDS: INSULIN ASPART (*BKC) 100 UNITS/ML 15 UNITS SUB-Q ×2 (12:51→17:02)
[2023-12-12 16:54] LABS: Glucose Point of Care 215 mg/dl (65-105)
[2023-12-12] MEDS: ACETAMINOPHEN 500 MG TABLET 1000 MG PO (17:00)
[2023-12-12] MEDS: levoFLOXacin 750 MG TABLET PO (17:01)
[2023-12-12] MEDS: RIVAROXABAN 20 MG TABLET PO (19:56)
[2023-12-12] MEDS: PANTOPRAZOLE 40 MG TABLET PO (19:57)
[2023-12-12] MEDS: INSULIN GLARGINE (*BKC) 100 UNITS/ML 80 UNITS SUB-Q (20:04)
--- NOTE | 2023-12-12 20:20 | PCRCNOTE ---
RT instructed patient how to use coronet and how often. Coronet in room, but not by bedside and had not been taught.
[2023-12-12 20:42] LABS: Glucose Point of Care 240 mg/dl (65-105)
[2023-12-13 05:04] LABS: Basophils Percent Auto 0.6 % (0.2-1.2); Eosinophils Absolute Auto 0.2 K/mm3 (0-0.3); Hemoglobin 10.7 g/dL (12.0-15.0); Immature Granulocyte Absolute 0.02 K/mm3 (0.00-0.031); Immature Granulocyte Percent A 0.6 % (0-0.5); Mean Corpuscular HGB Conc 31.5 g/dl (32-36); Mean Corpuscular Hemoglobin 28.4 pg (26-34); Mean Corpuscular Volume 90.2 fl (80-100); Mean Platelet Volume 10.3 fl (7.4-10.4); Monocytes Absolute Auto 0.3 K/mm3 (0.1-0.6); Monocytes Percent Auto 8.3 % (2.6-8.5); Neutrophils Absolute Auto 2.3 K/mm3 (1.3-6.7); Neutrophils Percent Auto 64.5 % (45.5-73.1); Platelet Count Result 243 k/mm3 (150-375); Red Blood Count 3.77 M/mm3 (4.2-5.4); Red Cell Distribution Width 16.9 % (11.5-14.5); White Blood Count 3.5 K/mm3 (4.5-10.0)
[2023-12-13 05:13] LABS: Alanine Aminotransferase 44 U/L (6-35); Albumin Level 3.4 g/dL (3.5-5.1); Alkaline Phosphatase 116 U/L (38-126); Anion Gap 8 mmol/L (4-12); Aspartate Amino Transferase 62 U/L (14-36); Bilirubin,Total 0.6 mg/dL (0.2-1.3); Blood Urea Nitrogen 18 mg/dL (7-17); Calcium 8.7 mg/dL (8.4-10.2); Carbon Dioxide 28 mmol/L (22-30); Chloride 102 mmol/L (98-107); Estimated CRCL calculation 75 ml/min; Estimated Glomerular Filt Rate 56; Glucose 139 mg/dL (65-110); Potassium 3.7 mmol/L (3.4-5.0); Sodium 138 mmol/L (137-145)
[2023-12-13 05:26] VITALS: BP 104/48; PULSE 75; RESP 20; TEMP 36.7; O2SAT 98
[2023-12-13] MEDS: BUDESONIDE RESPULE NEB 0.5 MG/2 ML AMP INHALATION (07:41)
[2023-12-13] MEDS: ALBUTEROL SULFATE (*SP) AEROSOL 1 PUFF 2 PUFF INHALATION ×3 (07:42→14:39)
[2023-12-13 07:43] VITALS: PULSE 74; RESP 20
[2023-12-13 07:44] VITALS: O2SAT 93
[2023-12-13 07:50] VITALS: PULSE 68; RESP 20
[2023-12-13 08:40] LABS: Glucose Point of Care 176 mg/dl (65-105)
[2023-12-13] MEDS: OMEGA 3 POLYUNSAT FATTY ACIDS 1 GM CAP 2 GM PO (09:30)
[2023-12-13 09:31] VITALS: PULSE 80
[2023-12-13] MEDS: dilTIAZem HCL CD 180 MG CAP.24HR 360 MG PO (09:31)
[2023-12-13] MEDS: METOPROLOL TARTRATE 25 MG TABLET PO (09:31)
[2023-12-13] MEDS: guaiFENesin 12 HR 600 MG TABCR PO (09:31)
[2023-12-13] MEDS: MULTIVITAMINS /C LUTEIN (CENTRUM SILVER) TABLET *BKC 1 TAB PO (09:31)
[2023-12-13] MEDS: PRAVASTATIN SODIUM 20 MG TABLET 40 MG PO (09:31)
[2023-12-13] MEDS: busPIRone HCL 5 MG TABLET PO (09:31)
[2023-12-13] MEDS: AZELASTINE HCL NASAL 0.1% 137 MCG/SPR 30 ML BTL 1 SPRAY NASAL (09:32)
[2023-12-13] MEDS: Non-Formulary (methenamine hippurate 1 gram ORAL tablet) 1 EACH PO (09:33)
[2023-12-13] MEDS: INSULIN ASPART (*BKC) 100 UNITS/ML 15 UNITS SUB-Q ×2 (09:35→13:00)
--- NOTE | 2023-12-13 10:00 | PM.IMPN ---
Subjective Date/time seen: 12/13/23 10:00 Review of Systems Review of Systems: All systems reviewed & are unremarkable except as noted in HPI and below Objective Data Vital Signs Vital Signs: Vital Signs - 24 hr 12/12/23 12:24 12/12/23 15:04 12/12/23 16:47 Temperature 97.7 F Pulse Rate 80 77 72 Respiratory Rate 18 20 18 Blood Pressure 110/51 L Pulse Oximetry 97 Oxygen Delivery 12/12/23 19:35 12/12/23 20:08 12/12/23 20:12 Temperature 98.0 F Pulse Rate 74 72 72 Respiratory Rate 20 20 Blood Pressure 121/48 L Pulse Oximetry 97 96 Oxygen Delivery Room Air 12/12/23 20:19 12/12/23 20:00 12/13/23 05:26 Temperature 98.0 F Pulse Rate 74 74 75 Respiratory Rate 20 20 20 Blood Pressure 104/48 L Pulse Oximetry 96 98 Oxygen Delivery Room Air 12/13/23 07:43 12/13/23 07:44 12/13/23 07:50 Temperature Pulse Rate 74 68 Respiratory Rate 20 20 Blood Pressure Pulse Oximetry 93 Oxygen Delivery Room Air 12/13/23 09:31 Temperature Pulse Rate 80 Respiratory Rate Blood Pressure Pulse Oximetry Oxygen Delivery Intake/Output Intake/Output: Intake & Output 12/10/23 12/11/23 12/12/23 12/13/23 23:59 23:59 23:59 23:59 Intake Total 2070 1240 290 Output Total 1150 300 300 Balance 920 940 -10 Meds/Results Medications: Active Medications Generic Name Dose Route Start Last Admin Trade Name Freq PRN Reason Stop Dose Admin Acetaminophen 650 mg 12/10/23 18:49 12/12/23 10:34 Acetaminophen 325 Mg Tablet PO 650 mg Q6H PRN Administration Mild Pain (1-3) or Fever Acetaminophen 1,000 mg 12/10/23 21:33 12/12/23 17:00 Acetaminophen 500 Mg Tablet PO 1,000 mg Q6H PRN Administration Pain, Mild Albuterol 2 puff 12/10/23 21:45 12/13/23 07:42 Albuterol Sulfate (*Sp) Aerosol 1 Puff INHALATION 2 puff QIDRT ALEENA Administration Albuterol/Ipratropium 3 ml 12/10/23 18:57 Ipratropium 0.5 Mg/Albuterol Sulfate 2.5 Mg Ampul.Neb 3 Ml INHALATION Q6HRT PRN Shortness Of Breath Or Wheezing Alprazolam 0.125 mg 12/10/23 19:58 12/11/23 20:16 Alprazolam (*Crx) 0.125 Mg Tablet PO 0.125 mg HS PRN Administration Anxiety Azelastine HCl 1 spray 12/10/23 21:45 12/13/23 09:32 Azelastine Hcl Nasal 0.1% 137 Mcg/Spr 30 Ml Btl NASAL 1 spray BID ALEENA Administration Benzocaine 1 lozenge 12/10/23 18:49 Benzocaine/Menthol (*Bkc) 18 Ea Lozenge PO PRN PRN Sore Throat Budesonide 0.5 mg 12/11/23 20:00 12/13/23 07:41 Budesonide Respule Neb 0.5 Mg/2 Ml Amp INHALATION 0.5 mg Q12HRT ALEENA Administration Buspirone HCl 5 mg 12/10/23 21:35 12/13/23 09:31 Buspirone Hcl 5 Mg Tablet PO 5 mg Q12HR ALEENA Administration Dextrose 12.5 gm 12/10/23 18:53 Dextrose 50% 25 Gm/50 Ml Syringe IV PUSH PRN PRN Hypoglycemia Protocol Diltiazem HCl 360 mg 12/11/23 09:00 12/13/23 09:31 Diltiazem Hcl Cd 180 Mg Cap.24hr PO 360 mg DAILY ALEENA Administration Diphenhydramine HCl 25 mg 12/10/23 18:58 Diphenhydramine Hcl Inj 50 Mg/Ml Vial IV PUSH ONCE PRN Allergic Reaction Ergocalciferol 50,000 units 12/12/23 09:00 12/12/23 09:23 Ergocalciferol 50,000 Units Capsule PO 50,000 units TuFr@0900 ALEENA Administration Fish Oil 2 gm 12/10/23 21:35 12/13/23 09:30 [place] 3 Polyunsat Fatty Acids 1 Gm Cap PO 2 gm Q12HR ALEENA Administration Glucagon 1 mg 12/10/23 18:53 Glucagon For Inj 1 Mg Vial IM PRN PRN Hypoglycemia Protocol Glucose 15 gm 12/10/23 18:53 Glucose Oral Gel 15 Gm Of Glucse In 37.5 Gm Tube PO PRN PRN Hypoglycemia Protocol Guaifenesin 600 mg 12/10/23 21:00 12/13/23 09:31 Guaifenesin 12 Hr 600 Mg Tabcr PO 600 mg Q12HR ALEENA Administration Ceftriaxone Sodium 1 gm in 50 mls @ 100 mls/hr 12/10/23 20:00 12/12/23 20:25 Rocephin 1 Gm/Ns 50 Ml IVPB Infused Q24H ALEENA Infusion Dextrose 1,000 mls @ 100 mls/hr 12/10/23 18:53 Dextrose 5% 1,000 Ml IVPB PRN PRN Hypoglycemia Protocol Insulin Aspart 4 - 8 units 12/11/23 08:00 12/13/23 09:22 Insulin Aspart (*Bkc) 100 Units/Ml SUB-Q Not Given TIDWM ALEENA Protocol Insulin Aspart 15 units 12/12/23 12:00 12/13/23 09:35 Insulin Aspart (*Bkc) 100 Units/Ml SUB-Q 15 units TIDWM ALEENA Administration Insulin Glargine 80 units 12/10/23 21:50 12/12/23 20:04 Insulin Glargine (*Bkc) 100 Units/Ml SUB-Q 80 units HS ALEENA Administration Levofloxacin 750 mg 12/12/23 18:00 12/12/23 17:01 Levofloxacin 750 Mg Tablet PO 750 mg DAILY@1800 ALEENA Administration Loratadine 10 mg 12/10/23 21:46 Loratadine 10 Mg Tablet PO DAILY PRN Sinus Symptoms Metoprolol Tartrate 25 mg 12/10/23 21:55 12/13/23 09:31 Metoprolol Tartrate 25 Mg Tablet PO 25 mg Q12HR ALEENA Administration Multivitamins/Minerals 1 tab 12/11/23 09:00 12/13/23 09:31 Multivitamins /C Lutein (Centrum Silver) Tablet *Bkc PO 1 tab DAILY ALEENA Administration Non-Formulary ( 1 each 12/10/23 22:00 12/13/23 09:33 Methenamine PO 01/09/24 21:59 1 each Hippurate 1 Gram BID ALEENA Administration Oral Tablet) Pantoprazole Sodium 40 mg 12/10/23 21:55 12/12/23 19:57 Pantoprazole 40 Mg Tablet PO 40 mg HS ALEENA Administration Pravastatin Sodium 40 mg 12/11/23 09:00 12/13/23 09:31 Pravastatin Sodium 20 Mg Tablet PO 40 mg DAILY ALEENA Administration Rivaroxaban 20 mg 12/10/23 21:55 12/12/23 19:56 Rivaroxaban 20 Mg Tablet PO 20 mg HS ALEENA Administration Radiology Results: ITS Impressions Chest X-Ray 12/10/23 15:23 IMPRESSION: Opacification of the left upper hemithorax, volume loss of the left lung; the findings suggest left upper lobe atelectasis and consolidation similar obstructing endobronchial lesion must be considered. Approximately 3.2 cm mass density, superior segment left lower lobe. Bronchogenic carcinoma must be considered. Chest/Abdomen/Pelvis CT 12/10/23 17:00 IMPRESSION: Resected or occluded left upper lobe bronchus; recommend correlation with any surgical history. The left mainstem bronchus, nearly occluded distally, with narrowing of the left lower lobe bronchi as well 3.5 x 3.5 cm encapsulated fluid collection along the inferolateral aspect of the left hilum, with surrounding infiltrate Enlarged left superior mediastinal and prevascular lymph nodes; metastasis is not excluded. Consider PET/CT imaging for further evaluation. Status post cholecystectomy Pancreatic atrophy Diverticulosis of the colon; no evidence of diverticulitis Labs Labs: Laboratory Results - last 24 hr 12/12/23 12/12/23 12/12/23 12:18 16:45 19:41 WBC RBC Hgb Hct MCV MCH MCHC RDW Plt Count MPV Immature Gran % (Auto) Neut % (Auto) Lymph % (Auto) [place] % (Auto) Eos % (Auto) Baso % (Auto) Lymph # (Auto) [place] # (Auto) Eos # (Auto) Baso # (Auto) Abs Immat Gran (auto) Absolute Neuts (auto) Absolute Nucleated RBC Nucleated RBC % Sodium Potassium Chloride Carbon Dioxide Anion Gap BUN Creatinine Estim Creat Clear Calc Estimated GFR Glucose POC Capillary Glucose 343 H 215 H 240 H Calcium Total Bilirubin AST ALT Alkaline Phosphatase Total Protein Albumin 12/13/23 12/13/23 12/13/23 04:34 04:35 08:31 WBC 3.5 L RBC 3.77 L Hgb 10.7 L Hct 34.0 L MCV 90.2 MCH 28.4 MCHC 31.5 L RDW 16.9 H Plt Count 243 MPV 10.3 Immature Gran % (Auto) 0.6 H Neut % (Auto) 64.5 Lymph % (Auto) 20.0 [place] % (Auto) 8.3 Eos % (Auto) 6.0 H Baso % (Auto) 0.6 Lymph # (Auto) 0.70 L [place] # (Auto) 0.3 Eos # (Auto) 0.2 Baso # (Auto) 0.0 Abs Immat Gran (auto) 0.02 Absolute Neuts (auto) 2.3 Absolute Nucleated RBC 0.000 Nucleated RBC % 0.0 Sodium 138 Potassium 3.7 Chloride 102 Carbon Dioxide 28 Anion Gap 8 BUN 18 H Creatinine 1.00 Estim Creat Clear Calc 75 Estimated GFR 56 L Glucose 139 H POC Capillary Glucose 176 H Calcium 8.7 Total Bilirubin 0.6 AST 62 H ALT 44 H Alkaline Phosphatase 116 Total Protein 7.0 Albumin 3.4 L
[2023-12-13 12:22] LABS: Glucose Point of Care 222 mg/dl (65-105)
[2023-12-13] MEDS: INSULIN ASPART (*BKC) 100 UNITS/ML SUB-Q (13:01)
[2023-12-13 14:00] VITALS: BP 105/58; PULSE 63; RESP 20; TEMP 36.1; O2SAT 97
--- NOTE | 2023-12-13 14:49 | P.DS_ITS ---
DS: Admitting Diagnosis Discharge Date 12/13/2023 Admitting Diagnosis Weakness DS: Discharge Diagnosis Discharge Diagnosis (1) Abnormal chest CT: Code(s): R93.89 - Abnormal findings on diagnostic imaging of other specified body structures Status: Acute (2) Pneumonia: Qualifiers: Laterality: left Lung location: unspecified part of lung Pneumonia type: due to unspecified organism Qualified Code(s): J18.9 - Pneumonia, unspecified organism Code(s): J18.9 - Pneumonia, unspecified organism Status: Acute (3) Acute UTI: Code(s): N39.0 - Urinary tract infection, site not specified Status: Acute (4) COPD (chronic obstructive pulmonary disease): Qualifiers: COPD type: unspecified COPD Qualified Code(s): J44.9 - Chronic obstructive pulmonary disease, unspecified Code(s): J44.9 - Chronic obstructive pulmonary disease, unspecified Status: Acute (5) Bladder mass: Code(s): N32.89 - Other specified disorders of bladder Status: Acute (6) Diabetes: Qualifiers: Diabetes mellitus complication status: with hyperglycemia Diabetes mellitus care home insulin use: with oil heaterman use Diabetes mellitus type: type 2 Qualified Code(s): E11.65 - Type 2 diabetes mellitus with hyperglycemia; Z79.4 - bed bug exterminator (current) use of insulin Code(s): E11.9 - Type 2 diabetes mellitus without complications Status: Chronic (7) Chronic renal failure (CRF), stage 3a: Code(s): N18.31 - Chronic kidney disease, stage 3a Status: Acute DS: Summary Hospital Course Hospital Course: Hx of lung cancer, laryngeal squamous cell carcinoma s/p radiation in 2019. Recent dx of bladder cancer showing low-grade papillary urothelial carcinoma, noninvasive s/p TURBT and chemo in bladder. - Patient had outpatient PET scan ordered, had not been scheduled - CXR: Opacification of the left upper hemithorax, volume loss of the left lung; left upper lobe atelectasis and consolidation vs obstructing endobronchial lesion Approximately 3.2 cm mass density, superior segment left lower lobe. Bronchogenic carcinoma must be considered. - CT chest/abdomen/pelvis: Resected or occluded left upper lobe bronchus; recommend correlation with any surgical history. The left mainstem bronchus, nearly occluded distally, with narrowing of the left lower lobe bronchi as well 3.5 x 3.5 cm encapsulated fluid collection along the inferolateral aspect of the left hilum, with surrounding infiltrate Enlarged left superior mediastinal and prevascular lymph nodes; metastasis is not excluded. (Consider PET/CT imaging for further evaluation.) Status post cholecystectomy Pancreatic atrophy Diverticulosis of the colon; no evidence of diverticulitis - oncology consulted Plan is for patient to get IV antibiotic with ceftriaxone and levofloxacin and transition to oral as outpatient. She will then need to follow up with her diabetes education coordinator Dr. Landrum,as outpatient, to assess need for a repeat PET/CT scan. If this is a recurrence of left lung cancer, patient has a poor performance status and doubt that she would be able to tolerate conventional chemotherapy. Any decision for systemic treatment has to be made after biopsy proven recurrence. If she ends up getting biopsy, the specimen should be sent for next generation sequencing to identify any targetable mutation for oral therapies. She will then need to follow up with her diabetes education coordinator Dr. Landrum,as outpatient, to assess need for a repeat PET/CT scan. - pulmonology consulted This is acute on chronic, as she had a chest CT Sept 3 at [facility], [place] showing similar findings with obstruction of the bronchus to the RAMYA and an area of atelectasis in the LLL. There is not an indication to perform bronchoscopy. All the findings are chronic. 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 - MRSA PCR negative. - UTI eColi treated with IV abx and transitioned to oral for discharge. - CT abd/pelvis, previous (09/29/23): 1. Mass in left lung lower lobe that is contiguous with the hilum, consistent with primary bronchogenic carcinoma and/or post-obstructive pneumonia. 2. 17 mm mass in the left posterior bladder, consistent with malignancy versus hematoma. 3. Borderline enlarged periceliac lymph node, which is indeterminate for metastatic disease. - underwent a TURBT on 11/23/23. pathology showed low-grade papillary urothelial carcinoma, noninvasive. - Patient to FUP with Assisted Living Nursing Director Dr. Natali Zavala at [facility] to discuss next steps/ plan of care and complete a PET/CT scan. Status at Discharge Functional status at discharge: uses cane/walker Overall status at discharge: patient is progressing back to baseline Time Spent with Patient Time attestation: Total time spent providing and/or coordinating discharge services: Time spent: Greater than 30 minutes Exam Const: General: comfortable and no acute distress Eyes: Sclera: sclerae normal Resp: Auscultation: diminished lung sounds Cardio: Rate: regular rate Rhythm: regular rhythm GI: GI Palp: Yes Soft to palpation Auscultation: normal bowel sounds Skin: General skin exam: no rashes or lesions noted Extrem: General: normal to inspection Psych: Mental Status: mental status grossly normal Affect: normal affect DS: Data Data Completed and Pending Labs on day of discharge: Labs from last 24 hours 12/13/23 12/13/23 12/13/23 12:13 08:31 04:35 WBC RBC Hgb Hct MCV MCH MCHC RDW Plt Count MPV Immature Gran % (Auto) Neut % (Auto) Lymph % (Auto) Pratt % (Auto) Eos % (Auto) Baso % (Auto) Lymph # (Auto) Pratt # (Auto) Eos # (Auto) Baso # (Auto) Abs Immat Gran (auto) Absolute Neuts (auto) Absolute Nucleated RBC Nucleated RBC % Sodium 138 Potassium 3.7 Chloride 102 Carbon Dioxide 28 Anion Gap 8 BUN 18 H Creatinine 1.00 Estim Creat Clear Calc 75 Estimated GFR 56 L Glucose 139 H POC Capillary Glucose 222 H 176 H Calcium 8.7 Total Bilirubin 0.6 AST 62 H ALT 44 H Alkaline Phosphatase 116 Total Protein 7.0 Albumin 3.4 L 12/13/23 12/12/23 12/12/23 04:34 19:41 16:45 WBC 3.5 L RBC 3.77 L Hgb 10.7 L Hct 34.0 L MCV 90.2 MCH 28.4 MCHC 31.5 L RDW 16.9 H Plt Count 243 MPV 10.3 Immature Gran % (Auto) 0.6 H Neut % (Auto) 64.5 Lymph % (Auto) 20.0 Pratt % (Auto) 8.3 Eos % (Auto) 6.0 H Baso % (Auto) 0.6 Lymph # (Auto) 0.70 L Pratt # (Auto) 0.3 Eos # (Auto) 0.2 Baso # (Auto) 0.0 Abs Immat Gran (auto) 0.02 Absolute Neuts (auto) 2.3 Absolute Nucleated RBC 0.000 Nucleated RBC % 0.0 Sodium Potassium Chloride Carbon Dioxide Anion Gap BUN Creatinine Estim Creat Clear Calc Estimated GFR Glucose POC Capillary Glucose 240 H 215 H Calcium Total Bilirubin AST ALT Alkaline Phosphatase Total Protein Albumin Preliminary micro results at discharge 12/10/23 19:55 Blood Culture - Preliminary Blood Discharge Plan Discharge Attending physician on discharge: Flash Angel Consulting providers: Jeanne Preston; Teagan Villanueva Discharging Clinician: Laurie Hernandez Anticipated Discharge Date/Time: 12/13/23 16:00 Patient Disposition: Home Health Service Activity: may shower Diet: diabetic Discharge Instructions: * Per Care Coordination. Patient to have [facility] for RN/PT/OT eval and treat [phone]. RN please fax discharge instructions to [phone] * Take all doses of antibiotics. Patient Instructions: Antibiotic Form, COPD (Chronic Obstructive Pulmonary Disease) (DC), Pneumonia (DC), Urinary Tract Infection in Older Adults (DC) Stand Alone Forms: General Discharge Information Follow-up/Referrals: Natali Zavala [Other] - 1 Week [facility],MD Jessika [Primary Care Provider] - 1 Week Discharge Medications: New levofloxacin 750 mg tablet 750 mg PO DAILY Qty: 4 0RF cefdinir 300 mg Capsule 300 mg PO Q12HR Qty: 8 0RF Continued albuterol sulfate 90 mcg/actuation Hfa Aerosol Inhaler 2 puff INHALATION QID metformin 500 mg tablet 500 mg PO BID buspirone 5 mg Tablet 5 mg PO Q12H azelastine 0.05 % Drops 1 drp EACH EYE BID acetaminophen [Acetaminophen Extra Strength] 500 mg Tablet 1,000 mg PO Q6H PRN (Reason: Pain, Mild) pantoprazole 40 mg Tablet,Delayed Release (Dr/Ec) 40 mg PO HS icosapent ethyl [Vascepa] 1 gram Capsule 2 g PO Q12H ergocalciferol (vitamin D2) 1,250 mcg (50,000 unit) capsule 1,250 mcg PO 2XW Rx Instructions: Monday/Monday metoprolol tartrate 25 mg tablet 25 mg PO BID pravastatin 40 mg tablet 40 mg PO DAILY cetirizine 10 mg Capsule 10 mg PO DAILY PRN (Reason: Sinus Symptoms) geriatric multivitamin-min Tablet 1 tablet PO DAILY methenamine hippurate 1 gram tablet 1 g PO BID Anoro Ellipta 62.5-25 mcg/actuation blister with device 1 inh INHALATION HS hydrocodone-acetaminophen 5-325 mg tablet 1 - 2 tablet PO Q6H PRN (Reason: pain) Qty: 20 0RF diltiazem HCl [Tiadylt ER] 360 mg capsule,extended release 24 hr 360 mg PO DAILY Patient Comments: QAM Xarelto 20 mg tablet 20 mg PO HS Hold Instructions: Resume on 11/25/23. insulin degludec [Tresiba FlexTouch U-100] 100 unit/mL (3 mL) insulin pen 80 unit SUBCUT HS Trulicity 1.5 mg/0.5 mL pen injector 1.5 mg SUBCUT WEEKLY Rx Instructions: fridays insulin lispro [Humalog KwikPen Insulin] 100 unit/mL insulin pen 40 unit SUBCUT TID Date of admission: 12/11/23 15:16 Primary Care Provider: Reba,Jessika Admitting Provider: Calixto Deutsch Attending physician on admission: Nayeli Montana Condition: Stable Hospitalist MIPS Heart Failure (Exclusion) Patient has history of Heart Transplant or Left Ventricular Assistive Device?: No IF YES, STOP HERE Heart Failure (Qualifier) Patient has current or prior documentation of LVEF less than or equal to 40%, or mod/servere depressed LVSF?: No IF NO, STOP HERE
[2023-12-13 16:53] LABS: Glucose Point of Care 168 mg/dl (65-105)
== END 2023-12-13 17:36 | disposition home health service (06) | DRG 194 ==
LOC: ANHED 18:26 → ANH2MED 18:42
PROVIDERS: Emergency Medicine; Student in an Organized Health Care Education/Training Program; Admitting Provider Internal Medicine; Emergency Provider Physician Assistant; PCP Internal Medicine; Visit Provider Nurse Practitioner Family
DX: J18.9 Pneumonia, unspecified organism (principal); I48.92 Unspecified atrial flutter; J44.0 Chronic obstructive pulmonary disease with (acute) lower respiratory infection; Z68.42 Body mass index [BMI] 45.0-49.9, adult; N39.0 Urinary tract infection, site not specified; C67.9 Malignant neoplasm of bladder, unspecified; B96.20 Unspecified Escherichia coli [E. coli] as the cause of diseases classified elsewhere; N32.89 Other specified disorders of bladder; E66.01 Morbid (severe) obesity due to excess calories; E11.65 Type 2 diabetes mellitus with hyperglycemia; E11.22 Type 2 diabetes mellitus with diabetic chronic kidney disease; I12.9 Hypertensive chronic kidney disease with stage 1 through stage 4 chronic kidney disease, or unspecified chronic kidney disease; K57.90 Diverticulosis of intestine, part unspecified, without perforation or abscess without bleeding; N18.31 Chronic kidney disease, stage 3a; R91.8 Other nonspecific abnormal finding of lung field; R31.9 Hematuria, unspecified; Z85.118 Personal history of other malignant neoplasm of bronchus and lung; Z90.49 Acquired absence of other specified parts of digestive tract; Z86.711 Personal history of pulmonary embolism; Z79.4 Long term (current) use of insulin; Z79.84 Long term (current) use of oral hypoglycemic drugs; Z79.85 Long-term (current) use of injectable non-insulin antidiabetic drugs; Z79.01 Long term (current) use of anticoagulants; Z87.891 Personal history of nicotine dependence; Z66 Do not resuscitate; Z20.822 Contact with and (suspected) exposure to COVID-19
CPT/HCPCS: 36415; 71046; 71260; 74177; 80053; 81001; 82948; 83036; 85025; 87040; 87086; 87186; 87637; 93005; 94640; 94667; 97110; 97161; 97165; 97530; 99285; A9270; G0378; J0696; J1815; J1956; Q9967

== ENCOUNTER 2025-02-04 11:00 | Outpatient (CLI) | payer MEDICARE, MEDICAID, SELFPAY ==
--- NOTE | ~2025-02-04 | PE_ITS ---
EXAMINATION: PET skull to mid thigh DATE: 02/04/2025 12:51 INDICATION: Abnormal findings of lung field TECHNIQUE: Blood glucose level was 80 mg/dL. 9.447 mCi of 18-fluorodeoxyglucose (18-FDG) was administered i.v. Low dose computed tomography (CT) images were acquired from the base of the brain to the proximal thighs for attenuation correction and anatomic localization. Positron emission tomography (PET) images were acquired in the same distribution beginning 57 minutes after injection. Images including fused PET/CT images were reconstructed in axial, coronal, and sagittal planes. Automated exposure control technique was employed. The dose- length product was 1356.65mGy-cm. COMPARISON: None FINDINGS: Head/neck: There is symmetric increased activity in the oral cavity, palatine tonsils, parotid glands, submandibular glands, laryngeal muscles and ocular muscles without CT correlate, likely physiologic. There is asymmetric but still likely physiologic left-sided prominent uptake at the pterygoid muscles without radiologic correlate and which is also likely physiologic. No pathologically enlarged cervical lymphadenopathy or suspicious foci of increased FDG uptake in the visualized head or neck. Chest: Mild emphysema. Near complete collapse of the left lung with minimal amount of residual aerated lung in the left upper lobe. There is associated volume loss with leftward shift of the mediastinum and mildly enlarged heart. There is narrowing of the left mainstem bronchus which is filled with some bubbly mucus. There is opacification of the majority the bronchi in the left lung without evident increased FDG uptake likely representing mucous plugging. There is an approximately 2.5 cm ill-defined region of indeterminate mild increased FDG activity with maximal SUV of 7.3 at the and the collapsed posterior basilar segment of the right lower lobe which is indistinguishable from the surrounding collapsed lung on the CT images. Mild atelectasis/scarring at the anterior right middle lobe. Remainder of the right lung is clear with no suspicious pulmonary nodules or pneumonia. No pleural effusion. Thoracic aorta is normal in caliber. Interval decrease in size of a previously 2.0 x 1.4 cm, currently 1.7 x 1.1 cm prevascular lymph node which is without increased FDG activity most likely reactive. No other pathologically enlarged or FDG avid thoracic lymphadenopathy. Symmetric mild likely degenerative synovial uptake at the bilateral sternoclavicular joints. Additional likely physiologic muscular activity at the bilateral teres minor muscles. 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 Abdomen/pelvis/proximal thighs: Physiologic renal accumulation and excretion of FDG activity in the kidneys, bladder and along portions of ureters. Cholecystectomy clips at the gallbladder fossa. Normal degree and heterogenous pattern of increased uptake throughout the liver without radiologic correlate or dominant FDG avid lesion. The pancreas, spleen and bilateral adrenal glands are normal. Mild uptake scattered throughout the bowels without radiologic correlate, also likely physiologic. Normal appendix. No other abnormal foci of increased FDG uptake or pathologically enlarged lymphadenopathy in the abdomen, pelvis or proximal thighs. Additional mild likely degenerative synovial uptake at the bilateral hips were there is moderate osteoarthritis. Relatively symmetric likely physiologic uptake at the bilateral hands and forearms. Focus of likely extravasated uptake at the site of injection at the left antecubital fossa. No suspicious lytic, blastic or abnormally FDG avid bone lesions. IMPRESSION: 1. Near complete collapse of the left upper lobe with prominent mucous in the narrowed left mainstem bronchus and opacification of the more peripheral bronchi without abnormal FDG uptake suggesting mucous plugging. Consider pulmonary toilet and/or bronchoscopy. 2. Small region of mild uptake within the collapsed posterior basilar segment of the left lower lobe which is indiscernible from the surrounding collapsed lung on CT imaging most likely related to pneumonia although malignancy cannot be absolutely excluded. Would recommend follow-up low-dose noncontrast CT imaging following improvement in the left-sided lung disease. 3. No abnormal uptake associated with the previous noted enlarged prevascular lymph node which is decreased in size and which is likely reactive. 4. No other pathologically enlarged lymphadenopathy or FDG avid lesions suspicious for either primary malignancy or metastatic disease. Reviewed, dictated and finalized at location A. ER WORKER IMPRESSION: 1. Near complete collapse of the left upper lobe with prominent mucous in the n arrowed left mainstem bronchus and opacification of the more peripheral bronchi without abnormal FDG uptake suggesting mucous plugging. Consider pulmonary artis let and/or bronchoscopy. 2. Small region of mild uptake within the collapsed posterior basilar segment o f the left lower lobe which is indiscernible from the surrounding collapsed dwayne g on CT imaging most likely related to pneumonia although malignancy cannot be absolutely excluded. Would recommend follow-up low-dose noncontrast CT imaging following improvement in the left-sided lung disease. 3. No abnormal uptake associated with the previous noted enlarged prevascular l ymph node which is decreased in size and which is likely reactive. 4. No other pathologically enlarged lymphadenopathy or FDG avid lesions suspici ous for either primary malignancy or metastatic disease.
--- OUTSIDE RECORDS SUMMARY | 2025-02-04 11:49 | XMS_ITS ---
Author [place] [facility] [place] [address] Address [address] [place] [address] Care Team Providers Care Dicer Machine Operator Name Role Phone Robin Britton MD Primary Care Provide r Wilbur Willis MD Unavailable [phone] Laurie Mazariegos CONSUMER LOAN PROCESSOR Unavailable [phone] Rita Bang NP Unavailable [phone] Everett Phan MD Unavailable Sade Barrios MD Unavailable Natali Zavala MD Unavailable Michael Velarde MD Unavailable [phone] Abdulaziz Perdue MD Unavailable Miscellaneous, Not In File Unavailable Unava ilable Merrick Zavala MD Unavailable Active Problems Problem Noted Date Diagnosed Date Congestive heart failure, un specified HF chronicity, unspecified heart failure type 12/03/2024 Atrial fibrillation, unspecified type 11/20/2024 Lactic acidosis 10/08/2024 Weakness 10/07/2024 Sepsis, due to unspecified o rganism, unspecified whether acute organ dysfunction present 09/24/2024 CAD (coronary artery disease) 06/14/2024 Abdominal pain 05/15/2024 Chronic anticoagulation 03/29/2024 Diabetic peripheral neuropat hy associated with type 2 diabetes mellitus 03/22/2024 Dyslipidemia associated with type 2 diabetes abdulaziz litus 03/22/2024 Essential tremor 03/22/2024 Restless leg 03/22/2024 Moderate persistent asthma without complication 03/22/2024 Iron deficiency anemia secon gary to inadequate dietary iron intake 03/22/2024 Physical deconditioning 03/22/2024 Influenza 03/22/2024 Hypoxemia 03/21/2024 Bilateral lower extremity edema 03/03/2024 Coronary artery disease 03/03/2024 Status post placement of implantable loop record er 03/03/2024 Chronic diastolic congestive heart failure 03/03 Morbid obesity with BMI of 45.0-49.9, adult 02/07 Palliative care encounter 02/13/2024 Tremor 02/12/2024 Left pulmonary infiltrate on CXR 02/10/2024 Moderate episode of recurrent major depressive d isorder 02/03/2024 Assessment & Plan (02/03/2024 10:09 PM FISH HEADER): Patient to continue with BuSpar no GDR this particular time since patient is is on her stressor being at a facility ACP (advance care planning) 02/03/2024 Assessment & Plan (02/03/2024 10:12 PM FISH HEADER): Patient is a DNR Muscle weakness (generalized) 02/03/2024 Assessment & Plan (02/03/2024 10:31 PM FISH HEADER): Patient do physical and occupational therapy with home health. Patient is at her baseline. She was support at home they can also help with transfers Acute on chronic respiratory failure with hypoxi a 01/26/2024 Assessment & Plan (01/26/2024 10:42 AM FISH HEADER): H/o of lung cancer. Continue Oxygen at 2 liters/min via nasal cannula. Bronchial obstruction 01/21/2024 Complete atelectasis of left lung 01/21/2024 Assessment & Plan (01/26/2024 10:32 AM FISH HEADER): Suspected pneumonia. Afebrile. Continue Cefdinir History of laryngeal cancer 01/21/2024 Hilar adenopathy 12/21/2023 Neuropathy 12/07/2023 Malignant neoplasm of urinary bladder 12/06/2023 Symptoms involving urinary system 04/19/2023 Swelling of left upper extremity 12/21/2022 Vaginitis 12/13/2022 Dysuria 11/16/2022 Pain of right hip joint 10/18/2022 Empyema lung 10/12/2022 Empyema 09/21/2022 History of lung cancer 09/20/2022 Bilateral pleural effusion 09/13/2022 Allergic rhinitis 05/31/2022 Chest pain 04/14/2022 Overview (04/14/2022): Added automatically from request for surgery [id number] Erythrocytosis 04/11/2022 Chronic kidney disease 04/11/2022 Multiple acquired skin tags 04/05/2022 Leukopenia 04/05/2022 Malignant neoplasm of larynx 04/05/2022 Peripheral vascular disease 04/05/2022 Primary hypertension 04/05/2022 Chronic depression 04/05/2022 Recurrent urinary tract infection 04/05/2022 Hospital-acquired pneumonia 04/03/2022 Malignant neoplasm of lung 01/03/2022 Carcinoma of larynx 01/03/2022 Chronic cough 01/03/2022 Paroxysmal atrial fibrillation 01/03/2022 Otitis media 09/30/2021 Type 2 diabetes mellitus without complication Candidiasis of vagina 08/24/2021 Gastroesophageal reflux disease without esophagi tis 08/19/2021 Elevated liver enzymes 08/04/2021 Mixed hyperlipidemia 07/30/2021 Hyperglycemia 07/30/2021 Fatigue 07/27/2021 Dyslipidemia 07/27/2021 Cramps of lower extremity 07/27/2021 Anxiety 07/22/2021 Paroxysmal atrial fibrillation 07/21/2021 Assessment & Plan (02/03/2024 10:32 PM FISH HEADER): Continue on Xarelto CBC with diff and basic metabolic panel Assessment & Plan (02/03/2024 10:05 PM FISH HEADER): Continue on Xarelto CBC with diff and basic metabolic panel Controlled type 2 diabetes m tristonitus with hyperglycemia, with long-term current use of insulin 06/17/2021 Acute urinary tract infection 05/31/2021 Palpitations 03/17/2021 Atelectasis of left lung 12/09/2020 Arthralgia 11/19/2020 Pneumothorax 11/19/2020 Dyspnea on exertion 05/18/2020 Assessment & Plan (02/03/2024 10:03 PM FISH HEADER): Patient with shortness of breaths status post empyema currently on antibiotics. Patient to be seen by Respiratory therapy and to continue to do spirometry. Patient currently on Ellipta Atherosclerosis of [place] ter[place] of extremities with intermittent claudication, unspecified extremity 02/14/2020 Laryngeal cancer 10/16/2019 Type 2 diabetes mellitus wit h diabetic polyneuropathy, with long-term current use of insulin 10/16/2019 Assessment & Plan (02/03/2024 10:30 PM FISH HEADER): . She was on Trulicity and Tresiba and is taking insulin 3 times a day dropped down to 20 will increase 30 units in the afternoon continue 20 in the day in the evening. Patient will follow similar regimen Assessment & Plan (01/26/2024 10:36 AM FISH HEADER): Stable. Chronic Continue Insulin Degludec, Metformin, and Tresiba Hx of NSCLC of LLL 10/16/2019 Upper respiratory infection 11/13/2018 Hypertension 06/13/2018 Shortness of breath 06/13/2018 Diabetes mellitus 06/13/2018 Transient ischemic attack 06/13/2018 Cerebrovascular accident (CVA) 06/13/2018 History of pulmonary embolus (PE) 06/13/2018 Tobacco dependence syndrome 06/13/2018 Chest pain 06/13/2018 COPD exacerbation 04/03/2018 Assessment & Plan (01/26/2024 10:33 AM FISH HEADER): Chronic. Stable. Continue Anoro Ellipta inhaler. Current Treatment and Therapy Plans No current plan information found. Past Treatment and Therapy Plans No past plan information found. Lifetime Dose Tracking * Chemical Lifetime Dose Automatic Entry Manual Entr y Fluoro Time 17.9 minutes 0 minutes 17.9 minutes Air kerma at the reference point (Ka,r) 2,327 mGy 0 mGy 2,327 mGy DAP 34,239 Gy-cm2 0 Gy-cm2 34,239 Gy-cm2 Resolved Problems Problem Noted Date Diagnosed Date Resolved Date Poorly controlled type 2 rina betes mellitus with neuropathy 02/03/2024 02/03/2024 Assessment & Plan (02/03/2024 10:07 PM FISH HEADER): Patient's blood sugars have been ranging from 150-400 patient currently on Tresiba and Humalog insulin 40 units 3 times a day with meals Decrease insulin to 20 20 units 3 times a day with meals and patient to continue with Trulicity Q weekly hemoglobin A1c basic metabolic panel and CBC with diff Acute exacerbation of chroni c obstructive pulmonary disease 02/27/2022 01/26/2024
--- OUTSIDE RECORDS SUMMARY | 2025-02-04 11:50 | XMS_ITS | Clinical Summary ---
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 Gender Identity Not on file Sexual Orientation Not on file Plan of Treatment Health Maintenance Due Date Last Done Comments Colorectal Cancer Screening Colonoscopy (10 Years) 1958 Hepatitis C 1976 DTaP, Tdap and Td Vaccines ( 1 - Tdap) 1977 Mammogram Screening 1998 Pneumococcal Vaccine: 50+ Ye ars (1 of 1 - PCV) 2008 Zoster Vaccines (1 of 2) 2008 Annual Medicare Wellness Visit 09/07/2023 Dexa Scan (General) 09/07/2023 COVID-19 Vaccine (1 - 2024-2 6 season) 2024 Influenza Adult (#1) 2024 RSV Immunization or 60+ Years (1 - 1-dose 75+ series) 2033 Hepatitis A Vaccines Aged Out No long er eligible based on patient's age to complete this topic Meningococcal B Vaccine Aged Out No l onger eligible based on patient's age to complete this topic Meningococcal Vaccine Aged Out No tyler kameron eligible based on patient's age to complete this topic RSV Immunizations Under 20 Months Aged Out No longer eligible based on patient's age to complete this topic Insurance MEDICARE [place]
--- OUTSIDE RECORDS SUMMARY | 2025-02-04 11:50 | XMS_ITS | Encounter Summary ---
Author Organization [facility] Address [address] [place] [address] Care Team Providers Care Objects Conservator Name Role Phone Robin Britton MD Primary Care Provide r Wilbur Willis MD Unavailable [phone] Laurie Mazariegos AIRLINE MECHANIC Unavailable [phone] Rita Bang NP Unavailable [phone] Everett Phan MD Unavailable Veronica Hoff DNP Unavailable Johanna Paez Unavailable Unavailable Sade Barrios MD Unavailable Natali Zavala MD Unavailable Johanna Paez Unavailable Unavailable Veronica Hoff DNP Unavailable Michael Velarde MD Unavailable [phone] Abdulaziz Perdue MD Unavailable Miscellaneous, Not In File Unavailable Unava ilable Johanna Paez Unavailable Unavailable Veronica Hoff DNP Unavailable Merrick Zavala MD Unavailable [phone] Encounter Details Date Type Department Care Team (Late st Contact Info) Description 03/06/2024 Documentation [facility] [address] [place] [address] Dora Diamond, RN Social History Tobacco Use Types Packs/Day Years Used Date Smoking Tobacco: Former Cigarettes 2018 Passive Smoke Exposure: Past Smokeless Tobacco: Never Alcohol Use Standard Drinks/Week Comments Never 0 (1 standard drink = 0.6 oz pur e alcohol) [facility] Utilities Answer Date Recorded In the past 12 months has e electric, gas, oil, or water company threatened to shut off services in your home? No 03/04/2024 Social Connection and Isolation Panel Answer Date Recorded In a typical week, how many times do you talk on the phone with family, friends, or neighbors? More than three times a week 03/04/2024 How often do you get togethe r with friends or relatives? More than three times a week 03/04/2024 How often do you attend chur ch or amish services? Never 03/04/2024 Do you belong to any clubs o r organizations such as denominational groups, unions, fraternal or athletic groups, or school groups? No 03/04/2024 How often do you attend meet ings of the clubs or organizations you belong to? Never 03/04/2024 Are you , , di vorced, , never , or living with a partner? Never 03/04/2024 AUDIT-C Answer Date Recorded Q1: How often do you have a drink containing alcohol? Never 10/13/2022 Q2: How many drinks containi ng alcohol do you have on a typical day when you are drinking? Patient does not drink Q3: How often do you have si x or more drinks on one occasion? Never 10/13/2022 Overall Financial Resource Strain (CARDIA) Answe r Date Recorded How hard is it for you to pa y for the very basics like food, housing, medical care, and heating? Not hard at all 03/04/2024 Hunger Vital Sign Answer Date Recorded Within the past 12 months, y ou worried that your food would run out before you got the money to buy more. Never true 03/04/19 Within the past 12 months, t he food you bought just didn't last and you didn't have money to get more. Never true 03/04/2024 PRAPARE - Transportation Answer Date Re corded In the past 12 months, has l ack of transportation kept you from medical appointments or from getting medications? No 02/07 In the past 12 months, has l ack of transportation kept you from meetings, work, or from getting things needed for daily living? No 03/04/2024 Housing Stability Vital Sign Answer Shekhar e Recorded In the last 12 months, was t here a time when you were not able to pay the mortgage or rent on time? No 10/13/2022 In the last 12 months, how many places have you lived? 1 10/13/2022 In the last 12 months, was t here a time when you did not have a steady place to sleep or slept in a custodial (including now)? No 10/13/2022 Housing Stability Vital Sign Answer Shekhar e Recorded In the last 12 months, was t here a time when you were not able to pay the mortgage or rent on time? No 03/04/2024 In the past 12 months, how m any times have you moved where you were living? 0 03/04/2024 At any time in the past 12 m [facility], were you homeless or living in a custodial (including now)? No 03/04/2024 Personal Safety Answer Date Recorded Have you ever been in or are you currently in a harmful physical or emotional relationship or is someone making you feel afraid or unsafe? 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 Gender Identity Female 07/15/2024 8:56 AM CDT Sexual Orientation Straight 07/15/2024 8: 56 AM CDT documented as of this encounter Plan of Treatment Not on file documented as of this encounter Visit Diagnoses Not on filedocumented in this encounter Additional Health Concerns Infection Onset Date Last Indicated Resolved Time COVID: Suspected 05/14/2024 05/14/2024 05/14/2024 11:24 PM CDT COVID: Suspected 07/13/2024 07/13/2024 07/13/2024 7:02 PM CDT Rhino/Enterovirus 07/13/2024 07/13/2024 07/20/2024 7:26 PM CDT COVID: Suspected 10/06/2024 10/06/2024 10/06/2024 11:34 PM CDT COVID: Suspected 12/03/2024 12/03/2024 12/03/2024 3:27 AM CDT COVID: Suspected 12/18/2024 12/18/2024 12/18/2024 6:41 PM CNC MILLING MACHINE OPERATOR Ring Surveillance: C. auris Comment:Dec 12/19/2024 12/19/2024 12/23/2024 9:[address] documented as of this encounter Care Teams Objects Conservator Relationship Specialty Start Date End Date Robin Britton MD [address] [facility] [address] [place] [address] PCP - General Internal Medicine 09/22/22 [place] [address] [facility] [address] [place] [address] Consulting Physician Pulmonary Disease 10/17/22 Laurie Mazariegos AIRLINE MECHANIC [address] [facility] [address] [place] [address] Nurse Practitioner Hospice and Palliative Medicine 02/22/24 Rita Bang NP [address] [facility] [address] [facility] [address] [place] [address] Nurse Practitioner Hospice and Palliative Medicine 02/22/24 [place] [address] [facility] [address] [place] [address] Consulting Physician Cardiology 03/03/24 Veronica Hoff DNP [address] [facility] [address] [place] [address] Nurse Practitioner Internal Medicine 03/29/24 04/28/24 Johanna Paez Outpatient Manual Lathe Machinist 03/29/24 04/28/24 [place] [address] [facility] [address] [place] [address] Consulting Physician Endocrinology Diabetes & Metabolism 03/29/24 [place] [address] [facility] [address] [place] [address] Consulting Physician Pulmonary Disease 03/29/24 Johanna Paez Outpatient Manual Lathe Machinist 05/16/24 06/18/24 Veronica Hoff DNP [address] [facility] [address] [place] [address] Nurse Practitioner Internal Medicine 05/16/24 06/18/24 [place] [address] [facility] [address] [place] [address] Consulting Physician Endocrinology Diabetes & Metabolism 05/20/24 Abdulaziz Perdue MD [address] [place] [address] Referring Physician Cardiology 05/20/24 Miscellaneous, Not In File 07/16/24 Johanna Paez Outpatient Manual Lathe Machinist 09/25/24 10/31/24 Veronica Hoff DNP [address] [facility] [address] [place] [address] Nurse Practitioner Internal Medicine 09/25/24 10/31/24 [place] [address] [facility] [address] [place] [address] Consulting Physician Pulmonary Disease 09/26/24 documented as of this encounter
--- OUTSIDE RECORDS SUMMARY | 2025-02-04 11:50 | XMS_ITS | Encounter Summary ---
Author Organization [facility] Address [address] [place] [address] Care Team Providers Care Silk Screener Name Role Phone Robin Britton MD Primary Care Provide r Wilbur Willis MD Unavailable Laurie Mazariegos WHEEL TRUING MACHINE TENDER Unavailable [phone] Rita Bang WHEEL TRUING MACHINE TENDER Unavailable [phone] Everett Phan MD Unavailable Sade Barrios MD Unavailable Natali Zavala MD Unavailable Michael Velarde MD Unavailable [phone] Abdulaziz Perdue MD Unavailable Miscellaneous, Not In File Unavailable Unava ilJohanan Johnson Unavailable Unavailable Veronica Hoff DNP Unavailable Merrick Zavala MD Unavailable Encounter Details Date Type Department Care Team (Late st Contact Info) Description 06/21/2024 [facility] Post Discharge Follow up phone call [facility] [address] [place] [address] Lilo Sidhu Social History Tobacco Use Types Packs/Day Years Used Date Smoking Tobacco: Former Cigarettes 2018 Passive Smoke Exposure: Past Smokeless Tobacco: Never Alcohol Use Standard Drinks/Week Comments Never 0 (1 standard drink = 0.6 oz pur e alcohol) [facility] Utilities Answer Date Recorded In the past 12 months has e electric, gas, oil, or water [employer] threatened to shut off services in your home? No 05/16/2024 Social Connection and Isolation Panel Answer Date Recorded In a typical week, how many times do you talk on the phone with family, friends, or neighbors? More than three times a week 05/16/2024 How often do you get togethe r with friends or relatives? More than three times a week 05/16/2024 How often do you attend chur ch or worship services? Never 05/16/2024 Do you belong to any clubs o r organizations such as jain groups, unions, fraternal or athletic groups, or school groups? No 05/16/2024 How often do you attend meet ings of the clubs or organizations you belong to? Never 05/16/2024 Are you , , di vorced, , never , or living with a partner? 05/16/2024 AUDIT-C Answer Date Recorded Q1: How often do you have a drink containing alcohol? Monthly or less 05/15/2024 Q2: How many drinks containi ng alcohol do you have on a typical day when you are drinking? Patient does not drink Q3: How often do you have si x or more drinks on one occasion? Never 05/15/2024 Overall Financial Resource Strain (CARDIA) Answe r Date Recorded How hard is it for you to pa y for the very basics like food, housing, medical care, and heating? Not hard at all 05/16/2024 Hunger Vital Sign Answer Date Recorded Within the past 12 months, y ou worried that your food would run out before you got the money to buy more. Never true 05/17/19 25 Within the past 12 months, t he food you bought just didn't last and you didn't have money to get more. Never true 05/16/2024 PRAPARE - Transportation Answer Date Re corded In the past 12 months, has l ack of transportation kept you from medical appointments or from getting medications? No 05/07 In the past 12 months, has l ack of transportation kept you from meetings, work, or from getting things needed for daily living? No 05/16/2024 Housing Stability Vital Sign Answer Shekhar e [...] place to sleep or slept in a correction (including now)? No 10/13/2022 Housing Stability Vital Sign Answer Shekhar e Recorded In the last 12 months, was t here a time when you were not able to pay the mortgage or rent on time? No 05/16/2024 In the past 12 months, how m any times have you moved where you were living? 1 05/16/2024 At any time in the past 12 m [facility], were you homeless or living in a correction (including now)? No 05/16/2024 Personal Safety Answer Date Recorded Have you ever been in or are you currently in a harmful physical or emotional relationship or is someone making you feel afraid or unsafe? 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 Gender Identity Female 07/15/2024 8:56 AM CDT Sexual Orientation Straight 07/15/2024 8: 56 AM CDT documented as of this encounter Plan of Treatment Not on file documented as of this encounter Visit Diagnoses Not on filedocumented in this encounter Additional Health Concerns Infection Onset Date Last Indicated Resolved Time COVID: Suspected 07/13/2024 07/13/2024 07/13/2024 7:02 PM CDT Rhino/Enterovirus 07/13/2024 07/13/2024 07/20/2024 7:26 PM CDT COVID: Suspected 10/06/2024 10/06/202410/06/2024 11:34 PM CDT COVID: Suspected 12/03/2024 12/03/2024 12/03/2024 3:27 AM CDT COVID: Suspected 12/18/2024 12/18/2024 12/18/2024 6:41 PM CONTROL SYSTEMS DRAFTING OFFICER Ring Surveillance: HussainJonn garcia Comment:Dec 12/19/2024 12/19/2024 12/23/2024 9:[address] documented as of this encounter Care Teams Silk Screener Relationship Specialty Start Date End Date Robin Britton MD [address] [facility] [address] [place], [place] [id number] PCP - General Internal Medicine 09/22/22 [place] [address] [facility] [address] [place], [place] [id number] Consulting Physician Pulmonary Disease 10/17/22 Laurie Mazariegos WHEEL TRUING MACHINE TENDER [address] [facility] [address] [place] [address] Nurse Practitioner Hospice and Palliative Medicine 02/22/24 Rita Bang NP [address] [facility] [address] [place] [address] Nurse Practitioner Hospice and Palliative Medicine 02/22/24 [place] [address] [address] [facility] [address] [place] [address] Consulting Physician Cardiology 03/03/24 [place] [address] [facility] [address] [place] [address] Consulting Physician Endocrinology Diabetes & Metabolism 03/29/24 [place] [address] [facility] [address] [place] [address] Consulting Physician Pulmonary Disease 03/29/24 [place] [address] [address] [facility] [address] [place] [address] Consulting Physician Endocrinology Diabetes & Metabolism 05/20/24 Abdulaziz Perdue MD [address] [place] [address] Referring Physician Cardiology 05/20/24 Miscellaneous, Not In File 07/16/24 Johanna Paez Outpatient Consumer Recruiter 09/25/24 10/31/24 Veronica Hoff, [facility] [address] [facility] [address] [place] [address] Nurse Practitioner Internal Medicine 09/25/24 10/31/24 [place] [address] [facility] [address] [place] [address] Consulting Physician Pulmonary Disease 09/26/24 documented as of this encounter
--- OUTSIDE RECORDS SUMMARY | 2025-02-04 11:50 | XMS_ITS | Encounter Summary ---
Author Organization [facility] Address 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 No / Unsure 08/19/2019 12:22 PM CDT documented as of this encounter Plan of Treatment Not on file documented as of this encounter Visit Diagnoses Not on filedocumented in this encounter Additional Health Concerns Infection Onset Date Last Indicated Resolved Time Positive AFB (Respiratory) 08/12/2019 08/12/2019 documented as of this encounter Care Teams Trim Machine Adjuster Relationship Specialty Start Date End Date Jessika Britton MD PCP - General Internal Medicine 08/12/19 documented as of this encounter
--- OUTSIDE RECORDS SUMMARY | 2025-02-04 11:50 | XMS_ITS | Clinical Summary ---
Author Organization [facility] [place] [address] Address [address] [place] [address] Care Team Providers Care Stand Grinder Name Role Phone Robin Britton MD Primary Care Provide r Wilbur Willis MD Unavailable [phone] Laurie Mazariegos BREAKING MACHINE OPERATOR Unavailable [phone] Rita Bang NP Unavailable Everett Phan MD Unavailable Sade Barrios MD Unavailable Natali Zavala MD Unavailable Michael Velarde MD Unavailable [phone] Abdulaziz Perdue MD Unavailable Miscellaneous, Not In File Unavailable Unava ilable Merrick Zavala MD Unavailable [phone] Allergies Active Allergy Reactions Criticality Noted Date Comments Adhesive Rash Medium 09/21/2022 Codeine Other (See comments),Nausea & Vomiting Low 09/21/2022 Severe abdominal pain Dapagliflozin Rash,Other (See comments) High 05/06/2024 Severe UTI Empagliflozin Rash,Other (See comments) High 12/20/2023 Jardiance - severe UTI Penicillins Anaphylaxis,Hives,Rash High 06/13/2018 Warfarin Hives,Urticaria High 06/13/[address] (PROTONIX) 40 mg EC tablet Take 1 tablet (40 mg total) by mouth nightly Active dulaglutide (TRULICITY) 1.5 mg/0.5 mL pen injector Inject 0.5 mL (1.5 mg total) under the skin every 7 days Monday Active icosapent ethyL (Vascepa) 1 gram capsule Take 2 capsules (2 g total) by mouth 2 (two) times a day Active busPIRone (BUSPAR) 5 mg tablet Take 1 tablet (5 mg total) by mouth 2 (two) times a day Active azelastine (OPTIVAR) 0.05 % ophthalmic solution Administer 1 drop into both eyes daily Active rivaroxaban (XARELTO) 20 mg tablet Take 1 tablet (20 mg total) by mouth nightly Active multivit gnermuuc-xogi-YG- calcium (THERA-M) 9 mg iron-400 mcg tablet Take 1 tablet by mouth nightly Women over 60 Active gabapentin (NEURONTIN) 400 mg capsule Take 1 capsule (400 mg total) by mouth 3 (three) times a day Active albuterol (PROAIR RESPICLICK) 90 mcg/actuation inhaler Inhale 2 puffs every 4 (four) hours as needed for wheezing or shortness of breath 1 each 03/29/19 25 Active umeclidinium-reinaldo nteroL (ANORO ELLIPTA) 62.5-25 mcg/actuation blister with device Inhale 1 puff daily 30 each 03/29/19 25 026 Active acetaminophen (TYLENOL) 325 mg tablet Take 2 tablets (650 mg total) by mouth every 6 (six) hours as needed for headaches or fever 30 tablet 05/21/19 25 Active metFORMIN (GLUCOPHAGE) 500 mg tablet Take 1 tablet (500 mg total) by mouth 2 (two) times a day with meals 60 tablet 05/21/19 25 026 Active atorvastatin (LIPITOR) 40 mg tablet Take 1 tablet (40 mg total) by mouth nightly Active cetirizine (ZyrTEC) 10 mg tablet Take 1 tablet (10 mg total) by mouth daily Active lidocaine (LIDODERM) 5 % Place 1 patch on the skin daily as needed for pain Remove & discard patch within 12 hours or as directed by MD. Active furosemide (LASIX) 40 mg tablet Take 1 tablet (40 mg total) by mouth 2 (two) times a day 60 tablet 11 11/24/19 25 Active primidone (MYSOLINE) 50 mg tablet Take 0.5 tablets (25 mg total) by mouth daily 15 tablet 11 11/25/19 25 Active docusate sodium (COLACE) 100 mg capsule Take 1 capsule (100 mg total) by mouth 2 (two) times a day as needed for constipation 60 capsule 11/24/19 Active senna (SENOKOT) 8.6 mg tablet Take 1 tablet by mouth 2 (two) times a day as needed for constipation Active rOPINIRole (REQUIP) 1 mg tablet Take 1 tablet (1 mg total) by mouth 3 (three) times a day Active insulin glargine 100 unit/mL (3 mL) pen for injection Inject 50 Units under the skin 2 (two) times a day 15 mL 12/09/19 25 Active ipratropium-albut Suha (DUO-NEB) 0.5-2.5 mg/3 mL nebulizer solutionIndicatio ns:Chronic Obstructive Pulmonary Disease with Bronchospasms Take 3 mL by nebulization every 6 (six) hours as needed for wheezing 180 mL 12/09/19 25 Active miconazole 2 % powder Apply topically 2 (two) times a day 70 g 12/09/19 25 Active insulin lispro (HumaLOG, ADMELOG) 100 unit/mL pen for injection Inject 30 Units under the skin 3 (three) times a day with meals 12/22/19 25 Active metoprolol XL (TOPROL-XL) 100 mg 24 hr tablet Take 1 tablet (100 mg total) by mouth daily 30 tablet 2 12/22/19 25 026 Active sacubitriL-valsar león (ENTRESTO) 24-26 mg tabletIndications :chronic heart failure Take 1 tablet by mouth 2 (two) times a day 30 tablet 12/22/19 25 Active ipratropium (ATROVENT) 0.02 % nebulizer solution INHALE THE CONTENTS OF 1 VIAL VIA NEBUILZER 4 TIMES DAILY NEEDED 10/25/19 23 024 Discontin ued(Expir ed) famotidine (PEPCID) 20 mg tablet Take 1 tablet (20 mg total) by mouth daily as needed 024 Discontin ued(Expir ed) Active Problems Problem Noted Date Diagnosed Date [...] 02/03/2024 Assessment & Plan (02/03/2024 10:09 PM WAIST PLEATER): Patient to continue with BuSpar no GDR this particular time since patient is is on her stressor being at a facility ACP (advance care planning) 02/03/2024 Assessment & Plan (02/03/2024 10:12 PM WAIST PLEATER): Patient is a DNR Muscle weakness (generalized) 02/03/2024 Assessment & Plan (02/03/2024 10:31 PM WAIST PLEATER): Patient do physical and occupational therapy with home health. Patient is at her baseline. She was support at home they can also help with transfers Acute on chronic respiratory failure with hypoxi a 01/26/2024 Assessment & Plan (01/26/2024 10:42 AM WAIST PLEATER): H/o of lung cancer. Continue Oxygen at 2 liters/min via nasal cannula. Bronchial obstruction 01/21/2024 Complete atelectasis of left lung 01/21/2024 Assessment & Plan (01/26/2024 10:32 AM WAIST PLEATER): Suspected pneumonia. Afebrile. Continue Cefdinir History of [...] (04/14/2022): Added automatically from request for surgery [id number] Erythrocytosis 04/11/2022 Chronic kidney disease 04/11/2022 Multiple [...] 07/21/2021 Assessment & Plan (02/03/2024 10:32 PM WAIST PLEATER): Continue on Xarelto CBC with diff and basic metabolic panel Assessment & Plan (02/03/2024 10:05 PM WAIST PLEATER): Continue on Xarelto CBC with diff and basic metabolic panel Controlled type 2 diabetes m ellitus with hyperglycemia, with long-term current use of insulin 06/17/2021 Acute urinary tract infection 05/31/2021 Palpitations 03/17/2021 Atelectasis of left lung 12/09/2020 Arthralgia 11/19/2020 Pneumothorax 11/19/2020 Dyspnea on exertion 05/18/2020 Assessment & Plan (02/03/2024 10:03 PM WAIST PLEATER): Patient with shortness of breaths status post empyema currently on antibiotics. Patient to be seen by Respiratory therapy and to continue to do spirometry. Patient currently on Ellipta Atherosclerosis of [place] ar teries of extremities with intermittent claudication, unspecified extremity 02/14/2020 Laryngeal cancer 10/16/2019 Type 2 diabetes mellitus wit h diabetic polyneuropathy, with long-term current use of insulin 10/16/2019 Assessment & Plan (02/03/2024 10:30 PM WAIST PLEATER): . She was on Trulicity and Tresiba and is taking insulin 3 times a day dropped down to 20 will increase 30 units in the afternoon continue 20 in the day in the evening. Patient will follow similar regimen Assessment & Plan (01/26/2024 10:36 AM WAIST PLEATER): Stable. Chronic Continue Insulin Degludec, Metformin, and Tresiba Hx of NSCLC of LLL 10/16/2019 Upper respiratory infection 11/13/2018 Hypertension 06/13/2018 Shortness of breath 06/13/2018 Diabetes mellitus 06/13/2018 Transient ischemic attack 06/13/2018 Cerebrovascular accident (CVA) 06/13/2018 History of pulmonary embolus (PE) 06/13/2018 Tobacco dependence syndrome 06/13/2018 Chest pain 06/13/2018 COPD exacerbation 04/03/2018 Assessment & Plan (01/26/2024 10:33 AM WAIST PLEATER): Chronic. Stable. Continue Anoro Ellipta inhaler. Resolved Problems Problem Noted Date Diagnosed Date Resolved Date Poorly controlled type 2 rina betes mellitus with neuropathy 02/03/2024 02/03/2024 Assessment & Plan (02/03/2024 10:07 PM WAIST PLEATER): Patient's blood sugars have been ranging from 150-400 patient currently on Tresiba and Humalog insulin 40 units 3 times a day with meals Decrease insulin to 20 20 units 3 times a day with meals and patient to continue with Trulicity Q weekly hemoglobin A1c basic metabolic panel and CBC with diff Acute exacerbation of chroni c obstructive pulmonary disease 02/27/2022 01/26/2024 Encounters Date Type Department Care Team Description 12/18/2024 3:43 PM WAIST PLEATER - 12/21/2024 12:21 PM WAIST PLEATER [place] [address] Mony Chacon MD Mohamed, Riham Elamin Elkhalifa, MD Rudomiotov, Olga, MD Onaghise, Jude, MD Shortness of breath (Primary Dx); Acute congestive heart failure, unspecified heart failure type (HCC) Discharge Disposition: Discharge to home or self care 12/06/2024 7:55 AM CDT Anesthesia Event [facility] [address] [place] [address] Ashwin Nelson Jr., MD Stanley, Jacob David, AA 12/06/2024 7:30 AM CDT - 12/06/2024 8:30 AM CDT Surgery [facility] [address] [place] [address] Wilbur Willis MD BRONCHOSCOPY WITH LAVAGE 12/03/2024 1:02 AM CDT - 12/08/2024 11:41 AM WAIST PLEATER [place] [address] Denton Mabry MD Onaghise, Jude, MD Burton, Jeffrey Ryan, DO Congestive heart failure, unspecified HF chronicity, unspecified heart failure type (HCC) (Primary Dx); Bronchial obstruction Discharge Disposition: Discharge to home or self care 11/20/2024 2:46 PM CDT - 11/23/2024 1:31 PM [place] [address] Dandy Mcmahon MD Onaghise, Jude, MD Atrial fibrillation, unspecified type (HCC) (Primary Dx); Volume overload state of heart; Acute on chronic congestive heart failure, unspecified heart failure type (HCC); Coronary artery disease, unspecified vessel or lesion type, unspecified whether angina present, unspecified whether [place] or transplanted heart; Chronic diastolic congestive heart failure (HCC); Primary hypertension; KIA (obstructive sleep apnea); Transient ischemic attack Discharge Disposition: Discharge to home or self care 11/05/2024 12:47 PM CDT - 11/05/2024 11:59 PM CDT Hospital Encounter [facility] [address] [place] [address] Other nonspecific abnormal finding of lung field Discharge Disposition: Discharge to home or self care from Last 3 Months Immunizations Immunization Administration Dates Next Due Influenza, Quadrivalent, Rec ombinant, Egg Free, Preservative Free, Intramuscular 11/12/2020 Influenza, Quadrivalent, Spl it, Intramuscular 12/03/2019,02/06/2019 Influenza, Quadrivalent, Spl it, Preservative Free, Intramuscular 12/22/2022,12/03/2019,01/01/2019,01/01,03/23/2017,03/23/2017 Influenza, Trivalent, High D ose, Split, Preservative Free, Intramuscular 12/07/2023 Influenza, Trivalent, IM (MDV) 4,12/22/2022,11/12/2020,12/02,01/01/2019,03/23/2017,11/07/2015 Influenza, Unspecified 03/23/2017,11/07/2015 Moderna Sars-cov-2 Bivalent Vaccine 50 Mcg/0.5 mL (12+ YRS)-Blue/Ortega 04/05/2021 Pfizer Sars-cov-2 Monovalent Vaccination (6 Mos-4 Yrs) 04/30/2021 Pneumococcal Conjugate 7-Valent 02/06/2017 Pneumococcal Conjugate PCV 13 12/07/2023 Pneumococcal Conjugate Pcv20 12/07/2023 Pneumococcal Polysaccharide PPV23 11/07/2015 Pneumococcal, Unspecified 11/07/2015 TD Preservative Free 03/23/2017 Td, Not Adsorbed 03/23/2017 Tetanus Toxoid, Unspecified 03/23/2017 Surgical History Surgery Date Site/Laterality Comments CT CHEST TUBE INSERTION LEFT 09/26/2022 N/A CARDIAC CATHETERIZATION 06/14/2024 N/A Procedure: Right Left Heart Catheterization with Coronary Angiography with or without Left Ventriculography 16020; Surgeon: Everett Phan MD; Location: CARDIAC [facility] BRANCH [facility]NAGER; Service: Cardiovascular; Laterality: N/A; Medical History Medical History Date Comments COPD (chronic obstructive pulmonary disease) Diabetes mellitus Cancer (HCC) Morbid obesity (HCC) Pulmonary hypertension (HCC) Asthma Pulmonary embolism Hypertension Laryngeal squamous cell carcinoma (HCC) Lung cancer (HCC) Collapsed lung Former smoker Arrhythmia CHF (congestive heart failure) (HCC) Lung disease Chronic bronchitis (HCC) Cough GERD (gastroesophageal reflux disease) Type 2 diabetes mellitus History of TIA (transient ischemic attack) Chest pain Complete atelectasis of left lung Family History Medical History Relation Name Comments Hypertension Mother Relation Name Status Comments Mother Social History Tobacco Use Types Packs/Day Years Used Date Smoking Tobacco: Former Cigarettes 2018 Passive Smoke Exposure: Past Smokeless Tobacco: Never Tobacco Cessation:Counseling Given: No Alcohol Use Standard Drinks/Week Comments Never 0 (1 standard drink = 0.6 oz pur e alcohol) Social Connection and Isolation Panel Answer Date Recorded In a typical week, how many times do you talk on the phone with family, friends, or neighbors? More than three times a week 07/15/2024 How often do you get togethe r with friends or relatives? More than three times a week 07/15/2024 How often do you attend chur ch or scientologist services? Patient declined 07/15/2024 Do you belong to any clubs o r organizations such as nondenominational groups, unions, fraternal or athletic groups, or school groups? Patient declined 07/15/2024 How often do you attend meet ings of the clubs or organizations you belong to? Patient declined 07/15/2024 Are you , , di vorced, , never , or living with a partner? 07/15/2024 Overall Financial Resource Strain (CARDIA) Answe r Date Recorded How hard is it for you to pa y for the very basics like food, housing, medical care, and heating? Not hard at all 07/15/2024 PHQ-2 Answer Date Recorded PHQ-2 Total Score (If total score is 3 or more points, staff should administer the PHQ-9) 0 07/15/2024 PRAPARE - Transportation Answer Date Re corded In the past 12 months, has l ack of transportation kept you from medical appointments or from getting medications? No 10/2024 In the past 12 months, has l ack of transportation kept you from meetings, work, or from getting things needed for daily living? No 07/15/2024 Housing Stability Vital Sign Answer Shekhar e [...] place to sleep or slept in a fpc (including now)? No 10/13/2022 PHQ-9 Answer Date Recorded PHQ-9 Total Score 0 07/15/2024 Housing Stability Vital Sign Answer Shekhar e Recorded In the last 12 months, was t here a time when you were not able to pay the mortgage or rent on time? No 07/15/2024 In the past 12 months, how m any times have you moved where you were living? 1 07/15/2024 At any time in the past 12 m [facility], were you homeless or living in a fpc (including now)? No 07/15/2024 Social Connection and Isolation Panel Answer Date Recorded In a typical week, how many times do you talk on the phone with family, friends, or neighbors? More than three times a week 12/19/2024 How often do you get togethe r with friends or relatives? More than three times a week 12/19/2024 How often do you attend chur ch or scientologist services? Never 12/19/2024 Do you belong to any clubs o r organizations such as nondenominational groups, unions, fraternal or athletic groups, or school groups? No 12/19/2024 How often do you attend meet ings of the clubs or organizations you belong to? Never 12/19/2024 Are you , , di vorced, , never , or living with a partner? 12/19/2024 AUDIT-C Answer Date Recorded Q1: How often do you have a drink containing alcohol? Never 12/19/2024 Q2: How many drinks containi ng alcohol do you have on a typical day when you are drinking? Patient does not drink Q3: How often do you have si x or more drinks on one occasion? Never 12/19/2024 Overall Financial Resource Strain (CARDIA) Answe r Date Recorded How hard is it for you to pa y for the very basics like food, housing, medical care, and heating? Not hard at all 12/19/2024 Hunger Vital Sign Answer Date Recorded Within the past 12 months, y ou worried that your food would run out before you got the money to buy more. Never true 12/20/19 25 Within the past 12 months, t he food you bought just didn't last and you didn't have money to get more. Never true 12/19/2024 PRAPARE - Transportation Answer Date Re corded In the past 12 months, has l ack of transportation kept you from medical appointments or from getting medications? No 12/07 In the past 12 months, has l ack of transportation kept you from meetings, work, or from getting things needed for daily living? No 12/19/2024 Housing Stability Vital Sign Answer Shekhar e Recorded In the last 12 months, was t here a time when you were not able to pay the mortgage or rent on time? No 12/19/2024 In the past 12 months, how m any times have you moved where you were living? 0 12/19/2024 At any time in the past 12 m [facility], were you homeless or living in a fpc (including now)? No 12/19/2024 [facility] Utilities Answer Date Recorded In the past 12 months has th [employer], gas, oil, or water company threatened to shut off services in your home? No 12/19/2024 Personal Safety Answer Date Recorded Have you ever been in or are you currently in a harmful physical or emotional relationship or is someone making you feel afraid or unsafe? Denies 12/18/2024 Comments No Sex and Gender Information Value Date Recorded Sex Assigned at Not on file Legal Sex Female 12:23 AM WAIST PLEATER Gender Identity Female 07/15/2024 8:56 AM CDT Sexual Orientation Straight 07/15/2024 8: 56 AM CDT Last Filed Vital Signs Vital Sign Reading Time Taken Comments Blood Pressure 122/68 12/21/2024 10:25 AM WAIST PLEATER Pulse 99 12/21/2024 10:25 AM WAIST PLEATER Temperature 36.3 C (97.3 F) 12/21/2024 8:10 AM WAIST PLEATER Respiratory Rate 18 12/21/2024 9:05 AM WAIST PLEATER Oxygen Saturation 98% 12/21/2024 9:02 AM WAIST PLEATER Inhaled Oxygen Concentration - - Weight 145.9 kg (321 lb 10.4 oz) 12/20/2024 6:00 AM WAIST PLEATER Height 172.7 cm (5' 8) 12/18/2024 11:5 0 PM WAIST PLEATER Body Mass Index 48.91 12/18/2024 11:50 PM WAIST PLEATER Plan of Treatment Health Maintenance Due Date Last Done Comments Albumin Creatinine Ratio, Urine 1958 Breast Cancer Screening-Mammogram 1958 Colon Cancer Screening-Colonoscopy 1960 Hepatitis C Screening 1960 Dilated Eye Exam 1958 Foot Exam 1958 Lipid Panel 1958 Hepatitis B Screening 1976 Zoster Vaccine (1 of 2) 2008 DTaP/Tdap/Td Vaccine (1 - Tdap) 03/24/2017 8, 03/23/2017 Osteoporosis Screening-Bone Density Scan 08/25/2022 08/25/2020 Well Visit 65+ 09/07/2023 Covid-19 Vaccine (2 6 season) 2024 11/26/2021, 11/26/2021, 04/30/2021, Additional history exists Hemoglobin A1C 06/04/2025 12/04/2024, 09/06, 07/13/2024, Additional history exists Depression Screening 07/13/2025 07/13/2024, 07/14/19 25 Fall Risk Assessment 12/21/2025 12/21/2024 eGFR 12/21/2025 12/21/2024, 12/07, 12/18/2024, Additional history exists Pneumococcal vaccine 65+ Completed 024, 12/07/2023, 02/06/2017, Additional history exists Influenza Vaccine Completed 12/17/2024, , 12/07/2023, Additional history exists Goals Goal Patient Goal Type Associated Problems Recent Progress Patient-Stated? Author COPD Goal - Patient schedules and completes follow up visits with assigned provider(s) ACO Care Management Christos Bobby, BA Note: Problem: Follow up care Interventions: - Address financial issues related to co pay. - Address transportation issues. - Emphasize importance of follow up visits and keeping scheduled appointments. - Identify and discuss questions for the next provider visit. - Provide assistance in setting follow up appointment if necessary. CAD Goal - Patient / caregiver verbalizes understanding of discharge medication changes and will take appropriate steps to increase medication adherence ACO Care Management Christos Bobby, BA Note: Problem: Inadequate health maintenance related to discharge medications Interventions: - Assess for barriers to medication adherence. Provide coordination, educations and resources to address these barriers. - Assess patient ability to obtain medications. - Review any new, changed, discontinued, and/or sliding scales or tapered medications. - Reconcile pre and post hospitalization medication lists with patient. - Review importance of contacting the healthcare provider with concerns or questions. - Notify physician of medication non-adherence, request appointment or patient recommendations. - Identify and correct medication discrepancies with patient. - Assess medication compliance on a weekly basis throughout the program. TTW CHF Goal - Patient will improve their knowledge of HF and will be motivated to try to better manage at home TTW Case Management Christos Bobby, BA Note: Problem: Ability to self-manage CHF Interventions: - Assess ability to self manage: Medication management, daily monitoring for signs/symptoms, adherence to a low sodium diet, routine exercise - Assess for barriers to care and provide education/resources needed - Encourage patient to compare logged results (weight, BP, HR, O2) to the previous day and week - Worsening signs/symptoms to monitor include: increased weight, increased swelling, change in exercise tolerance, breathing status at night (needing more pillows to sleep), dizziness or lightheadedness Medical Devices Implanted Type Area Automotive Artist Device Identifier Shelf Expiration Date Model / Serial / Lot Implantable Loop Recorder Implantable Loop Recorder Chest Biotronik Procedures Procedure Name Priority Date/Time Associated Diagnosis Comments POCT GLUCOSE DEVICE Routine 12/21/2024 6 :38 AM WAIST PLEATER EGFR Routine 12/21/2024 3:37 AM WAIST PLEATER BASIC METABOLIC PANEL Routine 12/21/2024 3:37 AM WAIST PLEATER CBC WITHOUT DIFFERENTIAL Routine 12/21/2024 3:37 AM WAIST PLEATER POCT GLUCOSE DEVICE Routine 12/20/2024 8 :05 PM WAIST PLEATER POCT GLUCOSE DEVICE Routine 12/20/2024 4 :49 PM WAIST PLEATER POCT GLUCOSE DEVICE Routine 12/20/2024 12:07 PM WAIST PLEATER POCT GLUCOSE DEVICE Routine 12/20/2024 8 :43 AM WAIST PLEATER POCT GLUCOSE DEVICE Routine 12/20/2024 6 :36 AM WAIST PLEATER EGFR Routine 12/20/2024 3:57 AM WAIST PLEATER BASIC METABOLIC PANEL Routine 12/20/2024 3:57 AM WAIST PLEATER CBC WITHOUT DIFFERENTIAL Routine 12/20/2024 3:57 AM WAIST PLEATER POCT GLUCOSE DEVICE Routine 12/19/2024 9 :25 PM WAIST PLEATER POCT GLUCOSE DEVICE Routine 12/19/2024 5 :07 PM WAIST PLEATER INFECTION PREVENTION MARKEL AURIS PCR, SURVEILLANCE Routine 12/19/2024 1:34 PM WAIST PLEATER POCT GLUCOSE DEVICE Routine 12/19/2024 12:46 PM WAIST PLEATER POCT GLUCOSE DEVICE Routine 12/19/2024 10:16 AM WAIST PLEATER POCT GLUCOSE DEVICE Routine 12/19/2024 6 :33 AM WAIST PLEATER POCT GLUCOSE DEVICE Routine 12/19/2024 12:06 AM WAIST PLEATER TROPONIN T HIGH-SENSITIVITY 6-HOUR Timed 12/19/2024 12:[address] CHEST WO CONTRAST ED 12/18/2024 10:48 PM WAIST PLEATER TROPONIN T HIGH-SENSITIVITY 4-HR Timed 12/18/2024 8:44 PM WAIST PLEATER TROPONIN T HIGH-SENSITIVITY 2-HOUR Timed 12/18/2024 6:57 PM WAIST PLEATER STREPTOCOCCUS GROUP A PCR STAT 12/18/2024 4:54 PM WAIST PLEATER RESPIRATORY PATHOGEN PANEL STAT 12/18/2024 4:54 PM WAIST PLEATER XR CHEST 1 VIEW ED 12/18/2024 4:29 PM WAIST PLEATER EGFR STAT 12/18/2024 4:14 PM WAIST PLEATER DIFFERENTIAL AUTO STAT 12/18/2024 4:1 4 PM WAIST PLEATER TROPONIN T HIGH-SENSITIVITY SERIES (BASELINE, 2HR, 4HR, 6HR) STAT 12/18/2024 4:14 PM WAIST PLEATER PRO B-TYPE NATRIURETIC PEPTIDE STAT 12/18/2024 4:14 PM WAIST PLEATER COMPREHENSIVE METABOLIC PANEL STAT 12/18/2024 4:14 PM WAIST PLEATER CBC WITH AUTO DIFFERENTIAL STAT 12/18/2024 4:14 PM WAIST PLEATER ECG 12-LEAD STAT 12/18/2024 3:43 PM WAIST PLEATER POCT GLUCOSE DEVICE Routine 12/08/2024 9 :24 AM WAIST PLEATER POCT GLUCOSE DEVICE Routine 12/08/2024 7 :22 AM WAIST PLEATER EGFR Routine 12/08/2024 4:00 AM WAIST PLEATER CBC WITHOUT DIFFERENTIAL Routine 12/08/2024 4:00 AM WAIST PLEATER RENAL FUNCTION PANEL Routine 12/08/2024 4:00 AM WAIST PLEATER POCT GLUCOSE DEVICE Routine 12/08/2024 12:45 AM CDT POCT GLUCOSE DEVICE Routine 12/07/2024 9 :03 PM CDT POCT GLUCOSE DEVICE Routine 12/07/2024 4 :55 PM CDT POCT GLUCOSE DEVICE Routine 12/07/2024 11:52 AM CDT POCT GLUCOSE DEVICE Routine 12/07/2024 6 :26 AM CDT EGFR Routine 12/07/2024 3:58 AM CDT CBC WITHOUT DIFFERENTIAL Routine 12/07/2024 3:58 AM CDT RENAL FUNCTION PANEL Routine 12/07/2024 3:58 AM CDT POCT GLUCOSE DEVICE Routine 12/07/2024 1 :27 AM CDT POCT GLUCOSE DEVICE Routine 12/06/2024 8 :25 PM CDT POCT GLUCOSE DEVICE Routine 12/06/2024 4 :28 PM CDT ECG 12-LEAD Routine 12/06/2024 11:48 AM CDT POCT GLUCOSE DEVICE Routine 12/06/2024 11:28 AM CDT NH AN ELECTIVE ENDOTRACHEAL AIRWAY Routine 12/06/2024 8:40 AM CDT MYCOLOGY (FUNGAL) CULTURE Routine 12/06/2024 8:18 AM CDT AEROBIC CULTURE AND GRAM STAIN Routine 12/06/2024 8:18 AM CDT MYCOBACTERIOLOGY AFB CULTURE AND ACID-FAST STAIN Routine 12/06/2024 8:18 AM CDT BRONCHOSCOPY WITH LAVAGE 12/06/2024 7:55 AM CDT Bronchial obstruction BRONCHOSCOPY 12/06/2024 7:26 AM CDT POCT GLUCOSE DEVICE Routine 12/06/2024 6 :27 AM CDT XR CHEST 1 VIEW Timed 12/06/2024 6:03 AM CDT EGFR Routine 12/06/2024 3:43 AM CDT CBC WITHOUT DIFFERENTIAL Routine 12/06/2024 3:43 AM CDT RENAL FUNCTION PANEL Routine 12/06/2024 3:43 AM CDT CYTOLOGY Routine 12/06/2024 12:00 AM CDT POCT GLUCOSE DEVICE Routine 12/05/2024 8 :32 PM CDT POCT GLUCOSE DEVICE Routine 12/05/2024 4 :46 PM CDT POCT GLUCOSE DEVICE Routine 12/05/2024 11:40 AM CDT POCT GLUCOSE DEVICE Routine 12/05/2024 6 :42 AM CDT XR CHEST 1 VIEW IP Routine 12/05/2024 5:20 AM CDT EGFR Routine 12/05/2024 3:50 AM CDT CBC WITHOUT DIFFERENTIAL Routine 12/05/2024 3:50 AM CDT RENAL FUNCTION PANEL Routine 12/05/2024 3:50 AM CDT POCT GLUCOSE DEVICE Routine 12/04/2024 8 :05 PM CDT POCT GLUCOSE DEVICE Routine 12/04/2024 4 :58 PM CDT POCT GLUCOSE DEVICE Routine 12/04/2024 12:24 PM CDT POCT GLUCOSE DEVICE Routine 12/04/2024 9 :47 AM CDT POCT GLUCOSE DEVICE Routine 12/04/2024 6 :46 AM CDT HEMOGLOBIN A1C Add-On 12/04/2024 4:28 AM CDT EGFR Routine 12/04/2024 4:28 AM CDT CBC WITHOUT DIFFERENTIAL Routine 12/04/2024 4:28 AM CDT RENAL FUNCTION PANEL Routine 12/04/2024 4:28 AM CDT POCT GLUCOSE DEVICE Routine 12/03/2024 9 :19 PM CDT POCT GLUCOSE DEVICE Routine 12/03/2024 4 :40 PM CDT POTASSIUM LEVEL Timed 12/03/2024 3:59 PM CDT PHOSPHORUS Timed 12/03/2024 3:59 PM CDT MAGNESIUM Timed 12/03/2024 3:[address] CHEST WO CONTRAST IP Routine 12/03/2024 2:25 PM CDT POCT GLUCOSE DEVICE Routine 12/03/2024 2 :06 PM CDT POCT GLUCOSE DEVICE Routine 12/03/2024 12:05 PM CDT POCT GLUCOSE DEVICE Routine 12/03/2024 9 :45 AM CDT TRANSTHORACIC ECHO (TTE) COMPLETE W DOPPLER/CF W CONTRAST Routine 12/03/2024 9:30 AM CDT TROPONIN T HIGH-SENSITIVITY 2-HOUR Timed 12/03/2024 3:53 AM CDT EGFR STAT 12/03/2024 2:14 AM CDT COMPREHENSIVE METABOLIC PANEL STAT 12/03/2024 2:14 AM CDT RESPIRATORY PATHOGEN PANEL STAT 12/03/2024 2:14 AM CDT XR CHEST 1 VIEW ED 12/03/2024 1:24 AM CDT DIFFERENTIAL AUTO STAT 12/03/2024 1:2 0 AM CDT BLOOD GAS, VENOUS Routine 12/03/2024 1:2 0 AM CDT PRO B-TYPE NATRIURETIC PEPTIDE STAT 12/03/2024 1:20 AM CDT TROPONIN T HIGH-SENSITIVITY SERIES (BASELINE, 2HR, 4HR, 6HR) STAT 12/03/2024 1:20 AM CDT CBC WITH AUTO DIFFERENTIAL STAT 12/03/2024 1:20 AM CDT ECG 12-LEAD STAT 12/03/2024 1:08 AM CDT POCT GLUCOSE DEVICE Routine 11/23/2024 12:29 PM CDT POCT GLUCOSE DEVICE Routine 11/23/2024 7 :27 AM CDT EGFR Routine 11/23/2024 5:29 AM CDT DIFFERENTIAL AUTO Routine 11/23/2024 5:2 9 AM CDT BASIC METABOLIC PANEL Routine 11/23/2024 5:29 AM CDT CBC WITH AUTO DIFFERENTIAL Routine 11/23/2024 5:29 AM CDT POCT GLUCOSE DEVICE Routine 11/22/2024 8 :51 PM CDT POCT GLUCOSE DEVICE Routine 11/22/2024 8 :35 PM CDT POCT GLUCOSE DEVICE Routine 11/22/2024 5 :59 PM CDT POCT GLUCOSE DEVICE Routine 11/22/2024 12:48 PM CDT POCT GLUCOSE DEVICE Routine 11/22/2024 8 :02 AM CDT EGFR Routine 11/22/2024 5:16 AM CDT DIFFERENTIAL AUTO Routine 11/22/2024 5:1 6 AM CDT BASIC METABOLIC PANEL Routine 11/22/2024 5:16 AM CDT CBC WITH AUTO DIFFERENTIAL Routine 11/22/2024 5:16 AM CDT POCT GLUCOSE DEVICE Routine 11/21/2024 9 :41 PM CDT POCT GLUCOSE DEVICE Routine 11/21/2024 5 :14 PM CDT POCT GLUCOSE DEVICE Routine 11/21/2024 12:48 PM CDT POCT GLUCOSE DEVICE Routine 11/21/2024 7 :28 AM CDT URIC ACID Add-On 11/21/2024 6:32 AM CDT EGFR Routine 11/21/2024 6:32 AM CDT DIFFERENTIAL AUTO Routine 11/21/2024 6:3 2 AM CDT BASIC METABOLIC PANEL Routine 11/21/2024 6:32 AM CDT CBC WITH AUTO DIFFERENTIAL Routine 11/21/2024 6:32 AM CDT POCT GLUCOSE DEVICE Routine 11/20/2024 8 :27 PM CDT NH CRITICAL CARE ILL/INJURED PATIENT INIT 30-74 MIN Routine 11/20/2024 6:08 PM CDT TROPONIN T HIGH-SENSITIVITY 2-HOUR Timed 11/20/2024 3:54 PM CDT ECG 12-LEAD STAT 11/20/2024 3:02 PM CDT XR CHEST 1 VIEW ED 11/20/2024 2:42 PM CDT EGFR STAT 11/20/2024 2:09 PM CDT DIFFERENTIAL AUTO STAT 11/20/2024 2:0 9 PM CDT TROPONIN T HIGH-SENSITIVITY SERIES (BASELINE, 2HR, 4HR, 6HR) STAT 11/20/2024 2:09 PM CDT PRO B-TYPE NATRIURETIC PEPTIDE STAT 11/20/2024 2:09 PM CDT COMPREHENSIVE METABOLIC PANEL STAT 11/20/2024 2:09 PM CDT CBC WITH AUTO DIFFERENTIAL STAT 11/20/2024 2:[address] CHEST WO CONTRAST Schedule Routine, Read Routine (OP Routine) 11/05/2024 1:13 PM CDT Other nonspecific abnormal finding of lung field from Last 3 Months Results * (ABNORMAL) POCT glucose (12/21/2024 6:38 AM WAIST PLEATER) Glucose, POC 216(H) 70 - 199 mg/dL Blood 12/21/2024 6:38 AM WAIST PLEATER 12/21/2024 6:38 AM WAIST PLEATER us Benjamín Portillo MD LAB POCT ORDERABLES - DEVICE Fi nal Result CLEO [id number] [address] Department [place] [address] * eGFR (12/21/2024 3:37 AM WAIST PLEATER) eGFR 72 >=60 mL/min/1. 73 m2 Comment: Interpretive Data Reference Interval Normal >/= 90 mL/min/1.73m2 Mildly decreased* 60 - 89 mL/min/1.73m2 Mildly to moderately decreased 45 - 59 mL/min/1.73m2 Moderately to severely decreased 30 - 44 mL/min/1.73m2 Severely decreased 15 - 29 mL/min/1.73m2 Kidney Failure < 15 mL/min/1.73m2 *Relative to young adult level Estimated glomerular filtration rate is determined by the 2020 CKD-EPI equation recommended by the National Kidney Foundation (A Unifying Approach to GFR Estimation: Recommendations of the NKF-ASK Task Force on Reassessing the Inclusion of Race in Diagnosing Kidney Disease, JASN 2020). The CKD-EPI equation should not be used for patients with unstable renal function and has not been validated in children and those over 70. Current interpretive data was last reviewed 2020. Blood 12/21/2024 3:37 AM WAIST PLEATER 12/21/2024 4:08 AM WAIST PLEATER Corrie Russo MD LAB BLOOD ORDERABLES Final Re sult CLEO VELEZ [address] [address] [employer] [place] [address] * (ABNORMAL) CBC without differential (12/21/2024 3:37 AM WAIST PLEATER) WBC 3.85 3.80 - 9.90 K/cumm Hgb 13.1 11.9 - 15.5 g/dL [facility] Hct 43.3 35.6 - 45.5 % [facility] Plt 213 150 - 400 K/cumm [facility] MPV 10.1 9.1 - 12.3 fL [facility] RBC 5.12 3.90 - 5.20 M/cumm [facility] MCV 84.6 81.3 - 96.4 fL [facility] MCH 25.6(L) 27.1 - 33.3 pg [facility] MCHC 30.3(L) 32.3 - 35.7 g/dL [facility] RDW CV 17.9(H) 11.1 - 14.9 % [facility] RDW SD 55.4(H) 35.7 - 48.1 fL [facility] NRBC abs 0.00 0.00 - 0.01 K/cumm [facility] Blood 12/21/2024 3:37 AM WAIST PLEATER 12/21/2024 4:08 AM WAIST PLEATER Corrie Russo MD LAB BLOOD ORDERABLES Final Re sult Performing Organization Address City/[facility]/ZIP Co de Phone Number CLEO VELEZ [address] [place] [address] * Basic metabolic panel (12/21/2024 3:37 AM WAIST PLEATER) Sodium 138 135 - 145 mmol/L Potassium, pl 3.9 3.3 - 4.9 mmol/L [facility] Chloride 98 97 - 110 mmol/L [facility] CO2 30 22 - 32 mmol/L [facility] Anion gap 10 2 - 15 mmol/L [facility] BUN 14 6 - 25 mg/dL [facility] Creatinine 0.88 0.60 - 1.10 mg/dL [facility] Glucose 166 70 - 199 mg/dL [facility] Comment: Interpretive Data Fasting glucose >/= 126 mg/dl is diagnostic for diabetes. Fasting is defined as no caloric intake for at least 8 hours. Fasting glucose between 100 mg/dl to 125 mg/dl is diagnostic of prediabetes. In a patient with classic symptoms of hyperglycemia or hyperglycemic crisis, a random glucose >/= 200 mg/dl is diagnostic for diabetes. In the absence of unequivocal hyperglycemia, results should be confirmed by repeat testing. The classification and Diagnosis of Diabetes Diabetes Care 2021; 46: S19-S40. Current interpretive data was last revised 2022. Calcium 8.6 8.5 - 10.3 mg/dL [facility] Blood 12/21/2024 3:37 AM WAIST PLEATER 12/21/2024 4:08 AM WAIST PLEATER us Corrie Russo MD LAB BLOOD ORDERABLES Final Re sult Performing Organization Address City/[facility]/ZIP Co de Phone Number [facility] [address] [place] [address] * POCT glucose (12/20/2024 8:05 PM WAIST PLEATER) Glucose, POC 189 70 - 199 mg/dL Blood 12/20/2024 8:05 PM WAIST PLEATER 12/20/2024 8:05 PM WAIST PLEATER us Benjamín Portillo MD LAB POCT ORDERABLES - DEVICE Fi nal Result Performing Organization Address City/[facility]/ZIP Co de Phone Number [facility] [address] [address] Department [place] [address] * POCT glucose (12/20/2024 4:49 PM WAIST PLEATER) Glucose, POC 93 70 - 199 mg/dL Blood 12/20/2024 4:49 PM WAIST PLEATER 12/20/2024 4:49 PM WAIST PLEATER us Benjamín Portillo MD LAB POCT ORDERABLES - DEVICE Fi nal Result Performing Organization Address [facility] Co de Phone Number OPALJIMMIE VELEZ [address] [address] [facility] [place] [address] * (ABNORMAL) POCT glucose (12/20/2024 12:07 PM WAIST PLEATER) Glucose, POC 312(H) 70 - 199 mg/dL Blood 12/20/2024 12:0 7 PM WAIST PLEATER 12/20/2024 12:07 PM WAIST PLEATER us Benjamín Portillo MD LAB POCT ORDERABLES - DEVICE Fi nal Result Performing Organization Address [facility] de Phone Number CLEO [phone] [address] [facility] [place] [address] * (ABNORMAL) POCT glucose (12/20/2024 8:43 AM WAIST PLEATER) Glucose, POC 352(H) 70 - 199 mg/dL Blood 12/20/2024 8:43 AM WAIST PLEATER 12/20/2024 8:43 AM WAIST PLEATER us Benjamín Portillo MD LAB POCT ORDERABLES - DEVICE Fi nal Result Performing Organization Address [facility] de Phone Number OPALJIMMIE [address] [address] [facility] [place] [address] * (ABNORMAL) POCT glucose (12/20/2024 6:36 AM WAIST PLEATER) Glucose, POC 298(H) 70 - 199 mg/dL Blood 12/20/2024 6:36 AM WAIST PLEATER 12/20/2024 6:36 AM WAIST PLEATER Benjmaín Portillo MD LAB POCT ORDERABLES - DEVICE Fi nal Result Performing Organization Address [facility] Co de Phone Number CLEO VELEZ [address] Department [place] [address] * eGFR (12/20/2024 3:57 AM WAIST PLEATER) eGFR 74 >=60 mL/min/1. 73 m2 Comment: Interpretive Data Reference Interval Normal >/= 90 mL/min/1.73m2 Mildly decreased* 60 - 89 mL/min/1.73m2 Mildly to moderately decreased 45 - 59 mL/min/1.73m2 Moderately to severely decreased 30 - 44 mL/min/1.73m2 Severely decreased 15 - 29 mL/min/1.73m2 Kidney Failure < 15 mL/min/1.73m2 *Relative to young adult level Estimated glomerular filtration rate is determined by the 2020 CKD-EPI equation recommended by the National Kidney Foundation (A Unifying Approach to GFR Estimation: Recommendations of the NKF-ASK Task Force on Reassessing the Inclusion of Race in Diagnosing Kidney Disease, JASN 2020). The CKD-EPI equation should not be used for patients with unstable renal function and has not been validated in children and those over 70. Current interpretive data was last reviewed 2020. Blood 12/20/2024 3:57 AM WAIST PLEATER 12/20/2024 4:38 AM WAIST PLEATER Corrie Russo MD LAB BLOOD ORDERABLES Final Re sult Performing Organization Address [facility] Co de Phone Number CLEO VELEZ [phone] [address] Department [place] [address] * (ABNORMAL) CBC without differential (12/20/2024 3:57 AM WAIST PLEATER) WBC 7.21 3.80 - 9.90 K/cumm Hgb 11.7(L) 11.9 - 15.5 g/dL [facility] Hct 37.7 35.6 - 45.5 % [facility] Plt 237 150 - 400 K/cumm [facility] MPV 10.1 9.1 - 12.3 fL [facility] RBC 4.48 3.90 - 5.20 M/cumm [facility] MCV 84.2 81.3 - 96.4 fL [facility] MCH 26.1(L) 27.1 - 33.3 pg [facility] MCHC 31.0(L) 32.3 - 35.7 g/dL [facility] RDW CV 17.9(H) 11.1 - 14.9 % [facility] RDW SD 54.5(H) 35.7 - 48.1 fL [facility] NRBC abs 0.00 0.00 - 0.01 K/cumm [facility] Blood 12/20/2024 3:57 AM WAIST PLEATER 12/20/2024 4:39 AM WAIST PLEATER us Corrie Russo MD LAB BLOOD ORDERABLES Final Re sult [facility] [address] [address] Department [place] [address] * (ABNORMAL) Basic metabolic panel (12/20/2024 3:57 AM WAIST PLEATER) Sodium 136 135 - 145 mmol/L Potassium, pl 3.2(L) 3.3 - 4.9 mmol/L [facility] Chloride 94(L) 97 - 110 mmol/L [facility] CO2 29 22 - 32 mmol/L [facility] Anion gap 13 2 - 15 mmol/L [facility] BUN 12 6 - 25 mg/dL [facility] Creatinine 0.86 0.60 - 1.10 mg/dL [facility] Glucose 255(H) 70 - 199 mg/dL [facility] Comment: Interpretive Data Fasting glucose >/= 126 mg/dl is diagnostic for diabetes. Fasting is defined as no caloric intake for at least 8 hours. Fasting glucose between 100 mg/dl to 125 mg/dl is diagnostic of prediabetes. In a patient with classic symptoms of hyperglycemia or hyperglycemic crisis, a random glucose >/= 200 mg/dl is diagnostic for diabetes. In the absence of unequivocal hyperglycemia, results should be confirmed by repeat testing. The classification and Diagnosis of Diabetes Diabetes Care 2022; 46: S19-S40. Current interpretive data was last revised 2022. Calcium 8.8 8.5 - 10.3 mg/dL [facility] Blood 12/20/2024 3:57 AM WAIST PLEATER 12/20/2024 4:38 AM WAIST PLEATER Result [facility] us Corrie Russo MD LAB BLOOD ORDERABLES Final Re sult Performing Organization Address [facility]/ZIP Co de Phone Number CLEO [address] [address] Department [place] [address] * (ABNORMAL) POCT glucose (12/19/2024 9:25 PM WAIST PLEATER) Glucose, POC 233(H) 70 - 199 mg/dL Blood 12/19/2024 9:25 PM WAIST PLEATER 12/19/2024 9:25 PM WAIST PLEATER us Benjamín Portillo MD LAB POCT ORDERABLES - DEVICE Fi nal Result Performing Organization Address [facility] Co de Phone Number CLEO [address] [address] Department [place] [address] * POCT glucose (12/19/2024 5:07 PM WAIST PLEATER) Glucose, POC 143 70 - 199 mg/dL Blood 12/19/2024 5:07 PM WAIST PLEATER 12/19/2024 5:07 PM WAIST PLEATER us Benjamín Portillo MD LAB POCT ORDERABLES - DEVICE Fi nal Result Performing Organization Address [facility] Co de Phone Number CLEO [address] [address] Department [place] [address] * Infection Prevention Markel auris PCR, surveillance Axilla/Groin (12/19/2024 1:34 PM WAIST PLEATER) Markel auris DNA Not Detected Not Detected [facility] Comment: Interpretive Data Testing performed by [facility] using the Fouzia joe 6800 Markel auris assay. This assay detects DNA from Markel auris using Real-Time PCR. This assay is laboratory developed and is not cleared by the [place] Food and Drug Administration. The performance characteristics have been verified by the [facility]. Testing performed by: [facility], [address] [place]., [address] Axilla/Groin 12/19/2024 1:34 PM WAIST PLEATER 12/19/2024 6:04 PM WAIST PLEATER Narrative CLEO VELEZ - 12/19/2024 10:14 PM WAIST PLEATER Order placed by [facility] due to ring surveillance. [facility] Order Generic Provider LAB MICROBIOLOGY - GENERAL ORDERABLES Final Result Performing Organization Address [facility]/ZIP Co de Phone Number CLEO [phone] [address] Department [place] [address] [facility] * POCT glucose (12/19/2024 12:46 PM WAIST PLEATER) Glucose, POC 190 70 - 199 mg/dL Blood 12/19/2024 12:4 6 PM WAIST PLEATER 12/19/2024 12:46 PM WAIST PLEATER us Benjamín Portillo MD LAB POCT ORDERABLES - DEVICE Fi nal Result Performing Organization Address [facility] Co de Phone Number CLEO [address] [address] Department [place] [address] * (ABNORMAL) POCT glucose (12/19/2024 10:16 AM WAIST PLEATER) Glucose, POC 201(H) 70 - 199 mg/dL Blood 12/19/2024 10:1 6 AM WAIST PLEATER 12/19/2024 10:16 AM WAIST PLEATER us Benjamín Portillo MD LAB POCT ORDERABLES - DEVICE Fi nal Result Performing Organization Address [facility] Co de Phone Number CLEO [address] [address] Department [place] [address] * POCT glucose (12/19/2024 6:33 AM WAIST PLEATER) Glucose, POC 195 70 - 199 mg/dL Blood 12/19/2024 6:33 AM WAIST PLEATER 12/19/2024 6:33 AM WAIST PLEATER us Benjamín Portillo MD LAB POCT ORDERABLES - DEVICE Fi nal Result Performing Organization Address City/[facility]/ZIP Co de Phone Number CLEO [address] [address] Department [place] [address] * POCT glucose (12/19/2024 12:06 AM WAIST PLEATER) Glucose, POC 179 70 - 199 mg/dL Blood 12/19/2024 12:0 6 AM WAIST PLEATER 12/19/2024 12:06 AM WAIST PLEATER us Alejandra Ibanez MD LAB POCT ORDER JAYLENE - DEVICE Final Result Performing Organization Address [facility] Co de Phone Number OPALJIMMIE [address] [address] Department [place] [address] * (ABNORMAL) Troponin T high-sensitivity 6-hour (12/19/2024 12:04 AM WAIST PLEATER) Trop T hs 16(H) <=14 ng/L Comment: Interpretive Data For further hscTnT resources including the diagnostic algorithm and an aid in interpretation, copy and paste this link: https://nrl.testcatalog.org/show/hsTrop Current Interpretive Data last revised 2019. Trop T hs delta See Comment ng/L CLEO Comment:Inappropriate collec tion time to report a delta. Trop T hs pct delta See Comment % [facility]O CH Comment:Inappropriate collec tion time to report a delta. Trop T hs interp See Comment CLEO Comment:Inappropriate collec tion time to report a delta. Blood 12/19/2024 12:0 4 AM WAIST PLEATER 12/19/2024 12:38 AM WAIST PLEATER us Mony Chacon MD LAB BLOOD ORDERABLES Fi nal Result CLEO VELEZ [address] [place] [address] * CT Chest WO Contrast (12/18/2024 10:48 PM WAIST PLEATER) Anatomical Region Laterality Modality Body N/A Computed Tomogra phy 12/18/2024 10:4 1 PM WAIST PLEATER Impressions 12/19/2024 8:01 AM WAIST PLEATER Complete collapse of the left lung, recommend pulmonology consultation. Stat report by [facility] Electronically signed by: Christos Conklin M.D. Narrative 12/19/2024 8:01 AM WAIST PLEATER EXAMINATION: CT CHEST WO CONTRAST HISTORY: Short of breath ORDER DATE: 12/18/2024 10:40 PM TECHNIQUE: Multiple axial images of the chest were obtained with 2-D imaging without the administration of contrast. Evaluation of the mediastinum and elroy for adenopathy and other pathology is significantly limited by the lack of intravascular contrast. COMPARISON: CT CHEST WO CONTRAST 12/03/2024 FINDINGS: Tubes, catheters and devices: Left pectoral loop recorder. Lungs: Complete collapse of the left lung. Mild emphysematous changes in the right lung. Mild basilar predominant subpleural reticular opacities in the right lung, likely atelectasis. Mild mosaic attenuation in the right lung. No definite mass. Pleural spaces: No significant pleural effusions. No pneumothoraces. Right posterior basilar pleural calcifications. Heart: Heart size is within normal range. Trace pericardial effusion multivessel coronary calcific atherosclerotic changes. Mild aortic valve calcification. Lymph nodes: Mildly enlarged nonspecific mediastinal lymph node. Vasculature: Calcific aortic atherosclerosis with no aneurysm. Gallbladder and biliary ducts: The gallbladder is surgically absent. Bones/joints: Old deformity of the proximal right humerus with degenerative changes in the right glenohumeral joint. 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 Multilevel degenerative changes in the spine. No acute fracture. Procedure Note Christos Conklin MD - 12/19/2024 EXAMINATION: CT CHEST WO CONTRAST HISTORY: Short of breath ORDER DATE: 12/18/2024 10:40 PM TECHNIQUE: Multiple axial images of the chest were obtained with 2-D imaging without the administration of contrast. Evaluation of the mediastinum and elroy for adenopathy and other pathology is significantly limited by the lack of intravascular contrast. COMPARISON: CT CHEST WO CONTRAST 12/03/2024 FINDINGS: Tubes, catheters and devices: Left pectoral loop recorder. Lungs: Complete collapse of the left lung. Mild emphysematous changes in the right lung. Mild basilar predominant subpleural reticular opacities in the right lung, likely atelectasis. Mild mosaic attenuation in the right lung. No definite mass. Pleural spaces: No significant pleural effusions. No pneumothoraces. Right posterior basilar pleural calcifications. Heart: Heart size is within normal range. Trace pericardial effusion multivessel coronary calcific atherosclerotic changes. Mild aortic valve calcification. Lymph nodes: Mildly enlarged nonspecific mediastinal lymph node. Vasculature: Calcific aortic atherosclerosis with no aneurysm. Gallbladder and biliary ducts: The gallbladder is surgically absent. Bones/joints: Old deformity of the proximal right humerus with degenerative changes in the right glenohumeral joint. 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 Multilevel degenerative changes in the spine. No acute fracture. IMPRESSION: Complete collapse of the left lung, recommend pulmonology consultation. Stat report by [facility] Electronically signed by: Christos Conklin M.D. Mony Chacon MD IMG CT PROCEDURES Final Result * (ABNORMAL) Troponin T high-sensitivity 4-hour (12/18/2024 8:44 PM WAIST PLEATER) Trop T hs 17(H) <=14 ng/L Comment: Interpretive Data For further hscTnT resources including the diagnostic algorithm and an aid in interpretation, copy and paste this link: https://nrl.testcatalog.org/show/hsTrop Current Interpretive Data last revised 2019. Trop T hs delta 1 ng/L [facility] Trop T hs interp Insignificant [facility] Blood 12/18/2024 8:44 PM WAIST PLEATER 12/18/2024 8:50 PM WAIST PLEATER Mony Chacon MD LAB BLOOD ORDERABLES Fi nal Result Performing Organization Address [facility] Co de Phone Number CLEO VELEZ [phone] [address] [facility] [place] [address] * (ABNORMAL) Troponin T high-sensitivity 2-hour (12/18/2024 6:57 PM WAIST PLEATER) Pathologist [facility] Trop T hs 24(H) <=14 ng/L Comment: Interpretive Data For further hscTnT resources including the diagnostic algorithm and an aid in interpretation, copy and paste this link: https://nrl.testcatalog.org/show/hsTrop Current Interpretive Data last revised 2019. Trop T hs delta 8 ng/L [facility] Trop T hs interp [employer] [facility] Blood 12/18/2024 6:57 PM WAIST PLEATER 12/18/2024 7:00 PM WAIST PLEATER Mony Chacon MD LAB BLOOD ORDERABLES Fi nal Result Performing Organization Address [facility] Co de Phone Number CLEO VELEZ [address] [address] Department [place] [address] * Streptococcus Group A PCR Throat (12/18/2024 4:54 PM WAIST PLEATER) [facility] Strep A DNA Not Detected Not Detected Comment: This test is performed using the BioGasol Xpert Group A Streptococcal Assay. This is a qualitative, real-time PCR assay that detects Group A Strep using throat specimens from patients suspected of having streptococcal pharyngitis. This assay does not detect other beta-hemolytic streptococci including Group C or Group G. Group C and G have been associated with pharyngitis and, occasionally, acute nephritis but do not cause rheumatic fever. If suspected, order Throat Culture, Routine. This assay has been cleared by the US Food and Drug Administration, and its performance characteristics have been verified by the performing laboratory. Throat 12/18/2024 4:54 PM WAIST PLEATER 12/18/2024 4:58 PM WAIST PLEATER Mony Chacon MD LAB MICROBIOLOGY - GENE RAL ORDERABLES Final Result [facility] [address] [address] Department [place] [address] * Respiratory pathogen panel Nasopharyngeal (12/18/2024 4:54 PM WAIST PLEATER) Influenza A RNA Not Detected Not Detected [facility] Influenza B RNA Not Detected Not Detected [facility] RSV RNA Not Detected Not Detected [facility] COVID-19 RNA Not Detected Not Detected [facility] Coronavirus 229E RNA Not Detected Not Detected [facility] Coronavirus HKU1 RNA Not Detected Not Detected [facility] Coronavirus NL63 RNA Not Detected Not Detected [facility] Coronavirus OC43 RNA Not Detected Not Detected [facility] Adenovirus DNA Not Detected Not Detected [facility] Metapneumovirus RNA Not Detected Not Detected [facility] Rhinovirus/Enterov irus RNA Not Detected Not Detected [facility] Parainfluenza 1 RNA Not Detected Not Detected [facility] Parainfluenza 2 RNA Not Detected Not Detected [facility] Parainfluenza 3 RNA Not Detected Not Detected [facility] Parainfluenza 4 RNA Not Detected Not Detected [facility] B. pertussis DNA Not Detected Not Detected [facility] B. parapertussis DNA Not Detected Not Detected [facility] C. pneumoniae DNA Not Detected Not Detected [facility] M. pneumoniae DNA Not Detected Not Detected [facility] Comment: Interpretive Data The [employer] FilmArray Respiratory Panel (RP2.1) assay is a multiplexed real-time PCR based nucleic acid test capable of simultaneous qualitative detection and identification of multiple respiratory viral and bacterial nucleic acids, including SARS Coronavirus 2 (the causative agent of COVID-19). The following bacteria, viruses and virus subtypes can be identified using the FilmArray RP2.1 assay: Bordetella pertussis, Bordetella parapertussis, Chlamydia pneumoniae, Mycoplasma pneumoniae, Adenovirus, SARS Coronavirus 2, seasonal coronaviruses (Coronavirus HKU1, Coronavirus NL63, Coronavirus 229E, and Coronavirus OC43), Influenza A, Influenza A subtype H1, Influenza A subtype H3, Influenza A subtype 2009 H1, Influenza B, Metapneumovirus, Parainfluenza 1, Parainfluenza 2, Parainfluenza 3, Parainfluenza 4, RSV, Rhinovirus/Enterovirus. Due to the genetic similarity between human Rhinovirus and Enterovirus, the FilmArray RP2.1 assay cannot reliably differentiate them. Coronavirus OC43 may cross-react with some isolates of Coronavirus HKU1. A dual positive result may be due to cross-reactivity or may indicate a co- infection. The detection and identification of specific viral and bacterial nucleic acids from individuals exhibiting signs and symptoms of a respiratory infection aids in the diagnosis of respiratory infection if used in conjunction with other clinical and epidemiological information. The results of this test should not be used as the sole basis for diagnosis, treatment, or other management decisions. Negative results in the setting of a respiratory illness may be due to infection with pathogens that are not detected by this test. Positive results do not rule out infection/co-infection with other organisms. The agent(s) detected by the FilmArray RP2.1 may not be the definite cause of disease. Additional testing (lab, imaging, etc.) may be necessary when evaluating a patient with possible respiratory tract infection. The FilmArray RP2.1 assay has FDA clearance for testing of BREAKING MACHINE OPERATOR swabs. The performance characteristics of this assay have been determined by [facility]. Current interpretive data was last revised on 2020. Nasopharyngeal 12/18/2024 4: 54 PM WAIST PLEATER 12/18/2024 4:58 PM WAIST PLEATER Narrative [facility] - 12/18/2024 6:40 PM WAIST PLEATER Is the Patient experiencing symptoms consistent with COVID?->Yes Surveillance testing for transplant patient?->No Mony Chacon MD LAB MICROBIOLOGY - [facility] ORDERABLES Final Result [facility] [address] [address] Department [place] [address] CH * XR Chest 1 Vw Portable (12/18/2024 4:29 PM WAIST PLEATER) Anatomical Region Laterality Modality Body, Chest N/A Computed Radiogr aphy 12/18/2024 4:43 PM WAIST PLEATER Impressions 12/18/2024 4:43 PM WAIST PLEATER FINDINGS/IMPRESSION: Complete opacification left hemithorax unchanged. Heart size cannot be evaluated due to obscuration left heart border. There is aortic atherosclerosis. There is a recording device overlying the upper heart. Hazy groundglass opacity right lower lung with right lung otherwise clear. Electronically signed by: Maggie Sexton M.D. Narrative 12/18/2024 4:43 PM WAIST PLEATER CHEST 1 VIEW DATE: 12/18/2024 4:10 PM INDICATION: sob TECHNIQUE: AP portable COMPARISON: 12/06/2024 Procedure Note Maggie Sexton MD - 12/18/2024 CHEST 1 VIEW DATE: 12/18/2024 4:10 PM INDICATION: sob TECHNIQUE: AP portable COMPARISON: 12/06/2024 IMPRESSION: FINDINGS/IMPRESSION: Complete opacification left hemithorax unchanged. Heart size cannot be evaluated due to obscuration left heart border. There is aortic atherosclerosis. There is a recording device overlying the upper heart. Hazy groundglass opacity right lower lung with right lung otherwise clear. Electronically signed by: Maggie Sexton M.D. Mony Chacon MD IMG XR PROCEDURES Final Result * (ABNORMAL) Troponin T high-sensitivity series (baseline, 2hr, 4hr, 6hr) (12/18/2024 4:14 PM WAIST PLEATER) Trop T hs 16(H) <=14 ng/L Comment: Slight hemolysis may result in decreased troponin measurement. Consider recollection. Interpretive Data For further hscTnT resources including the diagnostic algorithm and an aid in interpretation, copy and paste this link: https://nrl.testcatalog.org/show/hsTrop Current Interpretive Data last revised 2019. Blood 12/18/2024 4:14 PM WAIST PLEATER 12/18/2024 4:19 PM WAIST PLEATER Mony Chacon MD LAB BLOOD ORDERABLES Fi nal Result [facility] [address] [address] Department [place] [address] * eGFR (12/18/2024 4:14 PM WAIST PLEATER) eGFR 71 >=60 mL/min/1. 73 m2 Comment: Interpretive Data Reference Interval Normal >/= 90 mL/min/1.73m2 Mildly decreased* 60 - 89 mL/min/1.73m2 Mildly to moderately decreased 45 - 59 mL/min/1.73m2 Moderately to severely decreased 30 - 44 mL/min/1.73m2 Severely decreased 15 - 29 mL/min/1.73m2 Kidney Failure < 15 mL/min/1.73m2 *Relative to young adult level Estimated glomerular filtration rate is determined by the 2020 CKD-EPI equation recommended by the National Kidney Foundation (A Unifying Approach to GFR Estimation: Recommendations of the NKF-ASK Task Force on Reassessing the Inclusion of Race in Diagnosing Kidney Disease, JASN 2020). The CKD-EPI equation should not be used for patients with unstable renal function and has not been validated in children and those over 70. Current interpretive data was last reviewed 2020. Blood 12/18/2024 4:14 PM WAIST PLEATER 12/18/2024 4:19 PM WAIST PLEATER Mony Chacon MD LAB BLOOD ORDERABLES [facility] Result [facility] [address] [address] Department [place] [address] * Differential, auto (12/18/2024 4:14 PM WAIST PLEATER) Pathologist [facility] Neutrophil abs 4.36 1.50 - 6.50 K/cumm Imm gran abs 0.02 0.00 - 0.10 K/cumm [facility] Lymphocyte abs 1.03 0.80 - 3.30 K/cumm [facility] Monocyte abs 0.32 0.20 - 0.80 K/cumm [facility] Eosinophil abs 0.27 0.00 - 0.50 K/cumm [facility] Basophil abs 0.02 0.00 - 0.10 K/cumm [facility] Neutrophil pct 72.5 % [facility] Comment: Interpretive Data Percent cell count reference ranges are not reported, since discordance with absolute values may lead to misinterpretation of CBC data. Current Interpretive Data was last revised on 2017. Imm gran pct 0.3 % [facility] Comment: Interpretive Data Percent cell count reference ranges are not reported, since discordance with absolute values may lead to misinterpretation of CBC data. Current Interpretive Data was last revised on 2017. Lymphocyte pct 17.1 % [facility] Comment: Interpretive Data Percent cell count reference ranges are not reported, since discordance with absolute values may lead to misinterpretation of CBC data. Current Interpretive Data was last revised on 2017. Monocyte pct 5.3 % [facility] Comment: Interpretive Data Percent cell count reference ranges are not reported, since discordance with absolute values may lead to misinterpretation of CBC data. Current Interpretive Data was last revised on 2017. Eosinophil pct 4.5 % [facility] Comment: Interpretive Data Percent cell count reference ranges are not reported, since discordance with absolute values may lead to misinterpretation of CBC data. Current Interpretive Data was last revised on 2017. Basophil pct 0.3 % [facility] Comment: Interpretive Data Percent cell count reference ranges are not reported, since discordance with absolute values may lead to misinterpretation of CBC data. Current Interpretive Data was last revised on 2017. Blood 12/18/2024 4:14 PM WAIST PLEATER 12/18/2024 4:19 PM WAIST PLEATER Mony Chacon MD LAB BLOOD ORDERABLES nal Result [facility] [address] [address] Department [place] [address] * (ABNORMAL) Pro B-type natriuretic peptide (12/18/2024 4:14 PM WAIST PLEATER) NT-proBNP 1,303(H) <=300 pg/mL Comment: Interpretive Comments: A. Dyspnea in Acute Care Setting All Ages: < 300 pg/ml, acute heart failure unlikely. < 50 yrs: 300 - 450 pg/ml, further investigation warranted. > 450 pg/ml, acute heart failure likely. 50 - 74 yrs: 300 - 900 pg/ml, further investigation warranted. > 900 pg/ml, acute heart failure likely . > or = 75 yrs: 450 - 1800 pg/ml, further investigation warranted. > 1800 pg/ml, acute heart failure likely. B. Non-acute Setting < 75 yrs < 125 pg/ml, rules out heart failure. > or = 125 pg/ml, further investigation warranted. > or = 75 yrs < 450 pg/ml, rules out heart failure. > or = 450 pg/ml, further investigation warranted. - Knowledge of each individual patient's NT-proBNP range may be more useful than using similar cut-points for every patient. Please note that marked elevations in NT-proBNP levels may be observed in state other than Left Ventricular Congestive Failure, including: acute coronary syndromes, right heart strain/failure (including pulmonary embolism and cor pulmonale), critical illness, renal failure, as well as advanced age. - References: 1. Chele FRIED et.al. Eur Heart J. 2006:27:330-337. 2. Joaquin RW, Sandoval AM. J. AM Yury Cardiol: Cardiovasc Imag. 2009;2: 216- 225. Interpretive Data Last Revised Date: 2017. Blood 12/18/2024 4:14 PM WAIST PLEATER 12/18/2024 4:19 PM WAIST PLEATER Mony Chacon MD LAB BLOOD ORDERABLES Fi nal Result [facility] [address] [address] Department [place] [address] * (ABNORMAL) CBC with auto differential (12/18/2024 4:14 PM WAIST PLEATER) [facility] WBC 6.02 3.80 - 9.90 K/cumm Hgb 12.1 11.9 - 15.5 g/dL [facility] Hct 40.4 35.6 - 45.5 % [facility] Plt 275 150 - 400 K/cumm [facility] MPV 10.8 9.1 - 12.3 fL [facility] RBC 4.64 3.90 - 5.20 M/cumm [facility] MCV 87.1 81.3 - 96.4 fL [facility] MCH 26.1(L) 27.1 - 33.3 pg [facility] CH MCHC 30.0(L) 32.3 - 35.7 g/dL [facility] CH RDW CV 18.5(H) 11.1 - 14.9 % [facility] CH RDW SD 58.6(H) 35.7 - 48.1 fL [facility] CH NRBC abs 0.00 0.00 - 0.01 K/cumm [facility] CH Blood 12/18/2024 4:14 PM WAIST PLEATER 12/18/2024 4:19 PM WAIST PLEATER us Mony Chacon MD LAB BLOOD ORDERAB[place] [address] [address] Department [place] [address] * (ABNORMAL) Comprehensive metabolic panel (12/18/2024 4:14 PM WAIST PLEATER) Sodium 140 135 - 145 mmol/L Potassium, pl 3.8 3.3 - 4.9 mmol/L [facility] CH Comment:Hemolysis present. R esults may be affected. Chloride 98 97 - 110 mmol/L [facility] CH CO2 30 22 - 32 mmol/L [facility] Anion gap 12 2 - 15 mmol/L [facility] CH BUN 12 6 - 25 mg/dL [facility] CH Creatinine 0.89 0.60 - 1.10 mg/dL [facility] CH Glucose 197 70 - 199 mg/dL [facility] CH Comment: Interpretive Data Fasting glucose >/= 126 mg/dl is diagnostic for diabetes. Fasting is defined as no caloric intake for at least 8 hours. Fasting glucose between 100 mg/dl to 125 mg/dl is diagnostic of prediabetes. In a patient with classic symptoms of hyperglycemia or hyperglycemic crisis, a random glucose >/= 200 mg/dl is diagnostic for diabetes. In the absence of unequivocal hyperglycemia, results should be confirmed by repeat testing. The classification and Diagnosis of Diabetes Diabetes Care 2021; 46: S19-S40. Current interpretive data was last revised 2022. Calcium 8.8 8.5 - 10.3 mg/dL [facility] Bilirubin, total 0.7 0.1 - 1.2 mg/dL [facility] CH Protein, pl 6.6 6.5 - 8.5 g/dL [facility] Albumin 3.4(L) 3.5 - 5.0 g/dL [facility] Alk phos 129 40 - 130 Units/L [facility] CH ALT 10 7 - 45 Units/L [facility] CH AST 35 10 - 45 Units/L [facility] CH Comment:Hemolysis present. R esults may be affected. Blood 12/18/2024 4:14 PM WAIST PLEATER 12/18/2024 4:19 PM WAIST PLEATER Mony Chacon MD LAB BLOOD ORDERABLES Fi nal Result Performing Organization Address [facility] Co de Phone Number OPALJIMMIE VELEZ [address] [address] Department [place] [address] * ECG 12 lead (12/18/2024 3:43 PM WAIST PLEATER) 12/18/2024 3:43 PM WAIST PLEATER Narrative [facility] - 12/18/2024 6:27 PM WAIST PLEATER Vent Rate: 89 bpm RR Interval: 673 msec [place] Interval: 0 msec QRS Duration: 91 msec QT Interval: 303 msec QTC Interval: 349 msec P-R-T [place]: 0 - 238 - 31 degrees IMPRESSION: ATRIAL FIBRILLATION INDETERMINATE AXIS PATTERN CONSISTENT WITH PULMONARY DISEASE MINIMAL ST DEPRESSION [0.025+ mV ST DEPRESSION] ABNORMAL ECG Electronically Signed By: Dr. Gallito Marin [facility] Mony Chacon MD ECG ORDERABLES Final R esult Performing Organization Address [facility] Co de Phone Number [facility] [employer] [facility] * POCT glucose (12/08/2024 9:24 AM WAIST PLEATER) Glucose, POC 155 70 - 199 mg/dL Blood 12/08/2024 9:24 AM WAIST PLEATER 12/08/2024 9:24 AM WAIST PLEATER Alex Yung DO LAB POCT ORDERABLES - DEV ICE Final Result Performing Organization Address [facility] [place] [address] [address] [place] [address] * POCT glucose (12/08/2024 7:22 AM WAIST PLEATER) Glucose, POC 131 70 - 199 mg/dL Blood 12/08/2024 7:22 AM WAIST PLEATER 12/08/2024 7:22 AM WAIST PLEATER us Alex Yung DO LAB POCT ORDERABLES - DEV ICE Final Result Performing Organization Address [facility] [place] [address] [address] [facility] [place] [address] * eGFR (12/08/2024 4:00 AM WAIST PLEATER) eGFR 61 >=60 mL/min/1. 73 m2 Comment: Interpretive Data Reference Interval Normal >/= 90 mL/min/1.73m2 Mildly decreased* 60 - 89 mL/min/1.73m2 Mildly to moderately decreased 45 - 59 mL/min/1.73m2 Moderately to severely decreased 30 - 44 mL/min/1.73m2 Severely decreased 15 - 29 mL/min/1.73m2 Kidney Failure < 15 mL/min/1.73m2 *Relative to young adult level Estimated glomerular filtration rate is determined by the 2020 CKD-EPI equation recommended by the National Kidney Foundation (A Unifying Approach to GFR Estimation: Recommendations of the NKF-ASK Task Force on Reassessing the Inclusion of Race in Diagnosing Kidney Disease, JASN 2020). The CKD-EPI equation should not be used for patients with unstable renal function and has not been validated in children and those over 70. Current interpretive data was last reviewed 2020. Blood 12/08/2024 4:00 AM WAIST PLEATER 12/08/2024 4:11 AM WAIST PLEATER Benjamín Portillo MD LAB BLOOD ORDERABLES Final Resu lt Performing Organization Address [facility]/[place] [address] [address] Department [place] [address] * (ABNORMAL) CBC without differential (12/08/2024 4:00 AM WAIST PLEATER) [facility] WBC 6.60 3.80 - 9.90 K/cumm Hgb 12.0 11.9 - 15.5 g/dL [facility] Hct 39.5 35.6 - 45.5 % [facility] Plt 222 150 - 400 K/cumm [facility] MPV 10.9 9.1 - 12.3 fL [facility] RBC 4.66 3.90 - 5.20 M/cumm [facility] CH MCV 84.8 81.3 - 96.4 fL [facility] CH MCH 25.8(L) 27.1 - 33.3 pg [facility] CH MCHC 30.4(L) 32.3 - 35.7 g/dL [facility] RDW CV 18.3(H) 11.1 - 14.9 % [facility] RDW SD 56.2(H) 35.7 - 48.1 fL [facility] NRBC abs 0.00 0.00 - 0.01 K/cumm [facility] Blood 12/08/2024 4:00 AM WAIST PLEATER 12/08/2024 4:11 AM WAIST PLEATER Alex Yung DO LAB BLOOD ORDERABLES Ysabel castellanos Result [facility] [address] [address] Department [place] [address] * (ABNORMAL) Renal function panel (12/08/2024 4:00 AM WAIST PLEATER) [facility] Sodium 137 135 - 145 mmol/L Potassium, pl 3.5 3.3 - 4.9 mmol/L [facility] Chloride 94(L) 97 - 110 mmol/L [facility] CO2 34(H) 22 - 32 mmol/L [facility] Anion gap 9 2 - 15 mmol/L [facility] BUN 28(H) 6 - 25 mg/dL [facility] Creatinine 1.01 0.60 - 1.10 mg/dL [facility] Glucose 181 70 - 199 mg/dL [facility] Comment: Interpretive Data Fasting glucose >/= 126 mg/dl is diagnostic for diabetes. Fasting is defined as no caloric intake for at least 8 hours. Fasting glucose between 100 mg/dl to 125 mg/dl is diagnostic of prediabetes. In a patient with classic symptoms of hyperglycemia or hyperglycemic crisis, a random glucose >/= 200 mg/dl is diagnostic for diabetes. In the absence of unequivocal hyperglycemia, results should be confirmed by repeat testing. The classification and Diagnosis of Diabetes Diabetes Care 2021; 46: S19-S40. Current interpretive data was last revised 2022. Calcium 8.9 8.5 - 10.3 mg/dL [facility] Phosphorus, pl 3.6 2.3 - 4.5 mg/dL [facility] Albumin 3.4(L) 3.5 - 5.0 g/dL [facility] Blood 12/08/2024 4:00 AM WAIST PLEATER 12/08/2024 4:11 AM WAIST PLEATER us Benjamín Portillo MD LAB BLOOD ORDERABLES Final Resu lt Performing Organization Address [facility] Co de Phone Number CLEO EVLEZ [address] [address] [place] [address] * POCT glucose (12/08/2024 12:45 AM CDT) Glucose, POC 189 70 - 199 mg/dL Blood 12/08/2024 12:4 5 AM CDT 12/08/2024 12:45 AM CDT us Alex Yung DO LAB POCT ORDERABLES - DEV ICE Final Result Performing Organization Address [facility] de Phone Number CLEO VELEZ [address] [address] Department [place] [address] * POCT glucose (12/07/2024 9:03 PM CDT) Glucose, POC 118 70 - 199 mg/dL Blood 12/07/2024 9:03 PM CDT 12/07/2024 9:03 PM CDT Alex Yung DO LAB POCT ORDERABLES - DEV ICE Final Result Performing Organization Address [facility] Co de Phone Number CLEO VELEZ [address] [address] [facility] [place] [address] * POCT glucose (12/07/2024 4:55 PM CDT) Glucose, POC 129 70 - 199 mg/dL Blood 12/07/2024 4:55 PM CDT 12/07/2024 4:55 PM CDT [facility] POCT ORDERABLES - DEV ICE Final Result Performing Organization Address [facility] Co de Phone Number OPALJIMMIE VELEZ [address] [address] [facility] [place] [address] * (ABNORMAL) POCT glucose (12/07/2024 11:52 AM CDT) Glucose, POC 219(H) 70 - 199 mg/dL Blood 12/07/2024 11:5 2 AM CDT 12/07/2024 11:52 AM CDT Alex Yung [facility] POCT ORDERABLES - DEV ICE Final Result Performing Organization Address [facility] Co de Phone Number CLEO VELEZ [address] [address] [facility] [place] [address] * (ABNORMAL) POCT glucose (12/07/2024 6:26 AM CDT) Glucose, POC 225(H) 70 - 199 mg/dL Blood 12/07/2024 6:26 AM CDT 12/07/2024 6:26 AM CDT [facility] POCT ORDERABLES - DEV ICE Final Result Performing Organization Address [facility] Co de Phone Number CLEO VELEZ [address] [address] [facility] [place] [address] * (ABNORMAL) eGFR (12/07/2024 3:58 AM CDT) Pathologist [facility] eGFR 59(L) >=60 mL/min/1. 73 m2 Comment: Interpretive Data Reference Interval Normal >/= 90 mL/min/1.73m2 Mildly decreased* 60 - 89 mL/min/1.73m2 Mildly to moderately decreased 45 - 59 mL/min/1.73m2 Moderately to severely decreased 30 - 44 mL/min/1.73m2 Severely decreased 15 - 29 mL/min/1.73m2 Kidney Failure < 15 mL/min/1.73m2 *Relative to young adult level Estimated glomerular filtration rate is determined by the 2020 CKD-EPI equation recommended by the National Kidney Foundation (A Unifying Approach to GFR Estimation: Recommendations of the NKF-ASK Task Force on Reassessing the Inclusion of Race in Diagnosing Kidney Disease, JASN 2020). The CKD-EPI equation should not be used for patients with unstable renal function and has not been validated in children and those over 70. Current interpretive data was last reviewed 2020. Blood 12/07/2024 3:58 AM CDT 12/07/2024 4:08 AM CDT us Benjamín Portillo MD LAB BLOOD ORDERABLES Final Resu lt [facility] [address] [address] Department [place] [address] * (ABNORMAL) CBC without differential (12/07/2024 3:58 AM CDT) Pathologist [facility] WBC 7.64 3.80 - 9.90 K/cumm Hgb 12.3 11.9 - 15.5 g/dL [facility] Hct 40.3 35.6 - 45.5 % [facility] Plt 268 150 - 400 K/cumm [facility] MPV 10.7 9.1 - 12.3 fL [facility] RBC 4.80 3.90 - 5.20 M/cumm [facility] MCV 84.0 81.3 - 96.4 fL [facility] MCH 25.6(L) 27.1 - 33.3 pg [facility] MCHC 30.5(L) 32.3 - 35.7 g/dL [facility] RDW CV 18.2(H) 11.1 - 14.9 % [facility] CH RDW SD 55.5(H) 35.7 - 48.1 fL [facility] NRBC abs 0.00 0.00 - 0.01 K/cumm [facility] Blood 12/07/2024 3:58 AM CDT 12/07/2024 4:08 AM CDT Alex Yung DO LAB BLOOD ORDERABLES Ysabel l Result [facility] [address] Department [place] [address] * (ABNORMAL) Renal function panel (12/07/2024 3:58 AM CDT) Sodium 132(L) 135 - 145 mmol/L Potassium, pl 4.0 3.3 - 4.9 mmol/L [facility] Chloride 85(L) 97 - 110 mmol/L [facility] CH CO2 32 22 - 32 mmol/L [facility] Anion gap 15 2 - 15 mmol/L [facility] BUN 30(H) 6 - 25 mg/dL [facility] Creatinine 1.04 0.60 - 1.10 mg/dL [facility] Glucose 246(H) 70 - 199 mg/dL [facility] Comment: Interpretive Data Fasting glucose >/= 126 mg/dl is diagnostic for diabetes. Fasting is defined as no caloric intake for at least 8 hours. Fasting glucose between 100 mg/dl to 125 mg/dl is diagnostic of prediabetes. In a patient with classic symptoms of hyperglycemia or hyperglycemic crisis, a random glucose >/= 200 mg/dl is diagnostic for diabetes. In the absence of unequivocal hyperglycemia, results should be confirmed by repeat testing. The classification and Diagnosis of Diabetes Diabetes Care 202; 46: S19-S40. Current interpretive data was last revised 2022. Calcium 8.5 8.5 - 10.3 mg/dL [facility] Phosphorus, pl 4.3 2.3 - 4.5 mg/dL [facility] Albumin 3.6 3.5 - 5.0 g/dL [facility] Blood 12/07/2024 3:58 AM CDT 12/07/2024 4:08 AM CDT us Benjamín Portillo MD LAB BLOOD ORDERABLES Final Resu lt Performing Organization Address [facility] Co de Phone Number CLEO VELEZ [address] [address] [facility] [place] [address] * (ABNORMAL) POCT glucose (12/07/2024 1:27 AM CDT) Glucose, POC 263(H) 70 - 199 mg/dL Blood 12/07/2024 1:27 AM CDT 12/07/2024 1:27 AM CDT Alex Yung DO LAB POCT ORDERABLES - DEV ICE Final Result Performing Organization Address [facility] de Phone Number CLEO VELEZ [address] [address] [facility] [place] [address] * (ABNORMAL) POCT glucose (12/06/2024 8:25 PM CDT) Glucose, POC 359(H) 70 - 199 mg/dL Blood 12/06/2024 8:25 PM CDT 12/06/2024 8:25 PM CDT Alex Yung DO LAB POCT ORDERABLES - DEV ICE Final Result Performing Organization Address [facility] de Phone Number CLEO VELEZ [address] [place] [address] * (ABNORMAL) POCT glucose (12/06/2024 4:28 PM CDT) Glucose, POC 327(H) 70 - 199 mg/dL Blood 12/06/2024 4:28 PM CDT 12/06/2024 4:28 PM CDT Alex Yung LAB POCT ORDERABLES - DEV ICE Final Result Performing Organization Address [facility] de Phone Number CLEO VELEZ [address] [address] Department [place] [address] * ECG 12 lead (12/06/2024 11:48 AM CDT) 12/06/2024 11:4 8 AM CDT Narrative [facility] - 12/06/2024 1:39 PM CDT Vent Rate: 118 bpm RR Interval: 507 msec NH Interval: 0 msec QRS Duration: 108 msec QT Interval: 317 msec QTC Interval: 387 msec P-R-T [place]: 0 - 98 - 49 degrees IMPRESSION: ATRIAL FIBRILLATION WITH RAPID VENTRICULAR RESPONSE BORDERLINE RIGHT AXIS DEVIATION [QRS AXIS > 90] LOW QRS VOLTAGE IN EXTREMITY LEADS [QRS DEFLECTION < 0.5 mV IN LIMB LEADS] POSSIBLE ANTERIOR MYOCARDIAL INFARCTION , PROBABLY OLD [30 ms Q WAVE IN V3/V4, OR R < 0.2 mV IN V4] No change compared to prior EKG Electronically Signed By: Saqib Zhang MD Tracy Wing BREAKING MACHINE OPERATOR ECG ORDERABLES Fin al Result Performing Organization Address [facility] de Phone Number [facility] [employer] [facility] * POCT glucose (12/06/2024 11:28 AM CDT) [facility] Signature Glucose, POC 176 70 - 199 mg/dL Blood 12/06/2024 11:2 8 AM CDT 12/06/2024 11:28 AM CDT Alex Yung DO LAB POCT ORDERABLES - DEV ICE Final Result Performing Organization Address [facility] [place] [address] [address] Department [place] [address] * NH AN ELECTIVE ENDOTRACHEAL AIRWAY (12/06/2024 8:40 AM CDT) Narrative Radha Rogers AA - 12/06/2024 8:40 AM CDT Radha Rogers AA 12/06/2024 8:41 AM Airway Patient location: OR Urgency: elective Indications for airway management: anesthesia and airway protection Difficult airway: no Staff: Placed by: AA: Radha Rogers AA Emergent airway documentation: Risks and benefits discussed: yes Consent obtained: yes Consent given by: patient Airway prep: Preoxygenated: yes Patient position: sniffing MILS maintained throughout: yes Mask difficulty assessment: 1 - vent by mask Sedation level during airway: GA Final airway details: Final airway type: endotracheal airway Tube type: ETT ETT size: 9.0 mm Cuffed: yes Technique used for successful ETT placement: video laryngoscopy Insertion site: oral Blade type: Jamar Video blade type: Swan Blade size: 3 Cormack-Lehane (video): grade I - full view of glottis Cuff volume: 7 mL Cuff inflated with: air ETT to lips: 21 cm Placement verified by: auscultation and CO2 detection Airway secured with: silk tape Number of attempts: 1 Additional comments: Atraumatic insertion. Dentition as pre-op. Continue to assess Ashwin Nelson Jr., MD ANESTHESIA ORDER JAYLENE Final Result * Aerobic culture and gram stain Bronchoalveolar lavage Lobe, left upper (12/06/2024 8:18 AM CDT) Direct Specimen Exam Stain: Cytospin Gram stain shows: Moderate polymorphonuclear leukocytes seen. Abundant squamous epithelial cells seen indicating excessive oral pharyngeal contamination Abundant mixed bacterial renzo seen on Gram stain. Comment:Testing performed by : [facility], [address] [place] [address]., [id number] Report Final Report: Growth indicates upper respiratory renzo. CLEO VELEZ Comment:Testing performed by : [facility], [address] [place] [address]., [id number] Organism GROWTH INDICATES UPPER RESPIRATORY RENZO. CLEO Bronchoalveolar lavage (Lobe, left upper) 12/06/2024 8:18 AM CDT 12/06/2024 1:18 PM CDT Narrative CLEO VELEZ - 12/10/2024 1:58 PM WAIST PLEATER Testing performed by [facility] ([phone]) Specimens submitted from normally sterile body sites will have all bacterial morphotypes identified. Specimens that contain grossly mixed renzo and/or are from body sites that are not normally sterile will be examined for Staphylococcus aureus, Pseudomonas aeruginosa, beta-hemolytic strep, vancomycin-resistant Enterococcus and fungus. If any of these are isolated, the organism will be reported. Current interpretive data was last revised on 2016. Wilbur Willis MD LAB MICROBIOLOGY - GEN ERAL ORDERABLES Final Result Performing Organization Address City/[facility] Co de Phone Number CLEO [address] [address] Department [place] [address] * Mycology (fungal) culture Bronchoalveolar lavage Lobe, left upper (12/06/2024 8:18 AM CDT) Report Final Report: No growth of fungus Comment:Testing performed by : [facility], [address] [place] [address]., [id number] Bronchoalveolar lavage (Lobe, left upper) 12/06/2024 8:18 AM CDT 12/06/2024 1:18 PM CDT Narrative CLEO VELEZ - 01/03/2025 7:58 AM WAIST PLEATER Testing performed by [facility] ([phone]). Wilbur Willis MD LAB MICROBIOLOGY - GEN ERAL ORDERABLES Final Result Performing Organization Address [facility] Co de Phone Number CLEO [address] [address] Department [place] [address] * Mycobacteriology (AFB) culture and acid-fast stain Bronchoalveolar lavage Lobe, left upper (12/06/2024 8:18 AM CDT) Direct Specimen Exam Stain: No Acid-fast bacilli seen Comment:Testing performed by : [facility], [address] [place] [address], [place]., [id number] Report Final Report: No growth of acid-fast bacilli CLEO Comment:Testing performed by : [facility], [address] [place]., [address] Bronchoalveolar lavage (Lobe, left upper) 12/06/2024 8:18 AM CDT 12/06/2024 1:18 PM CDT Narrative CLEO - 02/03/2025 11:40 AM WAIST PLEATER Testing performed by [facility] ([phone]). Wilbur Willis MD LAB MICROBIOLOGY - GEN ERAL ORDERABLES Final Result [facility] [address] [facility] Department [place] [address] * Bronchoscopy (12/06/2024 7:26 AM CDT) Anatomical Region Laterality Modality Other Narrative Procedure Note Wilbur Willis MD - 12/06/2024 7:26 AM CDT [facility] Endoscopy [facility] Patient Name: Lorne Gregorio Procedure Date: 12/06/2024 7:26 AM Date of : 1960 Admit Type: Inpatient Age: 64 Note Status: Finalized Procedure: Bronchoscopy Indications: Atelectasis of the left upper lobe, Atelectasis ofthe left lower lobe Providers: Wilbur Willis M.D., CHUN Camacho (Anesthesia Staff), Ayde Rodriguez RN, Tanika Jordan, Mechatronics Technician Referring MD: Medicines: General Anesthesia Complications: No immediate complications Procedure: Pre-Anesthesia Assessment: - A History and Physical has been performed.Patient meds and allergies have been reviewed. The risksand benefits of the procedure and the sedation optionsand risks were discussed with the patient. Allquestions were answered and informed consent was obtained. Patient identification and proposed procedure were verified prior to the procedure by the physician in the pre-procedure area. Mental Status Examination: normal. Airway Examination: normal oropharyngeal airway. Respiratory Examination: poor air movementin the left lung. CV Examination: regular rate and rhythm. ASA Grade Assessment: IV - A patient with severe systemic disease that is a constant threatto life. After reviewing the risks and benefits, the patient was deemed in satisfactory condition to undergo the procedure. The anesthesia plan was touse general anesthesia. Immediately prior to administration of medications, the patient was re-assessed for adequacy to receive sedatives. The heart rate, respiratory rate, oxygen saturations, blood pressure, adequacy of pulmonary ventilation,and response to care were monitored throughout the procedure. The physical status of the patient was re-assessed after the procedure. After obtaining informed consent and abovemedications administered by the physician provider, the Bronchoscope was introduced through the andadvanced to the. The procedure was accomplished without difficulty. The patient tolerated the procedurewell. Findings: The trachea is of normal caliber. The master is sharp. The tracheobronchial tree of the right lung was examined to at least the first subsegmental level. Bronchial mucosa and anatomy in the rightlung are normal; there are no endobronchial lesions, and no secretions. Left Lung Abnormalities: Mucus, plugging the airway, was found in the left mainstem bronchus. The mucus was mucoid. The underlying mucosais normal. Therapeutic suctioning was performed. Mucus plugs wereremoved from the airway and the airway was cleared. The bronchoscope was advanced until wedged at the desired location for bronchoalveolar lavage. BAL was performed in the left upper lobe of the lung and sent for routine cytology and bacterial, AFB and fungal analysis. 50 mL of fluid were instilled. 10 mL were returned. The return was cloudy. Narrowing was found in the distal left mainstem bronchus. The airway lumen is nearly occluded and could not be successfully traversed. No endobronchial tumor noted. Impression: - Atelectasis of the left upper lobe - Atelectasis of the left lower lobe - The airway examination of the right lung wasnormal. - A mucous plug was found in the left mainstem bronchus. - Therapeutic suctioning was performed. - Bronchoalveolar lavage was performed. - A narrowing was found in the left mainstembronchus. Recommendation: - Await BAL results. Electronically signed by Dr Waters Wilbur Willis M.D. 12/06/2024 8:35:30 AM This report has been electronically signed by the physician. Number of Addenda: 0 Note Initiated On: 12/06/2024 7:26 AM Wilbur Willis MD ENDOSCOPY PROCEDURES E dited Result - Final * POCT glucose (12/06/2024 6:27 AM CDT) Glucose, POC 100 70 - 199 mg/dL Blood 12/06/2024 6:27 AM CDT 12/06/2024 6:27 AM CDT Alex Yung DO LAB POCT ORDERABLES - DEV ICE Final Result CLEO [address] [facility] Department [place] [address] * XR Chest 1 View (12/06/2024 6:03 AM CDT) Anatomical Region Laterality Modality Body, Chest N/A Computed Radiogr aphy 12/06/2024 9:06 AM CDT Impressions 12/06/2024 9:06 AM CDT No change since the last study. Electronically signed by: Christos Conklin M.D. Narrative 12/06/2024 9:06 AM CDT EXAMINATION: XR CHEST 1 VIEW HISTORY: The patient is a 64-year-old female who presents with hypoxia. Comparison made with the previous study dated 12/05/2024 TECHNIQUE: AP portable view of the chest. FINDINGS: Once again near total opacification of the left hemithorax is noted with associated volume loss. Right lung is clear. Heart not enlarged. No failure. Procedure Note Christos Conklin MD - 12/06/2024 EXAMINATION: XR CHEST 1 VIEW HISTORY: The patient is a 64-year-old female who presents with hypoxia. Comparison made with the previous study dated 12/05/2024 TECHNIQUE: AP portable view of the chest. FINDINGS: Once again near total opacification of the left hemithorax is noted with associated volume loss. Right lung is clear. Heart not enlarged. No failure. IMPRESSION: No change since the last study. Electronically signed by: Christos Conklin M.D. Oren Zavala MD IMG XR PROCEDURES Final Result * eGFR (12/06/2024 3:43 AM CDT) eGFR 64 >=60 mL/min/1. 73 m2 Comment: Interpretive Data Reference Interval Normal >/= 90 mL/min/1.73m2 Mildly decreased* 60 - 89 mL/min/1.73m2 Mildly to moderately decreased 45 - 59 mL/min/1.73m2 Moderately to severely decreased 30 - 44 mL/min/1.73m2 Severely decreased 15 - 29 mL/min/1.73m2 Kidney Failure < 15 mL/min/1.73m2 *Relative to young adult level Estimated glomerular filtration rate is determined by the 2020 CKD-EPI equation recommended by the National Kidney Foundation (A Unifying Approach to GFR Estimation: Recommendations of the NKF-ASK Task Force on Reassessing the Inclusion of Race in Diagnosing Kidney Disease, JASN 2020). The CKD-EPI equation should not be used for patients with unstable renal function and has not been validated in children and those over 70. Current interpretive data was last reviewed 2020. Blood 12/06/2024 3:43 AM CDT 12/06/2024 3:59 AM CDT Benjamín Portillo MD LAB BLOOD ORDERABLES Final Resu lt [facility] [address] [address] Department [place] [address] * (ABNORMAL) CBC without differential (12/06/2024 3:43 AM CDT) Pathologist [facility] WBC 6.87 3.80 - 9.90 K/cumm Hgb 11.8(L) 11.9 - 15.5 g/dL [facility] Hct 38.6 35.6 - 45.5 % [facility] Plt 232 150 - 400 K/cumm [facility] MPV 10.1 9.1 - 12.3 fL [facility] RBC 4.59 3.90 - 5.20 M/cumm [facility] MCV 84.1 81.3 - 96.4 fL [facility] MCH 25.7(L) 27.1 - 33.3 pg [facility] MCHC 30.6(L) 32.3 - 35.7 g/dL [facility] RDW CV 18.6(H) 11.1 - 14.9 % [facility] RDW SD 56.7(H) 35.7 - 48.1 fL [facility] NRBC abs 0.00 0.00 - 0.01 K/cumm [facility] Blood 12/06/2024 3:43 AM CDT 12/06/2024 4:00 AM CDT Alex Yung DO LAB BLOOD ORDERABLES Ysabel l Result [facility] [address] [address] Department [place] [address] * (ABNORMAL) Renal function panel (12/06/2024 3:43 AM CDT) Pathologist [facility] Sodium 133(L) 135 - 145 mmol/L Potassium, pl 3.4 3.3 - 4.9 mmol/L [facility] Chloride 90(L) 97 - 110 mmol/L [facility] CO2 36(H) 22 - 32 mmol/L [facility] Anion gap 7 2 - 15 mmol/L [facility] BUN 28(H) 6 - 25 mg/dL [facility] Creatinine 0.97 0.60 - 1.10 mg/dL [facility] Glucose 63(L) 70 - 199 mg/dL CERNER Comment: Interpretive Data Fasting glucose >/= 126 mg/dl is diagnostic for diabetes. Fasting is defined as no caloric intake for at least 8 hours. Fasting glucose between 100 mg/dl to 125 mg/dl is diagnostic of prediabetes. In a patient with classic symptoms of hyperglycemia or hyperglycemic crisis, a random glucose >/= 200 mg/dl is diagnostic for diabetes. In the absence of unequivocal hyperglycemia, results should be confirmed by repeat testing. The classification and Diagnosis of Diabetes Diabetes Care 202; 46: S19-S40. Current interpretive data was last revised 2022. Calcium 8.5 8.5 - 10.3 mg/dL [facility] Phosphorus, pl 4.4 2.3 - 4.5 mg/dL [facility] Albumin 3.3(L) 3.5 - 5.0 g/dL [facility] Blood 12/06/2024 3:43 AM CDT 12/06/2024 3:59 AM CDT us Benjamín Portillo MD LAB BLOOD ORDERABLES Final Resu lt Performing Organization Address City/State/[facility] Co de Phone Number [address] Department [place] [address] * Cytology (12/06/2024 12:00 AM CDT) Bronch Lavage (Cytology) 12/06/2024 12/06/2024 12:09 PM CDT Narrative 12/09/2024 3:12 PM WAIST PLEATER EPIC results best viewed via link to PDF [facility] Department of Pathology [address] [place] [id number] Note to Patients: This report may contain a detailed description of human tissue sent by a health care provider to the laboratory for pathologic evaluation. The content of this report is essential for diagnosis and may provide important critical findings. This information may be unfamiliar to patients to review without a medical professional present. It is advised that the patient review this report in the presence of a health care provider who can answer questions and explain the details. Final Report Patient Name: LORNE GREGORIO Address: [address] [place] [address] Gender: F : 1960 (Age: 64) Service: Medical Location: [facility] # [id number] Patient Type: IP Taken: 12/06/2024 Received: 12/06/2024 Accessioned: 12/06/2024 Reported: 12/09/2024 Physician(s): Dr. Wilbur Britton MD Diagnosis: A. Left mainstem bronchus, bronchioalveolar lavage- Negative for malignant cells Leah Mascorro M.D. Report Electronically Reviewed and Signed Out By Leah Mascorro M.D. 12/09/2024 15:12:15Specimen(s) Received: A: Lavage, Bronchoalveolar, Left Mainstem Clinical History: The patient is a 64 year old female with bronchial obstruction. Gross Description: 1 container received with 10 cc clear, unfixed mucoid fluid. 1 ThinPrep made. Microscopic Description: Thin prep smear demonstrates a scattered neutrophils and macrophages with admixed respiratory epithelial cells and occasional squamous epithelial cells. Malignant cells are not demonstrated. The performance characteristics of some immunohistochemical stains, fluorescence in-situ hybridization tests and immunophenotyping by flow cytometry cited in this report (if any) were determined by the Surgical Pathology Department at [facility] as part of an ongoing water quality tester program and in compliance with federally mandated regulations drawn from the Clinical Laboratory Improvement Act of 1988 (CLIA '88). Some of these tests rely on the use of analyte specific reagents and are subject to specific labeling requirements by the US Food and Drug Administration. Such diagnostic tests may only be performed in a facility that is certified by the Department of Health and Human Services as a high complexity laboratory under CLIA '88. The FDA has determined that such clearance or approval is not necessary. This test is used for clinical purposes. It should not be regarded as investigational or for research. Nevertheless, federal rules concerning the medical use of analyte specific reagents require that the following disclaimer be attached to the report: This test was developed and its performance characteristics determined by the Surgical Pathology Department [facility]. It has not been cleared or approved by the U. S. Food and Drug Administration. Unless otherwise noted all cytology processing, staining and screening is performed at [facility] ([address] [place] [address]). REPORT IMAGES AND SCANNED DOCUMENTS, IF INCLUDED, ONLY VIEWABLE IN PDF VERSION OF REPORT Wilbur Willis MD LAB CYTOLOGY ORDERABLE S Final Result * POCT glucose (12/05/2024 8:32 PM CDT) Glucose, POC 114 70 - 199 mg/dL Blood 12/05/2024 8:32 PM CDT 12/05/2024 8:32 PM CDT Alex Yung LAB POCT ORDERABLES - DEV ICE Final Result Performing Organization Address City/[facility]/ZIP Co de Phone Number CLEO VELEZ [address] [address] [facility] [place] [address] * POCT glucose (12/05/2024 4:46 PM CDT) Glucose, POC 139 70 - 199 mg/dL Blood 12/05/2024 4:46 PM CDT 12/05/2024 4:46 PM CDT Alex Yung [facility] POCT ORDERABLES - DEV ICE Final Result Performing Organization Address [facility] de Phone Number CLEO VELEZ [address] [address] [facility] [place] [address] * POCT glucose (12/05/2024 11:40 AM CDT) Glucose, POC 187 70 - 199 mg/dL Blood 12/05/2024 11:4 0 AM CDT 12/05/2024 11:40 AM CDT Alex Landiston LAB POCT ORDERABLES - DEV ICE Final Result Performing Organization Address [facility] Co de Phone Number CLEO VELEZ [address] [address] [facility] [place] [address] * POCT glucose (12/05/2024 6:42 AM CDT) Glucose, POC 164 70 - 199 mg/dL Blood 12/05/2024 6:42 AM CDT 12/05/2024 6:42 AM CDT Alex Carlos Enrique Landiston DO LAB POCT ORDERABLES - DEV ICE Final Result CLEO [address] [facility] Department [place] [address] * XR Chest 1 Vw Portable (12/05/2024 5:20 AM CDT) Anatomical Region Laterality Modality Body, Chest N/A Computed Radiogr aphy 12/05/2024 8:45 AM CDT Impressions 12/05/2024 8:45 AM CDT No change since the last study. Electronically signed by: Ayan Holden M.D. Narrative 12/05/2024 8:45 AM CDT EXAMINATION: XR CHEST 1 VIEW HISTORY: The patient is a 64-year-old female who presents with hypoxia. Comparison made with the previous study dated 12/03/2024. TECHNIQUE: AP portable view of the chest. FINDINGS: Once again near total opacification of the left hemithorax is noted with associated volume loss. Right lung is clear. Heart not enlarged. No failure. Procedure Note Ayan Holden MD - 12/05/2024 EXAMINATION: XR CHEST 1 VIEW HISTORY: The patient is a 64-year-old female who presents with hypoxia. Comparison made with the previous study dated 12/03/2024. TECHNIQUE: AP portable view of the chest. FINDINGS: Once again near total opacification of the left hemithorax is noted with associated volume loss. Right lung is clear. Heart not enlarged. No failure. IMPRESSION: No change since the last study. Electronically signed by: Ayan Holden M.D. Wilbur Willis MD IMG XR PROCEDURES Ysabel l Result * (ABNORMAL) eGFR (12/05/2024 3:50 AM CDT) eGFR 58(L) >=60 mL/min/1. 73 m2 Comment: Interpretive Data Reference Interval Normal >/= 90 mL/min/1.73m2 Mildly decreased* 60 - 89 mL/min/1.73m2 Mildly to moderately decreased 45 - 59 mL/min/1.73m2 Moderately to severely decreased 30 - 44 mL/min/1.73m2 Severely decreased 15 - 29 mL/min/1.73m2 Kidney Failure < 15 mL/min/1.73m2 *Relative to young adult level Estimated glomerular filtration rate is determined by the 2020 CKD-EPI equation recommended by the National Kidney Foundation (A Unifying Approach to GFR Estimation: Recommendations of the NKF-ASK Task Force on Reassessing the Inclusion of Race in Diagnosing Kidney Disease, JASN 2020). The CKD-EPI equation should not be used for patients with unstable renal function and has not been validated in children and those over 70. Current interpretive data was last reviewed 2020. Blood 12/05/2024 3:50 AM CDT 12/05/2024 3:55 AM CDT us Benjamín Portillo MD LAB BLOOD ORDERABLES Final Resu lt [facility] [address] [address] Department [place] [address] * (ABNORMAL) CBC without differential (12/05/2024 3:50 AM CDT) Pathologist [facility] WBC 6.44 3.80 - 9.90 K/cumm Hgb 12.1 11.9 - 15.5 g/dL [facility] Hct 39.7 35.6 - 45.5 % [facility] Plt 242 150 - 400 K/cumm [facility] MPV 10.3 9.1 - 12.3 fL [facility] RBC 4.74 3.90 - 5.20 M/cumm [facility] MCV 83.8 81.3 - 96.4 fL [facility] MCH 25.5(L) 27.1 - 33.3 pg [facility] MCHC 30.5(L) 32.3 - 35.7 g/dL [facility] RDW CV 18.6(H) 11.1 - 14.9 % [facility] CH RDW SD 56.5(H) 35.7 - 48.1 fL [facility] CH NRBC abs 0.00 0.00 - 0.01 K/cumm [facility] CH Blood 12/05/2024 3:50 AM CDT 12/05/2024 3:55 AM CDT Alex Yung DO LAB BLOOD ORDERAB[place] [address] Department [place] [address] * (ABNORMAL) Renal function panel (12/05/2024 3:50 AM CDT) Sodium 137 135 - 145 mmol/L Potassium, pl 3.2(L) 3.3 - 4.9 mmol/L [facility] Chloride 91(L) 97 - 110 mmol/L [facility] CO2 37(H) 22 - 32 mmol/L [facility] Anion gap 9 2 - 15 mmol/L [facility] BUN 26(H) 6 - 25 mg/dL [facility] Creatinine 1.06 0.60 - 1.10 mg/dL [facility] Glucose 157 70 - 199 mg/dL [facility] Comment: Interpretive Data Fasting glucose >/= 126 mg/dl is diagnostic for diabetes. Fasting is defined as no caloric intake for at least 8 hours. Fasting glucose between 100 mg/dl to 125 mg/dl is diagnostic of prediabetes. In a patient with classic symptoms of hyperglycemia or hyperglycemic crisis, a random glucose >/= 200 mg/dl is diagnostic for diabetes. In the absence of unequivocal hyperglycemia, results should be confirmed by repeat testing. The classification and Diagnosis of Diabetes Diabetes Care 2021; 46: S19-S40. Current interpretive data was last revised 2022. Calcium 9.1 8.5 - 10.3 mg/dL [facility] Phosphorus, pl 4.2 2.3 - 4.5 mg/dL [facility] Albumin 3.5 3.5 - 5.0 g/dL [facility] Blood 12/05/2024 3:50 AM CDT 12/05/2024 3:55 AM CDT Benjamín Portillo MD LAB BLOOD ORDERABLES Final Resu lt Performing Organization Address [facility] Co de Phone Number CLEO VELEZ [address] [address] [facility] [place] [address] * POCT glucose (12/04/2024 8:05 PM CDT) Glucose, POC 150 70 - 199 mg/dL Blood 12/04/2024 8:05 PM CDT 12/04/2024 8:05 PM CDT Alex Yung LAB POCT ORDERABLES - DEV ICE Final Result Performing Organization Address [facility] de Phone Number OPALJIMMIE VELEZ [address] [address] [facility] [place] [address] * POCT glucose (12/04/2024 4:58 PM CDT) Glucose, POC 196 70 - 199 mg/dL Blood 12/04/2024 4:58 PM CDT 12/04/2024 4:58 PM CDT Alex Yung DO LAB POCT ORDERABLES - DEV ICE Final Result Performing Organization Address [facility] Co de Phone Number OPALJIMMIE VELEZ [address] [address] [facility] [place] [address] * (ABNORMAL) POCT glucose (12/04/2024 12:24 PM CDT) Glucose, POC 238(H) 70 - 199 mg/dL Blood 12/04/2024 12:2 4 PM CDT 12/04/2024 12:24 PM CDT Alex Yung LAB POCT ORDERABLES - DEV ICE Final Result Performing Organization Address [facility] Co de Phone Number OPALJIMMIE VELEZ [address] [address] [facility] [place] [address] * (ABNORMAL) POCT glucose (12/04/2024 9:47 AM CDT) Glucose, POC 346(H) 70 - 199 mg/dL Blood 12/04/2024 9:47 AM CDT 12/04/2024 9:47 AM CDT Alex Yung LAB POCT ORDERABLES - DEV ICE Final Result Performing Organization Address [facility] Co de Phone Number CLEO VELEZ [address] [address] [facility] [place] [address] * (ABNORMAL) POCT glucose (12/04/2024 6:46 AM CDT) Glucose, POC 312(H) 70 - 199 mg/dL Blood 12/04/2024 6:46 AM CDT 12/04/2024 6:46 AM CDT Alex Yung LAB POCT ORDERABLES - DEV ICE Final Result Performing Organization Address [facility] de Phone Number CLEO VELEZ [phone] [address] [facility] [place] [address] * eGFR (12/04/2024 4:28 AM CDT) eGFR 60 >=60 mL/min/1. 73 m2 Comment: Interpretive Data Reference Interval Normal >/= 90 mL/min/1.73m2 Mildly decreased* 60 - 89 mL/min/1.73m2 Mildly to moderately decreased 45 - 59 mL/min/1.73m2 Moderately to severely decreased 30 - 44 mL/min/1.73m2 Severely decreased 15 - 29 mL/min/1.73m2 Kidney Failure < 15 mL/min/1.73m2 *Relative to young adult level Estimated glomerular filtration rate is determined by the 2020 CKD-EPI equation recommended by the National Kidney Foundation (A Unifying Approach to GFR Estimation: Recommendations of the NKF-ASK Task Force on Reassessing the Inclusion of Race in Diagnosing Kidney Disease, JASN 2020). The CKD-EPI equation should not be used for patients with unstable renal function and has not been validated in children and those over 70. Current interpretive data was last reviewed 2020. Blood 12/04/2024 4:28 AM CDT 12/04/2024 5:30 AM CDT us Benjamín Portillo MD LAB BLOOD ORDERABLES Final Resu lt Performing Organization Address City/[facility]/ZIP Co de Phone Number CLEO VELEZ [address] [address] [place] [address] * (ABNORMAL) CBC without differential (12/04/2024 4:28 AM CDT) WBC 6.74 3.80 - 9.90 K/cumm Hgb 10.9(L) 11.9 - 15.5 g/dL [facility] Hct 35.6 35.6 - 45.5 % [facility] Plt 214 150 - 400 K/cumm [facility] MPV 11.0 9.1 - 12.3 fL [facility] RBC 4.24 3.90 - 5.20 M/cumm [facility] MCV 84.0 81.3 - 96.4 fL [facility] MCH 25.7(L) 27.1 - 33.3 pg [facility] MCHC 30.6(L) 32.3 - 35.7 g/dL [facility] RDW CV 18.6(H) 11.1 - 14.9 % [facility] RDW SD 56.5(H) 35.7 - 48.1 fL [facility] NRBC abs 0.00 0.00 - 0.01 K/cumm [facility] Blood 12/04/2024 4:28 AM CDT 12/04/2024 5:29 AM CDT us Alex Yung DO LAB BLOOD ORDERABLES Ysabel l Result Performing Organization Address City/[facility]/ZIP Co de Phone Number [place] VELEZ [address] Department [place] [address] * (ABNORMAL) Hemoglobin A1c (12/04/2024 4:28 AM CDT) Hgb A1C 9.3(H) 4.0 - 5.6 % Estimated Average Glucose 220 mg/dL [facility] Comment: The ADA recommends reporting an estimated Average Glucose (eAG) with all Hemoglobin A1c results using the equation derived from a study of 507 normal and diabetic adults. Minority populations were underrepresented and children were not included. (Diabetes Care 31:6130-9610, 2008). The eAG is not equivalent to a fasting glucose. Blood 12/04/2024 4:28 AM CDT 12/04/2024 8:22 AM CDT Tracy Wing NP LAB BLOOD ORDERABLE S Final Result [facility] [address] [address] Department [place] [address] * (ABNORMAL) Renal function panel (12/04/2024 4:28 AM CDT) Sodium 135 135 - 145 mmol/L Potassium, pl 3.6 3.3 - 4.9 mmol/L [facility] Chloride 90(L) 97 - 110 mmol/L [facility] CO2 35(H) 22 - 32 mmol/L [facility] Anion gap 10 2 - 15 mmol/L [facility] BUN 25 6 - 25 mg/dL [facility] Creatinine 1.03 0.60 - 1.10 mg/dL [facility] Glucose 326(H) 70 - 199 mg/dL [facility] Comment: Interpretive Data Fasting glucose >/= 126 mg/dl is diagnostic for diabetes. Fasting is defined as no caloric intake for at least 8 hours. Fasting glucose between 100 mg/dl to 125 mg/dl is diagnostic of prediabetes. In a patient with classic symptoms of hyperglycemia or hyperglycemic crisis, a random glucose >/= 200 mg/dl is diagnostic for diabetes. In the absence of unequivocal hyperglycemia, results should be confirmed by repeat testing. The classification and Diagnosis of Diabetes Diabetes Care 2021; 46: S19-S40. Current interpretive data was last revised 2022. Calcium 9.2 8.5 - 10.3 mg/dL [facility] Phosphorus, pl 3.3 2.3 - 4.5 mg/dL [facility] Albumin 3.5 3.5 - 5.0 g/dL [facility] Blood 12/04/2024 4:28 AM CDT 12/04/2024 5:30 AM CDT Benjamín Portillo MD LAB BLOOD ORDERABLES Final Resu lt Performing Organization Address City/[facility] Co de Phone Number CLEO VELEZ [phone] [address] Department [facility] [place], [place] [id number] * (ABNORMAL) POCT glucose (12/03/2024 9:19 PM CDT) Glucose, POC 297(H) 70 - 199 mg/dL Blood 12/03/2024 9:19 PM CDT 12/03/2024 9:19 PM CDT Alex Yung LAB POCT ORDERABLES - DEV ICE Final Result Performing Organization Address [facility] de Phone Number CLEO VELEZ [address] [address] Department [place] [address] * (ABNORMAL) POCT glucose (12/03/2024 4:40 PM CDT) Glucose, POC 405(H) 70 - 199 mg/dL Blood 12/03/2024 4:40 PM CDT 12/03/2024 4:40 PM CDT Alex Yung LAB POCT ORDERABLES - DEV ICE Final Result Performing Organization Address [facility] de Phone Number CLEO VELEZ [phone] [address] [facility] [place] [address] * Potassium (12/03/2024 3:59 PM CDT) Potassium, pl 3.4 3.3 - 4.9 mmol/L Blood 12/03/2024 3:59 PM CDT 12/03/2024 4:20 PM CDT Alex Yung LAB BLOOD ORDERABLES Ysabel l Result Performing Organization Address [facility] Co de Phone Number CLEO VELEZ [address] [address] [facility] [place] [address] * Phosphorus (12/03/2024 3:59 PM CDT) Phosphorus, pl 2.5 2.3 - 4.5 mg/dL Blood 12/03/2024 3:59 PM CDT 12/03/2024 4:20 PM CDT Alex Yung LAB BLOOD ORDERABLES Ysabel l Result Performing Organization Address [facility] de Phone Number CLEO VELEZ [phone] [address] [facility] [place] [address] * Magnesium (12/03/2024 3:59 PM CDT) Magnesium 1.6 1.4 - 2.5 mg/dL Blood 12/03/2024 3:59 PM CDT 12/03/2024 4:20 PM CDT Alex Yung LAB BLOOD ORDERABLES Ysabel l Result Performing Organization Address [facility] de Phone Number CLEO VELEZ [phone] [address] [facility] [place] [address] * CT Chest WO Contrast (12/03/2024 2:25 PM CDT) Anatomical Region Laterality Modality Body N/A Computed Tomogra phy 12/03/2024 2:49 PM CDT Impressions 12/03/2024 2:49 PM CDT 1. Mucus occlusion of the left lower lobe bronchial branches with near complete left lung collapse and mediastinal shift. Electronically signed by: Kristina Lopez MD Narrative 12/03/2024 2:49 PM CDT EXAMINATION: Chest CT without contrast TECHNIQUE: Computed tomography of the chest was performed without contrast. HISTORY: Left lung opacification COMPARISON:Radiograph performed earlier today and chest CT performed November 05, 2024. FINDINGS: Pleura and lungs: There is now nearly complete collapse of the left lung with subsequent mediastinal shift. This is due to mucous plugging. There are small left and trace right pleural fluid collections. There are right pleural calcifications. There are mild areas of right parenchymal scarring. Central airways: The trachea is widely patent. There is mucus occlusion of the left lower lobe bronchial branches. Lymph nodes: There is no lymphadenopathy in the chest. Heart and Great vessels: The heart size is normal. There is coronary atherosclerosis. There is no pericardial fluid collection. Osseous and body wall: There is minimal multilevel disc degeneration of the thoracic spine. There are no concerning osteolytic or osteoblastic lesions. There is an old impacted fracture of the right humeral neck. Procedure Note Kristina Lopez MD - 12/03/2024 EXAMINATION: Chest CT without contrast TECHNIQUE: Computed tomography of the chest was performed without contrast. HISTORY: Left lung opacification COMPARISON:Radiograph performed earlier today and chest CT performed November 05, 2024. FINDINGS: Pleura and lungs: There is now nearly complete collapse of the left lung with subsequent mediastinal shift. This is due to mucous plugging. There are small left and trace right pleural fluid collections. There are right pleural calcifications. There are mild areas of right parenchymal scarring. Central airways: The trachea is widely patent. There is mucus occlusion of the left lower lobe bronchial branches. Lymph nodes: There is no lymphadenopathy in the chest. Heart and Great vessels: The heart size is normal. There is coronary atherosclerosis. There is no pericardial fluid collection. Osseous and body wall: There is minimal multilevel disc degeneration of the thoracic spine. There are no concerning osteolytic or osteoblastic lesions. There is an old impacted fracture of the right humeral neck. IMPRESSION: 1. Mucus occlusion of the left lower lobe bronchial branches with near complete left lung collapse and mediastinal shift. Electronically signed by: Kristina Lopez MD Merrick Zavala MD IMG CT PROCEDURES Final Result * (ABNORMAL) POCT glucose (12/03/2024 2:06 PM CDT) Glucose, POC 490(C) 70 - 199 mg/dL Blood 12/03/2024 2:06 PM CDT 12/03/2024 2:06 PM CDT us Alex Yung DO LAB POCT ORDERABLES - DEV ICE Final Result Performing Organization Address [facility] de Phone Number CLEO VELEZ [phone] [address] [facility] [place], [place] [id number] * (ABNORMAL) POCT glucose (12/03/2024 12:05 PM CDT) Glucose, POC 483(C) 70 - 199 mg/dL Blood 12/03/2024 12:0 5 PM CDT 12/03/2024 12:05 PM CDT us Benjamín Portillo MD LAB POCT ORDERABLES - DEVICE Fi nal Result Performing Organization Address [facility] de Phone Number OPALJIMMIE VELEZ [address] [address] [facility] [place] [address] * (ABNORMAL) POCT glucose (12/03/2024 9:45 AM CDT) Pathologist [facility] Glucose, POC 444(H) 70 - 199 mg/dL Blood 12/03/2024 9:45 AM CDT 12/03/2024 9:45 AM CDT us Benjamín Portillo MD LAB POCT ORDERABLES - DEVICE Fi nal Result Performing Organization Address [facility] [place] Number [place] [address] [address] [facility] [place] [address] * TRANSTHORACIC ECHO (TTE) COMPLETE W DOPPLER/CF W CONTRAST (12/03/2024 9:30 AM CDT) Estimated EF 40-45 % CONS SCIMAGE Anatomical Region Laterality Modality Ultrasound 12/03/2024 8:41 AM CDT Narrative 12/03/2024 10:16 AM CDT [place] [id number] Echocardiogram Report Patient Name: LORNE GREGORIO R : 1960 Study Date: 12/03/2024 8:41:53 AM Sex: F Tech: Location: [address] Provider: BENJAMÍN PORTILLO Height(Cm): 173 BSA: 2.56 Weight(Kg): 136.1 Heart Rate: 118 BP: 149 / 92 Quality: Good Order Provider: BENJAMÍN PORTILLO PROCEDURES: Echocardiographic Report: Transthoracic echocardiogram with complete 2D, M-Mode, color Doppler examination and contrast. INDICATIONS: Shortness of breath. MEASUREMENTS: 2D/MM Value Range Doppler Value Range Estimated EF 40-45 % LVOT Diam 2.12 cm LA Dimension MM 4.38 cm [ 2.70 - 3.80 ] MV E Peak Hermann 0.67 m/s [ 0.60 - 1.30 ] AoR Diam MM 2.81 cm [ 2.70 - 3.30 ] MV A Peak Hermann 0.43 m/s [ 1.00 - 1.20 ] MV Mean PG 2 mmHg MV PHT 62 msec [ 20 - 100 ] MVA PHT 3.56 cm2 MV Decel Time 213 msec [ 104 - 258 ] TR Peak Hermann 2.66 m/s [ 1.00 - 2.80 ] TR Peak PG 28 mmHg RVSP 33.00 mmHg [ 10.00 - 36.00 ] E` 0.08 m/s E/E` 8.40 2D/MM Value Range Doppler Value Range - FINDINGS: Atrial Septum: Normal atrial septum. Left Ventricle: Normal left ventricular size. Left ventricular wall thickness upper limits of normal. Mild global left ventricular systolic dysfunction. Ejection Fraction is visually estimated to be 40-45 %. Left Atrium: There is mild enlargement of left atrium. Right Ventricle: Normal right ventricular size. Normal right ventricular systolic function. The right ventricle is not well visualized. Right Atrium: The right atrium is normal in size. Aortic Valve: Aortic cusps appear mildly sclerotic. No evidence of hemodynamically significant aortic stenosis by Doppler. Mitral Valve: Mitral valve is not well visualized. Mitral valve leaflets appear mildly thickened. Trivial regurgitation of the mitral valve. Pulmonic Valve: Pulmonic valve not well visualized. Tricuspid Valve: Normal structure of the tricuspid valve. Normal right ventricular systolic pressure. Trivial regurgitation in the tricuspid valve. Pericardium: Normal pericardium with no significant pericardial effusion. Aorta: Ascending aorta is normal. There is mild atherosclerosis in the aortic root. IVC: Normal size and normal respiratory collapse consistent with normal right atrial pressure (<5 mmHg). Pulmonary Artery: Pulmonary artery not well visualized. CONCLUSIONS: Technically difficult study with suboptimal visualization. Valves in general are poorly visualized. Optison contrast utilized. Normal left ventricular size. Left ventricular wall thickness upper limits of normal. Mild global left ventricular systolic dysfunction. Ejection Fraction is visually estimated to be 40-45 %. The accuracy of this estimate is limited both by atrial fibrillation related irregular heartbeat as well as poor visualization despite Optison. Normal right ventricular size. Normal right ventricular systolic function. The right ventricle is not well visualized. There is mild enlargement of left atrium. Mitral valve is not well visualized. Mitral valve leaflets appear mildly thickened. Trivial regurgitation of the mitral valve. Aortic cusps appear mildly sclerotic. No evidence of hemodynamically significant aortic stenosis by Doppler. Normal structure of the tricuspid valve. Normal right ventricular systolic pressure. Trivial regurgitation in the tricuspid valve. Normal pericardium with no significant pericardial effusion. Patient appears to be in atrial fibrillation during this study. Suggest an alternative accurate assessment of the LV function like a MUGA scan if clinically relevant. Electronically Signed By: Shahida Lynn MD 12/03/2024 10:15:40 AM CDT Procedure Note Shahida Lynn MD - 12/03/2024 [place] [address] Echocardiogram Report Patient Name: LORNE GREGORIO R : 1960 Study Date: 12/03/2024 8:41:53 AM Sex: F Tech: Location: [address] Provider: BENJAMÍN PORTILLO Height(Cm): 173 BSA: 2.56 Weight(Kg): 136.1 Heart Rate: 118 BP: 149 / 92 Quality: Good Order Provider: BENJAMÍN PORTILLO PROCEDURES: Echocardiographic Report: Transthoracic echocardiogram with complete 2D, M-Mode, color Dopplerexamination and contrast. INDICATIONS: Shortness of breath. MEASUREMENTS: 2D/MM Value Range Doppler ValueRange Estimated EF 40-45 % LVOT Diam 2.12cm LA Dimension MM 4.38 cm [ 2.70 - 3.80 ] MV E Peak Hermann 0.67 m/s[ 0.60 - 1.30 ] AoR Diam MM 2.81 cm [ 2.70 - 3.30 ] MV A Peak Hermann 0.43 m/s[ 1.00 - 1.20 ] MV Mean PG 2 mmHg MV PHT 62 msec [ 20 - 100 ] MVA PHT 3.56 cm2 MV Decel Time 213 msec [ 104 - 258 ] TR Peak Hermann 2.66 m/s [ 1.00 - 2.80 ] TR Peak PG 28 mmHg RVSP 33.00 mmHg [ 10.00 - 36.00 ] E` 0.08 m/s E/E` 8.40 2D/MM Value Range Doppler ValueRange - FINDINGS: Atrial Septum: Normal atrial septum. Left Ventricle: Normal left ventricular size. Left ventricular wall thickness upper limitsof normal. Mild global left ventricular systolic dysfunction. Ejection Fraction isvisually estimated to be 40-45 %. Left Atrium: There is mild enlargement of left atrium. Right Ventricle: Normal right ventricular size. Normal right ventricular systolic function.The right ventricle is not well visualized. Right Atrium: The right atrium is normal in size. Aortic Valve: Aortic cusps appear mildly sclerotic. No evidence of hemodynamicallysignificant aortic stenosis by Doppler. Mitral Valve: Mitral valve is not well visualized. Mitral valve leaflets appear mildlythickened. Trivial regurgitation of the mitral valve. Pulmonic Valve: Pulmonic valve not well visualized. Tricuspid Valve: Normal structure of the tricuspid valve. Normal right ventricular systolicpressure. Trivial regurgitation in the tricuspid valve. Pericardium: Normal pericardium with no significant pericardial effusion. Aorta: Ascending aorta is normal. There is mild atherosclerosis in the aorticroot. IVC: Normal size and normal respiratory collapse consistent with normal rightatrial pressure (<5 mmHg). Pulmonary Artery: Pulmonary artery not well visualized. CONCLUSIONS: Technically difficult study with suboptimal visualization. Valves ingeneral are poorly visualized. Optison contrast utilized. Normal left ventricular size. Left ventricular wall thickness upper limitsof normal. Mild global left ventricular systolic dysfunction. Ejection Fraction isvisually estimated to be 40-45 %. The accuracy of this estimate is limited both byatrial fibrillation related irregular heartbeat as well as poor visualizationdespite Optison. Normal right ventricular size. Normal right ventricular systolic function.The right ventricle is not well visualized. There is mild enlargement of left atrium. Mitral valve is not well visualized. Mitral valve leaflets appear mildlythickened. Trivial regurgitation of the mitral valve. Aortic cusps appear mildly sclerotic. No evidence of hemodynamicallysignificant aortic stenosis by Doppler. Normal structure of the tricuspid valve. Normal right ventricular systolicpressure. Trivial regurgitation in the tricuspid valve. Normal pericardium with no significant pericardial effusion. Patient appears to be in atrial fibrillation during this study. Suggest an alternative accurate assessment of the LV function like a MUGAscan if clinically relevant. Electronically Signed By: Shahida Lynn MD 12/03/2024 10:15:40 AM CDT us Benjamín Portillo MD CV ECHO PROCEDURES Final Result * Troponin T high-sensitivity 2-hour (12/03/2024 3:53 AM CDT) Trop T hs 13 <=14 ng/L Comment: Interpretive Data For further hscTnT resources including the diagnostic algorithm and an aid in interpretation, copy and paste this link: [email or web address].testcatalog.org/show/[email or web address] Current Interpretive Data last revised 2019. Trop T hs delta 1 ng/L CLEO Trop T hs interp Insignificant [facility]O Blood 12/03/2024 3:53 AM CDT 12/03/2024 3:55 AM CDT Benjamin Garcia MD LAB BLOOD ORDERABLES Final Res ult Performing Organization Address City/[facility]/ZIP Co de Phone Number CLEO [address] [place] [address] * (ABNORMAL) eGFR (12/03/2024 2:14 AM CDT) eGFR 50(L) >=60 mL/min/1. 73 m2 Comment: Interpretive Data Reference Interval Normal >/= 90 mL/min/1.73m2 Mildly decreased* 60 - 89 mL/min/1.73m2 Mildly to moderately decreased 45 - 59 mL/min/1.73m2 Moderately to severely decreased 30 - 44 mL/min/1.73m2 Severely decreased 15 - 29 mL/min/1.73m2 Kidney Failure < 15 mL/min/1.73m2 *Relative to young adult level Estimated glomerular filtration rate is determined by the 2020 CKD-EPI equation recommended by the National Kidney Foundation (A Unifying Approach to GFR Estimation: Recommendations of the NKF-ASK Task Force on Reassessing the Inclusion of Race in Diagnosing Kidney Disease, JASN 2020). The CKD-EPI equation should not be used for patients with unstable renal function and has not been validated in children and those over 70. Current interpretive data was last reviewed 2020. Blood 12/03/2024 2:14 AM CDT 12/03/2024 2:27 AM CDT us Denton Mabry MD LAB BLOOD ORDERABLES Ysabel l Result Performing Organization Address City/[facility]/ZIP Co de Phone Number [facility] [address] [place] [address] * Respiratory pathogen panel Nasopharyngeal (12/03/2024 2:14 AM CDT) Pathologist [facility] Influenza A RNA Not Detected Not Detected Influenza B RNA Not Detected Not Detected [facility] RSV RNA Not Detected Not Detected [facility] COVID-19 RNA Not Detected Not Detected [facility] Coronavirus 229E RNA Not Detected Not Detected [facility] Coronavirus HKU1 RNA Not Detected Not Detected [facility] Coronavirus NL63 RNA Not Detected Not Detected [facility] Coronavirus OC43 RNA Not Detected Not Detected [facility] Adenovirus DNA Not Detected Not Detected [facility] Metapneumovirus RNA Not Detected Not Detected [facility]ER Rhinovirus/Enterov irus RNA Not Detected Not Detected [facility] Parainfluenza 1 RNA Not Detected Not Detected [facility] Parainfluenza 2 RNA Not Detected Not Detected [facility] Parainfluenza 3 RNA Not Detected Not Detected [facility] Parainfluenza 4 RNA Not Detected Not Detected [facility] B. pertussis DNA Not Detected Not Detected [facility] B. parapertussis DNA Not Detected Not Detected [facility] C. pneumoniae DNA Not Detected Not Detected [facility] M. pneumoniae DNA Not Detected Not Detected [facility] Comment: Interpretive Data The [employer] FilmArray Respiratory Panel (RP2.1) assay is a multiplexed real-time PCR based nucleic acid test capable of simultaneous qualitative detection and identification of multiple respiratory viral and bacterial nucleic acids, including SARS Coronavirus 2 (the causative agent of COVID-19). The following bacteria, viruses and virus subtypes can be identified using the FilmArray RP2.1 assay: Bordetella pertussis, Bordetella parapertussis, Chlamydia pneumoniae, Mycoplasma pneumoniae, Adenovirus, SARS Coronavirus 2, seasonal coronaviruses (Coronavirus HKU1, Coronavirus NL63, Coronavirus 229E, and Coronavirus OC43), Influenza A, Influenza A subtype H1, Influenza A subtype H3, Influenza A subtype 2009 H1, Influenza B, Metapneumovirus, Parainfluenza 1, Parainfluenza 2, Parainfluenza 3, Parainfluenza 4, RSV, Rhinovirus/Enterovirus. Due to the genetic similarity between human Rhinovirus and Enterovirus, the FilmArray RP2.1 assay cannot reliably differentiate them. Coronavirus OC43 may cross-react with some isolates of Coronavirus HKU1. A dual positive result may be due to cross-reactivity or may indicate a co- infection. The detection and identification of specific viral and bacterial nucleic acids from individuals exhibiting signs and symptoms of a respiratory infection aids in the diagnosis of respiratory infection if used in conjunction with other clinical and epidemiological information. The results of this test should not be used as the sole basis for diagnosis, treatment, or other management decisions. Negative results in the setting of a respiratory illness may be due to infection with pathogens that are not detected by this test. Positive results do not rule out infection/co-infection with other organisms. The agent(s) detected by the FilmArray RP2.1 may not be the definite cause of disease. Additional testing (lab, imaging, etc.) may be necessary when evaluating a patient with possible respiratory tract infection. The FilmArray RP2.1 assay has FDA clearance for testing of BREAKING MACHINE OPERATOR swabs. The performance characteristics of this assay have been determined by [facility]. Current interpretive data was last revised on 2020. Nasopharyngeal 12/03/2024 2: 14 AM CDT 12/03/2024 2:27 AM CDT Narrative [facility] - 12/03/2024 3:26 AM CDT Is the Patient experiencing symptoms consistent with COVID?->Yes Surveillance testing for transplant patient?->No Denton Mabry MD LAB MICROBIOLOGY - GENERA L ORDERABLES Final Result [facility] [address] [address] Department [place] [address] CH * (ABNORMAL) Comprehensive metabolic panel (12/03/2024 2:14 AM CDT) Sodium 138 135 - 145 mmol/L Potassium, pl 4.4 3.3 - 4.9 mmol/L [facility] CH Chloride 95(L) 97 - 110 mmol/L [facility] CH CO2 32 22 - 32 mmol/L [facility] CH Anion gap 11 2 - 15 mmol/L [facility] CH BUN 15 6 - 25 mg/dL [facility] CH Creatinine 1.19(H) 0.60 - 1.10 mg/dL [facility] Glucose 397(H) 70 - 199 mg/dL [facility] CH Comment: Interpretive Data Fasting glucose >/= 126 mg/dl is diagnostic for diabetes. Fasting is defined as no caloric intake for at least 8 hours. Fasting glucose between 100 mg/dl to 125 mg/dl is diagnostic of prediabetes. In a patient with classic symptoms of hyperglycemia or hyperglycemic crisis, a random glucose >/= 200 mg/dl is diagnostic for diabetes. In the absence of unequivocal hyperglycemia, results should be confirmed by repeat testing. The classification and Diagnosis of Diabetes Diabetes Care 202; 46: S19-S40. Current interpretive data was last revised 2022. Calcium 9.2 8.5 - 10.3 mg/dL [facility] CH Bilirubin, total 0.8 0.1 - 1.2 mg/dL [facility] CH Protein, pl 6.7 6.5 - 8.5 g/dL [facility] CH Albumin 3.5 3.5 - 5.0 g/dL [facility] CH Alk phos 148(H) 40 - 130 Units/L [facility] CH ALT 8 7 - 45 Units/L [facility] CH AST 14 10 - 45 Units/L [facility] CH Blood 12/03/2024 2:14 AM CDT 12/03/2024 2:27 AM CDT Denton Mabry MD LAB BLOOD ORDERABLES Ysabel castellanos Result [facility] [address] [address] Department [place] [address] * XR Chest 1 Vw Portable (If patient hemodynamically UNstable or UNable to ambulate) (12/03/2024 1:24AM CDT) Anatomical Region Laterality Modality Body, Chest N/A Computed Radiogr aphy 12/03/2024 8:25 AM CDT Impressions 12/03/2024 8:25 AM CDT Increased opacification of the left hemithorax with now complete opacification noted. There is leftward mediastinal shift. Prominent interstitial markings in the perihilar region and bilateral lower lobe suggestive of interstitial pulmonary edema. No acute osseous abnormality. Electronically signed by: Kt Beltran II, D.O. Narrative 12/03/2024 8:25 AM CDT Examination: XR CHEST 1 VIEW Date: 12/03/2024 1:10 AM History: Shortness of breath Comparison: 11/20/2024. Procedure Note Kt Beltran II, - 12/03/2024 Examination: XR CHEST 1 VIEW Date: 12/03/2024 1:10 AM History: Shortness of breath Comparison: 11/20/2024. IMPRESSION: Increased opacification of the left hemithorax with now complete opacification noted. There is leftward mediastinal shift. Prominent interstitial markings in the perihilar region and bilateral lower lobe suggestive of interstitial pulmonary edema. No acute osseous abnormality. Electronically signed by: Kt Beltran II, D.O. Benjamín Portillo MD IMG XR PROCEDURES Final Result * Troponin T high-sensitivity series (baseline, 2hr, 4hr, 6hr) (12/03/2024 1:20 AM CDT) Pathologist [facility] Trop T hs 12 <=14 ng/L Comment: Slight hemolysis may result in decreased troponin measurement. Consider recollection. Interpretive Data For further hscTnT resources including the diagnostic algorithm and an aid in interpretation, copy and paste this link: [email or web address].testcatalog.[email or web address] Current Interpretive Data last revised 2019. Blood 12/03/2024 1:20 AM CDT 12/03/2024 1:23 AM CDT Denton Mabry MD LAB BLOOD ORDERABLES Ysabel l Result [facility] [address] [address] Department [place] [address] * (ABNORMAL) Differential, auto (12/03/2024 1:20 AM CDT) Neutrophil abs 8.29(H) 1.50 - 6.50 K/cumm Imm gran abs 0.05 0.00 - 0.10 K/cumm [facility] Lymphocyte abs 0.81 0.80 - 3.30 K/cumm [facility] Monocyte abs 0.16(L) 0.20 - 0.80 K/cumm [facility] Eosinophil abs 0.05 0.00 - 0.50 K/cumm [facility] Basophil abs 0.04 0.00 - 0.10 K/cumm [facility] Neutrophil pct 88.3 % [facility] Comment: Interpretive Data Percent cell count reference ranges are not reported, since discordance with absolute values may lead to misinterpretation of CBC data. Current Interpretive Data was last revised on 2017. Imm gran pct 0.5 % [facility] Comment: Interpretive Data Percent cell count reference ranges are not reported, since discordance with absolute values may lead to misinterpretation of CBC data. Current Interpretive Data was last revised on 2017. Lymphocyte pct 8.6 % [facility] Comment: Interpretive Data Percent cell count reference ranges are not reported, since discordance with absolute values may lead to misinterpretation of CBC data. Current Interpretive Data was last revised on 2017. Monocyte pct 1.7 % [facility] Comment: Interpretive Data Percent cell count reference ranges are not reported, since discordance with absolute values may lead to misinterpretation of CBC data. Current Interpretive Data was last revised on 2017. Eosinophil pct 0.5 % [facility] Comment: Interpretive Data Percent cell count reference ranges are not reported, since discordance with absolute values may lead to misinterpretation of CBC data. Current Interpretive Data was last revised on 2017. Basophil pct 0.4 % [facility] Comment: Interpretive Data Percent cell count reference ranges are not reported, since discordance with absolute values may lead to misinterpretation of CBC data. Current Interpretive Data was last revised on 2017. Blood 12/03/2024 1:20 AM CDT 12/03/2024 1:23 AM CDT us Benjamin Garcia MD LAB BLOOD ORDERABLES Final Res ult [facility] [address] [address] Department [place] [address] * (ABNORMAL) Pro B-type natriuretic peptide (12/03/2024 1:20 AM CDT) NT-proBNP 1,383(H) <=300 pg/mL Comment: Interpretive Comments: A. Dyspnea in Acute Care Setting All Ages: < 300 pg/ml, acute heart failure unlikely. < 50 yrs: 300 - 450 pg/ml, further investigation warranted. > 450 pg/ml, acute heart failure likely. 50 - 74 yrs: 300 - 900 pg/ml, further investigation warranted. > 900 pg/ml, acute heart failure likely . > or = 75 yrs: 450 - 1800 pg/ml, further investigation warranted. > 1800 pg/ml, acute heart failure likely. B. Non-acute Setting < 75 yrs < 125 pg/ml, rules out heart failure. > or = 125 pg/ml, further investigation warranted. > or = 75 yrs < 450 pg/ml, rules out heart failure. > or = 450 pg/ml, further investigation warranted. - Knowledge of each individual patient's NT-proBNP range may be more useful than using similar cut-points for every patient. Please note that marked elevations in NT-proBNP levels may be observed in state other than Left Ventricular Congestive Failure, including: acute coronary syndromes, right heart strain/failure (including pulmonary embolism and cor pulmonale), critical illness, renal failure, as well as advanced age. - References: 1. Chele FRIED et.al. Eur Heart J. 2006:27:330-337. 2. Joaquin RW, Sandoval VARELA. J. AM Yury Cardiol: Cardiovasc Imag. 2009;2: 216- 225. Interpretive Data Last Revised Date: 2017. Blood 12/03/2024 1:20 AM CDT 12/03/2024 1:23 AM CDT us Denton Mabry MD LAB BLOOD ORDERABLES Ysabel castellanos Result [facility] [address] [address] Department [place] [address] * (ABNORMAL) CBC with auto differential (12/03/2024 1:20 AM CDT) Pathologist [facility] WBC 9.40 3.80 - 9.90 K/cumm Hgb 11.2(L) 11.9 - 15.5 g/dL [facility] CH Hct 37.5 35.6 - 45.5 % [facility] CH Plt 213 150 - 400 K/cumm [facility] CH MPV 10.8 9.1 - 12.3 fL [facility] CH RBC 4.37 3.90 - 5.20 M/cumm [facility] CH MCV 85.8 81.3 - 96.4 fL [facility] CH MCH 25.6(L) 27.1 - 33.3 pg [facility] CH MCHC 29.9(L) 32.3 - 35.7 g/dL [facility] CH RDW CV 19.0(H) 11.1 - 14.9 % [facility] CH RDW SD 59.5(H) 35.7 - 48.1 fL [facility] CH NRBC abs 0.00 0.00 - 0.01 K/cumm [facility] CH Blood 12/03/2024 1:20 AM CDT 12/03/2024 1:23 AM CDT us Denton Mabry MD LAB BLOOD ORDERABLES Ysabel l Result [facility] [address] [address] Department [place] [address] * (ABNORMAL) Blood gas, venous (12/03/2024 1:20 AM CDT) pH, Venous 7.33 7.32 - 7.43 PCO2, Venous 70(H) 40 - 50 mmHg [facility] CH PO2, Venous 51 mmHg [facility] CH Comment: Interpretive Data No Reference Range Established Current Interpretive Data was last revised on 2017. HCO3 Venous, Calculated 32(H) 20 - 30 mmol/L [facility] CH BE, venous 10 mmol/L [facility] CH Comment: Interpretive Data No Reference Range Established Current Interpretive Data was last revised on 2017. Blood 12/03/2024 1:20 AM CDT 12/03/2024 1:22 AM CDT us Denton Mabry MD LAB BLOOD ORDERABLES Ysabel l Result [facility] [address] [address] Department [place] [address] * ECG 12 lead (12/03/2024 1:08 AM CDT) 12/03/2024 1:08 AM CDT Narrative [facility] - 12/03/2024 6:43 AM CDT Vent Rate: 101 bpm RR Interval: 589 msec NH Interval: 0 msec QRS Duration: 86 msec QT Interval: 286 msec QTC Interval: 344 msec P-R-T [place]: 0 - 117 - 86 degrees IMPRESSION: ATRIAL FIBRILLATION WITH RAPID VENTRICULAR RESPONSE POSSIBLE RIGHT VENTRICULAR HYPERTROPHY [SOME/ALL OF: PROMINENT R IN V1, LATE TRANSITION, RAD, MARCELINO, SSS] POSSIBLE ANTERIOR MYOCARDIAL INFARCTION , PROBABLY OLD [30 ms Q WAVE IN V3/V4, OR R < 0.2 mV IN V4] ABNORMAL ECG NO CHANGE FROM PREVIOUS TRACING NOTED Electronically Signed By: Jose Biggs MD Denton Mabry MD ECG ORDERABLES Final Res ult Performing Organization Address [facility]/ZIP Co de Phone Number [facility] [employer] [facility] * (ABNORMAL) POCT glucose (11/23/2024 12:29 PM CDT) Glucose, POC 272(H) 70 - 199 mg/dL Blood 11/23/2024 12:2 9 PM CDT 11/23/2024 12:29 PM CDT Benjamín Portillo MD LAB POCT ORDERABLES - DEVICE Fi nal Result Performing Organization Address City/[facility]/ZIP Co de Phone Number [facility] [address] [address] Department [place] [address] * (ABNORMAL) POCT glucose (11/23/2024 7:27 AM CDT) Glucose, POC 285(H) 70 - 199 mg/dL Blood 11/23/2024 7:27 AM CDT 11/23/2024 7:27 AM CDT us Benjamín Portillo MD LAB POCT ORDERABLES - DEVICE Fi nal Result Performing Organization Address City/[facility]/ZIP Co de Phone Number [facility] [address] Department [place] [address] * eGFR (11/23/2024 5:29 AM CDT) eGFR 64 >=60 mL/min/1. 73 m2 Comment: Interpretive Data Reference Interval Normal >/= 90 mL/min/1.73m2 Mildly decreased* 60 - 89 mL/min/1.73m2 Mildly to moderately decreased 45 - 59 mL/min/1.73m2 Moderately to severely decreased 30 - 44 mL/min/1.73m2 Severely decreased 15 - 29 mL/min/1.73m2 Kidney Failure < 15 mL/min/1.73m2 *Relative to young adult level Estimated glomerular filtration rate is determined by the 2020 CKD-EPI equation recommended by the National Kidney Foundation (A Unifying Approach to GFR Estimation: Recommendations of the NKF-ASK Task Force on Reassessing the Inclusion of Race in Diagnosing Kidney Disease, JASN 2020). The CKD-EPI equation should not be used for patients with unstable renal function and has not been validated in children and those over 70. Current interpretive data was last reviewed 2020. Blood 11/23/2024 5:29 AM CDT 11/23/2024 5:53 AM CDT Kelsie Padgett NP LAB BLOOD ORDERABLES Final Result [facility] [address] Department [place] [address] * Differential, auto (11/23/2024 5:29 AM CDT) Neutrophil abs 2.29 1.50 - 6.50 K/cumm Imm gran abs 0.02 0.00 - 0.10 K/cumm [facility] Lymphocyte abs 1.43 0.80 - 3.30 K/cumm [facility] Monocyte abs 0.39 0.20 - 0.80 K/cumm [facility] Eosinophil abs 0.17 0.00 - 0.50 K/cumm [facility] Basophil abs 0.03 0.00 - 0.10 K/cumm [facility] Neutrophil pct 52.9 % [facility] Comment: Interpretive Data Percent cell count reference ranges are not reported, since discordance with absolute values may lead to misinterpretation of CBC data. Current Interpretive Data was last revised on 2017. Imm gran pct 0.5 % [facility] Comment: Interpretive Data Percent cell count reference ranges are not reported, since discordance with absolute values may lead to misinterpretation of CBC data. Current Interpretive Data was last revised on 2017. Lymphocyte pct 33.0 % [facility] Comment: Interpretive Data Percent cell count reference ranges are not reported, since discordance with absolute values may lead to misinterpretation of CBC data. Current Interpretive Data was last revised on 2017. Monocyte pct 9.0 % [facility] Comment: Interpretive Data Percent cell count reference ranges are not reported, since discordance with absolute values may lead to misinterpretation of CBC data. Current Interpretive Data was last revised on 2017. Eosinophil pct 3.9 % [facility] Comment: Interpretive Data Percent cell count reference ranges are not reported, since discordance with absolute values may lead to misinterpretation of CBC data. Current Interpretive Data was last revised on 2017. Basophil pct 0.7 % [facility] Comment: Interpretive Data Percent cell count reference ranges are not reported, since discordance with absolute values may lead to misinterpretation of CBC data. Current Interpretive Data was last revised on 2017. Blood 11/23/2024 5:29 AM CDT 11/23/2024 5:52 AM CDT us Kelsie Padgett NP LAB BLOOD ORDERABLES Final Result [facility] [address] [address] Department [place] [address] * (ABNORMAL) CBC with auto differential (11/23/2024 5:29 AM CDT) WBC 4.33 3.80 - 9.90 K/cumm Hgb 13.1 11.9 - 15.5 g/dL [facility] CH Hct 42.8 35.6 - 45.5 % [facility] CH Plt 265 150 - 400 K/cumm [facility] CH MPV 10.3 9.1 - 12.3 fL [facility] RBC 5.10 3.90 - 5.20 M/cumm [facility] CH MCV 83.9 81.3 - 96.4 fL [facility] CH MCH 25.7(L) 27.1 - 33.3 pg [facility] CH MCHC 30.6(L) 32.3 - 35.7 g/dL [facility] CH RDW CV 18.7(H) 11.1 - 14.9 % [facility] CH RDW SD 55.8(H) 35.7 - 48.1 fL [facility] CH NRBC abs 0.00 0.00 - 0.01 K/cumm [facility] Blood 11/23/2024 5:29 AM CDT 11/23/2024 5:52 AM CDT Kelsie Padgett NP LAB BLOOD ORDERABLES Final Result [facility] [address] [address] Department [place] [address] * (ABNORMAL) Basic metabolic panel (11/23/2024 5:29 AM CDT) Pathologist [facility] Sodium 138 135 - 145 mmol/L Potassium, pl 3.2(L) 3.3 - 4.9 mmol/L [facility] Chloride 98 97 - 110 mmol/L [facility] CO2 29 22 - 32 mmol/L [facility] Anion gap 11 2 - 15 mmol/L [facility] BUN 16 6 - 25 mg/dL [facility] Creatinine 0.98 0.60 - 1.10 mg/dL [facility] Glucose 290(H) 70 - 199 mg/dL [facility] Comment: Interpretive Data Fasting glucose >/= 126 mg/dl is diagnostic for diabetes. Fasting is defined as no caloric intake for at least 8 hours. Fasting glucose between 100 mg/dl to 125 mg/dl is diagnostic of prediabetes. In a patient with classic symptoms of hyperglycemia or hyperglycemic crisis, a random glucose >/= 200 mg/dl is diagnostic for diabetes. In the absence of unequivocal hyperglycemia, results should be confirmed by repeat testing. The classification and Diagnosis of Diabetes Diabetes Care 2021; 46: S19-S40. Current interpretive data was last revised 2022. Calcium 9.0 8.5 - 10.3 mg/dL [facility] Blood 11/23/2024 5:29 AM CDT 11/23/2024 5:53 AM CDT us Kelsie Padgett NP LAB BLOOD ORDERABLES Final Result Performing Organization Address City/[facility] Co de Phone Number [facility] [address] [address] Department [facility] [place], [place] [id number] * (ABNORMAL) POCT glucose (11/22/2024 8:51 PM CDT) Glucose, POC 296(H) 70 - 199 mg/dL Blood 11/22/2024 8:51 PM CDT 11/22/2024 8:51 PM CDT us Benjamín Portillo MD LAB POCT ORDERABLES - DEVICE Fi nal Result Performing Organization Address [facility] de Phone Number [facility] [address] [address] Department [facility] [place], [place] [id number] * (ABNORMAL) POCT glucose (11/22/2024 8:35 PM CDT) Glucose, POC 298(H) 70 - 199 mg/dL Blood 11/22/2024 8:35 PM CDT 11/22/2024 8:35 PM CDT us Benjamín Portillo MD LAB POCT ORDERABLES - DEVICE Fi nal Result Performing Organization Address [facility] Co de Phone Number [facility] [address] [address] Department [place] [address] * (ABNORMAL) POCT glucose (11/22/2024 5:59 PM CDT) Glucose, POC 326(H) 70 - 199 mg/dL Blood 11/22/2024 5:59 PM CDT 11/22/2024 5:59 PM CDT us Benjamín Portillo MD LAB POCT ORDERABLES - DEVICE Fi nal Result Performing Organization Address City/[facility] Co de Phone Number [facility] [address] [address] Department [place] [address] * (ABNORMAL) POCT glucose (11/22/2024 12:48 PM CDT) Glucose, POC 259(H) 70 - 199 mg/dL Blood 11/22/2024 12:4 8 PM CDT 11/22/2024 12:48 PM CDT us Benjamín Portillo MD LAB POCT ORDERABLES - DEVICE Fi nal Result Performing Organization Address [facility] Co de Phone Number [facility] AGUSTIN [address] [address] [facility] [place] [address] * POCT glucose (11/22/2024 8:02 AM CDT) Glucose, POC 186 70 - 199 mg/dL Blood 11/22/2024 8:02 AM CDT 11/22/2024 8:02 AM CDT us Benjamín Portillo MD LAB POCT ORDERABLES - DEVICE Fi nal Result Performing Organization Address City/[facility] Co de Phone Number [facility] [address] [address] [facility] [place] [address] * eGFR (11/22/2024 5:16 AM CDT) Pathologist [facility] eGFR 71 >=60 mL/min/1. 73 m2 Comment: Interpretive Data Reference Interval Normal >/= 90 mL/min/1.73m2 Mildly decreased* 60 - 89 mL/min/1.73m2 Mildly to moderately decreased 45 - 59 mL/min/1.73m2 Moderately to severely decreased 30 - 44 mL/min/1.73m2 Severely decreased 15 - 29 mL/min/1.73m2 Kidney Failure < 15 mL/min/1.73m2 *Relative to young adult level Estimated glomerular filtration rate is determined by the 2020 CKD-EPI equation recommended by the National Kidney Foundation (A Unifying Approach to GFR Estimation: Recommendations of the NKF-ASK Task Force on Reassessing the Inclusion of Race in Diagnosing Kidney Disease, JASN 2020). The CKD-EPI equation should not be used for patients with unstable renal function and has not been validated in children and those over 70. Current interpretive data was last reviewed 2020. Blood 11/22/2024 5:16 AM CDT 11/22/2024 5:33 AM CDT Kelsie Padgett NP LAB BLOOD ORDERABLES Final Result [facility] [address] [address] Department of Laboratories [place], [place] [id number] * Differential, auto (11/22/2024 5:16 AM CDT) Pathologist [facility] Neutrophil abs 1.88 1.50 - 6.50 K/cumm Imm gran abs 0.02 0.00 - 0.10 K/cumm [facility] Lymphocyte abs 1.48 0.80 - 3.30 K/cumm [facility] Monocyte abs 0.32 0.20 - 0.80 K/cumm [facility] Eosinophil abs 0.21 0.00 - 0.50 K/cumm [facility] Basophil abs 0.03 0.00 - 0.10 K/cumm [facility] Neutrophil pct 47.7 % [facility] Comment: Interpretive Data Percent cell count reference ranges are not reported, since discordance with absolute values may lead to misinterpretation of CBC data. Current Interpretive Data was last revised on 2017. Imm gran pct 0.5 % [facility] Comment: Interpretive Data Percent cell count reference ranges are not reported, since discordance with absolute values may lead to misinterpretation of CBC data. Current Interpretive Data was last revised on 2017. Lymphocyte pct 37.6 % [facility] Comment: Interpretive Data Percent cell count reference ranges are not reported, since discordance with absolute values may lead to misinterpretation of CBC data. Current Interpretive Data was last revised on 2017. Monocyte pct 8.1 % [facility] Comment: Interpretive Data Percent cell count reference ranges are not reported, since discordance with absolute values may lead to misinterpretation of CBC data. Current Interpretive Data was last revised on 2017. Eosinophil pct 5.3 % [facility] Comment: Interpretive Data Percent cell count reference ranges are not reported, since discordance with absolute values may lead to misinterpretation of CBC data. Current Interpretive Data was last revised on 2017. Basophil pct 0.8 % [facility] Comment: Interpretive Data Percent cell count reference ranges are not reported, since discordance with absolute values may lead to misinterpretation of CBC data. Current Interpretive Data was last revised on 2017. Blood 11/22/2024 5:16 AM CDT 11/22/2024 5:33 AM CDT Kelsie Padgett NP LAB BLOOD ORDERABLES Final Result [facility] [address] [address] Department [place] [address] * (ABNORMAL) CBC with auto differential (11/22/2024 5:16 AM CDT) WBC 3.94 3.80 - 9.90 K/cumm Hgb 12.6 11.9 - 15.5 g/dL [facility] Hct 40.5 35.6 - 45.5 % [facility] Plt 265 150 - 400 K/cumm [facility] MPV 10.1 9.1 - 12.3 fL [facility] RBC 4.86 3.90 - 5.20 M/cumm [facility] MCV 83.3 81.3 - 96.4 fL [facility] MCH 25.9(L) 27.1 - 33.3 pg [facility] MCHC 31.1(L) 32.3 - 35.7 g/dL [facility] RDW CV 18.6(H) 11.1 - 14.9 % [facility] RDW SD 55.6(H) 35.7 - 48.1 fL [facility] NRBC abs 0.00 0.00 - 0.01 K/cumm [facility] Blood 11/22/2024 5:16 AM CDT 11/22/2024 5:33 AM CDT Kelsie Padgett NP LAB [place]LOOD [place] [address] [address] Department [place] [address] * (ABNORMAL) Basic metabolic panel (11/22/2024 5:16 AM CDT) Sodium 138 135 - 145 mmol/L Potassium, pl 3.2(L) 3.3 - 4.9 mmol/L [facility] Chloride 98 97 - 110 mmol/L [facility] CO2 29 22 - 32 mmol/L [facility] Anion gap 11 2 - 15 mmol/L [facility] BUN 16 6 - 25 mg/dL [facility] Creatinine 0.89 0.60 - 1.10 mg/dL [facility] Glucose 214(H) 70 - 199 mg/dL [facility] Comment: Interpretive Data Fasting glucose >/= 126 mg/dl is diagnostic for diabetes. Fasting is defined as no caloric intake for at least 8 hours. Fasting glucose between 100 mg/dl to 125 mg/dl is diagnostic of prediabetes. In a patient with classic symptoms of hyperglycemia or hyperglycemic crisis, a random glucose >/= 200 mg/dl is diagnostic for diabetes. In the absence of unequivocal hyperglycemia, results should be confirmed by repeat testing. The classification and Diagnosis of Diabetes Diabetes Care 2021; 46: S19-S40. Current interpretive data was last revised 2022. Calcium 8.8 8.5 - 10.3 mg/dL [facility] Blood 11/22/2024 5:16 AM CDT 11/22/2024 5:33 AM CDT us Kelsie Padgett NP LAB BLOOD ORDERABLES Final Result Performing Organization Address [facility] Co de Phone Number CLEO VELEZ [address] [address] [facility] [place] [address] * (ABNORMAL) POCT glucose (11/21/2024 9:41 PM CDT) Glucose, POC 218(H) 70 - 199 mg/dL Blood 11/21/2024 9:41 PM CDT 11/21/2024 9:41 PM CDT us Benjamín Portillo MD LAB POCT ORDERABLES - DEVICE Fi nal Result Performing Organization Address [facility] de Phone Number [place]O [place] [address] [address] [facility] [place] [address] * (ABNORMAL) POCT glucose (11/21/2024 5:14 PM CDT) Glucose, POC 231(H) 70 - 199 mg/dL Blood 11/21/2024 5:14 PM CDT 11/21/2024 5:14 PM CDT us Benjamín Portillo MD LAB POCT ORDERABLES - DEVICE Fi nal Result Performing Organization Address [facility] de Phone Number CLEO [address] [address] Department [place] [address] * (ABNORMAL) POCT glucose (11/21/2024 12:48 PM CDT) Glucose, POC 204(H) 70 - 199 mg/dL Blood 11/21/2024 12:4 8 PM CDT 11/21/2024 12:48 PM CDT us Benjamín Portillo MD LAB POCT ORDERABLES - DEVICE Fi nal Result Performing Organization Address [facility]/State/ZIP Co de Phone Number [place] [address] [address] Department [place] [address] * (ABNORMAL) POCT glucose (11/21/2024 7:28 AM CDT) Glucose, POC 211(H) 70 - 199 mg/dL Blood 11/21/2024 7:28 AM CDT 11/21/2024 7:28 AM CDT us Benjamín Portillo MD LAB POCT ORDERABLES - DEVICE Fi nal Result Performing Organization Address [facility] Co de Phone Number CLEO VELEZ [address] [address] Department [facility] [place], [place] [id number] * eGFR (11/21/2024 6:32 AM CDT) eGFR 68 >=60 mL/min/1. 73 m2 Comment: Interpretive Data Reference Interval Normal >/= 90 mL/min/1.73m2 Mildly decreased* 60 - 89 mL/min/1.73m2 Mildly to moderately decreased 45 - 59 mL/min/1.73m2 Moderately to severely decreased 30 - 44 mL/min/1.73m2 Severely decreased 15 - 29 mL/min/1.73m2 Kidney Failure < 15 mL/min/1.73m2 *Relative to young adult level Estimated glomerular filtration rate is determined by the 2020 CKD-EPI equation recommended by the National Kidney Foundation (A Unifying Approach to GFR Estimation: Recommendations of the NKF-ASK Task Force on Reassessing the Inclusion of Race in Diagnosing Kidney Disease, JASN 2020). The CKD-EPI equation should not be used for patients with unstable renal function and has not been validated in children and those over 70. Current interpretive data was last reviewed 2020. Blood 11/21/2024 6:32 AM CDT 11/21/2024 6:45 AM CDT us Kelsie Padgett NP LAB BLOOD ORDERABLES Final Result Performing Organization Address City/[facility]/ZIP Co de Phone Number [place] [address] [address] Department [place] [address] * Differential, auto (11/21/2024 6:32 AM CDT) Neutrophil abs 2.17 1.50 - 6.50 K/cumm Imm gran abs 0.01 0.00 - 0.10 K/cumm [facility] Lymphocyte abs 1.35 0.80 - 3.30 K/cumm [facility] Monocyte abs 0.33 0.20 - 0.80 K/cumm [facility] Eosinophil abs 0.23 0.00 - 0.50 K/cumm [facility] Basophil abs 0.02 0.00 - 0.10 K/cumm [facility] Neutrophil pct 52.9 % [facility] Comment: Interpretive Data Percent cell count reference ranges are not reported, since discordance with absolute values may lead to misinterpretation of CBC data. Current Interpretive Data was last revised on 2017. Imm gran pct 0.2 % [facility] Comment: Interpretive Data Percent cell count reference ranges are not reported, since discordance with absolute values may lead to misinterpretation of CBC data. Current Interpretive Data was last revised on 2017. Lymphocyte pct 32.8 % [facility] Comment: Interpretive Data Percent cell count reference ranges are not reported, since discordance with absolute values may lead to misinterpretation of CBC data. Current Interpretive Data was last revised on 2017. Monocyte pct 8.0 % [facility] Comment: Interpretive Data Percent cell count reference ranges are not reported, since discordance with absolute values may lead to misinterpretation of CBC data. Current Interpretive Data was last revised on 2017. Eosinophil pct 5.6 % [facility] Comment: Interpretive Data Percent cell count reference ranges are not reported, since discordance with absolute values may lead to misinterpretation of CBC data. Current Interpretive Data was last revised on 2017. Basophil pct 0.5 % [facility] Comment: Interpretive Data Percent cell count reference ranges are not reported, since discordance with absolute values may lead to misinterpretation of CBC data. Current Interpretive Data was last revised on 2017. Blood 11/21/2024 6:32 AM CDT 11/21/2024 6:45 AM CDT Kelsie Padgett NP LAB BLOOD ORDERABLES Final Result [address] Department [place] [address] * (ABNORMAL) CBC with auto differential (11/21/2024 6:32 AM CDT) WBC 4.11 3.80 - 9.90 K/cumm Hgb 12.8 11.9 - 15.5 g/dL [facility] Hct 42.6 35.6 - 45.5 % [facility] Plt 261 150 - 400 K/cumm [facility] MPV 10.4 9.1 - 12.3 fL [facility] RBC 5.06 3.90 - 5.20 M/cumm [facility] MCV 84.2 81.3 - 96.4 fL [facility] MCH 25.3(L) 27.1 - 33.3 pg [facility] MCHC 30.0(L) 32.3 - 35.7 g/dL [facility] RDW CV 18.8(H) 11.1 - 14.9 % [facility] RDW SD 56.7(H) 35.7 - 48.1 fL [facility] NRBC abs 0.00 0.00 - 0.01 K/cumm [facility] Blood 11/21/2024 6:32 AM CDT 11/21/2024 6:45 AM CDT Kelsie Padgett NP LAB BLOOD ORDERABLES Final Result [address] Department [place] [address] * (ABNORMAL) Uric acid (11/21/2024 6:32 AM CDT) Uric acid 8.7(H) 2.5 - 7.0 mg/dL Blood 11/21/2024 6:32 AM CDT 11/21/2024 6:14 PM CDT Lesli Armando Cleary BREAKING MACHINE OPERATOR LAB BLOOD ORDERABLES Ysabel l Result [place] [address] [address] Department [place] [address] * (ABNORMAL) Basic metabolic panel (11/21/2024 6:32 AM CDT) Sodium 137 135 - 145 mmol/L Potassium, pl 3.6 3.3 - 4.9 mmol/L [facility] Chloride 95(L) 97 - 110 mmol/L [facility] CO2 29 22 - 32 mmol/L [facility] Anion gap 13 2 - 15 mmol/L [facility] BUN 16 6 - 25 mg/dL [facility] Creatinine 0.93 0.60 - 1.10 mg/dL [facility] Glucose 247(H) 70 - 199 mg/dL [facility] Comment: Interpretive Data Fasting glucose >/= 126 mg/dl is diagnostic for diabetes. Fasting is defined as no caloric intake for at least 8 hours. Fasting glucose between 100 mg/dl to 125 mg/dl is diagnostic of prediabetes. In a patient with classic symptoms of hyperglycemia or hyperglycemic crisis, a random glucose >/= 200 mg/dl is diagnostic for diabetes. In the absence of unequivocal hyperglycemia, results should be confirmed by repeat testing. The classification and Diagnosis of Diabetes Diabetes Care 2021; 46: S19-S40. Current interpretive data was last revised 2022. Calcium 9.1 8.5 - 10.3 mg/dL [facility] Blood 11/21/2024 6:32 AM CDT 11/21/2024 6:45 AM CDT Kelsie Padgett BREAKING MACHINE OPERATOR LAB BLOOD ORDERABLES Final Result [place] Department [place] [address] * (ABNORMAL) POCT glucose (11/20/2024 8:27 PM CDT) Glucose, POC 255(H) 70 - 199 mg/dL Blood 11/20/2024 8:27 PM CDT 11/20/2024 8:27 PM CDT Benjamín Portillo MD LAB POCT ORDERABLES - DEVICE Fi nal Result [facility] [address] [address] Department [place] [address] * [place] CRITICAL CARE ILL/INJURED PATIENT INIT 30-74 MIN (11/20/2024 6:08 PM CDT) Narrative Dandy Mcmahon MD - 11/20/2024 6:08 PM CDT Dandy Mcmahon MD 11/22/2024 10:50 AM Critical Care Performed by: Dandy Mcmahon MD Authorized by: Dandy Mcmahon MD Critical care provider statement: As reflected in the history, physical exam, orders, notes, and/or MDM, I was personally present while the patient was critically ill and provided critical care services for 35 minutes, excluding time involved in separately billable procedures. Critical care was necessary to treat or prevent imminent or life-threatening deterioration of the following condition(s): unstable vital signs Atrial fibrillation Critical care was time spent by me providing the following: initiation of rate controlling agent Patient was given metoprolol Dandy Mcmahon MD IN CLINIC/BEDSIDE ORDER JAYLENE Final Result * (ABNORMAL) Troponin T high-sensitivity 2-hour (11/20/2024 3:54 PM CDT) Trop T hs 15(H) <=14 ng/L Comment: Interpretive Data For further hscTnT resources including the diagnostic algorithm and an aid in interpretation, copy and paste this link: https://nrl.testcatalog.org/show/hsTrop Current Interpretive Data last revised 2019. Trop T hs delta 0 ng/L [facility] Trop T hs interp Insignificant [facility] Blood 11/20/2024 3:54 PM CDT 11/20/2024 4:14 PM CDT Mony Chacon MD LAB BLOOD ORDERABLES Fi nal Result Performing Organization Address City/[facility] Co de Phone Number [place]O [place] [address] [address] Department [place] [address] * ECG 12 lead (11/20/2024 3:02 PM CDT) 11/20/2024 3:02 PM CDT Narrative [facility] - 11/21/2024 7:47 AM CDT Vent Rate: 128 bpm RR Interval: 467 msec [place] Interval: 0 msec QRS Duration: 82 msec QT Interval: 262 msec QTC Interval: 338 msec P-R-T [place]: 0 - 251 - 27 degrees IMPRESSION: ATRIAL FIBRILLATION WITH RAPID VENTRICULAR RESPONSE INDETERMINATE AXIS LOW QRS VOLTAGE IN PRECORDIAL LEADS [QRS DEFLECTION < 1.0 mV IN CHEST LEADS] ANTEROSEPTAL MYOCARDIAL INFARCTION , OF INDETERMINATE AGE [40+ ms Q WAVE IN V1- V4] ABNORMAL ECG Electronically Signed By: Dr. Gallito Marin [facility] us Dandy Mcmahon MD ECG ORDERABLES Final R esult Performing Organization Address [facility] de Phone Number [facility] * XR Chest 1 Vw Portable (11/20/2024 2:42 PM CDT) Anatomical Region Laterality Modality Body, Chest N/A Computed Radiogr aphy 11/20/2024 3:05 PM CDT Impressions 11/20/2024 3:05 PM CDT No change since the last study. Electronically signed by: Ayan Holden M.D. Narrative 11/20/2024 3:05 PM CDT EXAMINATION: XR CHEST 1 VIEW HISTORY: The patient is a 64-year-old female who presents with a cough. Comparison made with the previous study dated 10/06/2024. TECHNIQUE: AP portable view of the chest. FINDINGS: There is volume loss in the left lung compared to the right. No focal infiltrate. Cardiovascular structures unremarkable. Procedure Note Ayan Holden MD - 11/20/2024 EXAMINATION: XR CHEST 1 VIEW HISTORY: The patient is a 64-year-old female who presents with a cough. Comparison made with the previous study dated 10/06/2024. TECHNIQUE: AP portable view of the chest. FINDINGS: There is volume loss in the left lung compared to the right. No focal infiltrate. Cardiovascular structures unremarkable. IMPRESSION: No change since the last study. Electronically signed by: Ayan Holden M.D. us Dandy Mcmahon MD IMG XR PROCEDURES Final Result * (ABNORMAL) Troponin T high-sensitivity series (baseline, 2hr, 4hr, 6hr) (11/20/2024 2:09 PM CDT) Trop T hs 15(H) <=14 ng/L Comment: Interpretive Data For further hscTnT resources including the diagnostic algorithm and an aid in interpretation, copy and paste this link: https://nrl.testcatalog.org/show/hsTrop Current Interpretive Data last revised 2019. Blood 11/20/2024 2:09 PM CDT 11/20/2024 2:15 PM CDT us Dandy Mcmahon MD LAB BLOOD ORDERABLES Fi nal Result [address]O [address] Department [place] [address] * eGFR (11/20/2024 2:09 PM CDT) eGFR 64 >=60 mL/min/1. 73 m2 Comment: Interpretive Data Reference Interval Normal >/= 90 mL/min/1.73m2 Mildly decreased* 60 - 89 mL/min/1.73m2 Mildly to moderately decreased 45 - 59 mL/min/1.73m2 Moderately to severely decreased 30 - 44 mL/min/1.73m2 Severely decreased 15 - 29 mL/min/1.73m2 Kidney Failure < 15 mL/min/1.73m2 *Relative to young adult level Estimated glomerular filtration rate is determined by the 2020 CKD-EPI equation recommended by the National Kidney Foundation (A Unifying Approach to GFR Estimation: Recommendations of the NKF-ASK Task Force on Reassessing the Inclusion of Race in Diagnosing Kidney Disease, JASN 2020). The CKD-EPI equation should not be used for patients with unstable renal function and has not been validated in children and those over 70. Current interpretive data was last reviewed 2020. Blood 11/20/2024 2:09 PM CDT 11/20/2024 2:15 PM CDT us Mony Chacon MD LAB BLOOD ORDERABLES nal Result [facility] [address] [address] Department [place] [address] * Differential, auto (11/20/2024 2:09 PM CDT) Neutrophil abs 3.24 1.50 - 6.50 K/cumm Imm gran abs 0.02 0.00 - 0.10 K/cumm [facility] Lymphocyte abs 1.92 0.80 - 3.30 K/cumm [facility] Monocyte abs 0.38 0.20 - 0.80 K/cumm [facility] Eosinophil abs 0.25 0.00 - 0.50 K/cumm [facility] Basophil abs 0.04 0.00 - 0.10 K/cumm [facility] Neutrophil pct 55.4 % [facility] Comment: Interpretive Data Percent cell count reference ranges are not reported, since discordance with absolute values may lead to misinterpretation of CBC data. Current Interpretive Data was last revised on 2017. Imm gran pct 0.3 % [facility] Comment: Interpretive Data Percent cell count reference ranges are not reported, since discordance with absolute values may lead to misinterpretation of CBC data. Current Interpretive Data was last revised on 2017. Lymphocyte pct 32.8 % [facility] Comment: Interpretive Data Percent cell count reference ranges are not reported, since discordance with absolute values may lead to misinterpretation of CBC data. Current Interpretive Data was last revised on 2017. Monocyte pct 6.5 % [facility] Comment: Interpretive Data Percent cell count reference ranges are not reported, since discordance with absolute values may lead to misinterpretation of CBC data. Current Interpretive Data was last revised on 2017. Eosinophil pct 4.3 % [facility] Comment: Interpretive Data Percent cell count reference ranges are not reported, since discordance with absolute values may lead to misinterpretation of CBC data. Current Interpretive Data was last revised on 2017. Basophil pct 0.7 % [facility] Comment: Interpretive Data Percent cell count reference ranges are not reported, since discordance with absolute values may lead to misinterpretation of CBC data. Current Interpretive Data was last revised on 2017. Blood 11/20/2024 2:09 PM CDT 11/20/2024 2:15 PM CDT us Dandy Mcmahon MD LAB BLOOD ORDERABLES Fi nal Result [place] [address] [address] Department [place] [address] * (ABNORMAL) Pro B-type natriuretic peptide (11/20/2024 2:09 PM CDT) NT-proBNP 832(H) <=300 pg/mL Comment: Interpretive Comments: A. Dyspnea in Acute Care Setting All Ages: < 300 pg/ml, acute heart failure unlikely. < 50 yrs: 300 - 450 pg/ml, further investigation warranted. > 450 pg/ml, acute heart failure likely. 50 - 74 yrs: 300 - 900 pg/ml, further investigation warranted. > 900 pg/ml, acute heart failure likely . > or = 75 yrs: 450 - 1800 pg/ml, further investigation warranted. > 1800 pg/ml, acute heart failure likely. B. Non-acute Setting < 75 yrs < 125 pg/ml, rules out heart failure. > or = 125 pg/ml, further investigation warranted. > or = 75 yrs < 450 pg/ml, rules out heart failure. > or = 450 pg/ml, further investigation warranted. - Knowledge of each individual patient's NT-proBNP range may be more useful than using similar cut-points for every patient. Please note that marked elevations in NT-proBNP levels may be observed in state other than Left Ventricular Congestive Failure, including: acute coronary syndromes, right heart strain/failure (including pulmonary embolism and cor pulmonale), critical illness, renal failure, as well as advanced age. - References: 1. Chele FRIED et.al. Eur Heart J. 2006:27:330-337. 2. Joaquin HAIR, Sandoval VARELA. J. AM Yury Cardiol: Cardiovasc Imag. 2009;2: 216- 225. Interpretive Data Last Revised Date: 2017. Blood 11/20/2024 2:09 PM CDT 11/20/2024 2:15 PM CDT us Dandy Mcmahon MD LAB BLOOD ORDERABLES Fi nal Result [facility] [address] [address] Department [place] [address] * (ABNORMAL) CBC with auto differential (11/20/2024 2:09 PM CDT) Pathologist [facility] WBC 5.85 3.80 - 9.90 K/cumm Hgb 13.8 11.9 - 15.5 g/dL [facility] Hct 46.4(H) 35.6 - 45.5 % [facility] Plt 315 150 - 400 K/cumm [facility] MPV 10.5 9.1 - 12.3 fL [facility] RBC 5.38(H) 3.90 - 5.20 M/cumm [facility] MCV 86.2 81.3 - 96.4 fL [facility] MCH 25.7(L) 27.1 - 33.3 pg [facility] MCHC 29.7(L) 32.3 - 35.7 g/dL [facility] RDW CV 19.3(H) 11.1 - 14.9 % [facility] RDW SD 59.2(H) 35.7 - 48.1 fL [facility] NRBC abs 0.00 0.00 - 0.01 K/cumm [facility] Blood 11/20/2024 2:09 PM CDT 11/20/2024 2:15 PM CDT Dandy Mcmahon MD LAB BLOOD ORDERABLES Fi nal Result [place] [address] Department [place] [address] * (ABNORMAL) Comprehensive metabolic panel (11/20/2024 2:09 PM CDT) Sodium 137 135 - 145 mmol/L Potassium, pl 4.3 3.3 - 4.9 mmol/L [facility] Chloride 98 97 - 110 mmol/L [facility] CO2 25 22 - 32 mmol/L [facility] Anion gap 14 2 - 15 mmol/L [facility] BUN 17 6 - 25 mg/dL [facility] Creatinine 0.98 0.60 - 1.10 mg/dL [facility] Glucose 238(H) 70 - 199 mg/dL [facility] Comment: Interpretive Data Fasting glucose >/= 126 mg/dl is diagnostic for diabetes. Fasting is defined as no caloric intake for at least 8 hours. Fasting glucose between 100 mg/dl to 125 mg/dl is diagnostic of prediabetes. In a patient with classic symptoms of hyperglycemia or hyperglycemic crisis, a random glucose >/= 200 mg/dl is diagnostic for diabetes. In the absence of unequivocal hyperglycemia, results should be confirmed by repeat testing. The classification and Diagnosis of Diabetes Diabetes Care 2021; 46: S19-S40. Current interpretive data was last revised 2022. Calcium 9.7 8.5 - 10.3 mg/dL [facility] Bilirubin, total 0.6 0.1 - 1.2 mg/dL [facility] Protein, pl 7.1 6.5 - 8.5 g/dL [facility] Albumin 3.7 3.5 - 5.0 g/dL [facility] Alk phos 145(H) 40 - 130 Units/L [facility] ALT 9 7 - 45 Units/L [facility] AST 21 10 - 45 Units/L [facility] Blood 11/20/2024 2:09 PM CDT 11/20/2024 2:15 PM CDT us Dandy Mcmahon MD LAB BLOOD ORDERABLES Fi nal Result Performing Organization Address City/[facility]/ZIP Co de Phone Number [facility]O [facility] [address] Department of Laboratories [place], [place] [id number] * CT Chest WO Contrast (11/05/2024 1:13 PM CDT) Anatomical Region Laterality Modality Body N/A Computed Tomogra phy 11/05/2024 2:24 PM CDT Impressions 11/05/2024 2:24 PM CDT 1. Left thoracic cavity volume loss with slight decrease in degree of opacification within the left lung, slight decrease in mucosal obstruction of bronchi supplying the inferior left lung, and similar small left pleural effusion. Continued follow-up is suggested. 2. Aortic and coronary artery atherosclerosis. 3. Cholecystectomy. 4. Dilated main pulmonary artery consistent with pulmonary arterial hypertension. 5. Similar subcentimeter mediastinal and paraesophageal lymph nodes. Electronically signed by: Kt Beltran II, D.O. Narrative 11/05/2024 2:24 PM CDT EXAMINATION: Computed tomography of the chest without intravenous contrast HISTORY: Nonspecific lung abnormality. TECHNIQUE: Transaxial computed tomographic images of the chest were obtained without intravenous contrast according to the standard protocol. COMPARISON: 09/24/2024. FINDINGS: There is persistent volume loss in the left thoracic cavity. No significant change in small left pleural effusion. Although patchy opacities persist in the left lung, degree of patchy opacifications appear decreased from most recent prior. Similar interstitial thickening is noted in the right upper lobe. Minimal mosaic attenuation in the right lung. No suspicious pulmonary nodules in the right lung. Thyroid is unremarkable. There is leftward mediastinal shift, unchanged. Aortic and coronary artery atherosclerosis. Mucosal thickening within the bronchi supplying the inferior portion of the left lung appears slightly improved/decreased from prior. Similar subcentimeter paraesophageal lymph nodes. Cholecystectomy. No acute osseous abnormality. No suspicious lytic or sclerotic lesions. Leadless pacer device is noted. Mild multilevel endplate changes in the visualized spine. Procedure Note Kt Beltran II, DO - 11/05/2024 EXAMINATION: Computed tomography of the chest without intravenous contrast HISTORY: Nonspecific lung abnormality. TECHNIQUE: Transaxial computed tomographic images of the chest were obtained without intravenous contrast according to the standard protocol. COMPARISON: 09/24/2024. FINDINGS: There is persistent volume loss in the left thoracic cavity. No significant change in small left pleural effusion. Although patchy opacities persist in the left lung, degree of patchy opacifications appear decreased from most recent prior. Similar interstitial thickening is noted in the right upper lobe. Minimal mosaic attenuation in the right lung. No suspicious pulmonary nodules in the right lung. Thyroid is unremarkable. There is leftward mediastinal shift, unchanged. Aortic and coronary artery atherosclerosis. Mucosal thickening within the bronchi supplying the inferior portion of the left lung appears slightly improved/decreased from prior. Similar subcentimeter paraesophageal lymph nodes. Cholecystectomy. No acute osseous abnormality. No suspicious lytic or sclerotic lesions. Leadless pacer device is noted. Mild multilevel endplate changes in the visualized spine. IMPRESSION: 1. Left thoracic cavity volume loss with slight decrease in degree of opacification within the left lung, slight decrease in mucosal obstruction of bronchi supplying the inferior left lung, and similar small left pleural effusion. Continued follow-up is suggested. 2. Aortic and coronary artery atherosclerosis. 3. Cholecystectomy. 4. Dilated main pulmonary artery consistent with pulmonary arterial hypertension. 5. Similar subcentimeter mediastinal and paraesophageal lymph nodes. Electronically signed by: Cisco Franklin IIOJonn Natali Zavala MD IMG CT PROCEDURES Final Result from Last 3 Months Insurance MEDICARE [facility] MEDICARE [place] MEDICARE ID[place] MEDICARE [facility] Address: [address] [address] [place] [address] Advance Directives For more information, please contact: [phone] Documents on File Type Date Recorded Patient Buildings And Grounds Director Expl anation ADVANCE DIRECTIVE 02/15/2024 6:30 PM Austin Mcmahon POWER OF SPECIAL EFFECTS DESIGNER-MEDICAL ADVANCE DIRECTIVE 02/15/2024 1:13 PM POWER OF SPECIAL EFFECTS DESIGNER-MEDICAL Advance Directives and Living Will 02/14/2024 3:04 PM Power of Music Producer 02/14/2024 3:04 PM ADVANCE DIRECTIVE 02/14/2024 4:56 PM Power of Music Producer-Medical * Full Code (Latest Code Status on File) Date Activated Date Inactivated Comments 12/18/2024 11:22 PM 12/21/2024 4:21 PM * LIMITED - No CPR Date Activated Date Inactivated Comments 12/03/2024 8:00 PM 12/08/2024 3:41 PM Question Answer Comments Provide aggressive medical m anagement before a full cardiopulmonary arrest occurs. Use antibiotics, IV Fluids, and medical treatment unless specifically selected below: No intubation * LIMITED - No CPR Date Activated Date Inactivated Comments 11/20/2024 10:39 PM 11/23/2024 5:32 PM Question Answer Comments Provide aggressive medical m anagement before a full cardiopulmonary arrest occurs. Use antibiotics, IV Fluids, and medical treatment unless specifically selected below: No intubationNo non-invasive ventilationNo cardioversionNo internal / external pacemaker * Full Code Date Activated Date Inactivated Comments 11/20/2024 7:20 PM 11/20/2024 10:39 PM * LIMITED - No CPR Date Activated Date Inactivated Comments 10/07/2024 5:24 AM 10/10/2024 6:52 PM Question Answer Comments Provide aggressive medical m anagement before a full cardiopulmonary arrest occurs. Use antibiotics, IV Fluids, and medical treatment unless specifically selected below: No intubation Healthcare Agents on File Name Relationship Healthcare Agent [facility] Communication [facility] Health Care Agent Gina Cl[facility] Health Care Agent Care Teams Stand Grinder Relationship Specialty Start Date End Date Robin Britton MD [address] [facility] [address] [place] [address] PCP - General Internal Medicine 09/22/22 [place] [address] [facility] [address] [place] [address] Consulting Physician Pulmonary Disease 10/17/22 Laurie Mazariegos NP [address] [facility] [address] [place] [address] Nurse Practitioner Hospice and Palliative Medicine 02/22/24 Rita Bang NP [address] [facility] [address] [facility] [address] [place] [address] Nurse Practitioner Hospice and Palliative Medicine 02/22/24 [place] [address] [facility] [address] [place] [address] Consulting Physician Cardiology 03/03/24 [place] [address] [facility] [address] [place] [address] Consulting Physician Endocrinology Diabetes & Metabolism 03/29/24 [place] [address] [address] [facility] [address] [place], [place] [id number] Consulting Physician Pulmonary Disease 03/29/24 [place] [address] [facility] [address], [place] [address] Consulting Physician Endocrinology Diabetes & Metabolism 05/20/24 Abdulaziz Perdue MD [address] [place] [address] Referring Physician Cardiology 05/20/24 Miscellaneous, Not In File 07/16/24 [place] [address] [facility] [address] [place] [address] Consulting Physician Pulmonary Disease 09/26/24
--- OUTSIDE RECORDS SUMMARY | 2025-02-04 11:50 | XMS_ITS | Clinical Summary ---
Author Organization [facility] Address [address] [place] [address] Phone Care Team Providers Care Automatic Blocker Name Role Phone Jessika Britton MD Primary Care Provider Allergies Active Allergy Reactions Criticality Noted Date Comments Codeine Hives High 08/12/2019 Codeine Hives High 10/16/2019 Penicillins Hives High 08/12/2019 Penicillins Hives High 10/16/2019 Warfarin Hives High 08/12/2019 Warfarin Hives High 10/16/2019 Medications rivaroxaban (Xarelto) 15 mg Tablet Take 15 mg by mouth 2 times daily with meals. Active metFORMIN (GLUCOPHAGE) 500 mg tablet Take 1,000 mg by mouth 2 times daily with meals. Active ezetimibe (ZETIA) 10 mg tablet Take 10 mg by mouth daily. Active atorvastatin (LIPITOR) 40 mg tablet Take 40 mg by mouth daily with supper. Active losartan-hydroC HLOROthiazide (HYZAAR) 100-12.5 mg tablet Take 1 Tablet by mouth daily. Active ALPRAZolam (XANAX) 0.25 mg tablet Take 0.25 mg by mouth 3 times daily as needed for Anxiety. Active metFORMIN (GLUCOPHAGE) 500 mg tablet 0 Active losartan (COZAAR) 50 mg tablet 0 Active insulin lispro (HumaLOG KwikPen Insulin) 100 unit/mL pen syringe Humalog KwikPen (U-100) Insulin 100 unit/mL subcutaneous Inject 10 units 3 times a day by subcutaneous route as directed for 90 days. Active Tresiba FlexTouch U-200 200 unit/mL (3 mL) pen syringe 0 Active DULoxetine (CYMBALTA) 60 mg Capsule, Delayed Release(E.C.) 0 Active Active Problems Problem Noted Date Diagnosed Date Non-small cell cancer of left lung 10/16/2019 Laryngeal cancer 10/16/2019 COPD (chronic obstructive pulmonary disease) 10/2019 DM (diabetes mellitus), type 2 10/16/2019 History of blood clots 10/16/2019 Hilar adenopathy Family History Medical History Relation Name Comments Cancer Mother Relation Name Status Comments Brother 1 Alive Brother 2 Father Mother Sister Alive Social History Tobacco Use Types Packs/Day Years Used Date Smoking Tobacco: Former Cigarettes 3 40 0 02/18/1979 - 02/18/2019 Smokeless Tobacco: Never Alcohol Use Standard Drinks/Week Comments Never 0 (1 standard drink = 0.6 oz pur e alcohol) Comments No Sex and Gender Information Value Date Recorded Sex Assigned at Not on file Legal Sex Female 11:26 AM [employer] Gender Identity Not on file Sexual Orientation Not on file Last Filed Vital Signs Vital Sign Reading Time Taken Comments Blood Pressure 130/72 10/16/2019 3:15 PM CDT Pulse 110 10/16/2019 3:15 PM CDT Temperature 36.8 C (98.3 F) 10/16/2019 3:15 PM CDT Respiratory Rate 24 08/12/2019 4:45 PM CDT Oxygen Saturation 97% 10/16/2019 3:15 PM CDT Inhaled Oxygen Concentration - - Weight 116.3 kg (256 lb 6.4 oz) 10/16/2019 3:15 PM CDT Height 172.7 cm (5' 8) 10/16/2019 3:15 PM CDT Body Mass Index 38.99 10/16/2019 3:15 PM CDT Plan of Treatment Health Maintenance Due Date Last Done Comments DIABETES ANNUAL FOOT EXAM 1976 DIABETES MICROALBUMIN ANNUAL SCREEN 1976 LDL CHOLESTEROL ANNUAL 1976 COLORECTAL SCREENING 09/07/2003 Colorectal Cancer Screening 09/07/2003 FIT-DNA Q 3 years 09/07/2003 FIT/FOBT Q 1 year 09/07/2003 Flex Sig/CT Colonography Q 5 years 09/07/2003 RSV VACCINE (60+ or ) (1 - Risk 50-74 years 1-dose series) 2008 ZOSTER VACCINE (1 of 2) 2008 DIABETES ANNUAL RETINAL EXAM 06/30/2016 07/01/2015 DTAP/TDAP/TD VACCINES (1 - Tdap) 03/24/2017 03/23/19 18 BREAST CANCER SCREENING 08/25/2021 08/26/19, 08/25/2020, 09/28/2017, Additional history exists DIABETES HBA1C Q 6 MONTHS 08/10/20242024, 09/02/2020, 03/31/2020, Additional history exists INFLUENZA VACCINE (#1) 2024 , 12/07/2023, 12/22/2022, Additional history exists COVID-19 Vaccine ( - 2024-2 6 season) 2024 11/26/2021, 04/30/2021, 04/27/2021, Additional history exists OSTEOPOROSIS SCREENING 08/25/2025 08/25/2020 PNEUMOCOCCAL VACCINE 50+ YEARS Completed 1 , 12/07/2023, 11/07/2015, Additional history exists Additional Health Concerns Infection Onset Date Last Indicated Positive AFB (Respiratory) 08/12/201908/11 Insurance MEDICAID [place] MEDICARE PART A AND B MEDICAID [place] MED[place]ARE PART A AND B Care Teams Automatic Blocker Relationship Specialty Start Date End Date Jessika Britton MD PCP - General Internal Medicine 08/12/19
--- OUTSIDE RECORDS SUMMARY | 2025-02-04 11:50 | XMS_ITS | Patient Health Record ---
Author Organization [facility] [employer] Address [address] [facility] [address] [place] [address] Support Name Relationship Address Phone LORNE GREGOROI Guarantor Unknown [phone] Reason For Referral No Information Medications Medication SIG (Take, Route, Frequency, Duration) Notes Start Date End Date Status Pilocarpine HCl 5 MG Tablet Oral 07/04/2019 Active INSULIN ASPART (U-100) 100 UNIT/ML (3 ML) SUBCUTANEOUS PEN *Reorder from [employer] for eRx and Interaction Alerts* 07/04/2019 Active Calcitriol 0.25 MCG Capsule Oral 07/04/2019 Active Tresiba FlexTouch 200 UNIT/ML Solution Pen-injector Subcutaneous 07/04/2019 Active DILTIAZEM 24HR ER 180 mg Capsule Extended Release 24 Hour Oral *Reorder from [employer] for eRx and Interaction Alerts* 07/04/2019 Active Escitalopram Oxalate 5 MG Tablet Oral 07/04/2019 Active Ergocalciferol 1.25 MG (35250 UT) Capsule Oral 07/04/2019 Active Nitrofurantoin Monohyd Macro 100 MG Capsule Oral 07/04/2019 Active Spiriva Respimat 2.5 MCG/ACT Aerosol Solution Inhalation 07/04/2019 Active HUMALOG KWIKPEN U-200 200 unit/mL (3 mL) Solution Pen-injector Subcutaneous *Reorder from [employer] for eRx and Interaction Alerts* 07/04/2019 Active Incruse Ellipta 62.5 MCG/INH Aerosol Powder Breath Activated Inhalation 07/04/2019 Active dilTIAZem HCl ER Coated Beads 360 MG Capsule Extended Release 24 Hour Oral 07/04/2019 Active Lexapro 5 MG Tablet Oral 07/04/2019 Active DULoxetine HCl 60 MG Capsule Delayed Release Particles Oral 07/04/2019 Active Potassium Chloride ER 10 MEQ Tablet Extended Release Oral 07/04/2019 Active Albuterol Sulfate (2.5 MG/3ML) 0.083% Nebulization Solution Inhalation 07/04/2019 Active Fluconazole 150 MG Tablet Oral 07/04/2019 Active Fluconazole 100 MG Tablet Oral 07/04/2019 Active tiZANidine HCl 4 MG Tablet Oral 07/04/2019 Active ULTRA-FINE SHORT PEN NEEDLE 31 gauge x 5/16 NEEDLE, DISPOSABLE MISCELLANEOUS *Reorder from [facility] for eRx and Interaction Alerts* 07/04/2019 Active metFORMIN HCl 500 MG Tablet Oral 07/04/2019 Active Esomeprazole Magnesium 20 mg Capsule Delayed Release Oral 07/04/2019 Active Tresiba FlexTouch 100 UNIT/ML Solution Pen-injector Subcutaneous 07/04/2019 Active NovoLOG FlexPen ReliOn 100 UNIT/ML Solution Pen-injector Subcutaneous *Reorder from [facility] for eRx and Interaction Alerts* 07/04/2019 Active traZODone HCl 50 MG Tablet Oral 07/04/2019 Active FLUTICASONE 250 MCG-SALMETEROL 50 MCG/DOSE BLISTR POWDR FOR INHALATION *Reorder from [facility] for eRx and Interaction Alerts* 07/04/2019 Active Nystatin 895864 UNIT/GM Cream External 07/04/2019 Active OneTouch Verio Strip In Vitro 07/04/2019 Active Ciprofloxacin HCl 250 MG Tablet Oral 07/04/2019 Active Clotrimazole 1% Cream External 07/04/2019 Active Ezetimibe 10 MG Tablet Oral 07/04/2019 Active Losartan Potassium 25 MG Tablet Oral 07/04/2019 Active Ciprofloxacin HCl 500 MG Tablet Oral 07/04/2019 Active Atorvastatin Calcium 40 MG Tablet Oral 07/04/2019 Active Mupirocin 2% Ointment External 07/04/2019 Active Vascepa 1 GM Capsule Oral 07/04/2019 Active BUDESONIDE-FORMOTEROL HFA 160 MCG-4.5 MCG/ACTUATION AEROSOL INHALER *Reorder from [facility] for eRx and Interaction Alerts* 07/04/2019 Active Azelastine HCl 0.05 % Solution Ophthalmic 07/04/2019 Active Xarelto 20 MG Tablet Oral 07/04/2019 Active Losartan Potassium 50 MG Tablet Oral 07/04/2019 Active Ozempic (1 MG/DOSE) 4 MG/3ML Solution Pen-injector Subcutaneous *Pick strength-form from [facility] for eRX* 07/04/2019 Active OneTouch Ultra Strip In Vitro 07/04/2019 Active Xarelto 15 MG Tablet Oral 07/04/2019 Active Ozempic (0.25 or 0.5 MG/DOSE) 2 MG/3ML Solution Pen-injector Subcutaneous *Pick strength-form from [facility] for eRX* 07/04/2019 Active BD ULTRA-FINE PEN NEEDLE 31 gauge x 3/16 NEEDLE, DISPOSABLE MISCELLANEOUS *Reorder from [facility] for eRx and Interaction Alerts* 07/04/2019 Active Breo Ellipta 100-25 MCG/INH Aerosol Powder Breath Activated Inhalation 07/04/2019 Active ALPRAZolam 1 MG Tablet Oral 07/04/2019 Active Fluticasone Propionate Diskus 50 MCG/ACT Aerosol Powder Breath Activated Inhalation *Reorder from [facility] for eRx and Interaction Alerts* 07/04/2019 Active Breztri Aerosphere 160-9-4.8 MCG/ACT Aerosol Inhalation *Reorder from [facility] for eRx and Interaction Alerts* 07/04/2019 Active DEXCOM G6 EACH MISCELLANEOUS *Reorder from [facility] for eRx and Interaction Alerts* 07/04/2019 Active ProAir HFA 108 (90 Base) MCG/ACT Aerosol Solution Inhalation 07/04/2019 Active ONETOUCH DELICA PLUS LANCET 30 GAUGE *Reorder from [facility] for eRx and Interaction Alerts* 07/04/2019 Active Immunizations Vaccine Route Administration Date Status Comme nts Influenza virus vaccine, quadrivalent (IIV4), split virus, 0.25 mL dosage Unknown 02/06/2019 Administered Moderna Covid-19 Vaccine 1st dose Unknown 04/05/2021 Ad ministered Pfizer Biontech Covid-19 Vac cine 2nd dose Unknown 04/29/2021 Administered Pneumococcal conjugate PCV 7 Unknown 02/06/2017 Adminis tered Social History Social History Additional Details Category Social Info Options Details Migrated Social History Migrated Social History Alcohol Intake: None 07/04/2019,Tobacco Years: Former smoker 07/04/2019,Smoking Status: 38 07/04/2019 Plan Of Treatment No Information Insurance Providers Payer Name Payer Address Payer Phone Subscriber Number Group Number Insured Name Patient Relationship to Insured Coverage Start Date Coverage End Date Medicare-I l Medicare [address] [place] [phone] [id number] DARLINE, LORNE Self - patient is the insured [facility] Prior To [address] [id number] LORNE GREGORIO Self - patient is the insured Medical (General) History Surgical History Surgery Date(Month/Year) Hysterectomy ([id number]) section ([id number])
== END 2025-02-04 11:01 | disposition home or self-care (01) ==
PROVIDERS: PCP Internal Medicine
DX: R91.8 Other nonspecific abnormal finding of lung field (principal); C34.92 Malignant neoplasm of unspecified part of left bronchus or lung
CPT/HCPCS: 78815; A9552